=== PATIENT | female | born 1955 | race Caucasian/White ===

== ENCOUNTER 2017-09-27 14:48 | Inpatient (IN) | payer MEDICARE, OTHER ==
[2017-09-27] MEDS ORDERED: Ondansetron 4 MG/2 ML SDV IV PRN (15:50)
[2017-09-27] MEDS ORDERED: Sodium Chloride 0.9% 10 ML Syringe FLUSH PRN (15:50)
[2017-09-27] MEDS ORDERED: Magnesium Hydroxide 400 MG/5 ML Susp 30 ML Cup PO PRN (15:50)
[2017-09-27] MEDS ORDERED: Polyethylene Glycol 3350 Powder 17 GM Packet PO PRN (15:50)
[2017-09-27] MEDS ORDERED: Albuterol 0.083% 2.5 MG/3 ML Neb Soln NEB PRN (15:50)
[2017-09-27] MEDS ORDERED: Acetaminophen 325 MG Tab PO PRN (15:50)
[2017-09-27] MEDS ORDERED: Non-Formulary Medication 1 Each (Simvastatin [Zocor] 40 MG) PO SCH (16:00)
--- NOTE | 2017-09-27 16:03 | PCM.HP ---
H&P History of Present Illness - General Date of Service: 09/27/17 Admit Problem/Dx: Admission Diagnosis/Problem Admission Diagnosis/Problem Pneumonia Source of Information: Patient, Old Records, Provider, RN Notes Reviewed History Limitations: Reports: No Limitations - History of Present Illness Initial Comments - Free Text/Narative: Ms. Amezcua is a 61-year-old woman who is admitted as a direct admission from the walk-in clinic, with acute hypoxic respiratory failure secondary to bilateral pneumonia. She has a known history of COPD as well as underlying diastolic congestive heart failure. For the past 4 days his had progressive increase in shortness of breath and presented to the walk-in clinic earlier today for evaluation. On initial assessment she was found to be hypoxic with oxygen saturation in the 70s on room air. Oxygenation improved after she was placed on supplemental oxygen 2 L/m via nasal cannula and her respiratory rate decreased to the low 20s. White blood cell count was found to be elevated and chest x-ray showed evidence of bilateral pulmonary infiltrates. Over the past 4 days in addition to the progressive shortness of breath she has had a cough productive of colored sputum with associated fever, chills, and sweats. Generalized Pain Score (Numeric/FACES): 0 - Related Data Allergies/Adverse Reactions: Allergies Allergy/AdvReac Type Severity Reaction Status Date / Time No Known Allergies Allergy Verified 01/18/16 16:53 Home Medications: Home Meds Levothyroxine 125 mcg PO DAILY 07/21/13 [History] Simvastatin [Zocor] 40 mg PO ACDINNER 07/21/13 [History] Albuterol [Proventil HFA] 1 puff INH Q4H PRN 12/15/15 [History] Albuterol/Ipratropium [DuoNeb 3.0-0.5 MG/3 ML] 3 ml IH Q4H PRN 12/15/15 [History ] Aspirin [Children's Aspirin] 81 mg PO DAILY 12/15/15 [History] FLUoxetine [PROzac] 20 mg PO DAILY 12/15/15 [History] Ferrous Sulfate 325 mg PO QAM 12/15/15 [History] Fluticasone/Salmeterol [Advair Diskus 100-50] 1 puff INH BID 12/15/15 [History] Furosemide [Lasix] 20 mg PO DAILY 12/15/15 [History] Metoprolol Succinate [Toprol XL] 25 mg PO DAILY 12/15/15 [History] Multivitamin with Minerals [Multiple Vitamin] 1 tab PO DAILY 12/15/15 [History] Nitroglycerin [Nitrostat] 0.4 mg SL ASDIRECTED 12/15/15 [History] Potassium Chloride 10 meq PO DAILY 12/15/15 [History] Ranitidine [Zantac] 150 mg PO DAILY 12/15/15 [History] Past Medical History HEENT History: Reports: Impaired Vision Cardiovascular History: Reports: Bypass, Heart Failure, High Cholesterol, Hypertension, Other (See Below) Other Cardiovascular History: hx of aortic valve replaced 2012,CHF Respiratory History: Reports: Asthma, COPD Gastrointestinal History: Reports: GERD Genitourinary History: Reports: Renal Calculus [employer] History: Reports: Musculoskeletal History: Reports: Arthritis Other Musculoskeletal History: arthritis Psychiatric History: Reports: Depression Endocrine/Metabolic History: Reports: Hypoparathyroidism, Obesity/BMI 30+ - Infectious Disease History Infectious Disease History: Reports: Chicken Pox, Measles - Past Surgical History Cardiovascular Surgical History: Reports: Coronary Artery Bypass, Valve Replacement Musculoskeletal Surgical History: Reports: Arthroscopic Knee Social & Family History - Family History Cardiac: Reports: CAD Respiratory: Reports: Asthma, COPD OBGYN: Reports: Musculoskeletal: Reports: Arthritis Neurological: Reports: Vertigo Psychiatric: Reports: OCD Oncologic: Reports: Brain, Lung - Caffeine Use Caffeine Use: Reports: Coffee H&P Review of Systems - Review of Systems: Review Of Systems: See Below General: Reports: Fever, Chills, Weakness, Diaphoresis, Decreased Appetite HEENT: Reports: No Symptoms Pulmonary: Reports: Shortness of Breath, Wheezing, Cough, Sputum. Denies: Pleuritic Chest Pain, Hemoptysis Cardiovascular: Reports: Dyspnea on Exertion. Denies: Chest Pain, Palpitations , Orthopnea, PND, Edema, Lightheadedness Gastrointestinal: Reports: No Symptoms Genitourinary: Reports: No Symptoms Musculoskeletal: Reports: No Symptoms Skin: Reports: No Symptoms Psychiatric: Reports: No Symptoms Neurological: Reports: No Symptoms Hematologic/Lymphatic: Reports: No Symptoms Immunologic: Reports: No Symptoms Exam - Exam Exam: See Below - Vital Signs Vital Signs: Last Vital Signs Temp 101.0 F H 09/27/17 15:32 Pulse 71 09/27/17 15:32 Resp 20 09/27/17 15:32 BP 104/67 09/27/17 15:32 Pulse Ox 93 L 09/27/17 15:32 Weight: 224 lb 8 oz - Exam Quality Assessment: Supplemental Oxygen, DVT Prophylaxis General: Alert, Oriented, Cooperative, Mild Distress HEENT: Conjunctiva Clear, Hearing Intact, Mucosa Moist & [place], Normal Nasal Septum, Posterior Pharynx Clear, Pupils Equal Neck: Supple, Trachea Midline, +2 Carotid Pulse wo Bruit Lungs: Decreased Breath Sounds, Wheezing. No: Crackles, Rales, Rhonchi, Rub Cardiovascular: Regular Rate, Regular Rhythm, Normal S1, Normal S2. No: Systolic Murmur, Diastolic Murmur GI/Abdominal Exam: Soft, Non-Tender, No Organomegaly, No Distention Back Exam: Normal Inspection, Full Range of Motion Extremities: Non-Tender, No Pedal Edema Skin: Warm, Dry Neurological: Cranial Nerves Intact, Strength Equal Bilateral, Normal Speech, Normal Tone, Sensation Intact. No: Focal Deficit Neuro Extensive - Mental Status: Alert, Oriented x3, Normal Mood/Affect, Normal Cognition, Memory Intact *Q Meaningful Use (ADM) - VTE Risk Assess *Q Each Risk Factor Represents 1 Point: Obesity ( BMI > 25 kg/m2), Congestive heart failure (CHF), Abnormal Pulmonary Function (COPD) Total Score 1 Point Risk Factors: 3 Each Risk Factor Represents 2 Points: Age 60 - 74 Years Total Score 2 Point Risk Factors: 2 Each Risk Factor Represents 3 Points: None Total Score 3 Point Risk Factors: 0 Each Risk Factor Represents 5 Points: None Total Score 5 Point Risk Factors: 0 Venous Thromboembolism Risk Factor Score *Q: 5 Problem List Initiated/Reviewed/Updated: Yes Orders Last 24hrs: Active Orders 24 hr Category Date Time Status Patient Status [ADT] Routine ADT 09/27/17 15:50 Active Ambulate [RC] QID Care 09/27/17 15:50 Active Height and Weight [RC] DAILY Care 09/27/17 15:50 Active Intake and Output [RC] QSHIFT Care 09/27/17 15:50 Active Notify Provider Vital Signs [RC] ASDIRECTED Care 09/27/17 15:50 Active Oxygen Therapy [RC] PRN Care 09/27/17 15:50 Active Pulse Oximetry [RC] CONTINUOUS Care 09/27/17 15:52 Active RT Aerosol Therapy [RC] ASDIRECTED Care 09/27/17 15:53 Active Up With Assistance [RC] ASDIRECTED Care 09/27/17 15:50 Active Up to Chair [RC] QID Care 09/27/17 15:50 Active VTE/DVT Education [RC] Per Unit Routine Care 09/27/17 15:50 Active Vital Signs [RC] Q4H Care 09/27/17 15:50 Active 2 Gram Sodium Diet [DIET] Diet 09/27/17 Lunch Active BASIC METABOLIC PANEL,BMP [CHEM] AM Lab 09/28/17 05:11 Ordered BLOOD GAS ARTERIAL [BG] Stat Lab 09/27/17 15:50 Ordered CBC WITH AUTO DIFF [HEME] AM Lab 09/28/17 05:11 Ordered CULTURE BLOOD [BC] Stat Lab 09/27/17 15:50 Ordered CULTURE BLOOD [BC] Stat Lab 09/27/17 15:50 Ordered CULTURE RESPIRATORY + SMEAR [RM] Stat Lab 09/27/17 15:50 Ordered MAGNESIUM [CHEM] AM Lab 09/28/17 05:11 Ordered Acetaminophen [Tylenol] Med 09/27/17 15:50 Ordered 650 mg PO Q4H PRN Albuterol [Proventil Neb Soln] Med 09/27/17 15:50 Ordered 2.5 mg NEB Q4H PRN Albuterol/Ipratropium [DuoNeb 3.0-0.5 MG/3 ML] Med 09/27/17 16:00 Ordered 3 ml NEB QID Aspirin Med 09/28/17 09:00 Ordered 81 mg PO DAILY Azithromycin [Zithromax] 500 mg Med 09/27/17 16:00 Ordered Sodium Chloride 0.9% [Normal Saline] 250 ml IV Q24H Docusate Sodium/Sennosides [Senna Plus] Med 09/27/17 15:50 Ordered 1 tab PO BID PRN Enoxaparin [Lovenox] Med 09/27/17 16:00 Ordered 40 mg SUBCUT DAILY FLUoxetine [PROzac] Med 09/27/17 16:00 Ordered 20 mg PO DAILY Ferrous Sulfate Med 09/28/17 09:00 Ordered 325 mg PO QAM Fluticasone/Salmeterol [Advair Diskus 100-50] Med 09/27/17 21:00 Ordered 1 puff INH BID Furosemide [Lasix] Med 09/28/17 09:00 Ordered 20 mg PO DAILY Levothyroxine [Levothyroxine] Med 09/28/17 09:00 Ordered 125 mcg PO DAILY Magnesium Hydroxide [Milk of Magnesia] Med 09/27/17 15:50 Ordered 30 ml PO Q12H PRN Metoprolol Succinate [Toprol XL] Med 09/28/17 09:00 Ordered 25 mg PO DAILY Ondansetron [Zofran] Med 09/27/17 15:50 Ordered 4 mg IV Q4H PRN Polyethylene Glycol 3350 [MiraLAX] Med 09/27/17 15:50 Ordered 17 gm PO DAILY PRN Potassium Chloride Med 09/28/17 09:00 Ordered 10 meq PO DAILY Ranitidine [Zantac] Med 09/28/17 09:00 Ordered 150 mg PO DAILY Simvastatin [Zocor] Med 09/27/17 16:00 Ordered 40 mg PO ACDINNER Sodium Chloride 0.9% [Saline Flush] Med 09/27/17 15:50 Ordered 10 ml FLUSH ASDIRECTED PRN cefTRIAXone [Rocephin] 1 gm Med 09/27/17 16:00 Ordered Sodium Chloride 0.9% [Normal Saline] 50 ml IV Q24H methylPREDNISolone Sod Succ [Solu-MEDROL] Med 09/27/17 16:00 Ordered 40 mg IVPUSH Q6H Blood Culture x2 Reflex Set [OM.PC] Stat Oth 09/27/17 15:54 Ordered Saline Lock Insert [OM.PC] Routine Oth 09/27/17 15:50 Ordered Resuscitation Status Routine Resus Stat 09/27/17 15:50 Ordered Medication Orders Acetaminophen (Tylenol) 650 mg PO Q4H PRN PRN Reason: Pain (Mild 1-3)/fever Albuterol (Proventil Neb Soln) 2.5 mg NEB Q4H PRN PRN Reason: Shortness Of Breath/wheezing Albuterol/Ipratropium (Duoneb 3.0-0.5 Mg/3 Ml) 3 ml NEB QID [facility] Aspirin (Aspirin) 81 mg PO DAILY [facility] Enoxaparin Sodium (Lovenox) 40 mg SUBCUT DAILY [facility] Ferrous Sulfate (Ferrous Sulfate) 325 mg PO QAM [facility] Fluoxetine HCl (Prozac) 20 mg PO DAILY [facility] Furosemide (Lasix) 20 mg PO DAILY [facility] Azithromycin 500 mg/ Sodium (Chloride) 250 mls @ 250 mls/hr IV Q24H [facility] Ceftriaxone Sodium 1 gm/ (Sodium Chloride) 50 mls @ 100 mls/hr IV Q24H [facility] Magnesium Hydroxide (Milk Of Magnesia) 30 ml PO Q12H PRN PRN Reason: Constipation Methylprednisolone Sodium Succinate (Solu-Medrol) 40 mg IVPUSH Q6H [facility] Metoprolol Succinate (Toprol Xl) 25 mg PO DAILY [facility] Non-Formulary Medication (Fluticasone/Salmeterol [Advair Diskus 100-50]) 1 puff INH BID [facility] Non-Formulary Medication (Levothyroxine [Levothyroxine]) 125 mcg PO DAILY [facility] Non-Formulary Medication (Simvastatin [Zocor]) 40 mg PO ACDINNER [facility] Ondansetron HCl (Zofran) 4 mg IV Q4H PRN PRN Reason: Nausea/Vomiting Polyethylene Glycol (Miralax) 17 gm PO DAILY PRN PRN Reason: Constipation Potassium Chloride (Potassium Chloride) 10 meq PO DAILY [facility] Ranitidine HCl (Zantac) 150 mg PO DAILY [facility] Senna/Docusate Sodium (Senna Plus) 1 tab PO BID PRN PRN Reason: Constipation Sodium Chloride (Saline Flush) 10 ml FLUSH ASDIRECTED PRN PRN Reason: Keep Vein Open Assessment/Plan Comment:: ASSESSMENT AND PLAN BILATERAL PNEUMONIA-no evidence of sepsis, but she has developed significant respiratory compromise. Symptoms of fever, chills, diaphoresis, shortness of breath, and productive cough over the past 4 days. Chest x-ray at the clinic shows evidence of bilateral pulmonary infiltrates, with elevated white blood cell count. -Blood and sputum cultures pending -Solu-Medrol 40 mg IV every 6 hours -Nebulized albuterol and duo nebs -Supplemental oxygen as needed -IV azithromycin and Rocephin, pending culture results HYPOXIC RESPIRATORY FAILURE-secondary to pneumonia and underlying COPD -Management as above COPD WITH EXACERBATION SECONDARY TO PNEUMONIA DIASTOLIC CONGESTIVE HEART FAILURE-seems to be well compensated at the present time and not a significant component of respiratory compromise -Continue outpatient management CHRONIC KIDNEY DISEASE STAGE III -Closely monitor urine output and renal function MAINTENANCE ISSUES -DVT prophylaxis; Lovenox 40 mg subcutaneous daily -GI prophylaxis; not indicated -Connell catheter; not indicated -Nutrition; 2 g sodium diet -Nicotine dependence; not required CODE STATUS-FULL CODE ADMISSION STATUS-patient will be admitted to inpatient status, expect at least a 2 night hospital stay for evaluation and management of problems as outlined above. At the time of this admission I do not reasonably expected evaluation and management of this problem will require more than a 96 hour hospital stay. DISPOSITION-anticipate discharge to home after the hospital stay. PRIMARY CARE PROVIDER-Martha Tracy
[2017-09-27] MEDS: cefTRIAXone 1 GM in Sodium Chloride 0.9% 50 ML IV SCH (17:18)
[2017-09-27] MEDS: Albuterol/Ipratropium 3.0-0.5 MG/3 ML Neb Soln NEB SCH ×2 (17:18→20:29)
[2017-09-27] MEDS: methylPREDNISolone Sodium Succinate 40 MG/1 ML SDV IVPUSH SCH ×2 (17:18→20:59)
[2017-09-27] MEDS: Azithromycin 500 MG in Sodium Chloride 0.9% 250 ML IV SCH (17:19)
[2017-09-27] MEDS: Simvastatin 20 MG Tab PO SCH (17:25)
[2017-09-27] MEDS: FLUoxetine 20 MG Cap PO SCH (17:25)
[2017-09-27] MEDS: Enoxaparin 40 MG/0.4 ML Syringe SUBCUT SCH (17:25)
[2017-09-27] MEDS: Aspirin 81 MG Tab.Chew PO SCH (17:33)
[2017-09-27] MEDS: Metoprolol Succinate 25 MG Tab.ER PO SCH (17:36)
[2017-09-27] MEDS: Formoterol/Mometasone 100-5 MCG 8.8 GM Inhaler IH SCH (20:26)
[2017-09-27] MEDS ORDERED: Non-Formulary Medication 1 Each (Fluticasone/Salmeterol [Advair Diskus 100-50] 1 PUFF) INH SCH (21:00)
[2017-09-28] MEDS: methylPREDNISolone Sodium Succinate 40 MG/1 ML SDV IVPUSH SCH ×4 (03:17→21:01)
[2017-09-28] MEDS: Albuterol/Ipratropium 3.0-0.5 MG/3 ML Neb Soln NEB SCH ×4 (07:34→21:01)
[2017-09-28] MEDS: Formoterol/Mometasone 100-5 MCG 8.8 GM Inhaler IH SCH ×2 (07:34→07:51)
[2017-09-28] MEDS: Levothyroxine 100 MCG, Levothyroxine 25 MCG PO SCH ×2 (08:02)
[2017-09-28] MEDS: Ferrous Sulfate 325 MG Tab PO SCH (08:05)
[2017-09-28] MEDS: Potassium Chloride 10 MEQ Cap.ER PO SCH (08:05)
[2017-09-28] MEDS: Furosemide 20 MG Tab PO SCH (08:05)
[2017-09-28] MEDS: FLUoxetine 20 MG Cap PO SCH (08:06)
[2017-09-28] MEDS ORDERED: Non-Formulary Medication 1 Each (Levothyroxine [Levothyroxine] 125 MCG) PO SCH (09:00)
--- NOTE | 2017-09-28 14:08 | PCM.PN ---
- General Info Date of Service: 09/28/17 Subjective Update: Ms. Amezcua has been stable since admission, continues to require supplemental oxygen and does desaturate with activity. Vital signs have been stable and she has remained afebrile. Functional Status: Reports: Tolerating Diet, Ambulating, Urinating - Review of Systems General: Reports: Weakness. Denies: Fever, Chills Pulmonary: Reports: Shortness of Breath, Cough, Sputum, Wheezing. Denies: Pleuritic Chest Pain, Hemoptysis Cardiovascular: Reports: Dyspnea on Exertion. Denies: Chest Pain, Palpitations , Orthopnea, PND, Edema Gastrointestinal: Reports: No Symptoms - Patient Data Vitals - Most Recent: Last Vital Signs Temp 96.4 F 09/28/17 11:04 Pulse 54 L 09/28/17 11:04 Resp 20 09/28/17 11:04 BP 105/50 L 09/28/17 11:04 Pulse Ox 93 L 09/28/17 13:26 Weight - Most Recent: 222 lb 15.996 oz I&O - Last 24 Hours: Intake & Output 09/27/17 09/28/17 09/28/17 22:59 06:59 14:59 Intake Total 300 660 Output Total 300 200 450 Balance 0 -200 210 Lab Results Last 24 Hours: Laboratory Results - last 24 hr 09/27/17 09/28/17 09/28/17 Range/Units 16:16 05:52 05:52 WBC 11.0 (4.5-11.0) K/uL RBC 4.21 (3.30-5.50) M/uL Hgb 11.9 L (12.0-15.0) g/dL Hct 37.7 (36.0-48.0) % MCV 90 (80-98) fL MCH 28 (27-31) pg MCHC 32 (32-36) % Plt Count 204 (150-400) K/uL Neut % (Auto) 89 H (36-66) % Lymph % (Auto) 9 L (24-44) % Lamb % (Auto) 2 (2-6) % Eos % (Auto) 0 L (2-4) % Baso % (Auto) 0 (0-1) % Puncture Site Lt radial ABG pH 7.486 H (7.350-7.450) ABG pCO2 32.4 L (35.0-42.0) mmHg ABG pO2 68.3 L (75.0-100.0) mmHg ABG HCO3 24.2 (22.0-26.0) mmol/L ABG Total CO2 21.6 (21.0-25.0) mmol/L ABG O2 Saturation 94.4 L (95.0-98.0) % ABG O2 Content 15.5 (15.0-23.0) %vol ABG Base Excess 1.6 mm/L ABG Hemoglobin 12.0 (12.0-16.0) g/dL ABG Oxyhemoglobin 92.3 % ABG Carboxyhemoglobin 1.7 H (0.0-1.6) % ABG Methemoglobin 0.5 % Jose Test Pass O2 Delivery Device Nasal cannula Oxygen Flow Rate 2 L Sodium 140 (140-148) mmol/L Potassium 4.3 (3.6-5.2) mmol/L Chloride 104 (100-108) mmol/L Carbon Dioxide 27 (21-32) mmol/L Anion Gap 8.8 (5.0-14.0) mmol/L BUN 17 (7-18) mg/dL Creatinine 1.0 (0.6-1.0) mg/dL Est Cr Clr Drug Dosing 48.25 mL/min Estimated GFR (MDRD) 56 L (>60) Glucose 161 H (74-106) mg/dL Calcium 9.1 (8.5-10.1) mg/dL Magnesium 2.4 (1.8-2.4) mg/dL Ivan Results Last 24 Hours: Microbiology 09/28/17 09:27 Gram Stain - Final Sputum - Expectorated Med Orders - Current: Current Medications Acetaminophen (Tylenol) 650 mg PO Q4H PRN PRN Reason: Pain (Mild 1-3)/fever Last Admin: 09/27/17 17:52 Dose: 650 mg Albuterol (Proventil Neb Soln) 2.5 mg NEB Q4H PRN PRN Reason: Shortness Of Breath/wheezing Albuterol/Ipratropium (Duoneb 3.0-0.5 Mg/3 Ml) 3 ml NEB QIDRT [facility] Last Admin: 09/28/17 10:36 Dose: 3 ml Aspirin (Aspirin) 81 mg PO DAILY@1700 [facility] Last Admin: 09/27/17 17:33 Dose: 81 mg Enoxaparin Sodium (Lovenox) 40 mg SUBCUT Q24H [facility] Last Admin: 09/27/17 17:25 Dose: 40 mg Ferrous Sulfate (Ferrous Sulfate) 325 mg PO QAM [facility] Last Admin: 09/28/17 08:05 Dose: 325 mg Fluoxetine HCl (Prozac) 20 mg PO DAILY [facility] Last Admin: 09/28/17 08:06 Dose: 20 mg Furosemide (Lasix) 20 mg PO DAILY [facility] Last Admin: 09/28/17 08:05 Dose: 20 mg Azithromycin 500 mg/ Sodium (Chloride) 250 mls @ 250 mls/hr IV Q24H [facility] Last Admin: 09/27/17 17:19 Dose: 250 mls/hr Ceftriaxone Sodium 1 gm/ (Sodium Chloride) 50 mls @ 100 mls/hr IV Q24H [facility] Last Admin: 09/27/17 17:18 Dose: 100 mls/hr Levothyroxine Sodium 100 mcg/ (Levothyroxine Sodium 25 mcg) 125 mcg PO ACBREAKFAST [facility] Last Admin: 09/28/17 08:02 Dose: 125 mcg Magnesium Hydroxide (Milk Of Magnesia) 30 ml PO Q12H PRN PRN Reason: Constipation Methylprednisolone Sodium Succinate (Solu-Medrol) 40 mg IVPUSH Q6H [facility] Last Admin: 09/28/17 09:15 Dose: 40 mg Metoprolol Succinate (Toprol Xl) 25 mg PO DAILY@1700 [facility] Last Admin: 09/27/17 17:36 Dose: 25 mg Fluticasone/Salmeterol (Advair) Inh 100-50Pom 1 puff INH BIDRT [facility] Ondansetron HCl (Zofran) 4 mg IV Q4H PRN PRN Reason: Nausea/Vomiting Polyethylene Glycol (Miralax) 17 gm PO DAILY PRN PRN Reason: Constipation Potassium Chloride (Potassium Chloride) 10 meq PO DAILY [facility] Last Admin: 09/28/17 08:05 Dose: 10 meq Ranitidine HCl (Zantac) 150 mg PO DAILY [facility] Last Admin: 09/28/17 08:05 Dose: 150 mg Senna/Docusate Sodium (Senna Plus) 1 tab PO BID PRN PRN Reason: Constipation Simvastatin (Zocor) 40 mg PO QPM [facility] Last Admin: 09/27/17 17:25 Dose: 40 mg Sodium Chloride (Saline Flush) 10 ml FLUSH ASDIRECTED PRN PRN Reason: Keep Vein Open Discontinued Medications Mometasone Furoate/Formoterol Fumar (Dulera 100-5 Mcg) 2 puff IH BIDRT [facility] Last Admin: 09/28/17 07:51 Dose: Not Given - Exam Quality Assessment: Supplemental Oxygen, DVT Prophylaxis General: Alert, Oriented, Cooperative, Mild Distress Lungs: Decreased Breath Sounds, Wheezing. No: Rales, Rhonchi Cardiovascular: Regular Rate, Regular Rhythm, No Murmurs GI/Abdominal Exam: Soft, Non-Tender, No Organomegaly, No Distention Extremities: Non-Tender, No Pedal Edema Skin: Warm, Dry - Problem List Review Problem List Initiated/Reviewed/Updated: Yes - My Orders Last 24 Hours: My Active Orders 09/27/17 15:50 Patient Status [ADT] Routine Ambulate [RC] QID Height and Weight [RC] DAILY Intake and Output [RC] QSHIFT Notify Provider Vital Signs [RC] ASDIRECTED Oxygen Therapy [RC] PRN Up With Assistance [RC] ASDIRECTED Up to Chair [RC] QID VTE/DVT Education [RC] Per Unit Routine Vital Signs [RC] Q4H Acetaminophen [Tylenol] 650 mg PO Q4H PRN Albuterol [Proventil Neb Soln] 2.5 mg NEB Q4H PRN Docusate Sodium/Sennosides [Senna Plus] 1 tab PO BID PRN Magnesium Hydroxide [Milk of Magnesia] 30 ml PO Q12H PRN Ondansetron [Zofran] 4 mg IV Q4H PRN Polyethylene Glycol 3350 [MiraLAX] 17 gm PO DAILY PRN Sodium Chloride 0.9% [Saline Flush] 10 ml FLUSH ASDIRECTED PRN Saline Lock Insert [OM.PC] Routine Resuscitation Status Routine 09/27/17 15:52 Pulse Oximetry [RC] CONTINUOUS 09/27/17 15:53 RT Aerosol Therapy [RC] ASDIRECTED 09/27/17 15:54 Blood Culture x2 Reflex Set [OM.PC] Stat 09/27/17 16:00 Albuterol/Ipratropium [DuoNeb 3.0-0.5 MG/3 ML] 3 ml NEB QIDRT methylPREDNISolone Sod Succ [Solu-MEDROL] 40 mg IVPUSH Q6H 09/27/17 16:10 CULTURE BLOOD [BC] Stat 09/27/17 16:16 CULTURE BLOOD [BC] Stat 09/27/17 16:30 Azithromycin [Zithromax] 500 mg Sodium Chloride 0.9% [Normal Saline] 250 ml IV Q24H 09/27/17 17:00 Aspirin 81 mg PO DAILY@1700 FLUoxetine [PROzac] 20 mg PO DAILY Metoprolol Succinate [Toprol XL] 25 mg PO DAILY@1700 Simvastatin [Zocor] 40 mg PO QPM cefTRIAXone [Rocephin] 1 gm Sodium Chloride 0.9% [Normal Saline] 50 ml IV Q24H 09/27/17 18:00 Enoxaparin [Lovenox] 40 mg SUBCUT Q24H 09/28/17 07:30 Levothyroxine [Synthroid] 125 mcg PO ACBREAKFAST 09/28/17 09:00 Ferrous Sulfate 325 mg PO QAM Furosemide [Lasix] 20 mg PO DAILY Potassium Chloride 10 meq PO DAILY Ranitidine [Zantac] 150 mg PO DAILY 09/28/17 09:27 CULTURE RESPIRATORY + SMEAR [RM] Stat 09/28/17 21:00 Fluticasone/Salmeterol [Advair Diskus 100-50] 1 puff INH BIDRT - Plan Plan:: ASSESSMENT AND PLAN BILATERAL PNEUMONIA-mild to moderate improvement since admission, continues to require supplemental oxygen -Blood and sputum cultures pending -Solu-Medrol 40 mg IV every 6 hours -Nebulized albuterol and duo nebs -Supplemental oxygen as needed -IV azithromycin and Rocephin, pending culture results HYPOXIC RESPIRATORY FAILURE-secondary to pneumonia and underlying COPD -Management as above COPD WITH EXACERBATION SECONDARY TO PNEUMONIA DIASTOLIC CONGESTIVE HEART FAILURE-seems to be well compensated at the present time and not a significant component of respiratory compromise -Continue outpatient management CHRONIC KIDNEY DISEASE STAGE III -Closely monitor urine output and renal function MAINTENANCE ISSUES -DVT prophylaxis; Lovenox 40 mg subcutaneous daily -GI prophylaxis; not indicated -Connell catheter; not indicated -Nutrition; 2 g sodium diet -Nicotine dependence; not required CODE STATUS-FULL CODE ADMISSION STATUS-patient will be admitted to inpatient status, expect at least a 2 night hospital stay for evaluation and management of problems as outlined above. At the time of this admission I do not reasonably expected evaluation and management of this problem will require more than a 96 hour hospital stay. DISPOSITION-anticipate discharge to home after the hospital stay. PRIMARY CARE PROVIDER-Martha Tracy
[2017-09-28] MEDS: Azithromycin 500 MG in Sodium Chloride 0.9% 250 ML IV SCH (16:06)
[2017-09-28] MEDS: cefTRIAXone 1 GM in Sodium Chloride 0.9% 50 ML IV SCH (17:17)
[2017-09-28] MEDS: Aspirin 81 MG Tab.Chew PO SCH (17:20)
[2017-09-28] MEDS: Simvastatin 20 MG Tab PO SCH (17:20)
[2017-09-28] MEDS: Metoprolol Succinate 25 MG Tab.ER PO SCH (17:42)
[2017-09-28] MEDS: Enoxaparin 40 MG/0.4 ML Syringe SUBCUT SCH (17:43)
[2017-09-28] MEDS: FLUTICASONE INH SCH (21:01)
[2017-09-28] MEDS: SALMETEROL INH SCH (21:01)
[2017-09-29] MEDS: methylPREDNISolone Sodium Succinate 40 MG/1 ML SDV IVPUSH SCH ×2 (03:19→09:50)
[2017-09-29] MEDS: Albuterol/Ipratropium 3.0-0.5 MG/3 ML Neb Soln NEB SCH ×4 (07:18→20:16)
[2017-09-29] MEDS: FLUTICASONE INH SCH ×2 (07:19→20:16)
[2017-09-29] MEDS: SALMETEROL INH SCH ×2 (07:19→20:16)
[2017-09-29] MEDS: Levothyroxine 100 MCG, Levothyroxine 25 MCG PO SCH ×2 (08:01)
[2017-09-29] MEDS: Potassium Chloride 10 MEQ Cap.ER PO SCH (08:11)
[2017-09-29] MEDS: FLUoxetine 20 MG Cap PO SCH (08:11)
[2017-09-29] MEDS: Ferrous Sulfate 325 MG Tab PO SCH (08:11)
[2017-09-29] MEDS: Furosemide 20 MG Tab PO SCH (08:11)
--- NOTE | 2017-09-29 14:46 | PCM.PN ---
- General Info Date of Service: 09/29/17 Subjective Update: Ms. Amzecua has been stable over the past 24 hours and has noted further improvement in shortness of breath. This morning she has adequate oxygenation on room air, vital signs have been stable and she has remained afebrile. - Review of Systems General: Reports: Weakness. Denies: Fever, Chills Pulmonary: Reports: Shortness of Breath, Cough. Denies: Pleuritic Chest Pain, Sputum, Hemoptysis, Wheezing Cardiovascular: Reports: Dyspnea on Exertion. Denies: Chest Pain, Palpitations , Orthopnea, PND, Edema Gastrointestinal: Reports: No Symptoms - Patient Data Vitals - Most Recent: Last Vital Signs Temp 97.1 F 09/29/17 11:17 Pulse 73 09/29/17 14:27 Resp 16 09/29/17 11:17 BP 107/43 L 09/29/17 11:17 Pulse Ox 93 L 09/29/17 14:27 Weight - Most Recent: 224 lb 9.6 oz I&O - Last 24 Hours: Intake & Output 09/28/17 09/29/17 09/29/17 22:59 06:59 14:59 Intake Total 900 940 Output Total 200 500 Balance 700 440 Ivan Results Last 24 Hours: Microbiology 09/28/17 09:27 Gram Stain - Final Sputum - Expectorated Respiratory Culture - Preliminary 09/27/17 16:10 Aerobic Blood Culture - Preliminary Blood - Arm, Left NO GROWTH AFTER 1 DAY Anaerobic Blood Culture - Preliminary NO GROWTH AFTER 1 DAY 09/27/17 16:16 Aerobic Blood Culture - Preliminary Blood - Artery NO GROWTH AFTER 1 DAY Anaerobic Blood Culture - Preliminary NO GROWTH AFTER 1 DAY Med Orders - Current: Current Medications Acetaminophen (Tylenol) 650 mg PO Q4H PRN PRN Reason: Pain (Mild 1-3)/fever Last Admin: 09/27/17 17:52 Dose: 650 mg Albuterol (Proventil Neb Soln) 2.5 mg NEB Q4H PRN PRN Reason: Shortness Of Breath/wheezing Albuterol/Ipratropium (Duoneb 3.0-0.5 Mg/3 Ml) 3 ml NEB QIDRT [facility] Last Admin: 09/29/17 14:27 Dose: 3 ml Aspirin (Aspirin) 81 mg PO DAILY@1700 [facility] Last Admin: 09/28/17 17:20 Dose: 81 mg Enoxaparin Sodium (Lovenox) 40 mg SUBCUT Q24H [facility] Last Admin: 09/28/17 17:43 Dose: 40 mg Ferrous Sulfate (Ferrous Sulfate) 325 mg PO QAM [facility] Last Admin: 09/29/17 08:11 Dose: 325 mg Fluoxetine HCl (Prozac) 20 mg PO DAILY [facility] Last Admin: 09/29/17 08:11 Dose: 20 mg Furosemide (Lasix) 20 mg PO DAILY [facility] Last Admin: 09/29/17 08:11 Dose: 20 mg Azithromycin 500 mg/ Sodium (Chloride) 250 mls @ 250 mls/hr IV Q24H [facility] Last Admin: 09/28/17 16:06 Dose: 250 mls/hr Ceftriaxone Sodium 1 gm/ (Sodium Chloride) 50 mls @ 100 mls/hr IV Q24H [facility] Last Admin: 09/28/17 17:17 Dose: 100 mls/hr Levothyroxine Sodium 100 mcg/ (Levothyroxine Sodium 25 mcg) 125 mcg PO ACBREAKFAST [facility] Last Admin: 09/29/17 08:01 Dose: 125 mcg Magnesium Hydroxide (Milk Of Magnesia) 30 ml PO Q12H PRN PRN Reason: Constipation Methylprednisolone Sodium Succinate (Solu-Medrol) 40 mg IVPUSH Q6H [facility] Last Admin: 09/29/17 09:50 Dose: 40 mg Metoprolol Succinate (Toprol Xl) 25 mg PO DAILY@1700 [facility] Last Admin: 09/28/17 17:42 Dose: 25 mg Fluticasone/Salmeterol (Advair) Inh 100-50Pom 1 puff INH BIDRT [facility] Last Admin: 09/29/17 07:19 Dose: 1 puff Ondansetron HCl (Zofran) 4 mg IV Q4H PRN PRN Reason: Nausea/Vomiting Polyethylene Glycol (Miralax) 17 gm PO DAILY PRN PRN Reason: Constipation Potassium Chloride (Potassium Chloride) 10 meq PO DAILY [facility] Last Admin: 09/29/17 08:11 Dose: 10 meq Ranitidine HCl (Zantac) 150 mg PO DAILY [facility] Last Admin: 09/29/17 08:11 Dose: 150 mg Senna/Docusate Sodium (Senna Plus) 1 tab PO BID PRN PRN Reason: Constipation Simvastatin (Zocor) 40 mg PO QPM [facility] Last Admin: 09/28/17 17:20 Dose: 40 mg Sodium Chloride (Saline Flush) 10 ml FLUSH ASDIRECTED PRN PRN Reason: Keep Vein Open Discontinued Medications Mometasone Furoate/Formoterol Fumar (Dulera 100-5 Mcg) 2 puff IH BIDRT [facility] Last Admin: 09/28/17 07:51 Dose: Not Given - Exam Quality Assessment: DVT Prophylaxis. No: Supplemental Oxygen General: Alert, Oriented, Cooperative, No Acute Distress Lungs: Decreased Breath Sounds. No: Rales, Rhonchi, Wheezing Cardiovascular: Regular Rate, Regular Rhythm, No Murmurs GI/Abdominal Exam: Soft, Non-Tender, No Organomegaly, No Distention Extremities: Non-Tender, No Pedal Edema Skin: Warm, Dry, Intact - Problem List Review Problem List Initiated/Reviewed/Updated: Yes - My Orders Last 24 Hours: My Active Orders 09/28/17 21:00 Fluticasone/Salmeterol [Advair Diskus 100-50] 1 puff INH BIDRT - Plan Plan:: ASSESSMENT AND PLAN BILATERAL PNEUMONIA-mild to moderate improvement since admission, no longer requiring supplemental oxygen -Blood and sputum cultures pending -Discontinue Solu-Medrol 40 mg IV every 6 hours -Prednisone 40 mg by mouth daily -Nebulized albuterol and duo nebs -Supplemental oxygen as needed -IV azithromycin and Rocephin, pending culture results HYPOXIC RESPIRATORY FAILURE-secondary to pneumonia and underlying COPD -Management as above COPD WITH EXACERBATION SECONDARY TO PNEUMONIA DIASTOLIC CONGESTIVE HEART FAILURE-seems to be well compensated at the present time and not a significant component of respiratory compromise -Continue outpatient management CHRONIC KIDNEY DISEASE STAGE III -Closely monitor urine output and renal function MAINTENANCE ISSUES -DVT prophylaxis; Lovenox 40 mg subcutaneous daily -GI prophylaxis; not indicated -Connell catheter; not indicated -Nutrition; 2 g sodium diet -Nicotine dependence; not required CODE STATUS-FULL CODE ADMISSION STATUS-patient will be admitted to inpatient status, expect at least a 2 night hospital stay for evaluation and management of problems as outlined above. At the time of this admission I do not reasonably expected evaluation and management of this problem will require more than a 96 hour hospital stay. DISPOSITION-anticipate discharge to home after the hospital stay. PRIMARY CARE PROVIDER-Martha Tracy
[2017-09-29] MEDS: Azithromycin 500 MG in Sodium Chloride 0.9% 250 ML IV SCH (16:24)
[2017-09-29] MEDS: Aspirin 81 MG Tab.Chew PO SCH (16:33)
[2017-09-29] MEDS: Simvastatin 20 MG Tab PO SCH (16:33)
[2017-09-29] MEDS: Metoprolol Succinate 25 MG Tab.ER PO SCH (16:36)
[2017-09-29] MEDS: cefTRIAXone 1 GM in Sodium Chloride 0.9% 50 ML IV SCH (18:01)
[2017-09-29] MEDS: Enoxaparin 40 MG/0.4 ML Syringe SUBCUT SCH (18:02)
[2017-09-30] MEDS: Albuterol/Ipratropium 3.0-0.5 MG/3 ML Neb Soln NEB SCH ×2 (07:21→10:35)
[2017-09-30] MEDS: FLUTICASONE INH SCH (07:23)
[2017-09-30] MEDS: SALMETEROL INH SCH (07:23)
[2017-09-30] MEDS: Levothyroxine 100 MCG, Levothyroxine 25 MCG PO SCH ×2 (07:54)
[2017-09-30] MEDS ORDERED: predniSONE 20 MG Tab PO SCH (08:00)
[2017-09-30] MEDS: FLUoxetine 20 MG Cap PO SCH (08:22)
[2017-09-30] MEDS: Ferrous Sulfate 325 MG Tab PO SCH (08:22)
[2017-09-30] MEDS: Potassium Chloride 10 MEQ Cap.ER PO SCH (08:22)
[2017-09-30] MEDS: Furosemide 20 MG Tab PO SCH (08:22)
--- NOTE | 2017-09-30 12:40 | PCM.DCSUM1 ---
Discharge Summary - Hospital Course Brief History: Ms. Amezcua is a 61-year-old woman who is admitted as a direct admission from the clinic with hypoxia and shortness of breath secondary to bilateral pneumonia and COPD exacerbation. Diagnosis: Stroke: No - Discharge Data Discharge Date: 09/30/17 Discharge Disposition: Home, Self-Care 01 Condition: Fair - Discharge Diagnosis/Problem(s) (1) Hypoxia SNOMED Code(s): 783761638 ICD Code: R09.02 - HYPOXEMIA Status: Acute Current Visit: Yes (2) Bilateral pneumonia SNOMED Code(s): 871301660 ICD Code: J18.9 - PNEUMONIA, UNSPECIFIED ORGANISM Status: Acute Current Visit: No Qualifiers: Pneumonia type: due to unspecified organism Lung location: unspecified part of lung Qualified Code(s): J18.9 - Pneumonia, unspecified organism (3) COPD (chronic obstructive pulmonary disease) SNOMED Code(s): 17472385 ICD Code: J44.9 - CHRONIC OBSTRUCTIVE PULMONARY DISEASE, UNSPECIFIED Status : Chronic Current Visit: No - Patient Summary/Data Hospital Course: Ms. Amezcua is a 61-year-old woman who was admitted as a direct admission from the walk-in clinic, with acute hypoxic respiratory failure secondary to bilateral pneumonia. She has a known history of COPD as well as underlying diastolic congestive heart failure. For the past 4 days has had progressive increase in shortness of breath and presented to the walk-in clinic earlier on the day of admission for evaluation. On initial assessment she was found to be hypoxic with oxygen saturation in the 70s on room air. Oxygenation improved after she was placed on supplemental oxygen 2 L/m via nasal cannula and her respiratory rate decreased to the low 20s. White blood cell count was found to be elevated and chest x-ray showed evidence of bilateral pulmonary infiltrates. Over the past 4 days in addition to the progressive shortness of breath she has had a cough productive of colored sputum with associated fever, chills, and sweats. On admission there was no evidence of sepsis, she was continued on supplemental oxygen at 2 L/m which maintain adequate oxygenation. She was given IV fluids for hydration as well as IV antibiotic therapy with azithromycin and Rocephin. Blood and sputum cultures were obtained prior to initiation of antibiotic therapy. These cultures remained negative throughout her hospital stay. By the second hospital day oxygenation had improved and she had adequate saturations on room air. She initially did have temperature elevation but this resolved after admission with no recurrent fever spikes. She was transitioned to oral prednisone prior to discharge and will remain on oral prednisone 40 mg daily for an additional 3 days. At the time of discharge will be transitioned to oral antibiotic therapy with Omnicef 300 mg twice daily. By the time of discharge she completed a course of azithromycin. Activity will be as tolerated and she will resume her usual diet. Follow-up appointment will be scheduled with her primary care provider Martha Tracy within one week and a chest x-ray will be obtained at the time of follow-up appointment. - Patient Instructions Diet: Usual Diet as Tolerated Activity: As Tolerated Other/Special Instructions: Please schedule follow-up appointment with Martha Tracy within one week. Chest x-ray should be obtained at the time of follow-up appointment. - Discharge Plan Prescriptions/Med Rec: Cefdinir [Omnicef] 300 mg PO BID #6 cap predniSONE 40 mg PO WITHBREAKFAST #6 tablet Simvastatin [Zocor] 40 mg PO ACDINNER #30 tablet Home Medications: Home Meds Levothyroxine 125 mcg PO DAILY 07/21/13 [History] Albuterol [Proventil HFA] 1 puff INH Q4H PRN 12/15/15 [History] Albuterol/Ipratropium [DuoNeb 3.0-0.5 MG/3 ML] 3 ml IH Q4H PRN 12/15/15 [History ] Aspirin [Children's Aspirin] 81 mg PO DAILY 12/15/15 [History] FLUoxetine [PROzac] 20 mg PO DAILY 12/15/15 [History] Ferrous Sulfate 325 mg PO QAM 12/15/15 [History] Fluticasone/Salmeterol [Advair Diskus 100-50] 1 puff INH BID 12/15/15 [History] Furosemide [Lasix] 20 mg PO DAILY 12/15/15 [History] Metoprolol Succinate [Toprol XL] 25 mg PO DAILY 12/15/15 [History] Multivitamin with Minerals [Multiple Vitamin] 1 tab PO DAILY 12/15/15 [History] Nitroglycerin [Nitrostat] 0.4 mg SL ASDIRECTED 12/15/15 [History] Potassium Chloride 10 meq PO DAILY 12/15/15 [History] Ranitidine [Zantac] 150 mg PO DAILY 12/15/15 [History] Cefdinir [Omnicef] 300 mg PO BID #6 cap 09/30/17 [Rx] Simvastatin [Zocor] 40 mg PO ACDINNER #30 tablet 09/30/17 [Rx] predniSONE 40 mg PO WITHBREAKFAST #6 tablet 09/30/17 [Rx] - Discharge Summary/Plan Comment DC Time >30 min.: No - Patient Data Vitals - Most Recent: Last Vital Signs Temp 96.8 F 09/30/17 07:39 Pulse 60 09/30/17 10:35 Resp 20 09/30/17 07:39 BP 114/56 L 09/30/17 07:39 Pulse Ox 93 L 09/30/17 07:39 Weight - Most Recent: 226 lb 12.8 oz I&O - Last 24 hours: Intake & Output 09/29/17 09/30/17 09/30/17 22:59 06:59 14:59 Intake Total 1110 350 300 Output Total 350 200 Balance 760 350 100 MARIANA Results - Last 24 hrs: Microbiology 09/28/17 09:27 Gram Stain - Final Sputum - Expectorated Respiratory Culture - Final Yeast Isolated 09/27/17 16:10 Aerobic Blood Culture - Preliminary Blood - Arm, Left NO GROWTH AFTER 2 DAYS Anaerobic Blood Culture - Preliminary NO GROWTH AFTER 2 DAYS 09/27/17 16:16 Aerobic Blood Culture - Preliminary Blood - Artery NO GROWTH AFTER 2 DAYS Anaerobic Blood Culture - Preliminary NO GROWTH AFTER 2 DAYS Med Orders - Current: Current Medications Acetaminophen (Tylenol) 650 mg PO Q4H PRN PRN Reason: Pain (Mild 1-3)/fever Last Admin: 09/27/17 17:52 Dose: 650 mg Albuterol (Proventil Neb Soln) 2.5 mg NEB Q4H PRN PRN Reason: Shortness Of Breath/wheezing Albuterol/Ipratropium (Duoneb 3.0-0.5 Mg/3 Ml) 3 ml NEB QIDRT [facility] Last Admin: 09/30/17 10:35 Dose: 3 ml Aspirin (Aspirin) 81 mg PO DAILY@1700 [facility] Last Admin: 09/29/17 16:33 Dose: 81 mg Enoxaparin Sodium (Lovenox) 40 mg SUBCUT Q24H [facility] Last Admin: 09/29/17 18:02 Dose: 40 mg Ferrous Sulfate (Ferrous Sulfate) 325 mg PO QAM [facility] Last Admin: 09/30/17 08:22 Dose: 325 mg Fluoxetine HCl (Prozac) 20 mg PO DAILY [facility] Last Admin: 09/30/17 08:22 Dose: 20 mg Furosemide (Lasix) 20 mg PO DAILY [facility] Last Admin: 09/30/17 08:22 Dose: 20 mg Azithromycin 500 mg/ Sodium (Chloride) 250 mls @ 250 mls/hr IV Q24H [facility] Last Admin: 09/29/17 16:24 Dose: 250 mls/hr Ceftriaxone Sodium 1 gm/ (Sodium Chloride) 50 mls @ 100 mls/hr IV Q24H [facility] Last Admin: 09/29/17 18:01 Dose: 100 mls/hr Levothyroxine Sodium 100 mcg/ (Levothyroxine Sodium 25 mcg) 125 mcg PO ACBREAKFAST [facility] Last Admin: 09/30/17 07:54 Dose: 125 mcg Magnesium Hydroxide (Milk Of Magnesia) 30 ml PO Q12H PRN PRN Reason: Constipation Metoprolol Succinate (Toprol Xl) 25 mg PO DAILY@1700 [facility] Last Admin: 09/29/17 16:36 Dose: 25 mg Fluticasone/Salmeterol (Advair) Inh 100-50Pom 1 puff INH BIDRT [facility] Last Admin: 09/30/17 07:23 Dose: 1 puff Ondansetron HCl (Zofran) 4 mg IV Q4H PRN PRN Reason: Nausea/Vomiting Polyethylene Glycol (Miralax) 17 gm PO DAILY PRN PRN Reason: Constipation Potassium Chloride (Potassium Chloride) 10 meq PO DAILY [facility] Last Admin: 09/30/17 08:22 Dose: 10 meq Prednisone (Prednisone) 40 mg PO WITHBREAKFAST [facility] Last Admin: 09/30/17 07:54 Dose: 40 mg Ranitidine HCl (Zantac) 150 mg PO DAILY [facility] Last Admin: 09/30/17 08:22 Dose: 150 mg Senna/Docusate Sodium (Senna Plus) 1 tab PO BID PRN PRN Reason: Constipation Simvastatin (Zocor) 40 mg PO QPM [facility] Last Admin: 09/29/17 16:33 Dose: 40 mg Sodium Chloride (Saline Flush) 10 ml FLUSH ASDIRECTED PRN PRN Reason: Keep Vein Open Discontinued Medications Methylprednisolone Sodium Succinate (Solu-Medrol) 40 mg IVPUSH Q6H [facility] Last Admin: 09/29/17 09:50 Dose: 40 mg Mometasone Furoate/Formoterol Fumar (Dulera 100-5 Mcg) 2 puff IH BIDRT [facility] Last Admin: 09/28/17 07:51 Dose: Not Given - Exam General: Reports: Alert, Oriented, Cooperative, No Acute Distress Lungs: Reports: Clear to Auscultation, Normal Respiratory Effort Cardiovascular: Reports: Regular Rate, Regular Rhythm, No Murmurs GI/Abdominal Exam: Soft, Non-Tender, No Organomegaly, No Distention
[2017-09-30 13:41] VITALS: BP 120/62
== END 2017-09-30 14:33 | disposition home or self-care (01) | DRG 193 ==
LOC: JP.MS 14:48
PROVIDERS: ADMIT Hospitalist; ATTEND Hospitalist
DX: J18.9 Pneumonia, unspecified organism (principal); J96.01 Acute respiratory failure with hypoxia; J44.0 Chronic obstructive pulmonary disease with (acute) lower respiratory infection; I50.32 Chronic diastolic (congestive) heart failure; J44.1 Chronic obstructive pulmonary disease with (acute) exacerbation; I13.0 Hypertensive heart and chronic kidney disease with heart failure and stage 1 through stage 4 chronic kidney disease, or unspecified chronic kidney disease; H54.7 Unspecified visual loss; E78.00 Pure hypercholesterolemia, unspecified; K21.9 Gastro-esophageal reflux disease without esophagitis; M19.90 Unspecified osteoarthritis, unspecified site; F32.9 Major depressive disorder, single episode, unspecified; E20.9 Hypoparathyroidism, unspecified; N18.3 Chronic kidney disease, stage 3 (moderate); E66.9 Obesity, unspecified; Z68.39 Body mass index [BMI] 39.0-39.9, adult; Z95.1 Presence of aortocoronary bypass graft; Z79.82 Long term (current) use of aspirin; Z79.899 Other long term (current) drug therapy; Z95.2 Presence of prosthetic heart valve; Z87.442 Personal history of urinary calculi
CPT/HCPCS: 36415; 36600; 80048; 82803; 83735; 85025; 87040; 87070; 87205; 94640; 94640-76; 94762; A9270-GY; J0456; J0696; J1650; J2920; J7050; J7620

== ENCOUNTER 2018-04-08 12:48 | Emergency (ER) | payer MEDICARE, OTHER ==
--- NOTE | 2018-04-08 13:33 | EDM.PDOC ---
ED HPI GENERAL MEDICAL PROBLEM - General Chief Complaint: Cardiovascular Problem Stated Complaint: SOB, EDEMA Time Seen by Provider: 04/08/18 13:32 Source of Information: Reports: Patient, Family History Limitations: Reports: No Limitations - History of Present Illness INITIAL COMMENTS - FREE TEXT/NARRATIVE: pt is feeling sob and has noted increased ankle swelling. She states her wt is up 7-8 lbs. Onset: Gradual Duration: Hour(s): Location: Reports: Chest Associated Symptoms: Reports: Cough, Shortness of Breath Denies Pain Score (Numeric/FACES): 0 - Related Data Allergies Allergy/AdvReac Type Severity Reaction Status Date / Time No Known Allergies Allergy Verified 04/08/18 13:18 Home Meds: Home Meds Albuterol [Proventil HFA] 1 puff INH Q4H PRN 12/15/15 [History] Albuterol/Ipratropium [DuoNeb 3.0-0.5 MG/3 ML] 3 ml IH Q4H PRN 12/15/15 [History ] Aspirin [Children's Aspirin] 81 mg PO QPM 12/15/15 [History] FLUoxetine [PROzac] 20 mg PO DAILY 12/15/15 [History] Ferrous Sulfate 325 mg PO QAM 12/15/15 [History] Fluticasone/Salmeterol [Advair Diskus 100-50] 1 puff INH BID 12/15/15 [History] Metoprolol Succinate [Toprol XL] 25 mg PO QPM 12/15/15 [History] Multivitamin with Minerals [Multiple Vitamin] 1 tab PO DAILY 12/15/15 [History] Nitroglycerin [Nitrostat] 0.4 mg SL ASDIRECTED 12/15/15 [History] Potassium Chloride 10 meq PO QPM 12/15/15 [History] Ranitidine [Zantac] 150 mg PO DAILY 12/15/15 [History] Simvastatin [Zocor] 40 mg PO ACDINNER #30 tablet 09/30/17 [Rx] Furosemide [Lasix] 80 mg PO DAILY #60 tablet 01/12/18 [Rx] Levothyroxine Sodium 137 mcg PO ACBREAKFAST #30 tab 01/12/18 [Rx] O2 1.5 l INH DAILY 04/08/18 [History] Past Medical History HEENT History: Reports: Impaired Vision Cardiovascular History: Reports: Bypass, Heart Failure, High Cholesterol, Hypertension, SOB on Exertion, Other (See Below) Other Cardiovascular History: hx of aortic valve replaced 2012,CHF Respiratory History: Reports: Asthma, COPD, SOB Gastrointestinal History: Reports: GERD Genitourinary History: Reports: Renal Calculus [employer] History: Reports: Musculoskeletal History: Reports: Arthritis Other Musculoskeletal History: arthritis Psychiatric History: Reports: Depression Endocrine/Metabolic History: Reports: Hypoparathyroidism, Obesity/BMI 30+ - Infectious Disease History Infectious Disease History: Reports: Chicken Pox, Measles, Mumps - Past Surgical History HEENT Surgical History: Reports: None Cardiovascular Surgical History: Reports: Coronary Artery Bypass, Valve Replacement Respiratory Surgical History: Reports: None GI Surgical History: Reports: Appendectomy, Cholecystectomy, Colonoscopy Female Surgical History: Reports: None Endocrine Surgical History: Reports: None Musculoskeletal Surgical History: Reports: Arthroscopic Knee Dermatological Surgical History: Reports: None Social & Family History - Family History Family Medical History: Noncontributory Cardiac: Reports: CAD Respiratory: Reports: Asthma, COPD OBGYN: Reports: Musculoskeletal: Reports: Arthritis Neurological: Reports: Vertigo Psychiatric: Reports: OCD Oncologic: Reports: Brain, Lung - Tobacco Use Smoking Status *Q: Former Smoker Years of Tobacco use: 30 Used Tobacco, but Quit: Yes Month/Year Tobacco Last Used: August 2011 Second Hand Smoke Exposure: No - Caffeine Use Caffeine Use: Reports: Coffee Other Caffeine Use: 1 cup per day - Recreational Drug Use Recreational Drug Use: No ED ROS GENERAL - Review of Systems Review Of Systems: See Below Constitutional: Reports: No Symptoms HEENT: Reports: No Symptoms Respiratory: Reports: Shortness of Breath, Wheezing, Other ( increased ankle swelling. ) Cardiovascular: Reports: Other ( history of chf. ) Endocrine: Reports: No Symptoms GI/Abdominal: Reports: No Symptoms : Reports: No Symptoms Musculoskeletal: Reports: No Symptoms Skin: Reports: No Symptoms Neurological: Reports: No Symptoms ED EXAM, GENERAL - Physical Exam Exam: See Below Free Text/Narrative:: pt arrived with increased sob and increased ankle swelling. She has noted this over the past week. Exam Limited By: No Limitations General Appearance: Alert, Anxious, Mild Distress, Other ( her legs are tight and uncomfortable. ) Ears: Normal TMs Nose: Normal Inspection Throat/Mouth: Normal Inspection Head: Atraumatic Neck: Normal Inspection Respiratory/Chest: Decreased Breath Sounds, Other (pt does not sound real wet in the chest. ) Cardiovascular: Regular Rate, Rhythm, Tachycardia GI/Abdominal: Soft, Non-Tender (Female) Exam: Deferred Rectal (Female) Exam: Deferred Back Exam: Normal Inspection Extremities: Pedal Edema, Other (pt has plus 3 pitting edema. ) Neurological: Alert, Oriented, Normal Cognition Psychiatric: Normal Affect Course - Vital Signs Last Recorded V/S: Last Vital Signs Temp 35.4 C 04/08/18 13:28 Pulse 58 L 04/08/18 15:07 Resp 16 04/08/18 15:07 BP 133/65 04/08/18 15:07 Pulse Ox 100 04/08/18 15:07 - Orders/Labs/Meds Orders: Active Orders 24 hr Category Date Time Status Cardiac Monitoring [RC] .As Directed Care 04/08/18 13:30 Active Chest 2V [CR] Stat Exams 04/08/18 13:31 Taken CULTURE URINE [RM] Stat Lab 04/08/18 15:27 Received Sodium Chloride 0.9% [Saline Flush] Med 04/08/18 14:34 Active 10 ml FLUSH ASDIRECTED PRN Saline Lock Insert [OM.PC] Routine Oth 04/08/18 14:34 Ordered Medication Orders Sodium Chloride (Saline Flush) 10 ml FLUSH ASDIRECTED PRN PRN Reason: Keep Vein Open Last Admin: 04/08/18 15:09 Dose: 10 ml Labs: Laboratory Tests 04/08/18 04/08/18 04/08/18 Range/Units 13:43 13:43 14:52 WBC 6.6 (4.5-11.0) K/uL RBC 3.87 (3.30-5.50) M/uL Hgb 10.8 L (12.0-15.0) g/dL Hct 35.6 L (36.0-48.0) % MCV 92 (80-98) fL MCH 28 (27-31) pg MCHC 30 L (32-36) % Plt Count 178 (150-400) K/uL Neut % (Auto) 68 H (36-66) % Lymph % (Auto) 22 L (24-44) % Brule % (Auto) 6 (2-6) % Eos % (Auto) 4 (2-4) % Baso % (Auto) 1 (0-1) % Sodium 143 (140-148) mmol/L Potassium 4.5 (3.6-5.2) mmol/L Chloride 104 (100-108) mmol/L Carbon Dioxide 31 (21-32) mmol/L Anion Gap 8.4 (5.0-14.0) mmol/L BUN 18 (7-18) mg/dL Creatinine 1.2 H (0.6-1.0) mg/dL Est Cr Clr Drug Dosing 39.69 mL/min Estimated GFR (MDRD) 45 L (>60) Glucose 85 (74-106) mg/dL Calcium 9.5 (8.5-10.1) mg/dL Total Bilirubin 1.6 H (0.2-1.0) mg/dL AST 19 (15-37) U/L ALT 22 (12-78) U/L Alkaline Phosphatase 98 (46-116) U/L NT-Pro-B Natriuret Pep 4363 H (5-125) pg/mL Total Protein 7.1 (6.4-8.2) g/dL Albumin 3.8 (3.4-5.0) g/dL Globulin 3.3 (2.3-3.5) g/dL Albumin/Globulin Ratio 1.2 (1.2-2.2) Urine Color Yellow Urine Appearance Slightly cloudy Urine pH 6.0 (4.5-8.0) Ur Specific [place] 1.020 (1.008-1.030) Urine Protein Negative (NEGATIVE) mg/dL Urine Glucose (UA) Normal (NEGATIVE) mg/dL Urine Ketones Negative (NEGATIVE) mg/dL Urine Occult Blood Trace (NEGATIVE) Urine Nitrite Negative (NEGATIVE) Urine Bilirubin Negative (NEGATIVE) Urine Urobilinogen 1 (NORMAL) mg/dL Ur Leukocyte Esterase Small (NEGATIVE) Urine RBC 5-10 H (0-5) Urine WBC 5-10 H (0-5) Ur Epithelial Cells Many Amorphous Sediment Not seen Urine Bacteria Many Urine Mucus Not seen Meds: Medications Generic Name Dose Route Start Last Admin Trade Name Freq PRN Reason Stop Dose Admin Sodium Chloride 10 ml 04/08/18 14:34 04/08/18 15:09 Saline Flush FLUSH 10 ml ASDIRECTED PRN Administration Keep Vein Open Discontinued Medications Generic Name Dose Route Start Last Admin Trade Name Freq PRN Reason Stop Dose Admin Furosemide 60 mg 04/08/18 14:34 04/08/18 15:07 Lasix IVPUSH 04/08/18 14:35 60 mg ONETIME ONE Administration - Re-Assessments/Exams Free Text/Narrative Re-Assessment/Exam: 04/08/18 16:51 pt waas given 60mg of lasix iv and she has put out 1400 cc of fluid. She is comfortable with her breathing. Departure - Departure Time of Disposition: 16:52 Disposition: Home, Self-Care 01 Condition: Fair Clinical Impression: CHF (congestive heart failure), Renal insufficiency Referrals: Martha Tracy CNM [Primary Care Provider] - Forms: ED Department Discharge Care Plan Goals: rtc tomorrow for recheck, On rtc pt should have a bmp to assess her renal funtion. - My Orders Last 24 Hours: My Active Orders 04/08/18 13:30 Cardiac Monitoring [RC] .As Directed 04/08/18 13:31 Chest 2V [CR] Stat 04/08/18 14:34 Sodium Chloride 0.9% [Saline Flush] 10 ml FLUSH ASDIRECTED PRN Saline Lock Insert [OM.PC] Routine 04/08/18 15:27 CULTURE URINE [RM] Stat - Assessment/Plan Last 24 Hours: My Active Orders 04/08/18 13:30 Cardiac Monitoring [RC] .As Directed 04/08/18 13:31 Chest 2V [CR] Stat 04/08/18 14:34 Sodium Chloride 0.9% [Saline Flush] 10 ml FLUSH ASDIRECTED PRN Saline Lock Insert [OM.PC] Routine 04/08/18 15:27 CULTURE URINE [RM] Stat
[2018-04-08] MEDS ORDERED: Furosemide 40 MG/4 ML VIAL IVPUSH ONE (14:34)
[2018-04-08] MEDS ORDERED: Sodium Chloride 0.9% 10 ML Syringe FLUSH PRN (14:34)
[2018-04-08 15:07] VITALS: BP 133/65
--- NOTE | 2018-04-10 12:37 | CR ---
Two-view chest Comparison: 04 November 2017. There is borderline cardiac enlargement. There has been prior cardiac valve repair. The vascular structures are within normal limits. There are no infiltrates or effusions. Impression: 1. Stable exam.
== END 2018-04-08 17:13 | disposition home or self-care (01) ==
LOC: JP.ED 12:48
DX: I13.0 Hypertensive heart and chronic kidney disease with heart failure and stage 1 through stage 4 chronic kidney disease, or unspecified chronic kidney disease (principal); I50.9 Heart failure, unspecified; N18.9 Chronic kidney disease, unspecified; E78.00 Pure hypercholesterolemia, unspecified; J45.909 Unspecified asthma, uncomplicated; K21.9 Gastro-esophageal reflux disease without esophagitis; Z79.899 Other long term (current) drug therapy; Z79.82 Long term (current) use of aspirin; Z87.891 Personal history of nicotine dependence; Z95.1 Presence of aortocoronary bypass graft
CPT/HCPCS: 36415; 71046; 80053; 81001; 83880; 85025; 87086; 96374; 99285; J1940

== ENCOUNTER 2018-04-09 09:04 | Emergency (ER) | payer MEDICARE, OTHER ==
[2018-04-09] MEDS ORDERED: Furosemide 40 MG/4 ML VIAL IVPUSH ONE (10:04)
[2018-04-09] MEDS ORDERED: Metolazone 2.5 MG Tab PO ONE (10:05)
--- NOTE | 2018-04-09 10:12 | EDM.PDOC ---
ED HPI GENERAL MEDICAL PROBLEM - General Chief Complaint: Cardiovascular Problem Stated Complaint: CHECK LEVELS PREVIOUSLY HERE Time Seen by Provider: 04/09/18 10:09 Source of Information: Reports: Patient History Limitations: Reports: No Limitations - History of Present Illness INITIAL COMMENTS - FREE TEXT/NARRATIVE: pt arrived with sob and this is a recheck. She was seen yesterday and did diauresis 1400 cc of fluid while in ER. She did not put out alot more after she left here. She is bereathing ok and has o2 sats a100 %. She is not having ny discomfort, She continues paula have alot of edema in her legs. Onset: Gradual Duration: Day(s): Location: Reports: Generalized Associated Symptoms: Reports: Shortness of Breath, Other (pt feels she is more sob with activity. ) Denies Pain Score (Numeric/FACES): 0 - Related Data Allergies Allergy/AdvReac Type Severity Reaction Status Date / Time No Known Allergies Allergy Verified 04/09/18 09:19 Home Meds: Home Meds Albuterol [Proventil HFA] 1 puff INH Q4H PRN 12/15/15 [History] Albuterol/Ipratropium [DuoNeb 3.0-0.5 MG/3 ML] 3 ml IH Q4H PRN 12/15/15 [History ] Aspirin [Children's Aspirin] 81 mg PO QPM 12/15/15 [History] FLUoxetine [PROzac] 20 mg PO DAILY 12/15/15 [History] Ferrous Sulfate 325 mg PO QAM 12/15/15 [History] Fluticasone/Salmeterol [Advair Diskus 100-50] 1 puff INH BID 12/15/15 [History] Metoprolol Succinate [Toprol XL] 25 mg PO QPM 12/15/15 [History] Multivitamin with Minerals [Multiple Vitamin] 1 tab PO DAILY 12/15/15 [History] Nitroglycerin [Nitrostat] 0.4 mg SL ASDIRECTED 12/15/15 [History] Potassium Chloride 10 meq PO QPM 12/15/15 [History] Ranitidine [Zantac] 150 mg PO DAILY 12/15/15 [History] Simvastatin [Zocor] 40 mg PO ACDINNER #30 tablet 09/30/17 [Rx] Furosemide [Lasix] 80 mg PO DAILY #60 tablet 10/11/18 [Rx] Levothyroxine Sodium 137 mcg PO ACBREAKFAST #30 tab 01/12/18 [Rx] O2 1.5 l INH DAILY 04/08/18 [History] Past Medical History HEENT History: Reports: Impaired Vision Cardiovascular History: Reports: Bypass, Heart Failure, High Cholesterol, Hypertension, SOB on Exertion, Other (See Below) Other Cardiovascular History: hx of aortic valve replaced 2012,CHF Respiratory History: Reports: Asthma, COPD, SOB Gastrointestinal History: Reports: GERD Genitourinary History: Reports: Renal Calculus TREE THINNER History: Reports: Musculoskeletal History: Reports: Arthritis Other Musculoskeletal History: arthritis Psychiatric History: Reports: Depression Endocrine/Metabolic History: Reports: Hypoparathyroidism, Obesity/BMI 30+ - Infectious Disease History Infectious Disease History: Reports: Chicken Pox - Past Surgical History Head Surgeries/Procedures: Reports: None HEENT Surgical History: Reports: None Cardiovascular Surgical History: Reports: Coronary Artery Bypass, Valve Replacement Respiratory Surgical History: Reports: None GI Surgical History: Reports: Appendectomy, Cholecystectomy, Colonoscopy Female Surgical History: Reports: None Endocrine Surgical History: Reports: None Musculoskeletal Surgical History: Reports: Arthroscopic Knee Dermatological Surgical History: Reports: None Social & Family History - Family History Family Medical History: Noncontributory Cardiac: Reports: CAD Respiratory: Reports: Asthma, COPD OBGYN: Reports: Musculoskeletal: Reports: Arthritis Neurological: Reports: Vertigo Psychiatric: Reports: OCD Oncologic: Reports: Brain, Lung - Tobacco Use Smoking Status *Q: Former Smoker Years of Tobacco use: 30 Packs/Tins Daily: 1 Used Tobacco, but Quit: Yes Month/Year Tobacco Last Used: August 2011 Second Hand Smoke Exposure: No - Caffeine Use Caffeine Use: Reports: Coffee Other Caffeine Use: 1 cup per day - Recreational Drug Use Recreational Drug Use: No ED ROS GENERAL - Review of Systems Review Of Systems: See Below Constitutional: Reports: No Symptoms HEENT: Reports: No Symptoms Respiratory: Reports: Shortness of Breath, Other ( ankle swelling. ) Cardiovascular: Reports: No Symptoms Endocrine: Reports: No Symptoms GI/Abdominal: Reports: No Symptoms : Reports: No Symptoms Musculoskeletal: Reports: No Symptoms Skin: Reports: No Symptoms Neurological: Reports: No Symptoms Psychiatric: Reports: No Symptoms ED EXAM, GENERAL - Physical Exam Exam: See Below Free Text/Narrative:: pt returns for a recheck. She was seen here and did put out about 1400 cc of fluid, She is fairly comfortable with her breathing but continues to have alot of swelling. Exam Limited By: No Limitations General Appearance: Alert, Anxious, Mild Distress Ears: Normal TMs Nose: Normal Inspection Throat/Mouth: Normal Inspection Head: Atraumatic Neck: Normal Inspection Respiratory/Chest: No Respiratory Distress Cardiovascular: Regular Rate, Rhythm, Other (pt has plus 3 pitting edema. ) GI/Abdominal: Soft, Non-Tender (Female) Exam: Deferred Rectal (Female) Exam: Deferred Back Exam: Normal Inspection Extremities: Pedal Edema, Other (pt has plus 3 pitting edema. Her renal funtion remains about the same as yesterday. ) Psychiatric: Anxious Course - Vital Signs Last Recorded V/S: Last Vital Signs Temp 36 C 04/09/18 10:55 Pulse 51 L 04/09/18 10:55 Resp 16 04/09/18 10:55 BP 137/56 L 04/09/18 10:55 Pulse Ox 99 04/09/18 10:55 - Orders/Labs/Meds Labs: Laboratory Tests 04/09/18 04/09/18 Range/Units 09:56 09:56 Sodium 143 (140-148) mmol/L Potassium 4.3 (3.6-5.2) mmol/L Chloride 104 (100-108) mmol/L Carbon Dioxide 34 H (21-32) mmol/L Anion Gap 9.3 (5.0-14.0) mmol/L BUN 20 H (7-18) mg/dL Creatinine 1.2 H (0.6-1.0) mg/dL Est Cr Clr Drug Dosing 39.69 mL/min Estimated GFR (MDRD) 45 L (>60) Glucose 98 (74-106) mg/dL Calcium 9.4 (8.5-10.1) mg/dL TSH, Ultra Sensitive 4.824 H (0.358-3.740) uIU/mL Meds: Medications Discontinued Medications Generic Name Dose Route Start Last Admin Trade Name Freq PRN Reason Stop Dose Admin Furosemide 60 mg 04/09/18 10:04 04/09/18 10:11 Lasix IVPUSH 04/09/18 10:05 60 mg ONETIME ONE Administration Metolazone 2.5 mg 04/09/18 10:05 04/09/18 10:14 Zaroxolyn PO 04/09/18 10:06 2.5 mg ONETIME ONE Administration - Re-Assessments/Exams Free Text/Narrative Re-Assessment/Exam: 04/11/18 19:09 pt did diuresis over 1999. She does appear comfortable. Will plan to give her zarolyn 2.5 mg every other day. She will follow up with her regular provider. Departure - Departure Time of Disposition: 12:41 Disposition: Home, Self-Care 01 Condition: Fair Clinical Impression: CHF (congestive heart failure) Instructions: Heart Failure, [id number] Referrals: PCP,None [Primary Care Provider] - Forms: ED Department Discharge Care Plan Goals: appt with Lydia Tracy Tue or Tue. cont lasix, zaroxolyn 2.5 mg qod for 5 days. rtc if increased problems.
[2018-04-09 11:33] VITALS: BP 137/56
== END 2018-04-09 12:57 | disposition home or self-care (01) ==
LOC: JP.ED 09:04
DX: I11.0 Hypertensive heart disease with heart failure (principal); I50.9 Heart failure, unspecified; F32.9 Major depressive disorder, single episode, unspecified; E66.9 Obesity, unspecified; J44.9 Chronic obstructive pulmonary disease, unspecified; Z87.891 Personal history of nicotine dependence; Z79.899 Other long term (current) drug therapy
CPT/HCPCS: 36415; 80048; 84443; 96374; 99285; A9270; J1940

== ENCOUNTER 2018-04-24 15:07 | Emergency (ER) | payer MEDICARE, OTHER ==
[2018-04-24 16:59] VITALS: BP 123/84
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
== END 2018-04-24 17:34 | disposition home or self-care (01) ==
LOC: JP.ED 15:07
DX: I11.0 Hypertensive heart disease with heart failure (principal); I50.9 Heart failure, unspecified; E78.00 Pure hypercholesterolemia, unspecified; J44.9 Chronic obstructive pulmonary disease, unspecified; F32.9 Major depressive disorder, single episode, unspecified; E20.9 Hypoparathyroidism, unspecified; Z95.1 Presence of aortocoronary bypass graft; Z95.2 Presence of prosthetic heart valve; Z87.442 Personal history of urinary calculi; Z87.891 Personal history of nicotine dependence; Z79.899 Other long term (current) drug therapy; Z79.82 Long term (current) use of aspirin; Z99.81 Dependence on supplemental oxygen
CPT/HCPCS: 99285

== ENCOUNTER 2018-04-27 18:05 | Emergency (ER) | payer MEDICARE, OTHER ==
[2018-04-27 18:24] VITALS: BP 122/54
--- NOTE | 2018-04-27 19:13 | EDM.PDOC ---
ED HPI GENERAL MEDICAL PROBLEM - General Chief Complaint: Respiratory Problem Stated Complaint: SHORTNESS OF BREATH Time Seen by Provider: 04/27/18 19:09 Source of Information: Reports: Patient History Limitations: Reports: No Limitations - History of Present Illness INITIAL COMMENTS - FREE TEXT/NARRATIVE: pt has had a Aortic valve replacement. She has had increased sob. She has been having alot leg swelling. Onset: Gradual, Other (pt was recently placed on spirolactone. ) Duration: Day(s): Location: Reports: Chest Associated Symptoms: Reports: Cough, Malaise, Shortness of Breath - Related Data Allergies Allergy/AdvReac Type Severity Reaction Status Date / Time No Known Allergies Allergy Verified 04/27/18 18:28 Home Meds: Home Meds Albuterol [Proventil HFA] 1 puff INH Q4H PRN 12/15/15 [History] Albuterol/Ipratropium [DuoNeb 3.0-0.5 MG/3 ML] 3 ml IH Q4H PRN 12/15/15 [History ] Aspirin [Children's Aspirin] 81 mg PO QPM 12/15/15 [History] FLUoxetine [PROzac] 20 mg PO DAILY 12/15/15 [History] Ferrous Sulfate 325 mg PO QAM 12/15/15 [History] Fluticasone/Salmeterol [Advair Diskus 100-50] 1 puff INH BID 12/15/15 [History] Metoprolol Succinate [Toprol XL] 25 mg PO QPM 12/15/15 [History] Multivitamin with Minerals [Multiple Vitamin] 1 tab PO DAILY 12/15/15 [History] Nitroglycerin [Nitrostat] 0.4 mg SL ASDIRECTED 12/15/15 [History] Potassium Chloride 10 meq PO QPM 12/15/15 [History] Ranitidine [Zantac] 150 mg PO DAILY 12/15/15 [History] Simvastatin [Zocor] 40 mg PO ACDINNER #30 tablet 09/30/17 [Rx] Furosemide [Lasix] 80 mg PO DAILY #60 tablet 01/12/18 [Rx] Levothyroxine Sodium 137 mcg PO ACBREAKFAST #30 tab 01/12/18 [Rx] O2 1.5 l INH DAILY 04/08/18 [History] Spironolactone [Aldactone] 25 mg PO DAILY 04/27/18 [History] Past Medical History HEENT History: Reports: Impaired Vision Cardiovascular History: Reports: Bypass, Heart Failure, High Cholesterol, Hypertension, SOB on Exertion, Other (See Below) Other Cardiovascular History: hx of aortic valve replaced 2012,CHF Respiratory History: Reports: Asthma, COPD, SOB Gastrointestinal History: Reports: GERD Genitourinary History: Reports: Renal Calculus 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: Musculoskeletal History: Reports: Arthritis Other Musculoskeletal History: arthritis Neurological History: Reports: None Psychiatric History: Reports: Depression Endocrine/Metabolic History: Reports: Hypoparathyroidism, Obesity/BMI 30+ Hematologic History: Reports: None Immunologic History: Reports: None Oncologic (Cancer) History: Reports: None Dermatologic History: Reports: None - Infectious Disease History Infectious Disease History: Reports: Chicken Pox - Past Surgical History Head Surgeries/Procedures: Reports: None Cardiovascular Surgical History: Reports: Coronary Artery Bypass, Valve Replacement GI Surgical History: Reports: Appendectomy, Cholecystectomy, Colonoscopy Neurological Surgical History: Reports: None Musculoskeletal Surgical History: Reports: Arthroscopic Knee Social & Family History - Family History Family Medical History: Noncontributory Cardiac: Reports: CAD Respiratory: Reports: Asthma, COPD OBGYN: Reports: Musculoskeletal: Reports: Arthritis Neurological: Reports: Vertigo Psychiatric: Reports: OCD Oncologic: Reports: Brain, Lung - Tobacco Use Smoking Status *Q: Former Smoker Used Tobacco, but Quit: Yes Month/Year Tobacco Last Used: 7 years - Caffeine Use Caffeine Use: Reports: Coffee Other Caffeine Use: 1 cup per day - Recreational Drug Use Recreational Drug Use: No ED ROS GENERAL - Review of Systems Review Of Systems: See Below Constitutional: Reports: Malaise, Weakness, Diaphoresis HEENT: Reports: Other (pt feels like he has something caught in his throat. This has been the case for several days. He does not recall a incident. ) Respiratory: Reports: Shortness of Breath, Cough Cardiovascular: Reports: Dyspnea on Exertion Endocrine: Reports: No Symptoms GI/Abdominal: Reports: No Symptoms : Reports: No Symptoms Musculoskeletal: Reports: No Symptoms Skin: Reports: No Symptoms Neurological: Reports: No Symptoms ED EXAM, GENERAL - Physical Exam Exam: See Below Free Text/Narrative:: pt arrived concerned sandra she still has alot of leg swelling. She has sob with activity. She has recently been placed on spirolactone but she has not put out alot of fluid with that. Exam Limited By: No Limitations General Appearance: Alert, Anxious, Mild Distress, Other (pt has good o2 sats with her o2 that she always uses. ) Ears: Normal TMs Nose: Normal Inspection Throat/Mouth: Normal Inspection Head: Atraumatic Neck: Normal Inspection Respiratory/Chest: No Respiratory Distress, Other ( pt is quite sob with activity. She continues to have alot of leg swelling. Her bnp is still very elevated) Cardiovascular: Regular Rate, Rhythm GI/Abdominal: Soft, Non-Tender (Female) Exam: Deferred Rectal (Female) Exam: Deferred Back Exam: Normal Inspection Extremities: Normal Inspection Neurological: Alert, Oriented, Normal Cognition Psychiatric: Anxious Course - Vital Signs Last Recorded V/S: Last Vital Signs Temp 35.9 C 04/27/18 18:27 Pulse 66 04/27/18 18:27 Resp 20 04/27/18 18:27 BP 122/54 L 04/27/18 18:27 Pulse Ox 96 04/27/18 18:27 - Orders/Labs/Meds Orders: Active Orders 24 hr Category Date Time Status Chest 2V [CR] Stat Exams 04/27/18 19:08 Taken Labs: Laboratory Tests 04/27/18 04/27/18 04/27/18 Range/Units 18:33 18:33 18:33 WBC 6.6 (4.5-11.0) K/uL RBC 3.83 (3.30-5.50) M/uL Hgb 10.8 L (12.0-15.0) g/dL Hct 35.0 L (36.0-48.0) % MCV 91 (80-98) fL MCH 28 (27-31) pg MCHC 31 L (32-36) % Plt Count 225 (150-400) K/uL Neut % (Auto) 63 (36-66) % Lymph % (Auto) 25 (24-44) % [place] % (Auto) 8 H (2-6) % Eos % (Auto) 4 (2-4) % Baso % (Auto) 0 (0-1) % Sodium 142 (140-148) mmol/L Potassium 4.3 (3.6-5.2) mmol/L Chloride 103 (100-108) mmol/L Carbon Dioxide 33 H (21-32) mmol/L Anion Gap 10.3 (5.0-14.0) mmol/L BUN 19 H (7-18) mg/dL Creatinine 1.3 H (0.6-1.0) mg/dL Est Cr Clr Drug Dosing 36.64 mL/min Estimated GFR (MDRD) 41 L (>60) Glucose 93 (74-106) mg/dL Lactic Acid (0.4-2.0) mmol/L Calcium 9.3 (8.5-10.1) mg/dL Iron (50-170) ug/dL TIBC (250-450) ug/dl % Saturation (20-55) % Total Bilirubin 1.0 (0.2-1.0) mg/dL AST 20 (15-37) U/L ALT 29 (12-78) U/L Alkaline Phosphatase 140 H (46-116) U/L NT-Pro-B Natriuret Pep 4125 H (5-125) pg/mL Total Protein 7.1 (6.4-8.2) g/dL Albumin 3.6 (3.4-5.0) g/dL Globulin 3.5 (2.3-3.5) g/dL Albumin/Globulin Ratio 1.0 L (1.2-2.2) TSH, Ultra Sensitive (0.358-3.740) uIU/mL Urine Color Urine Appearance Urine pH (4.5-8.0) Ur Specific [place] (1.008-1.030) Urine Protein (NEGATIVE) mg/dL Urine Glucose (UA) (NEGATIVE) mg/dL Urine Ketones (NEGATIVE) mg/dL Urine Occult Blood (NEGATIVE) Urine Nitrite (NEGATIVE) Urine Bilirubin (NEGATIVE) Urine Urobilinogen (NORMAL) mg/dL Ur Leukocyte Esterase (NEGATIVE) Urine RBC (0-5) Urine WBC (0-5) Ur Epithelial Cells Amorphous Sediment Urine Bacteria Urine Mucus 04/27/18 04/27/18 04/27/18 Range/Units 18:33 19:08 19:41 WBC (4.5-11.0) K/uL RBC (3.30-5.50) M/uL Hgb (12.0-15.0) g/dL Hct (36.0-48.0) % MCV (80-98) fL MCH (27-31) pg MCHC (32-36) % Plt Count (150-400) K/uL Neut % (Auto) (36-66) % Lymph % (Auto) (24-44) % [place] % (Auto) (2-6) % Eos % (Auto) (2-4) % Baso % (Auto) (0-1) % Sodium (140-148) mmol/L Potassium (3.6-5.2) mmol/L Chloride (100-108) mmol/L Carbon Dioxide (21-32) mmol/L Anion Gap (5.0-14.0) mmol/L BUN (7-18) mg/dL Creatinine (0.6-1.0) mg/dL Est Cr Clr Drug Dosing mL/min Estimated GFR (MDRD) (>60) Glucose (74-106) mg/dL Lactic Acid 1.2 (0.4-2.0) mmol/L Calcium (8.5-10.1) mg/dL Iron 36 L (50-170) ug/dL TIBC 245 L (250-450) ug/dl % Saturation 15 L (20-55) % Total Bilirubin (0.2-1.0) mg/dL AST (15-37) U/L ALT (12-78) U/L Alkaline Phosphatase (46-116) U/L NT-Pro-B Natriuret Pep (5-125) pg/mL Total Protein (6.4-8.2) g/dL Albumin (3.4-5.0) g/dL Globulin (2.3-3.5) g/dL Albumin/Globulin Ratio (1.2-2.2) TSH, Ultra Sensitive 6.656 H (0.358-3.740) uIU/mL Urine Color Urine Appearance Urine pH (4.5-8.0) Ur Specific [place] (1.008-1.030) Urine Protein (NEGATIVE) mg/dL Urine Glucose (UA) (NEGATIVE) mg/dL Urine Ketones (NEGATIVE) mg/dL Urine Occult Blood (NEGATIVE) Urine Nitrite (NEGATIVE) Urine Bilirubin (NEGATIVE) Urine Urobilinogen (NORMAL) mg/dL Ur Leukocyte Esterase (NEGATIVE) Urine RBC (0-5) Urine WBC (0-5) Ur Epithelial Cells Amorphous Sediment Urine Bacteria Urine Mucus 04/27/18 Range/Units 20:28 WBC (4.5-11.0) K/uL RBC (3.30-5.50) M/uL Hgb (12.0-15.0) g/dL Hct (36.0-48.0) % MCV (80-98) fL MCH (27-31) pg MCHC (32-36) % Plt Count (150-400) K/uL Neut % (Auto) (36-66) % Lymph % (Auto) (24-44) % [place] % (Auto) (2-6) % Eos % (Auto) (2-4) % Baso % (Auto) (0-1) % Sodium (140-148) mmol/L Potassium (3.6-5.2) mmol/L Chloride (100-108) mmol/L Carbon Dioxide (21-32) mmol/L Anion Gap (5.0-14.0) mmol/L BUN (7-18) mg/dL Creatinine (0.6-1.0) mg/dL Est Cr Clr Drug Dosing mL/min Estimated GFR (MDRD) (>60) Glucose (74-106) mg/dL Lactic Acid (0.4-2.0) mmol/L Calcium (8.5-10.1) mg/dL Iron (50-170) ug/dL TIBC (250-450) ug/dl % Saturation (20-55) % Total Bilirubin (0.2-1.0) mg/dL AST (15-37) U/L ALT (12-78) U/L Alkaline Phosphatase (46-116) U/L NT-Pro-B Natriuret Pep (5-125) pg/mL Total Protein (6.4-8.2) g/dL Albumin (3.4-5.0) g/dL Globulin (2.3-3.5) g/dL Albumin/Globulin Ratio (1.2-2.2) TSH, Ultra Sensitive (0.358-3.740) uIU/mL Urine Color Yellow Urine Appearance Clear Urine pH 5.0 (4.5-8.0) Ur Specific [place] 1.020 (1.008-1.030) Urine Protein Negative (NEGATIVE) mg/dL Urine Glucose (UA) Normal (NEGATIVE) mg/dL Urine Ketones Negative (NEGATIVE) mg/dL Urine Occult Blood Negative (NEGATIVE) Urine Nitrite Negative (NEGATIVE) Urine Bilirubin Negative (NEGATIVE) Urine Urobilinogen 4 (NORMAL) mg/dL Ur Leukocyte Esterase Negative (NEGATIVE) Urine RBC Not seen (0-5) Urine WBC 0-5 (0-5) Ur Epithelial Cells Moderate Amorphous Sediment Not seen Urine Bacteria Moderate Urine Mucus Moderate Meds: Medications Discontinued Medications Generic Name Dose Route Start Last Admin Trade Name Jeremias PRN Reason Stop Dose Admin Furosemide 40 mg 04/27/18 20:41 04/27/18 21:06 Lasix IM 04/27/18 20:42 40 mg ONETIME ONE Administration - Re-Assessments/Exams Free Text/Narrative Re-Assessment/Exam: 04/27/18 21:22 pt has a creatnine of 1.3. Her bnp stays about the same. Her thyroid med was increased and her tsh is down to 6 and previosly was 12. Her hg is on the low side at 10-- this has been consistently in that range. Her Bnp is over 4000. Her chest xray looked fairly stable. She did have a echo in Jan 2018 and this looked good. 04/27/18 21:25 She was found to have low fe and fe binding cap. Departure - Departure Time of Disposition: 20:59 Disposition: Home, Self-Care 01 Condition: Fair Clinical Impression: Fluid overload, H/O aortic valve replacement, Hypothyroid, Anemia - Discharge Information Instructions: Hypothyroidism, Water Intoxication, Aortic Valve Replacement, Care After Referrals: Martha Tracy CNM [Primary Care Provider] - Forms: ED Department Discharge Care Plan Goals: get appt with cardiology-- Dr Grossman in [place] who has seen her in the past. Records will be put together to take to Cardiology. comt lasix the same with the spirolactone - My Orders Last 24 Hours: My Active Orders 04/27/18 19:08 Chest 2V [CR] Stat - Assessment/Plan Last 24 Hours: My Active Orders 04/27/18 19:08 Chest 2V [CR] Stat
[2018-04-27] MEDS ORDERED: Furosemide 40 MG/4 ML VIAL IM ONE (20:41)
--- NOTE | 2018-04-28 08:41 | CR ---
CHEST: 2 view CLINICAL HISTORY:SOB COMPARISON:04/08/2018 FINDINGS: Heart is enlarged. There has been previous sternotomy. Pulmonary vascularity is mildly cephalized. There is no infiltrate or effusion. Impression: Cardiomegaly with mild vascular cephalization. This may represent some pulmonary venous hypertension
== END 2018-04-27 21:15 | disposition home or self-care (01) ==
LOC: JP.ED 18:05
DX: E87.70 Fluid overload, unspecified (principal); E03.9 Hypothyroidism, unspecified; D64.9 Anemia, unspecified; I10 Essential (primary) hypertension; E66.9 Obesity, unspecified; Z79.899 Other long term (current) drug therapy; Z87.891 Personal history of nicotine dependence; Z95.4 Presence of other heart-valve replacement
CPT/HCPCS: 36415; 71046; 80053; 81001; 83550; 83605; 83880; 84443; 85025; 96372; 99285; J1940

== ENCOUNTER 2018-05-15 14:39 | Emergency (ER) | payer MEDICARE, OTHER ==
[2018-05-15] MEDS ORDERED: Acetaminophen 500 MG Tab PO ONE (15:01)
[2018-05-15] MEDS ORDERED: Ondansetron 4 MG Tab.DIS PO ONE (15:01)
[2018-05-15 15:02] VITALS: BP 131/62
--- NOTE | 2018-05-15 15:06 | EDM.PDOC ---
ED HPI GENERAL MEDICAL PROBLEM - General Chief Complaint: Respiratory Problem Stated Complaint: WEAKNESS, FEVER, HEADACHE Time Seen by Provider: 05/15/18 14:50 Source of Information: Reports: Patient, Old Records, RN History Limitations: Reports: No Limitations - History of Present Illness INITIAL COMMENTS - FREE TEXT/NARRATIVE: 62 yo female presents with low grade fever, cough, anorexia since yesterday. Is on oxygen for CHF. No diarrhea or vomiting. Is a former smoker. Onset: Gradual Onset Date: 05/14/18 Duration: Hour(s):, Constant Location: Reports: Neck (throat), Chest Quality: Reports: Other (minimal throat pain only) Severity: Mild Improves with: Reports: None Worsens with: Reports: None Context: Reports: Other (See HPI) Associated Symptoms: Reports: Cough, Fever/Chills, Loss of Appetite, Nausea/ Vomiting (no vomiting). Denies: Chest Pain, Shortness of Breath Treatments TOP CLEANER: Reports: Other (see below) (none) - Related Data Allergies Allergy/AdvReac Type Severity Reaction Status Date / Time No Known Allergies Allergy Verified 05/15/18 15:04 Home Meds: Home Meds Albuterol [Proventil HFA] 1 puff INH Q4H PRN 12/15/15 [History] Albuterol/Ipratropium [DuoNeb 3.0-0.5 MG/3 ML] 3 ml IH Q4H PRN 12/15/15 [History ] Aspirin [Children's Aspirin] 81 mg PO QPM 12/15/15 [History] FLUoxetine [PROzac] 20 mg PO DAILY 12/15/15 [History] Ferrous Sulfate 325 mg PO QAM 12/15/15 [History] Fluticasone/Salmeterol [Advair Diskus 100-50] 1 puff INH BID 12/15/15 [History] Metoprolol Succinate [Toprol XL] 25 mg PO QPM 12/15/15 [History] Multivitamin with Minerals [Multiple Vitamin] 1 tab PO DAILY 12/15/15 [History] Nitroglycerin [Nitrostat] 0.4 mg SL ASDIRECTED 12/15/15 [History] Potassium Chloride 10 meq PO QPM 12/15/15 [History] Ranitidine [Zantac] 150 mg PO DAILY 12/15/15 [History] Simvastatin [Zocor] 40 mg PO ACDINNER #30 tablet 09/30/17 [Rx] Furosemide [Lasix] 80 mg PO DAILY #60 tablet 01/12/18 [Rx] Levothyroxine Sodium 137 mcg PO ACBREAKFAST #30 tab 01/12/18 [Rx] O2 1.5 l INH DAILY 04/08/18 [History] Spironolactone [Aldactone] 25 mg PO DAILY 04/27/18 [History] Bumetanide [Bumex] 3 mg PO BID 05/15/18 [History] Codeine/guaiFENesin [Robitussin AC] 5 - 10 ml PO Q4H PRN #1 liquid 05/15/18 [Rx] Past Medical History HEENT History: Reports: Impaired Vision Cardiovascular History: Reports: Bypass, Heart Failure, High Cholesterol, Hypertension, SOB on Exertion, Other (See Below) Other Cardiovascular History: hx of aortic valve replaced 2012,CHF Respiratory History: Reports: Asthma, COPD, SOB Gastrointestinal History: Reports: GERD Genitourinary History: Reports: Renal Calculus 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: Musculoskeletal History: Reports: Arthritis Other Musculoskeletal History: arthritis Neurological History: Reports: None Psychiatric History: Reports: Depression Endocrine/Metabolic History: Reports: Hypoparathyroidism, Obesity/BMI 30+ Hematologic History: Reports: None Immunologic History: Reports: None Oncologic (Cancer) History: Reports: None Dermatologic History: Reports: None - Infectious Disease History Infectious Disease History: Reports: Chicken Pox - Past Surgical History Head Surgeries/Procedures: Reports: None HEENT Surgical History: Reports: None Cardiovascular Surgical History: Reports: Coronary Artery Bypass, Valve Replacement Respiratory Surgical History: Reports: None GI Surgical History: Reports: Appendectomy, Cholecystectomy, Colonoscopy Female Surgical History: Reports: None Endocrine Surgical History: Reports: None Neurological Surgical History: Reports: None Musculoskeletal Surgical History: Reports: Arthroscopic Knee Dermatological Surgical History: Reports: None Social & Family History - Family History Family Medical History: Noncontributory Cardiac: Reports: CAD Respiratory: Reports: Asthma, COPD OBGYN: Reports: Musculoskeletal: Reports: Arthritis Neurological: Reports: Vertigo Psychiatric: Reports: OCD Oncologic: Reports: Brain, Lung - Caffeine Use Caffeine Use: Reports: Coffee Other Caffeine Use: 1 cup per day ED ROS GENERAL - Review of Systems Review Of Systems: See Below Constitutional: Reports: Fever, Chills, Malaise, Decreased Appetite HEENT: Reports: Throat Pain (mild) Respiratory: Reports: Cough. Denies: Shortness of Breath, Wheezing, Pleuritic Chest Pain, Sputum, Hemoptysis Cardiovascular: Reports: No Symptoms GI/Abdominal: Reports: Decreased Appetite, Nausea. Denies: Abdominal Pain, Black Stool, Bloody Stool, Diarrhea, Distension, Flatus, Hematemesis, Hematochezia, Melena, Vomiting : Reports: No Symptoms Musculoskeletal: Reports: No Symptoms Skin: Reports: No Symptoms Neurological: Reports: No Symptoms Psychiatric: Reports: No Symptoms ED EXAM, GENERAL - Physical Exam Exam: See Below Exam Limited By: No Limitations General Appearance: Alert, WD/WN, No Apparent Distress, Obese Eye Exam: Bilateral Eye: Normal Inspection Ears: Normal External Exam, Normal Canal, Hearing Grossly Normal, Normal TMs Ear Exam: Bilateral Ear: Auricle Normal, Canal Normal, TM normal Nose: Normal Inspection, No Blood Throat/Mouth: Normal Inspection, Normal Lips, Normal Oropharynx, Normal Voice, No Airway Compromise Head: Atraumatic, Normocephalic Neck: Normal Inspection Respiratory/Chest: No Respiratory Distress, Lungs Clear, No Accessory Muscle Use , Decreased Breath Sounds. No: Normal Breath Sounds Cardiovascular: Regular Rate, Rhythm, No Edema GI/Abdominal: Soft, Non-Tender, No Distention Back Exam: Normal Inspection. No: CVA Tenderness (R), CVA Tenderness (L) Extremities: Normal Inspection, Normal Range of Motion, Non-Tender, No Pedal Edema Neurological: Alert, Oriented, CN II-XII Intact, Normal Cognition, No Motor/ Sensory Deficits Psychiatric: Normal Affect, Normal Mood Skin Exam: Warm, Dry, Intact, Normal Color, No Rash Course - Vital Signs Last Recorded V/S: Last Vital Signs Temp 37.0 C 05/15/18 15:08 Pulse 72 05/15/18 15:08 Resp 20 05/15/18 15:08 BP 131/62 05/15/18 15:08 Pulse Ox 92 L 05/15/18 15:08 - Orders/Labs/Meds Labs: Laboratory Tests 05/15/18 Range/Units 15:49 WBC 8.1 (4.5-11.0) K/uL RBC 4.70 (3.30-5.50) M/uL Hgb 13.5 D (12.0-15.0) g/dL Hct 41.3 (36.0-48.0) % MCV 88 (80-98) fL MCH 29 (27-31) pg MCHC 33 (32-36) % Plt Count 203 (150-400) K/uL Meds: Medications Discontinued Medications Generic Name Dose Route Start Last Admin Trade Name Jeremias PRN Reason Stop Dose Admin Acetaminophen 1,000 mg 05/15/18 15:01 05/15/18 15:14 Tylenol Extra Strength PO 05/15/18 15:02 1,000 mg ONETIME ONE Administration Ondansetron HCl 4 mg 05/15/18 15:01 05/15/18 15:15 Zofran Odt PO 05/15/18 15:02 4 mg ONETIME ONE Administration Departure - Departure Time of Disposition: 15:58 Disposition: Home, Self-Care 01 Condition: Fair Clinical Impression: Viral respiratory illness - Discharge Information *PRESCRIPTION DRUG MONITORING PROGRAM REVIEWED*: No *COPY OF PRESCRIPTION DRUG MONITORING REPORT IN PATIENT SRINI: No Instructions: Viral Respiratory Infection, [id number] Referrals: Martha Tracy CNM [Primary Care Provider] - Forms: ED Department Discharge Additional Instructions: Take Robitussin AC as needed for cough. Take acetaminophen as needed for pain and fever control. Drink ample fluids. Rest. Recheck with your doctor if not improving. Use Zofran as needed for nausea relief.
== END 2018-05-15 16:27 | disposition home or self-care (01) ==
LOC: JP.ED 14:39
DX: J06.9 Acute upper respiratory infection, unspecified (principal); I11.0 Hypertensive heart disease with heart failure; I50.9 Heart failure, unspecified; J44.9 Chronic obstructive pulmonary disease, unspecified; Z79.82 Long term (current) use of aspirin; Z79.899 Other long term (current) drug therapy; Z87.891 Personal history of nicotine dependence
CPT/HCPCS: 36415; 85027; 87804; 99284; A9270

== ENCOUNTER 2018-06-07 18:42 | Emergency (ER) | payer MEDICARE, OTHER ==
[2018-06-07 19:19] VITALS: BP 123/62
--- NOTE | 2018-06-07 20:10 | CRLCR ---
HISTORY: Pain and bruising with no history of specific injury. COMPARISON: None available. FINDINGS: The left foot is examined with AP, lateral, and oblique views. There is no sign of fracture or dislocation. The soft tissues are normal in appearance without sign of radio-opaque foreign body. There is a large plantar calcaneal spur. A small posterior calcaneal spur is also present. 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 IMPRESSION: Nothing seen to correlate with the history of bruising. No sign of any soft tissue abnormality. No sign of any underlying osseous injury. Large plantar calcaneal spur. Small posterior calcaneal spur. Dictated by Rafa Watson MD @ Jun 07 2018 8:08PM Signed by Dr. Rafa Watson @ Jun 07 2018 8:10PM
--- NOTE | 2018-06-07 20:17 | EDM.PDOC ---
ED HPI GENERAL MEDICAL PROBLEM - General Chief Complaint: Lower Extremity Injury/Pain Stated Complaint: LEFT FOOT PAIN Time Seen by Provider: 06/07/18 19:45 Source of Information: Reports: Patient History Limitations: Reports: No Limitations - History of Present Illness INITIAL COMMENTS - FREE TEXT/NARRATIVE: 62-year-old female with left foot pain. She was standing on a stool this morning and thinks she may have missed a step, but she does not remember a specific injury. During this afternoon it started to become more painful, tonight she is having trouble walking. There is bruising over the top of the foot. No other injury. Onset: Gradual Duration: Hour(s): (Pain for the last 6 hours) Location: Reports: Lower Extremity, Left Worsens with: Reports: Other (Weightbearing), Movement Associated Symptoms: Reports: No Other Symptoms - Related Data Allergies Allergy/AdvReac Type Severity Reaction Status Date / Time No Known Allergies Allergy Verified 06/07/18 19:35 Home Meds: Home Meds Albuterol [Proventil HFA] 1 puff INH Q4H PRN 12/15/15 [History] Albuterol/Ipratropium [DuoNeb 3.0-0.5 MG/3 ML] 3 ml IH Q4H PRN 12/15/15 [History ] Aspirin [Children's Aspirin] 81 mg PO QPM 12/15/15 [History] FLUoxetine [PROzac] 20 mg PO DAILY 12/15/15 [History] Ferrous Sulfate 325 mg PO QAM 12/15/15 [History] Fluticasone/Salmeterol [Advair Diskus 100-50] 1 puff INH BID 12/15/15 [History] Metoprolol Succinate [Toprol XL] 25 mg PO QPM 12/15/15 [History] Multivitamin with Minerals [Multiple Vitamin] 1 tab PO DAILY 12/15/15 [History] Nitroglycerin [Nitrostat] 0.4 mg SL ASDIRECTED 12/15/15 [History] Potassium Chloride 10 meq PO QPM 12/15/15 [History] Ranitidine [Zantac] 150 mg PO DAILY 12/15/15 [History] Simvastatin [Zocor] 40 mg PO ACDINNER #30 tablet 09/30/17 [Rx] Levothyroxine Sodium 137 mcg PO ACBREAKFAST #30 tab 01/12/18 [Rx] O2 1.5 l INH DAILY 04/08/18 [History] Bumetanide [Bumex] 2.5 mg PO BID 05/15/18 [History] Past Medical History HEENT History: Reports: Impaired Vision Cardiovascular History: Reports: Bypass, Heart Failure, High Cholesterol, Hypertension, SOB on Exertion, Other (See Below) Other Cardiovascular History: hx of aortic valve replaced 2012,CHF Respiratory History: Reports: Asthma, COPD, SOB Gastrointestinal History: Reports: GERD Genitourinary History: Reports: Renal Calculus 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: Musculoskeletal History: Reports: Arthritis Other Musculoskeletal History: arthritis Neurological History: Reports: None Psychiatric History: Reports: Depression Endocrine/Metabolic History: Reports: Hypoparathyroidism, Obesity/BMI 30+ Hematologic History: Reports: None Immunologic History: Reports: None Oncologic (Cancer) History: Reports: None Dermatologic History: Reports: None - Infectious Disease History Infectious Disease History: Reports: Chicken Pox - Past Surgical History Head Surgeries/Procedures: Reports: None HEENT Surgical History: Reports: None Cardiovascular Surgical History: Reports: Coronary Artery Bypass, Valve Replacement Respiratory Surgical History: Reports: None GI Surgical History: Reports: Appendectomy, Cholecystectomy, Colonoscopy Female Surgical History: Reports: None Endocrine Surgical History: Reports: None Neurological Surgical History: Reports: None Musculoskeletal Surgical History: Reports: Arthroscopic Knee Dermatological Surgical History: Reports: None Social & Family History - Family History Family Medical History: Noncontributory Cardiac: Reports: CAD Respiratory: Reports: Asthma, COPD OBGYN: Reports: Musculoskeletal: Reports: Arthritis Neurological: Reports: Vertigo Psychiatric: Reports: OCD Oncologic: Reports: Brain, Lung - Tobacco Use Smoking Status *Q: Former Smoker Used Tobacco, but Quit: Yes Month/Year Tobacco Last Used: 7 years - Caffeine Use Caffeine Use: Reports: Coffee Other Caffeine Use: 1 cup per day - Recreational Drug Use Recreational Drug Use: No Review of Systems - Review of Systems Review Of Systems: See Below Constitutional: Denies: Fever Respiratory: Reports: Shortness of Breath (O2 dependent chronic congestive heart failure) GI/Abdominal: Denies: Abdominal Pain Skin: Reports: Bruising (There is bruising over the top of the foot especially medially) Neurological: Denies: Paresthesia Psychiatric: Reports: No Symptoms ED EXAM, GENERAL - Physical Exam Exam: See Below Exam Limited By: No Limitations General Appearance: Alert, No Apparent Distress Respiratory/Chest: No Respiratory Distress Extremities: Other (Exam otherwise limited to the lower extremities. The feet were compared, there is no significant deformity her size difference. She does have bruising which has developed over the top of the foot medially on the left side. The ankle is nontender. The bruised area is very tender to palpation.) Course - Vital Signs Last Recorded V/S: Last Vital Signs Temp 99.1 F 06/07/18 19:24 Pulse 69 06/07/18 19:24 Resp 11 L 06/07/18 19:24 BP 123/62 06/07/18 19:24 Pulse Ox 98 06/07/18 19:24 - Re-Assessments/Exams Free Text/Narrative Re-Assessment/Exam: 06/07/18 20:15 A foot x-ray was obtained that showed moderate arthritic changes, no acute bony injury. Three-inch Walter wrap was applied to the foot, she can increase activity as tolerated and recheck within the next week if not healing satisfactorily. Departure - Departure Time of Disposition: 20:28 Disposition: Home, Self-Care 01 Condition: Good Clinical Impression: Strain of foot, left Qualifiers: Encounter type: initial encounter Qualified Code(s): S96.912A - Strain of unspecified muscle and tendon at ankle and foot level, left foot, initial encounter - Discharge Information Instructions: Foot Sprain Referrals: Martha Tracy CNM [Primary Care Provider] - Forms: ED Department Discharge Care Plan Goals: Wrap the foot for support, elevate when able. Tylenol or ibuprofen would help if tolerated. Recheck in 3-6 days if not improving satisfactorily.
== END 2018-06-07 20:28 | disposition home or self-care (01) ==
LOC: JP.ED 18:42
DX: S96.912A Strain of unspecified muscle and tendon at ankle and foot level, left foot, initial encounter (principal); I11.0 Hypertensive heart disease with heart failure; I50.9 Heart failure, unspecified; E78.00 Pure hypercholesterolemia, unspecified; J44.9 Chronic obstructive pulmonary disease, unspecified; K21.9 Gastro-esophageal reflux disease without esophagitis; F32.9 Major depressive disorder, single episode, unspecified; E05.90 Thyrotoxicosis, unspecified without thyrotoxic crisis or storm; Z95.4 Presence of other heart-valve replacement; Z87.891 Personal history of nicotine dependence; Z79.899 Other long term (current) drug therapy; Z95.5 Presence of coronary angioplasty implant and graft; Z79.82 Long term (current) use of aspirin; W18.49XA Other slipping, tripping and stumbling without falling, initial encounter
CPT/HCPCS: 73630-LT; 99283-25

== ENCOUNTER 2018-08-01 10:58 | Observation (INO) | payer MEDICARE, OTHER ==
--- NOTE | 2018-08-01 11:58 | EDM.PDOC ---
ED HPI GENERAL MEDICAL PROBLEM - General Chief Complaint: Respiratory Problem Stated Complaint: TIGHTNESS IN CHEST Time Seen by Provider: 08/01/18 11:30 Source of Information: Reports: Patient, Family History Limitations: Reports: No Limitations - History of Present Illness INITIAL COMMENTS - FREE TEXT/NARRATIVE: 62-year-old female with known coronary artery disease, past aortic valve replacement has been developing progressively worsening peripheral edema over the past several weeks. 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 She called her provider today and was told to come to the emergency room to be admitted for IV diuresis. No fevers or chills, denies significant cough. Denies abdominal symptoms. Onset: Gradual Duration: Week(s): (Worsening for weeks) Associated Symptoms: Reports: Chest Pain (Persistent mild chest pressure), Shortness of Breath, Weakness. Denies: Confusion, Cough, Fever/Chills - Related Data Allergies Allergy/AdvReac Type Severity Reaction Status Date / Time No Known Allergies Allergy Verified 08/01/18 11:13 Home Meds: Home Meds Albuterol [Proventil HFA] 1 puff INH Q4H PRN 12/15/15 [History] Albuterol/Ipratropium [DuoNeb 3.0-0.5 MG/3 ML] 3 ml IH Q4H PRN 12/15/15 [History ] Aspirin [Children's Aspirin] 81 mg PO QPM 12/15/15 [History] FLUoxetine [PROzac] 20 mg PO DAILY 12/15/15 [History] Ferrous Sulfate 325 mg PO QAM 12/15/15 [History] Fluticasone/Salmeterol [Advair Diskus 100-50] 1 puff INH BID 12/15/15 [History] Metoprolol Succinate [Toprol XL] 25 mg PO QPM 12/15/15 [History] Multivitamin with Minerals [Multiple Vitamin] 1 tab PO DAILY 12/15/15 [History] Nitroglycerin [Nitrostat] 0.4 mg SL ASDIRECTED 12/15/15 [History] Potassium Chloride 30 meq PO DAILY 12/15/15 [History] Ranitidine [Zantac] 150 mg PO DAILY 12/15/15 [History] Simvastatin [Zocor] 40 mg PO ACDINNER #30 tablet 09/30/17 [Rx] Levothyroxine Sodium 137 mcg PO ACBREAKFAST #30 tab 01/12/18 [Rx] O2 1.5 l INH DAILY 04/08/18 [History] Bumetanide [Bumex] 3 mg PO BID 05/15/18 [History] Past Medical History HEENT History: Reports: Impaired Vision Cardiovascular History: Reports: Bypass, Heart Failure, High Cholesterol, Hypertension, SOB on Exertion, Other (See Below) Other Cardiovascular History: hx of aortic valve replaced 2012,CHF Respiratory History: Reports: Asthma, COPD, SOB, Other (See Below) Other Respiratory History: home o2 1.5l Gastrointestinal History: Reports: GERD Genitourinary History: Reports: Renal Calculus 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: Musculoskeletal History: Reports: Arthritis Other Musculoskeletal History: arthritis Neurological History: Reports: None Psychiatric History: Reports: Depression Endocrine/Metabolic History: Reports: Hypothyroidism, Obesity/BMI 30+ Hematologic History: Reports: None Immunologic History: Reports: None Oncologic (Cancer) History: Reports: None Dermatologic History: Reports: None - Infectious Disease History Infectious Disease History: Reports: Chicken Pox - Past Surgical History Head Surgeries/Procedures: Reports: None HEENT Surgical History: Reports: None Cardiovascular Surgical History: Reports: Coronary Artery Bypass, Valve Replacement Respiratory Surgical History: Reports: None GI Surgical History: Reports: Appendectomy, Cholecystectomy, Colonoscopy Female Surgical History: Reports: None Endocrine Surgical History: Reports: None Neurological Surgical History: Reports: None Musculoskeletal Surgical History: Reports: Arthroscopic Knee Dermatological Surgical History: Reports: None Social & Family History - Family History Family Medical History: Noncontributory Cardiac: Reports: CAD Respiratory: Reports: Asthma, COPD OBGYN: Reports: Musculoskeletal: Reports: Arthritis Neurological: Reports: Vertigo Psychiatric: Reports: OCD Oncologic: Reports: Brain, Lung - Tobacco Use Smoking Status *Q: Never Smoker - Caffeine Use Caffeine Use: Reports: Coffee Other Caffeine Use: 1 cup per day - Recreational Drug Use Recreational Drug Use: No ED ROS GENERAL - Review of Systems Review Of Systems: See Below Constitutional: Reports: Malaise. Denies: Fever, Chills HEENT: Reports: No Symptoms Respiratory: Reports: Shortness of Breath. Denies: Cough Cardiovascular: Reports: Chest Pain, Dyspnea on Exertion, Lightheadedness. Denies: Palpitations GI/Abdominal: Denies: Abdominal Pain : Reports: No Symptoms Neurological: Denies: Headache ED EXAM, GENERAL - Physical Exam Exam: See Below Exam Limited By: No Limitations General Appearance: Alert, No Apparent Distress Eye Exam: Bilateral Eye: Normal Inspection Head: Atraumatic (a) Respiratory/Chest: No Respiratory Distress, Lungs Clear Cardiovascular: Regular Rate, Rhythm, Systolic Murmur (2 over 6 systolic ejection murmur) GI/Abdominal: Other (Obese, nontender to palpation) Extremities: Other (2+ bilateral pitting edema to above the knees) Neurological: Alert, Oriented Psychiatric: Normal Affect, Normal Mood Skin Exam: Warm, Dry Course - Vital Signs Last Recorded V/S: Last Vital Signs Temp 96 F 08/01/18 11:18 Pulse 60 08/01/18 15:30 Resp 12 08/01/18 15:30 BP 94/61 08/01/18 15:30 Pulse Ox 100 08/01/18 15:30 - Orders/Labs/Meds Orders: Active Orders 24 hr Category Date Time Status Ang Chest [CT] Stat Exams 08/01/18 13:44 Taken Medication Orders Acetaminophen (Tylenol) 650 mg PO Q4H PRN PRN Reason: Pain (Mild 1-3)/fever Albuterol (Ventolin Hfa) 0 gm INH Q4H PRN PRN Reason: Shortness of Breath Albuterol (Proventil Neb Soln) 2.5 mg NEB Q4H PRN PRN Reason: Shortness Of Breath/wheezing Albuterol/Ipratropium (Duoneb 3.0-0.5 Mg/3 Ml) 3 ml INH Q4H PRN PRN Reason: Shortness of Breath Aspirin (Aspirin) 81 mg PO QPM [facility] Aspirin (Aspirin) 81 mg PO DAILY [facility] Bumetanide (Bumex) 3 mg PO BID [facility] Enoxaparin Sodium (Lovenox) 40 mg SUBCUT QPM [facility] Fluoxetine HCl (Prozac) 20 mg PO DAILY [facility] Sodium Chloride (Normal Saline) 1,000 mls @ 75 mls/hr IV ASDIRECTED [facility] Last Admin: 08/01/18 16:56 Dose: 75 mls/hr Metoprolol Succinate (Toprol Xl) 25 mg PO QPM [facility] Morphine Sulfate (Morphine) 2 mg IVPUSH Q2H PRN PRN Reason: Pain (severe 7-10) Nitroglycerin (Nitrostat) 0.4 mg SL Q5M PRN PRN Reason: Chest Pain Stop: 08/02/18 15:53 (Fluticasone/Salmeterol [Advair Diskus 100-50] 1 Puff) 1 puff INH BIDRT [place] [Levothyroxine Sodium] 137 Mcg)*Pom * 137 mcg PO ACBREAKFAST [place] (Simvastatin [Zocor] (40 Mg)*Pom*) 40 mg PO ACDINNER [place] Ondansetron HCl (Zofran) 4 mg IV Q4H PRN PRN Reason: Nausea/Vomiting Polyethylene Glycol (Miralax) 17 gm PO DAILY PRN PRN Reason: Constipation Potassium Chloride (Potassium Chloride) 30 meq PO DAILY [facility] Ranitidine HCl (Zantac) 150 mg PO DAILY [place] Sodium Chloride (Saline Flush) 10 ml FLUSH ASDIRECTED PRN PRN Reason: Keep Vein Open Labs: Laboratory Tests 08/01/18 08/01/18 08/01/18 Range/Units 11:44 11:44 11:55 WBC 6.4 (4.5-11.0) K/uL RBC 3.59 (3.30-5.50) M/uL Hgb 10.6 L D (12.0-15.0) g/dL Hct 34.2 L (36.0-48.0) % MCV 95 (80-98) fL MCH 30 (27-31) pg MCHC 31 L (32-36) % Plt Count 204 (150-400) K/uL Neut % (Auto) 75 H (36-66) % Lymph % (Auto) 17 L (24-44) % Pine % (Auto) 7 H (2-6) % Eos % (Auto) 2 (2-4) % Baso % (Auto) 0 (0-1) % Sodium 143 (140-148) mmol/L Potassium 4.0 (3.6-5.2) mmol/L Chloride 103 (100-108) mmol/L Carbon Dioxide 33 H (21-32) mmol/L Anion Gap 11.0 (5.0-14.0) mmol/L BUN 22 H (7-18) mg/dL Creatinine 1.2 H (0.6-1.0) mg/dL Est Cr Clr Drug Dosing 39.69 mL/min Estimated GFR (MDRD) 45 L (>60) Glucose 90 (74-106) mg/dL Calcium 9.4 (8.5-10.1) mg/dL Total Bilirubin 1.5 H (0.2-1.0) mg/dL AST 18 (15-37) U/L ALT 19 (12-78) U/L Alkaline Phosphatase 92 (46-116) U/L Troponin I < 0.017 (0.000-0.056) ng/mL Total Protein 7.0 (6.4-8.2) g/dL Albumin 3.8 (3.4-5.0) g/dL Globulin 3.2 (2.3-3.5) g/dL Albumin/Globulin Ratio 1.2 (1.2-2.2) Meds: Medications Generic Name Dose Route Start Last Admin Trade Name Freq PRN Reason Stop Dose Admin Acetaminophen 650 mg 08/01/18 16:37 Tylenol PO Q4H PRN Pain (Mild 1-3)/fever Albuterol 0 gm 08/01/18 16:37 Ventolin Hfa INH Q4H PRN Shortness of Breath Albuterol 2.5 mg 08/01/18 16:37 Proventil Neb Soln NEB Q4H PRN Shortness Of Breath/wheezing Albuterol/Ipratropium 3 ml 08/01/18 16:37 Duoneb 3.0-0.5 Mg/3 Ml INH Q4H PRN Shortness of Breath Aspirin 81 mg 08/01/18 17:00 Aspirin PO QPM [facility] Aspirin 81 mg 08/02/18 09:00 Aspirin PO DAILY [facility] Bumetanide 3 mg 08/01/18 21:00 Bumex PO BID [facility] Enoxaparin Sodium 40 mg 08/01/18 17:00 Lovenox SUBCUT QPM [facility] Fluoxetine HCl 20 mg 08/02/18 09:00 Prozac PO DAILY [facility] Sodium Chloride 1,000 mls @ 75 mls/hr 08/01/18 16:37 08/01/18 16:56 Normal Saline IV 75 mls/hr ASDIRECTED [place] Administration Metoprolol Succinate 25 mg 08/01/18 17:00 Toprol Xl PO QPM [facility] Morphine Sulfate 2 mg 08/01/18 16:37 Morphine IVPUSH Q2H PRN Pain (severe 7-10) Nitroglycerin 0.4 mg 08/01/18 16:37 Nitrostat SL 08/02/18 15:53 Q5M PRN Chest Pain (Fluticasone/ 1 puff 08/01/18 21:00 Salmeterol [Advair INH Diskus 100-50] 1 BIDRT [place] Puff) [Levothyroxine 137 mcg 08/02/18 07:30 Sodium] 137 Mcg)*Pom PO * ACBREAKFAST [place] (Simvastatin [Zocor] 40 mg 08/01/18 17:00 40 Mg)*Pom* PO ACDINNER [facility] Ondansetron HCl 4 mg 08/01/18 16:37 Zofran IV Q4H PRN Nausea/Vomiting Polyethylene Glycol 17 gm 08/01/18 16:37 Miralax PO DAILY PRN Constipation Potassium Chloride 30 meq 08/02/18 09:00 Potassium Chloride PO DAILY [facility] Ranitidine HCl 150 mg 08/02/18 09:00 Zantac PO DAILY [facility] Sodium Chloride 10 ml 08/01/18 16:37 Saline Flush FLUSH ASDIRECTED PRN Keep Vein Open Discontinued Medications Generic Name Dose Route Start Last Admin Trade Name Freq PRN Reason Stop Dose Admin Sodium Chloride 100 mls @ 3 mls/sec 08/01/18 15:00 Normal Saline IV ASDIRECTED [facility] Iopamidol 100 ml 08/01/18 15:00 [id number] (76%) IV . DIRECTED [facility] - Re-Assessments/Exams Free Text/Narrative Re-Assessment/Exam: 08/01/18 11:58 CBC CMP were obtained as well as a two-view chest x-ray. 08/01/18 12:49 Hemoglobin is 10.6. White count is normal, creatinine 1.2 and GFR 45 which is consistent with past readings. Electrolytes are normal. She is failing outpatient diuretic therapy with increased Bumex, so I asked Dr. Fowler of the hospitalist service who visit with the patient regarding possible IV diuresis. Departure - Departure Time of Disposition: 16:39 Disposition: Admitted As Inpatient 65 Condition: Fair Clinical Impression: Peripheral edema, Shortness of breath on exertion Congestive heart failure (CHF) Qualifiers: Heart failure type: right-sided Heart failure chronicity: chronic Qualified Code(s): I50.812 - Chronic right heart failure - Discharge Information - My Orders Last 24 Hours: My Active Orders 08/01/18 13:44 Ang Chest [CT] Stat - Assessment/Plan Last 24 Hours: My Active Orders 08/01/18 13:44 Ang Chest [CT] Stat
--- NOTE | 2018-08-01 12:33 | CRLCR ---
INDICATION: Dyspnea TECHNIQUE: Chest 2 views. COMPARISON: 04/27/2018 FINDINGS: Cardiovascular and mediastinum: Stable cardiomegaly. Mediastinum is within normal limits. Sternotomy wires and prosthetic heart valve noted. Lungs and pleural spaces: Lungs are clear. No sign of infiltrate or mass. No sign of pleural effusion. No pneumothorax. Bones and soft tissues: No significant findings. IMPRESSION: No acute pulmonary or cardiac abnormalities. Stable cardiomegaly. Dictated by Luis Hollingsworth MD @ 08/01/2018 12:31:04 PM Dictated by: Luis Hollingsworth MD @ 08/01/2018 12:31:12 (Electronically Signed)
[2018-08-01] MEDS ORDERED: Sodium Chloride 0.9% 100 ML IV SCH (15:00)
[2018-08-01] MEDS ORDERED: Iopamidol 755 Mg/ML 100 ML Bottle IV SCH (15:00)
--- NOTE | 2018-08-01 16:16 | PCM.HP ---
H&P History of Present Illness - General Date of Service: 08/01/18 Admit Problem/Dx: Admission Diagnosis/Problem Admission Diagnosis/Problem Chest pain Source of Information: Patient, Old Records, Provider, RN Notes Reviewed History Limitations: Reports: No Limitations - History of Present Illness Initial Comments - Free Text/Narative: Ms. Amezcua is a 62-year-old woman who is admitted to observation status through the emergency department for further evaluation and management of chest pressure and increased dyspnea. She has a known history of diastolic congestive heart failure as well as coronary artery disease and COPD. She had been getting along fairly well until about a week ago when she noted a relatively sudden onset of shortness of breath with exertion. She reports dyspnea occurring with minimal exertion such as walking 10-20 feet and requiring at least a few minutes for recovery. Over the past week is also had 2 episodes of burning pressure sensation in her chest. The first episode occurred when she was showering and resolved with rest, the second episode occurred earlier this morning at rest. She felt like she was retaining extra fluid and contacted her java programmer analyst this morning who instructed her to present to the emergency department for probable admission and IV diuresis. On evaluation in the emergency department she really does not have significant peripheral edema, chest x-ray was clear and showed no evidence of pulmonary edema. Because of her abrupt onset of shortness of breath CT scan of the chest was obtained. Preliminary review shows no evidence of pulmonary emboli or other significant abnormalities within the lungs. - Related Data Allergies/Adverse Reactions: Allergies Allergy/AdvReac Type Severity Reaction Status Date / Time No Known Allergies Allergy Verified 08/01/18 11:13 Home Medications: Home Meds Albuterol [Proventil HFA] 1 puff INH Q4H PRN 12/15/15 [History] Albuterol/Ipratropium [DuoNeb 3.0-0.5 MG/3 ML] 3 ml IH Q4H PRN 12/15/15 [History ] Aspirin [Children's Aspirin] 81 mg PO QPM 12/15/15 [History] FLUoxetine [PROzac] 20 mg PO DAILY 12/15/15 [History] Ferrous Sulfate 325 mg PO QAM 12/15/15 [History] Fluticasone/Salmeterol [Advair Diskus 100-50] 1 puff INH BID 12/15/15 [History] Metoprolol Succinate [Toprol XL] 25 mg PO QPM 12/15/15 [History] Multivitamin with Minerals [Multiple Vitamin] 1 tab PO DAILY 12/15/15 [History] Nitroglycerin [Nitrostat] 0.4 mg SL ASDIRECTED 12/15/15 [History] Potassium Chloride 30 meq PO DAILY 12/15/15 [History] Ranitidine [Zantac] 150 mg PO DAILY 12/15/15 [History] Simvastatin [Zocor] 40 mg PO ACDINNER #30 tablet 09/30/17 [Rx] Levothyroxine Sodium 137 mcg PO ACBREAKFAST #30 tab 01/12/18 [Rx] O2 1.5 l INH DAILY 04/08/18 [History] Bumetanide [Bumex] 3 mg PO BID 05/15/18 [History] Past Medical History HEENT History: Reports: Impaired Vision Cardiovascular History: Reports: Bypass, Heart Failure, High Cholesterol, Hypertension, SOB on Exertion, Other (See Below) Other Cardiovascular History: hx of aortic valve replaced 2012,CHF Respiratory History: Reports: Asthma, COPD, SOB, Other (See Below) Other Respiratory History: home o2 1.5l Gastrointestinal History: Reports: GERD Genitourinary History: Reports: Renal Calculus 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: Reports: Musculoskeletal History: Reports: Arthritis Other Musculoskeletal History: arthritis Neurological History: Reports: None Psychiatric History: Reports: Depression Endocrine/Metabolic History: Reports: Hypothyroidism, Obesity/BMI 30+ Hematologic History: Reports: None Immunologic History: Reports: None Oncologic (Cancer) History: Reports: None Dermatologic History: Reports: None - Infectious Disease History Infectious Disease History: Reports: Chicken Pox - Past Surgical History Head Surgeries/Procedures: Reports: None HEENT Surgical History: Reports: None Cardiovascular Surgical History: Reports: Coronary Artery Bypass, Valve Replacement Respiratory Surgical History: Reports: None GI Surgical History: Reports: Appendectomy, Cholecystectomy, Colonoscopy Female Surgical History: Reports: None Endocrine Surgical History: Reports: None Neurological Surgical History: Reports: None Musculoskeletal Surgical History: Reports: Arthroscopic Knee Dermatological Surgical History: Reports: None Social & Family History - Family History Family Medical History: Noncontributory Cardiac: Reports: CAD Respiratory: Reports: Asthma, COPD OBGYN: Reports: Musculoskeletal: Reports: Arthritis Neurological: Reports: Vertigo Psychiatric: Reports: OCD Oncologic: Reports: Brain, Lung - Tobacco Use Smoking Status *Q: Never Smoker - Caffeine Use Caffeine Use: Reports: Coffee Other Caffeine Use: 1 cup per day - Recreational Drug Use Recreational Drug Use: No H&P Review of Systems - Review of Systems: Review Of Systems: See Below General: Reports: Weakness. Denies: Fever, Chills HEENT: Reports: No Symptoms Pulmonary: Reports: Shortness of Breath. Denies: Wheezing, Pleuritic Chest Pain , Cough, Sputum, Hemoptysis Cardiovascular: Reports: Chest Pain, Dyspnea on Exertion. Denies: Palpitations , Orthopnea, PND, Edema, Lightheadedness Gastrointestinal: Reports: No Symptoms Genitourinary: Reports: No Symptoms Musculoskeletal: Reports: No Symptoms Skin: Reports: No Symptoms Psychiatric: Reports: No Symptoms Neurological: Reports: No Symptoms Hematologic/Lymphatic: Reports: No Symptoms Immunologic: Reports: No Symptoms Exam - Exam Exam: See Below - Vital Signs Vital Signs: Last Vital Signs Temp 96 F 08/01/18 11:18 Pulse 60 08/01/18 15:30 Resp 12 08/01/18 15:30 BP 94/61 08/01/18 15:30 Pulse Ox 100 08/01/18 15:30 Weight: 244 lb 4.355 oz - Exam Quality Assessment: Supplemental Oxygen, DVT Prophylaxis General: Alert, Oriented, Cooperative, Mild Distress HEENT: Conjunctiva Clear, Hearing Intact, Mucosa Moist & [place], Normal Nasal Septum, Posterior Pharynx Clear, Pupils Equal Neck: Supple, Trachea Midline, +2 Carotid Pulse wo Bruit Lungs: Clear to Auscultation, Normal Respiratory Effort, Decreased Breath Sounds. No: Rales, Rhonchi, Wheezing Cardiovascular: Regular Rate, Regular Rhythm, Normal S1, Normal S2. No: Systolic Murmur, Diastolic Murmur GI/Abdominal Exam: Soft, Non-Tender, No Organomegaly, No Distention Back Exam: Normal Inspection, Full Range of Motion Extremities: Non-Tender, No Pedal Edema Skin: Warm, Dry, Intact Neurological: Cranial Nerves Intact, Strength Equal Bilateral, Normal Speech, Normal Tone, Sensation Intact. No: Focal Deficit Neuro Extensive - Mental Status: Alert, Oriented x3, Normal Mood/Affect, Normal Cognition, Memory Intact - Patient Data Lab Results Last 24 hrs: Laboratory Results - last 24 hr 08/01/18 08/01/18 08/01/18 Range/Units 11:44 11:44 11:55 WBC 6.4 (4.5-11.0) K/uL RBC 3.59 (3.30-5.50) M/uL Hgb 10.6 L D (12.0-15.0) g/dL Hct 34.2 L (36.0-48.0) % MCV 95 (80-98) fL MCH 30 (27-31) pg MCHC 31 L (32-36) % Plt Count 204 (150-400) K/uL Neut % (Auto) 75 H (36-66) % Lymph % (Auto) 17 L (24-44) % [place] % (Auto) 7 H (2-6) % Eos % (Auto) 2 (2-4) % Baso % (Auto) 0 (0-1) % Sodium 143 (140-148) mmol/L Potassium 4.0 (3.6-5.2) mmol/L Chloride 103 (100-108) mmol/L Carbon Dioxide 33 H (21-32) mmol/L Anion Gap 11.0 (5.0-14.0) mmol/L BUN 22 H (7-18) mg/dL Creatinine 1.2 H (0.6-1.0) mg/dL Est Cr Clr Drug Dosing 39.69 mL/min Estimated GFR (MDRD) 45 L (>60) Glucose 90 (74-106) mg/dL Calcium 9.4 (8.5-10.1) mg/dL Total Bilirubin 1.5 H (0.2-1.0) mg/dL AST 18 (15-37) U/L ALT 19 (12-78) U/L Alkaline Phosphatase 92 (46-116) U/L Troponin I < 0.017 (0.000-0.056) ng/mL Total Protein 7.0 (6.4-8.2) g/dL Albumin 3.8 (3.4-5.0) g/dL Globulin 3.2 (2.3-3.5) g/dL Albumin/Globulin Ratio 1.2 (1.2-2.2) Result Diagrams: 08/01/18 11:44 08/01/18 11:44 *Q Meaningful Use (ADM) - VTE Risk Assess *Q Each Risk Factor Represents 1 Point: Obesity ( BMI > 25 kg/m2), Congestive heart failure (CHF), Abnormal Pulmonary Function (COPD) Total Score 1 Point Risk Factors: 3 Each Risk Factor Represents 2 Points: Age 60 - 74 Years Total Score 2 Point Risk Factors: 2 Each Risk Factor Represents 3 Points: None Total Score 3 Point Risk Factors: 0 Each Risk Factor Represents 5 Points: None Total Score 5 Point Risk Factors: 0 Venous Thromboembolism Risk Factor Score *Q: 5 Problem List Initiated/Reviewed/Updated: Yes Orders Last 24hrs: Active Orders 24 hr Category Date Time Status Patient Status Manage Transfer [TRANSFER] Routine ADT 08/01/18 15:47 Active EKG Documentation Completion [RC] ASDIRECTED Care 08/01/18 15:56 Active Ang Chest [CT] Stat Exams 08/01/18 13:44 Ordered Iopamidol [Isovue-370 (76%)] Med 08/01/18 15:00 Active 100 ml IV . DIRECTED Sodium Chloride 0.9% [Normal Saline] 100 ml Med 08/01/18 15:00 Active IV ASDIRECTED Resuscitation Status Routine Resus Stat 08/01/18 15:49 Ordered EKG 12 Lead [EK] Stat Ther 08/01/18 15:56 Ordered Medication Orders Sodium Chloride (Normal Saline) 100 mls @ 3 mls/sec IV ASDIRECTED [place] Iopamidol (Isovue-370 (76%)) 100 ml IV . DIRECTED [place] Assessment/Plan Comment:: ASSESSMENT AND PLAN DYSPNEA ON EXERTION AND CHEST PAIN-abrupt onset of shortness of breath with episodes of chest pain noted over the past week. Evaluation in the emergency department thus far unremarkable with normal troponin level and other labs. Chest x-ray showed no obvious abnormalities. CT scan angiogram of the chest, preliminary report, shows no evidence of pulmonary embolism or other significant abnormalities. Formal report of CT is pending at the time of this dictation. -Observation admission to rule out DE -Serial troponin levels -Lexiscan Cardiolite study in a.m. -Echocardiogram to reassess left ventricular function HISTORY OF DIASTOLIC CONGESTIVE HEART FAILURE-appears to be well compensated this time with no evidence of pulmonary edema or significant peripheral edema. -Continue outpatient medications HISTORY OF CORONARY ARTERY DISEASE-recent symptoms of chest pain and dyspnea which may represent an anginal equivalent -Evaluation as above COPD-oxygen dependent at home, no evidence of acute exacerbation or underlying infection - continue outpatient medications MAINTENANCE ISSUES -DVT prophylaxis; Lovenox 40 mg subcutaneous daily -GI prophylaxis; not indicated -Connell catheter; not indicated -Nutrition; 2 g sodium diet -Nicotine dependence; not required CODE STATUS-FULL CODE ADMISSION STATUS-patient will be admitted to observation status, at the time of admission I do not expect management and evaluation to require more than a 48 hour period of time. DISPOSITION-anticipate discharge to home after the hospital stay. PRIMARY CARE PROVIDER-Martha Tracy
[2018-08-01] MEDS ORDERED: Albuterol 8 GM Inhaler INH PRN (16:37)
[2018-08-01] MEDS ORDERED: Morphine 2 MG/ML Syringe IVPUSH PRN (16:37)
[2018-08-01] MEDS ORDERED: Nitroglycerin 0.4 MG Tab.SL SL PRN (16:37)
[2018-08-01] MEDS ORDERED: Acetaminophen 325 MG Tab PO PRN (16:37)
[2018-08-01] MEDS ORDERED: Albuterol 0.083% 2.5 MG/3 ML Neb Soln NEB PRN (16:37)
[2018-08-01] MEDS ORDERED: Albuterol/Ipratropium 3.0-0.5 MG/3 ML Neb Soln INH PRN (16:37)
[2018-08-01] MEDS ORDERED: Sodium Chloride 0.9% 10 ML Syringe FLUSH PRN (16:37)
[2018-08-01] MEDS ORDERED: Polyethylene Glycol 3350 Powder 17 GM Packet PO PRN (16:37)
[2018-08-01] MEDS ORDERED: Ondansetron 4 MG/2 ML SDV IV PRN (16:37)
[2018-08-01] MEDS: Sodium Chloride 0.9% 1,000 ML IV SCH (16:56)
[2018-08-01] MEDS: Enoxaparin 40 MG/0.4 ML Syringe SUBCUT SCH (19:04)
[2018-08-01] MEDS: Aspirin 81 MG Tab.Chew PO SCH (19:04)
[2018-08-01] MEDS: Metoprolol Succinate 25 MG Tab.ER PO SCH (19:05)
[2018-08-01] MEDS: BUMETANIDE 1 MG PO SCH (20:35)
[2018-08-01] MEDS: SALMETEROL INH SCH (21:07)
[2018-08-01] MEDS: FLUTICASONE INH SCH (21:07)
[2018-08-02] MEDS: Sodium Chloride 0.9% 1,000 ML IV SCH (06:04)
[2018-08-02] MEDS: FLUTICASONE INH SCH (07:22)
[2018-08-02] MEDS: SALMETEROL INH SCH (07:22)
[2018-08-02] MEDS ORDERED: LEVOTHYROXINE SODIUM 137 MCG PO SCH (07:30)
[2018-08-02] MEDS: BUMETANIDE 1 MG PO SCH (08:55)
[2018-08-02] MEDS ORDERED: Aspirin 81 MG Tab.Chew PO SCH (09:00)
[2018-08-02] MEDS ORDERED: Potassium Chloride 10 MEQ Cap.ER PO SCH (09:00)
[2018-08-02] MEDS ORDERED: FLUoxetine 20 MG Cap PO SCH (09:00)
--- NOTE | 2018-08-02 14:21 | STRESS ---
DATE OF SERVICE: 08/02/2018 PROCEDURE: Lexiscan Cardiolite Study TECHNIQUE: Ms. Amezcua was infused with usual dose of Lexiscan followed by the Cardiolite infusion given per protocol. She did well following Lexiscan infusion and reported no new symptoms. Resting ECG, sinus rhythm, rate of 64, normal axis and intervals. Somewhat flattened T-waves noted throughout. Mild baseline ST-segment depression noted in the inferolateral leads. Similar findings were seen on the post hyperventilation standing ECGs. There were no significant ST-segment changes. T-wave abnormalities from baseline seen with Lexiscan infusion or during the post infusion period. She had no significant symptoms and no significant dysrhythmias were noted during the monitoring period. IMPRESSION: Unremarkable Lexiscan portion of Lexiscan Cardiolite study. Interpretation of the Cardiolite portion of the study is pending at this time. Angel Fowler MD /[id number]
--- NOTE | 2018-08-02 15:08 | CRLCT ---
Final Report: INDICATION: Sudden onset shortness of breath TECHNIQUE: CT chest pulmonary angiogram acquired with IV contrast. 100 cc Isovue 370 COMPARISON: 11/29/2016 FINDINGS: Cardiovascular structures: Normal vascular enhancement of the pulmonary arteries , no sign of pulmonary embolism. Cardiomegaly. Prosthetic aortic valve ring noted. No sign of aneurysm or dissection in the thoracic aorta. Mediastinum and rama: No mass or adenopathy. Lungs: Atelectasis versus scarring left upper lobe lingular segment.. Pleura and pericardium: No effusions. Chest wall and axilla: No mass or adenopathy. Bones: Degenerative changes thoracic spine Upper abdomen: Unremarkable. IMPRESSION: No pulmonary embolism, aortic dissection, or pneumonia. Cardiomegaly. Dictated by Luis Hollingsworth MD @ 08/01/2018 3:56:19 PM Please note that all CT scans at this facility use dose modulation, iterative reconstruction, and/or weight-based dosing when appropriate to reduce radiation dose to as low as reasonably achievable. Dictated by: Luis Hollingsworth MD @ 08/01/2018 15:56:25 Signed by: Luis Hollingsworth MD @08/01/2018 3:56:25 PM (Electronic Signature) MTDD
--- NOTE | 2018-08-02 17:08 | PCM.DCSUM1 ---
Discharge Summary - Hospital Course Brief History: Ms. Amezcua is a 62-year-old woman who was admitted to observation status through the emergency department for further evaluation and management of chest pressure and shortness of breath. - Discharge Data Discharge Date: 08/02/18 Discharge Disposition: Home, Self-Care 01 Condition: Fair - Discharge Diagnosis/Problem(s) (1) Shortness of breath on exertion SNOMED Code(s): 28707191 ICD Code: R06.02 - SHORTNESS OF BREATH Status: Acute Current Visit: Yes (2) Diastolic CHF, acute on chronic SNOMED Code(s): 909423174, 932162365 ICD Code: I50.33 - ACUTE ON CHRONIC DIASTOLIC (CONGESTIVE) HEART FAILURE Status: Chronic Current Visit: No (3) H/O aortic valve replacement SNOMED Code(s): 0470680204051, 039976990, 2077001021696 ICD Code: Z95.2 - PRESENCE OF PROSTHETIC HEART VALVE Status: Chronic Current Visit: No (4) COPD (chronic obstructive pulmonary disease) SNOMED Code(s): 76672588 ICD Code: J44.9 - CHRONIC OBSTRUCTIVE PULMONARY DISEASE, UNSPECIFIED Status : Chronic Current Visit: No Qualifiers: COPD type: unspecified COPD Qualified Code(s): J44.9 - Chronic obstructive pulmonary disease, unspecified (5) CAD (coronary artery disease) SNOMED Code(s): 15876400 ICD Code: I25.10 - ATHSCL HEART DISEASE OF [place] CORONARY ARTERY W/O ANG PCTRS Status: Chronic Current Visit: No Qualifiers: Coronary Disease-Associated Artery/Lesion type: [place] artery [place] vs. transplanted heart: [place] heart Associated angina: without angina Qualified Code(s): I25.10 - Atherosclerotic heart disease of [place] coronary artery without angina pectoris - Patient Summary/Data Hospital Course: Ms. Amezcua is a 62-year-old woman who was admitted to observation status through the emergency department for further evaluation and management of chest pressure and increased dyspnea. She has a known history of diastolic congestive heart failure as well as coronary artery disease and COPD. She had been getting along fairly well until about a week ago when she noted a relatively sudden onset of shortness of breath with exertion. She reports dyspnea occurring with minimal exertion such as walking 10-20 feet and requiring at least a few minutes for recovery. Over the past week is also had 2 episodes of burning pressure sensation in her chest. The first episode occurred when she was showering and resolved with rest, the second episode occurred earlier this morning at rest. She felt like she was retaining extra fluid and contacted her spot welder this morning who instructed her to present to the emergency department for probable admission and IV diuresis. On evaluation in the emergency department she really does not have significant peripheral edema, chest x-ray was clear and showed no evidence of pulmonary edema. Because of her abrupt onset of shortness of breath CT scan of the chest was obtained. Report shows no evidence of pulmonary emboli, pulmonary edema, pulmonary infiltrate or other significant abnormalities within the lungs. Initial troponin level obtained in the emergency department was within normal range, EKG showed no acute ST segment changes. She was admitted to the intensive care unit on observation status to rule out myocardial infarction. Serial troponin levels were within normal range and she had no further symptoms of chest pain or pressure. On the morning after admission she did undergo a Lexiscan Cardiolite study, this showed normal left ventricular systolic function and no evidence of myocardial ischemia. We were not able to obtain an echocardiogram during her hospitalization this will be scheduled as an outpatient as well as full pulmonary function studies with DLCL. She will be given a short course of oral prednisone to determine if some of her current symptoms could be secondary to COPD exacerbation. No significant wheezing was identified during her hospital stay. Activity will be as tolerated , she will be on a 2 g sodium diet. Follow-up appointment will be scheduled with her primary care provider within one week. - Patient Instructions Diet: Low Sodium Activity: As Tolerated Other/Special Instructions: Please schedule follow-up appointment with primary care provider within one week. Please schedule outpatient echocardiogram for reassessment of diastolic dysfunction and current symptoms of shortness of breath. Please schedule full pulmonary function studies with DLCO. - Discharge Plan *PRESCRIPTION DRUG MONITORING PROGRAM REVIEWED*: Not Applicable *COPY OF PRESCRIPTION DRUG MONITORING REPORT IN PATIENT SRINI: Not Applicable Prescriptions/Med Rec: predniSONE [Prednisone] 40 mg PO DAILY #10 tablet Home Medications: Home Meds Albuterol [Proventil HFA] 1 puff INH Q4H PRN 12/15/15 [History] Albuterol/Ipratropium [DuoNeb 3.0-0.5 MG/3 ML] 3 ml IH Q4H PRN 12/15/15 [History ] Aspirin [Children's Aspirin] 81 mg PO QPM 12/15/15 [History] FLUoxetine [PROzac] 20 mg PO DAILY 12/15/15 [History] Ferrous Sulfate 325 mg PO QAM 12/15/15 [History] Fluticasone/Salmeterol [Advair Diskus 100-50] 1 puff INH BID 12/15/15 [History] Metoprolol Succinate [Toprol XL] 25 mg PO QPM 12/15/15 [History] Multivitamin with Minerals [Multiple Vitamin] 1 tab PO DAILY 12/15/15 [History] Nitroglycerin [Nitrostat] 0.4 mg SL ASDIRECTED 12/15/15 [History] Potassium Chloride 30 meq PO DAILY 12/15/15 [History] Ranitidine [Zantac] 150 mg PO DAILY 12/15/15 [History] Simvastatin [Zocor] 40 mg PO ACDINNER #30 tablet 09/30/17 [Rx] Levothyroxine Sodium 137 mcg PO ACBREAKFAST #30 tab 01/12/18 [Rx] O2 1.5 l INH DAILY 04/08/18 [History] Bumetanide [Bumex] 3 mg PO BID 05/15/18 [History] predniSONE [Prednisone] 40 mg PO DAILY #10 tablet 08/02/18 [Rx] Oxygen Therapy Mode: Nasal Cannula Referrals: Martha Tracy CNM [Primary Care Provider] - - Discharge Summary/Plan Comment DC Time >30 min.: No - Patient Data Vitals - Most Recent: Last Vital Signs Temp 97.3 F 08/02/18 15:10 Pulse 65 08/02/18 15:10 Resp 18 08/02/18 15:10 BP 140/53 L 08/02/18 15:10 Pulse Ox 95 08/02/18 16:37 Weight - Most Recent: 244 lb 4.355 oz I&O - Last 24 hours: Intake & Output 08/02/18 08/02/18 08/02/18 06:59 14:59 22:59 Intake Total 1227 Output Total 450 Balance 1227 -450 Lab Results - Last 24 hrs: Laboratory Results - last 24 hr 08/01/18 08/01/18 Range/Units 17:06 23:00 Troponin I < 0.017 < 0.017 (0.000-0.056) ng/mL Med Orders - Current: Current Medications Acetaminophen (Tylenol) 650 mg PO Q4H PRN PRN Reason: Pain (Mild 1-3)/fever Albuterol (Ventolin Hfa) 0 gm INH Q4H PRN PRN Reason: Shortness of Breath Albuterol (Proventil Neb Soln) 2.5 mg NEB Q4H PRN PRN Reason: Shortness Of Breath/wheezing Albuterol/Ipratropium (Duoneb 3.0-0.5 Mg/3 Ml) 3 ml INH Q4H PRN PRN Reason: Shortness of Breath Aspirin (Aspirin) 81 mg PO QPM [facility] Last Admin: 08/01/18 19:04 Dose: 81 mg Aspirin (Aspirin) 81 mg PO DAILY [facility] Last Admin: 08/02/18 08:54 Dose: 81 mg Bumetanide (Bumex) 3 mg PO BID [facility] Last Admin: 08/02/18 08:55 Dose: 3 mg Enoxaparin Sodium (Lovenox) 40 mg SUBCUT QPM [facility] Last Admin: 08/01/18 19:04 Dose: 40 mg Fluoxetine HCl (Prozac) 20 mg PO DAILY [facility] Last Admin: 08/02/18 08:55 Dose: 20 mg Sodium Chloride (Normal Saline) 1,000 mls @ 75 mls/hr IV ASDIRECTED [facility] Last Admin: 08/02/18 06:04 Dose: 75 mls/hr Metoprolol Succinate (Toprol Xl) 25 mg PO QPM [facility] Last Admin: 08/01/18 19:05 Dose: Not Given Morphine Sulfate (Morphine) 2 mg IVPUSH Q2H PRN PRN Reason: Pain (severe 7-10) (Fluticasone/Salmeterol [Advair Diskus 100-50] 1 Puff) 1 puff INH BIDRT [facility] Last Admin: 08/02/18 07:22 Dose: 1 puff [Levothyroxine Sodium] 137 Mcg)*Pom * 137 mcg PO ACBREAKFAST [facility] Last Admin: 08/02/18 08:53 Dose: 137 mcg (Simvastatin [Zocor] (40 Mg)*Pom*) 40 mg PO ACDINNER [facility] Last Admin: 08/01/18 19:04 Dose: 40 mg Ondansetron HCl (Zofran) 4 mg IV Q4H PRN PRN Reason: Nausea/Vomiting Polyethylene Glycol (Miralax) 17 gm PO DAILY PRN PRN Reason: Constipation Potassium Chloride (Potassium Chloride) 30 meq PO DAILY [facility] Last Admin: 08/02/18 08:54 Dose: 30 meq Ranitidine HCl (Zantac) 150 mg PO DAILY [facility] Last Admin: 08/02/18 08:52 Dose: 150 mg Sodium Chloride (Saline Flush) 10 ml FLUSH ASDIRECTED PRN PRN Reason: Keep Vein Open Discontinued Medications Sodium Chloride (Normal Saline) 100 mls @ 3 mls/sec IV ASDIRECTED [facility] Iopamidol (Isovue-370 (76%)) 100 ml IV . DIRECTED [facility] Nitroglycerin (Nitrostat) 0.4 mg SL Q5M PRN PRN Reason: Chest Pain Stop: 08/02/18 15:53 Regadenoson (Lexiscan) 0.4 mg IVPUSH ONETIME ONE Stop: 08/02/18 12:46 Last Admin: 08/02/18 12:48 Dose: 0.4 mg - Exam Quality Assessment: Reports: Supplemental Oxygen, DVT Prophylaxis General: Reports: Alert, Oriented, Cooperative, Mild Distress Lungs: Reports: Clear to Auscultation, Normal Respiratory Effort, Decreased Breath Sounds Cardiovascular: Reports: Regular Rate, Regular Rhythm, Murmurs GI/Abdominal Exam: Soft, Non-Tender, No Organomegaly, No Distention Extremities: Non-Tender, No Pedal Edema
[2018-08-02 17:11] VITALS: BP 121/40
[2018-08-02] MEDS: Aspirin 81 MG Tab.Chew PO SCH (17:18)
[2018-08-02] MEDS: Enoxaparin 40 MG/0.4 ML Syringe SUBCUT SCH (17:18)
[2018-08-02] MEDS: Metoprolol Succinate 25 MG Tab.ER PO SCH (17:19)
--- NOTE | 2018-08-03 08:20 | CRLNM ---
MYOCARDIAL PERFUSION SCAN, 08/02/2018 CLINICAL HISTORY: 62-year-old female. Shortness of breath on exertion and chest pain. Aortic valve replacement and CABG in 2013. 5 feet 3 inches, 242 pounds. TECHNIQUE: (Resting SPECT and stress gated SPECT with wall motion and ejection fraction, both in supine position) Stress: Pharmacologic - Lexiscan (0.4 mg) Dose (Stress/Rest): 23.4 mCi/8.5 mCi Tc-99m tetrofosmin (IV) Comparison: None FINDINGS: There is good uptake of activity by the left ventricle. No left ventricular enlargement is noted. There is prominent soft tissue attenuation. No other significant fixed or reversible defects are identified. The gated images demonstrate a normal left ventricular ejection fraction of approximately 65 percent. No regional wall motion abnormalities are identified. IMPRESSION: 1)There is no evidence of significant myocardial ischemia or infarction. 2)Normal left ventricular ejection fraction of approximately 65 percent. KAIA FALK M.D. [email or web address] Transcribed: 3:[address]/Dictated by: Kaia Falk MD @ 08/02/2018 3:28:00 PM (Electronically Signed)
== END 2018-08-02 18:00 | disposition home or self-care (01) ==
LOC: JP.ED 10:58 → JP.ICU 15:47 → JP.MS 08-02 11:33
PROVIDERS: ADMIT Hospitalist; ATTEND Hospitalist
DX: I25.10 Atherosclerotic heart disease of native coronary artery without angina pectoris (principal); I11.0 Hypertensive heart disease with heart failure; I50.30 Unspecified diastolic (congestive) heart failure; J44.9 Chronic obstructive pulmonary disease, unspecified; J45.901 Unspecified asthma with (acute) exacerbation; E78.00 Pure hypercholesterolemia, unspecified; K21.9 Gastro-esophageal reflux disease without esophagitis; E03.9 Hypothyroidism, unspecified; E66.9 Obesity, unspecified; Z68.41 Body mass index [BMI] 40.0-44.9, adult; Z95.2 Presence of prosthetic heart valve; Z79.82 Long term (current) use of aspirin; Z79.51 Long term (current) use of inhaled steroids; Z79.899 Other long term (current) drug therapy
CPT/HCPCS: 36415; 71046; 71275; 78452; 80053; 84484; 85025; 93005; 94640; 96360; 96361; 96372; 96374; 96375; 99285; 99285-25; A9270-GY; A9500; G0378; J1650; J2785; J7030

== ENCOUNTER 2018-10-11 17:09 | Inpatient (IN) | payer MEDICARE, OTHER ==
[2018-10-11] MEDS ORDERED: Ondansetron 4 MG/2 ML SDV IV PRN (17:46)
[2018-10-11] MEDS ORDERED: Polyethylene Glycol 3350 Powder 17 GM Packet PO PRN (17:46)
[2018-10-11] MEDS ORDERED: Albuterol/Ipratropium 3.0-0.5 MG/3 ML Neb Soln NEB PRN (17:46)
[2018-10-11] MEDS ORDERED: Sodium Chloride 0.9% 10 ML Syringe FLUSH PRN (17:46)
[2018-10-11] MEDS ORDERED: Albuterol/Ipratropium 3.0-0.5 MG/3 ML Neb Soln INH PRN (17:51)
[2018-10-11] MEDS ORDERED: Albuterol 8 GM Inhaler (PTOM) INH PRN (17:51)
--- NOTE | 2018-10-11 19:18 | CRLCR ---
INDICATION: Dyspnea COMPARISON: 08/01/2018 FINDINGS: PA and lateral views of the chest were obtained. The lungs remain clear. No focal or diffuse infiltrates are present. The heart remains mildly enlarged with an aortic valve prosthesis ring. Again seen are sternal wires from median sternotomy. The mediastinum is otherwise normal in appearance. The osseous structures are normal in appearance for the patient`s age. IMPRESSION: Stable mild cardiomegaly. No active disease seen in the chest. Dictated by Rafa Watson MD @ Oct 11 2018 7:14PM Signed by Dr. Rafa Watson @ Oct 11 2018 7:15PM
[2018-10-11] MEDS ORDERED: Bumetanide 2.5 MG/10 ML MDV IVPUSH ONE (20:22)
[2018-10-11] MEDS: Fluticasone-Salmeterol 55-14 MCG Powder Inhalent INH SCH (20:55)
[2018-10-11] MEDS: Simvastatin 20 MG Tab PO SCH (20:56)
[2018-10-11] MEDS: Metoprolol Succinate 25 MG Tab.ER PO SCH (20:56)
[2018-10-11] MEDS: Aspirin 81 MG Tab.Chew PO SCH (20:56)
[2018-10-11] MEDS: Enoxaparin 40 MG/0.4 ML Syringe SUBCUT SCH (21:06)
--- NOTE | 2018-10-11 22:03 | PCM.HP ---
H&P History of Present Illness - General Date of Service: 10/11/18 Admit Problem/Dx: Admission Diagnosis/Problem Admission Diagnosis/Problem CHF, Congestive heart failure Source of Information: Patient, Provider History Limitations: Reports: No Limitations - History of Present Illness Initial Comments - Free Text/Narative: chief complaint: shortness of breath for one week. Was seen by Primary Care Provider 7 days ago, started on Lasix, continue to have shortness of breath returned to Primary Care Provider yesterday increased Lasix 80 mg po, felt a little better. Today worse, lungs feel tight, lower legs and feet are swollen. appointment today, Dr. Grossman, [employer]le [employer]er - recommends admission for CHF and IV Diuretics. Onset of Symptoms: Reports: Gradual (for one week) Duration of Symptoms: Reports: Getting Worse Location: Reports: Chest, Generalized (shortness of breath with any activity, can't lay down. tired. ) Severity: Moderate Improves with: Reports: None Worsens with: Reports: Movement Context: Reports: Other (CHF) Associated Symptoms: Reports: Shortness of Breath, Weakness - Related Data Allergies/Adverse Reactions: Allergies Allergy/AdvReac Type Severity Reaction Status Date / Time No Known Allergies Allergy Verified 08/01/18 11:13 Home Medications: Home Meds Albuterol [Proventil HFA] 1 puff INH Q4H PRN 12/15/15 [History] Albuterol/Ipratropium [DuoNeb 3.0-0.5 MG/3 ML] 3 ml IH Q4H PRN 12/15/15 [History ] Aspirin [Children's Aspirin] 81 mg PO QPM 12/15/15 [History] FLUoxetine [PROzac] 20 mg PO DAILY 12/15/15 [History] Ferrous Sulfate 325 mg PO QAM 12/15/15 [History] Fluticasone/Salmeterol [Advair Diskus 100-50] 1 puff INH BID 12/15/15 [History] Metoprolol Succinate [Toprol XL] 25 mg PO QPM 12/15/15 [History] Multivitamin with Minerals [Multiple Vitamin] 1 tab PO DAILY 12/15/15 [History] Nitroglycerin [Nitrostat] 0.4 mg SL ASDIRECTED 12/15/15 [History] Potassium Chloride 30 meq PO DAILY 12/15/15 [History] Ranitidine [Zantac] 150 mg PO DAILY 12/15/15 [History] Simvastatin [Zocor] 40 mg PO ACDINNER #30 tablet 09/30/17 [Rx] Levothyroxine Sodium 137 mcg PO ACBREAKFAST #30 tab 01/12/18 [Rx] O2 1.5 l INH DAILY 04/08/18 [History] Bumetanide [Bumex] 3 mg PO BID 05/15/18 [History] Furosemide [Lasix] 80 mg PO DAILY 10/11/18 [History] Past Medical History HEENT History: Reports: Impaired Vision Cardiovascular History: Reports: Bypass, Heart Failure, High Cholesterol, Hypertension, SOB on Exertion, Other (See Below) Other Cardiovascular History: hx of aortic valve replaced 2012,CHF Respiratory History: Reports: Asthma, COPD, SOB, Other (See Below) Other Respiratory History: home o2 1.5l Gastrointestinal History: Reports: GERD Genitourinary History: Reports: Renal Calculus 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 History: Reports: Musculoskeletal History: Reports: Arthritis Other Musculoskeletal History: arthritis Neurological History: Reports: None Psychiatric History: Reports: Depression Endocrine/Metabolic History: Reports: Hypothyroidism, Obesity/BMI 30+ Hematologic History: Reports: Anemia Immunologic History: Reports: None Oncologic (Cancer) History: Reports: None Dermatologic History: Reports: None - Infectious Disease History Infectious Disease History: Reports: Chicken Pox - Past Surgical History Head Surgeries/Procedures: Reports: None HEENT Surgical History: Reports: None Cardiovascular Surgical History: Reports: Coronary Artery Bypass, Valve Replacement Respiratory Surgical History: Reports: None GI Surgical History: Reports: Appendectomy, Cholecystectomy, Colonoscopy Female Surgical History: Reports: None Endocrine Surgical History: Reports: None Neurological Surgical History: Reports: None Musculoskeletal Surgical History: Reports: Arthroscopic Procedure Dermatological Surgical History: Reports: None Social & Family History - Family History Family Medical History: Noncontributory Cardiac: Reports: CAD Respiratory: Reports: Asthma, COPD OBGYN: Reports: Musculoskeletal: Reports: Arthritis Neurological: Reports: Vertigo Psychiatric: Reports: OCD Oncologic: Reports: Brain, Lung - Tobacco Use Smoking Status *Q: Former Smoker Used Tobacco, but Quit: Yes Month/Year Tobacco Last Used: 2011 - Caffeine Use Caffeine Use: Reports: Coffee Other Caffeine Use: 1 cup per day - Recreational Drug Use Recreational Drug Use: No - Living Situation & Occupation Living situation: Reports: , with Family (lives in [place], with Daughter and raising 2 year old Great Grandson) Occupation: Disabled H&P Review of Systems - Review of Systems: Review Of Systems: See Below General: Reports: Weakness, Other (shortness of breath ) HEENT: Reports: Glasses Pulmonary: Reports: Shortness of Breath Cardiovascular: Reports: Dyspnea on Exertion, Orthopnea, Edema (lower legs) Gastrointestinal: Reports: No Symptoms Genitourinary: Reports: No Symptoms Musculoskeletal: Reports: Leg Pain (left thigh is painful for the 3 weeks, denies any injury, feels numb on the side of her thigh.), Foot Pain (chronic pain in foot from arthritis), Joint Pain (chronic joint pain from arthritis.) Skin: Reports: No Symptoms Psychiatric: Reports: No Symptoms Neurological: Reports: No Symptoms Hematologic/Lymphatic: Reports: No Symptoms Immunologic: Reports: No Symptoms Exam - Exam Exam: See Below - Vital Signs Vital Signs: Last Vital Signs Temp 36.4 C 10/11/18 17:31 Pulse 60 10/11/18 20:56 Resp 16 10/11/18 17:31 BP 136/45 L 10/11/18 20:56 Pulse Ox 97 10/11/18 17:31 Weight: 116.029 kg - Exam Quality Assessment: Supplemental Oxygen, DVT Prophylaxis General: Alert, Oriented, Cooperative, Other (no acute distress noted, able to speak in complete sentence. appears older than stated age. frail appearance.) HEENT: PERRLA, Conjunctiva Clear, EACs Clear, EOMI, Hearing Intact, Mucosa Moist & [place], Nares Patent, Normal Nasal Septum, Glasses Neck: Supple, Trachea Midline Lungs: Decreased Breath Sounds (bialteral), Crackles (bilateral at bases) Cardiovascular: Regular Rate, Regular Rhythm, Normal S1, Normal S2, Other ( murmur present, hx of aortic valve replacement 2012) GI/Abdominal Exam: Normal Bowel Sounds, Soft, Non-Tender, No Organomegaly ( obese unable to palpate any organs. ) (Female) Exam: Deferred Rectal (Female) Exam: Deferred Back Exam: Normal Inspection, Decreased Range of Motion Extremities: Pedal Edema (1+ lower legs.), Leg Pain (left lateral thigh with numbness. ) Skin: Warm, Dry, Intact, Other (frail appearance, ) Neurological: Reflexes Equal Bilateral, Strength Equal Bilateral Neuro Extensive - Mental Status: Oriented x3, Normal Mood/Affect, Normal Cognition Psychiatric: Alert, Normal Affect, Normal Mood - Patient Data Lab Results Last 24 hrs: Laboratory Results - last 24 hr 10/11/18 10/11/18 10/11/18 Range/Units 17:46 17:46 17:46 WBC 7.4 (4.5-11.0) K/uL RBC 3.70 (3.30-5.50) M/uL Hgb 10.5 L (12.0-15.0) g/dL Hct 34.3 L (36.0-48.0) % MCV 93 (80-98) fL MCH 28 (27-31) pg MCHC 31 L (32-36) % Plt Count 211 (150-400) K/uL Neut % (Auto) 71 H (36-66) % Lymph % (Auto) 19 L (24-44) % [place] % (Auto) 7 H (2-6) % Eos % (Auto) 3 (2-4) % Baso % (Auto) 0 (0-1) % Sodium 143 (140-148) mmol/L Potassium 4.1 (3.6-5.2) mmol/L Chloride 105 (100-108) mmol/L Carbon Dioxide 32 (21-32) mmol/L Anion Gap 5.9 (5.0-14.0) mmol/L BUN 19 H (7-18) mg/dL Creatinine 1.1 H (0.6-1.0) mg/dL Est Cr Clr Drug Dosing TNP Estimated GFR (MDRD) 50 L (>60) Glucose 83 (74-106) mg/dL Calcium 9.0 (8.5-10.1) mg/dL Magnesium 2.1 (1.8-2.4) mg/dL Total Bilirubin 1.2 H (0.2-1.0) mg/dL AST 17 (15-37) U/L ALT 21 (12-78) U/L Alkaline Phosphatase 95 (46-116) U/L Total Protein 6.6 (6.4-8.2) g/dL Albumin 3.6 (3.4-5.0) g/dL Globulin 3.0 (2.3-3.5) g/dL Albumin/Globulin Ratio 1.2 (1.2-2.2) TSH, Ultra Sensitive 13.478 H (0.358-3.740) uIU/mL Result Diagrams: 10/11/18 17:46 10/11/18 17:46 - Problem List (1) CHF (congestive heart failure) SNOMED Code(s): 55553066 ICD Code: I50.9 - HEART FAILURE, UNSPECIFIED Status: Chronic Priority: High Current Visit: Yes Qualifiers: Heart failure type: diastolic Heart failure chronicity: chronic Qualified Code(s): I50.32 - Chronic diastolic (congestive) heart failure (2) Peripheral edema SNOMED Code(s): 920330384 ICD Code: R60.9 - EDEMA, UNSPECIFIED Status: Acute Current Visit: No (3) COPD (chronic obstructive pulmonary disease) SNOMED Code(s): 10865630 ICD Code: J44.9 - CHRONIC OBSTRUCTIVE PULMONARY DISEASE, UNSPECIFIED Status : Chronic Priority: Medium Current Visit: Yes Qualifiers: COPD type: emphysema Problem List Initiated/Reviewed/Updated: Yes Orders Last 24hrs: Active Orders 24 hr Category Date Time Status Patient Status [ADT] Routine ADT 10/11/18 17:46 Active Ambulate [RC] QID Care 10/11/18 17:46 Active Cardiac Monitoring [RC] .As Directed Care 10/11/18 17:47 Active Height and Weight [RC] DAILY Care 10/11/18 17:46 Active Intake and Output [RC] QSHIFT Care 10/11/18 17:46 Active Notify Provider Vital Signs [RC] ASDIRECTED Care 10/11/18 17:46 Active Oxygen Therapy [RC] PRN Care 10/11/18 17:46 Active RT Aerosol Therapy [RC] ASDIRECTED Care 10/11/18 17:49 Active Up to Chair [RC] QID Care 10/11/18 17:46 Active Vital Signs [RC] Q4H Care 10/11/18 17:46 Active Spiritual Care Follow Up [CONS] Routine Cons 10/11/18 21:36 Active 2 Gram Sodium Diet [DIET] Diet 10/11/18 Dinner Active BASIC METABOLIC PANEL,BMP [CHEM] Timed Lab 10/12/18 05:00 Ordered CBC WITH AUTO DIFF [HEME] Timed Lab 10/12/18 05:00 Ordered MAGNESIUM [CHEM] Timed Lab 10/12/18 05:00 Ordered Acetaminophen [Tylenol] Med 10/11/18 17:46 Active 650 mg PO Q4H PRN Albuterol [Ventolin HFA] Med 10/11/18 17:51 Active 0 gm INH Q4H PRN Albuterol/Ipratropium [DuoNeb 3.0-0.5 MG/3 ML] Med 10/11/18 17:51 Active 3 ml INH Q4H PRN Aspirin Med 10/11/18 18:00 Active 81 mg PO QPM Enoxaparin [Lovenox] Med 10/11/18 21:00 Active 40 mg SUBCUT BEDTIME FLUoxetine [PROzac] Med 10/12/18 09:00 Active 20 mg PO DAILY Ferrous Sulfate Med 10/12/18 09:00 Active 325 mg PO QAM Fluticasone/Salmeterol [Fluticasone-Salmeterol 55-14 Med 10/11/18 21:00 Active MCG Powder Inh] 1 puff INH BID Levothyroxine Med 10/12/18 07:30 Active 112 mcg PO ACBREAKFAST Levothyroxine Med 10/12/18 07:30 Active 25 mcg PO ACBREAKFAST Metoprolol Succinate [Toprol XL] Med 10/11/18 18:00 Active 25 mg PO QPM Ondansetron [Zofran] Med 10/11/18 17:46 Active 4 mg IV Q4H PRN Polyethylene Glycol 3350 [MiraLAX] Med 10/11/18 17:46 Active 17 gm PO DAILY PRN Ranitidine [Zantac] Med 10/12/18 09:00 Active 150 mg PO DAILY Simvastatin [Zocor] Med 10/11/18 18:15 Active 40 mg PO ACDINNER Sodium Chloride 0.9% [Saline Flush] Med 10/11/18 17:46 Active 10 ml FLUSH ASDIRECTED PRN Saline Lock Insert [OM.PC] Routine Oth 10/11/18 17:46 Ordered Resuscitation Status Routine Resus Stat 10/11/18 17:46 Ordered EKG 12 Lead [EK] Stat Ther 10/11/18 17:46 Ordered Medication Orders Acetaminophen (Tylenol) 650 mg PO Q4H PRN PRN Reason: Pain (Mild 1-3)/fever Albuterol (Ventolin Hfa) 0 gm INH Q4H PRN PRN Reason: Shortness of Breath Albuterol/Ipratropium (Duoneb 3.0-0.5 Mg/3 Ml) 3 ml INH Q4H PRN PRN Reason: Shortness of Breath Aspirin (Aspirin) 81 mg PO QPM [facility] Last Admin: 10/11/18 20:56 Dose: 81 mg Enoxaparin Sodium (Lovenox) 40 mg SUBCUT BEDTIME [facility] Last Admin: 10/11/18 21:06 Dose: 40 mg Ferrous Sulfate (Ferrous Sulfate) 325 mg PO QAM [facility] Fluoxetine HCl (Prozac) 20 mg PO DAILY [facility] Levothyroxine Sodium (Levothyroxine) 112 mcg PO ACBREAKFAST [facility] Levothyroxine Sodium (Levothyroxine) 25 mcg PO ACBREAKFAST [facility] Metoprolol Succinate (Toprol Xl) 25 mg PO QPM [facility] Last Admin: 10/11/18 20:56 Dose: 25 mg Ondansetron HCl (Zofran) 4 mg IV Q4H PRN PRN Reason: Nausea/Vomiting Polyethylene Glycol (Miralax) 17 gm PO DAILY PRN PRN Reason: Constipation Ranitidine HCl (Zantac) 150 mg PO DAILY [facility] Fluticasone/Salmeterol (Fluticasone-Salmeterol 55-14 Mcg Powder Inh) 1 puff INH BID [facility] Last Admin: 10/11/18 20:55 Dose: Simvastatin (Zocor) 40 mg PO ACDINNER [facility] Last Admin: 10/11/18 20:56 Dose: 40 mg Sodium Chloride (Saline Flush) 10 ml FLUSH ASDIRECTED PRN PRN Reason: Keep Vein Open Assessment/Plan Comment:: ASSESSMENT AND PLAN: Congestive Heart Failure diastolic This is a 62 year old female with positive history of cardiac, she present to [address] Floor for direct admission for failed outpatient therapy for Congestive Heart Failure. She was taking Lasix 80 mg po continues to be short of breath with any activity and lower legs are swollen. past medical history: In August 2018 she had admission for similar events. She has an ECHO which shows normal LV function at 55 to 60%, Lexiscan was normal E.F. CT chest with PE protocol negative for PE. 2012 CABG, aortic valve replacement, [place] age 57 yrs. CAD, COPD, quit smoking 7 years ago. Congestive Heart Failure, diastolic - -Bumex 4 mg IV now -telemetry -oxygen therapy to keep sats greater than 93% -Saline lock -monitor I&0 -am labs COPD -Duonebs -albuterol nebulizer -oxygen therapy MAINTENANCE ISSUES -DVT prophylaxis; Lovenox 40 mg subcutaneous daily -GI prophylaxis; Protonix 40 mg IV -Connell catheter; not indicated -Nutrition; low sodium diet -Nicotine dependence; not required CODE STATUS-FULL CODE ADMISSION STATUS-patient will be admitted to inpatient status, expect at least a 2 night hospital stay for evaluation and management of problems as outlined above. At the time of this admission I do not reasonably expected evaluation and management of this problem will require more than a 96 hour hospital stay. DISPOSITION-anticipate discharge to home after the hospital stay. PRIMARY CARE PROVIDER-Darlene Tracy PCP Provider HOSPITALIST - Dr. Fowler
[2018-10-12] MEDS ORDERED: LEVOTHYROXINE SODIUM 137 MCG PO SCH (07:30)
[2018-10-12] MEDS: Fluticasone-Salmeterol 55-14 MCG Powder Inhalent INH SCH ×2 (08:08→21:01)
[2018-10-12] MEDS: FLUoxetine 20 MG Cap PO SCH (08:24)
[2018-10-12] MEDS: Ferrous Sulfate 325 MG Tab PO SCH (08:24)
[2018-10-12] MEDS: Levothyroxine 112 MCG Tab PO SCH (08:24)
[2018-10-12] MEDS: Levothyroxine 25 MCG Tab PO SCH (08:24)
[2018-10-12] MEDS ORDERED: Bumetanide 2.5 MG/10 ML MDV IVPUSH ONE (09:00)
--- NOTE | 2018-10-12 12:40 | PCM.PN ---
- General Info Date of Service: 10/12/18 Subjective Update: Ms. Amezcua is a 62-year-old woman who was admitted as a direct admission yesterday afternoon for management of increased shortness of breath and peripheral edema secondary to diastolic congestive heart failure. She also has a known history of oxygen dependent COPD with a component of right heart failure. She received IV Bumex last night and again this morning with fairly good result. Edema has almost totally resolved and there has been modest improvement in her shortness of breath. Functional Status: Reports: Tolerating Diet, Ambulating, Urinating - Review of Systems General: Reports: Weakness. Denies: Fever, Chills Pulmonary: Reports: Shortness of Breath. Denies: Pleuritic Chest Pain, Cough, Sputum, Hemoptysis, Wheezing Cardiovascular: Reports: Dyspnea on Exertion, Edema. Denies: Chest Pain, Palpitations, Orthopnea, PND Gastrointestinal: Reports: No Symptoms - Patient Data Vitals - Most Recent: Last Vital Signs Temp 97 F 10/12/18 11:37 Pulse 55 L 10/12/18 11:37 Resp 16 10/12/18 11:37 BP 122/37 L 10/12/18 11:37 Pulse Ox 98 10/12/18 11:37 Weight - Most Recent: 250 lb 2.007 oz I&O - Last 24 Hours: Intake & Output 10/11/18 10/12/18 10/12/18 22:59 06:59 14:59 Intake Total 500 220 Output Total 2000 1350 Balance -1500 -1130 Lab Results Last 24 Hours: Laboratory Results - last 24 hr 10/11/18 10/11/18 10/11/18 Range/Units 17:46 17:46 17:46 WBC 7.4 (4.5-11.0) K/uL RBC 3.70 (3.30-5.50) M/uL Hgb 10.5 L (12.0-15.0) g/dL Hct 34.3 L (36.0-48.0) % MCV 93 (80-98) fL MCH 28 (27-31) pg MCHC 31 L (32-36) % Plt Count 211 (150-400) K/uL Neut % (Auto) 71 H (36-66) % Lymph % (Auto) 19 L (24-44) % [place] % (Auto) 7 H (2-6) % Eos % (Auto) 3 (2-4) % Baso % (Auto) 0 (0-1) % Sodium 143 (140-148) mmol/L Potassium 4.1 (3.6-5.2) mmol/L Chloride 105 (100-108) mmol/L Carbon Dioxide 32 (21-32) mmol/L Anion Gap 5.9 (5.0-14.0) mmol/L BUN 19 H (7-18) mg/dL Creatinine 1.1 H (0.6-1.0) mg/dL Est Cr Clr Drug Dosing TNP Estimated GFR (MDRD) 50 L (>60) Glucose 83 (74-106) mg/dL Calcium 9.0 (8.5-10.1) mg/dL Magnesium 2.1 (1.8-2.4) mg/dL Total Bilirubin 1.2 H (0.2-1.0) mg/dL AST 17 (15-37) U/L ALT 21 (12-78) U/L Alkaline Phosphatase 95 (46-116) U/L Total Protein 6.6 (6.4-8.2) g/dL Albumin 3.6 (3.4-5.0) g/dL Globulin 3.0 (2.3-3.5) g/dL Albumin/Globulin Ratio 1.2 (1.2-2.2) TSH, Ultra Sensitive 13.478 H (0.358-3.740) uIU/mL 10/12/18 10/12/18 Range/Units 05:00 05:00 WBC 7.2 (4.5-11.0) K/uL RBC 3.81 (3.30-5.50) M/uL Hgb 10.7 L (12.0-15.0) g/dL Hct 35.4 L (36.0-48.0) % MCV 93 (80-98) fL MCH 28 (27-31) pg MCHC 30 L (32-36) % Plt Count 211 (150-400) K/uL Neut % (Auto) 67 H (36-66) % Lymph % (Auto) 22 L (24-44) % [place] % (Auto) 8 H (2-6) % Eos % (Auto) 3 (2-4) % Baso % (Auto) 0 (0-1) % Sodium 143 (140-148) mmol/L Potassium 3.7 (3.6-5.2) mmol/L Chloride 103 (100-108) mmol/L Carbon Dioxide 34 H (21-32) mmol/L Anion Gap 9.7 (5.0-14.0) mmol/L BUN 18 (7-18) mg/dL Creatinine 1.2 H (0.6-1.0) mg/dL Est Cr Clr Drug Dosing TNP Estimated GFR (MDRD) 45 L (>60) Glucose 92 (74-106) mg/dL Calcium 9.1 (8.5-10.1) mg/dL Magnesium 2.2 (1.8-2.4) mg/dL Total Bilirubin (0.2-1.0) mg/dL AST (15-37) U/L ALT (12-78) U/L Alkaline Phosphatase (46-116) U/L Total Protein (6.4-8.2) g/dL Albumin (3.4-5.0) g/dL Globulin (2.3-3.5) g/dL Albumin/Globulin Ratio (1.2-2.2) TSH, Ultra Sensitive (0.358-3.740) uIU/mL Med Orders - Current: Current Medications Acetaminophen (Tylenol) 650 mg PO Q4H PRN PRN Reason: Pain (Mild 1-3)/fever Albuterol (Ventolin Hfa) 0 gm INH Q4H PRN PRN Reason: Shortness of Breath Albuterol/Ipratropium (Duoneb 3.0-0.5 Mg/3 Ml) 3 ml INH Q4H PRN PRN Reason: Shortness of Breath Aspirin (Aspirin) 81 mg PO QPM [facility] Last Admin: 10/11/18 20:56 Dose: 81 mg Bumetanide (Bumex) 2 mg IVPUSH ONETIME ONE Stop: 10/12/18 18:01 Enoxaparin Sodium (Lovenox) 40 mg SUBCUT BEDTIME [facility] Last Admin: 10/11/18 21:06 Dose: 40 mg Ferrous Sulfate (Ferrous Sulfate) 325 mg PO QAM [facility] Last Admin: 10/12/18 08:24 Dose: 325 mg Fluoxetine HCl (Prozac) 20 mg PO DAILY [facility] Last Admin: 07/11/19 08:24 Dose: 20 mg Levothyroxine Sodium (Levothyroxine) 112 mcg PO ACBREAKFAST [facility] Last Admin: 10/12/18 08:24 Dose: 112 mcg Levothyroxine Sodium (Levothyroxine) 25 mcg PO ACBREAKFAST [facility] Last Admin: 10/12/18 08:24 Dose: 25 mcg Metoprolol Succinate (Toprol Xl) 25 mg PO QPM [facility] Last Admin: 10/11/18 20:56 Dose: 25 mg Ondansetron HCl (Zofran) 4 mg IV Q4H PRN PRN Reason: Nausea/Vomiting Polyethylene Glycol (Miralax) 17 gm PO DAILY PRN PRN Reason: Constipation Ranitidine HCl (Zantac) 150 mg PO DAILY [facility] Last Admin: 10/12/18 08:25 Dose: 150 mg Fluticasone/Salmeterol (Fluticasone-Salmeterol 55-14 Mcg Powder Inh) 1 puff INH BIDRT [facility] Simvastatin (Zocor) 40 mg PO ACDINNER [facility] Last Admin: 10/11/18 20:56 Dose: 40 mg Sodium Chloride (Saline Flush) 10 ml FLUSH ASDIRECTED PRN PRN Reason: Keep Vein Open Discontinued Medications Albuterol/Ipratropium (Duoneb 3.0-0.5 Mg/3 Ml) 3 ml NEB QID PRN PRN Reason: Shortness Of Breath/wheezing Bumetanide (Bumex) 4 mg IVPUSH ONETIME ONE Stop: 10/11/18 20:23 Last Admin: 10/11/18 21:05 Dose: 4 mg Bumetanide (Bumex) 4 mg IVPUSH ONETIME ONE Stop: 10/12/18 09:01 Last Admin: 10/12/18 09:33 Dose: 4 mg Fluticasone/Salmeterol (Fluticasone-Salmeterol 55-14 Mcg Powder Inh) 1 puff INH BID [facility] Last Admin: 10/12/18 08:08 Dose: 1 puff - Exam Quality Assessment: DVT Prophylaxis General: Alert, Oriented, Cooperative, Mild Distress Lungs: Clear to Auscultation, Normal Respiratory Effort, Decreased Breath Sounds Cardiovascular: Regular Rate, Regular Rhythm, No Murmurs GI/Abdominal Exam: Soft, Non-Tender, No Organomegaly, No Distention Extremities: Non-Tender, Pedal Edema - Problem List Review Problem List Initiated/Reviewed/Updated: Yes - My Orders Last 24 Hours: My Active Orders 10/11/18 17:46 Patient Status [ADT] Routine Ambulate [RC] QID Height and Weight [RC] DAILY Intake and Output [RC] QSHIFT Notify Provider Vital Signs [RC] ASDIRECTED Oxygen Therapy [RC] PRN Up to Chair [RC] QID Vital Signs [RC] Q4H Acetaminophen [Tylenol] 650 mg PO Q4H PRN Ondansetron [Zofran] 4 mg IV Q4H PRN Polyethylene Glycol 3350 [MiraLAX] 17 gm PO DAILY PRN Sodium Chloride 0.9% [Saline Flush] 10 ml FLUSH ASDIRECTED PRN Saline Lock Insert [OM.PC] Routine Resuscitation Status Routine EKG 12 Lead [EK] Stat 10/11/18 17:47 Cardiac Monitoring [RC] .As Directed 10/11/18 17:49 RT Aerosol Therapy [RC] ASDIRECTED 10/11/18 17:51 Albuterol [Ventolin HFA] 0 gm INH Q4H PRN Albuterol/Ipratropium [DuoNeb 3.0-0.5 MG/3 ML] 3 ml INH Q4H PRN 10/11/18 18:00 Aspirin 81 mg PO QPM Metoprolol Succinate [Toprol XL] 25 mg PO QPM 10/11/18 18:15 Simvastatin [Zocor] 40 mg PO ACDINNER 10/11/18 21:00 Enoxaparin [Lovenox] 40 mg SUBCUT BEDTIME 10/11/18 Dinner 2 Gram Sodium Diet [DIET] 10/12/18 07:30 Levothyroxine 112 mcg PO ACBREAKFAST Levothyroxine 25 mcg PO ACBREAKFAST 10/12/18 09:00 FLUoxetine [PROzac] 20 mg PO DAILY Ferrous Sulfate 325 mg PO QAM Ranitidine [Zantac] 150 mg PO DAILY 10/12/18 18:00 Bumetanide [Bumex] 2 mg IVPUSH ONETIME ONE 10/12/18 21:00 Fluticasone/Salmeterol [Fluticasone-Salmeterol 55-14 MCG Powder Inh] 1 puff INH BIDRT 10/13/18 05:00 BASIC METABOLIC PANEL,BMP [CHEM] Timed - Plan Plan:: ASSESSMENT AND PLAN Congestive Heart Failure, diastolic - moderate improvement from admission with Bumex in a.m. and last night -Bumex 2 mg IV tonight, reassess in a.m. -telemetry -oxygen therapy to keep sats greater than 93% -Saline lock -monitor I&0 -am labs COPD -Duonebs -albuterol nebulizer -oxygen therapy MAINTENANCE ISSUES -DVT prophylaxis; Lovenox 40 mg subcutaneous daily -GI prophylaxis; Protonix 40 mg IV -Connell catheter; not indicated -Nutrition; low sodium diet -Nicotine dependence; not required CODE STATUS-FULL CODE ADMISSION STATUS-patient will be admitted to inpatient status, expect at least a 2 night hospital stay for evaluation and management of problems as outlined above. At the time of this admission I do not reasonably expected evaluation and management of this problem will require more than a 96 hour hospital stay. DISPOSITION-anticipate discharge to home after the hospital stay. PRIMARY CARE PROVIDER-Darlene Tracy, PCP Provider HOSPITALIST - Dr. Fowler
[2018-10-12] MEDS: Simvastatin 20 MG Tab PO SCH (17:13)
[2018-10-12] MEDS: Aspirin 81 MG Tab.Chew PO SCH (17:14)
[2018-10-12] MEDS: Metoprolol Succinate 25 MG Tab.ER PO SCH (17:14)
[2018-10-12] MEDS ORDERED: Bumetanide 1 MG/4 ML MDV IVPUSH ONE (18:00)
[2018-10-12] MEDS: Enoxaparin 40 MG/0.4 ML Syringe SUBCUT SCH (21:01)
[2018-10-13] MEDS: Fluticasone-Salmeterol 55-14 MCG Powder Inhalent INH SCH ×2 (06:59→21:44)
[2018-10-13] MEDS: Levothyroxine 25 MCG Tab PO SCH (07:29)
[2018-10-13] MEDS: Levothyroxine 112 MCG Tab PO SCH (07:29)
[2018-10-13] MEDS: Ferrous Sulfate 325 MG Tab PO SCH (09:22)
[2018-10-13] MEDS: FLUoxetine 20 MG Cap PO SCH (09:22)
[2018-10-13] MEDS ORDERED: Bumetanide 1 MG/4 ML MDV IVPUSH ONE (09:45)
[2018-10-13] MEDS ORDERED: Potassium Chloride 20 MEQ Tab.ER PO ONE ×2 (10:00→20:09)
[2018-10-13] MEDS: Metoprolol Succinate 25 MG Tab.ER PO SCH (17:04)
[2018-10-13] MEDS: Simvastatin 20 MG Tab PO SCH (17:04)
[2018-10-13] MEDS: Aspirin 81 MG Tab.Chew PO SCH (17:04)
[2018-10-13] MEDS: Acetaminophen 325 MG Tab PO PRN (19:50)
--- NOTE | 2018-10-13 20:11 | PCM.PN ---
- General Info Date of Service: 10/13/18 Subjective Update: Ms. Amezcua is felt significantly improved today, edema has essentially resolved and she is experiencing less dyspnea. Excellent diuresis over the last 24 hours of 3800 mL. She is feeling somewhat lightheaded this morning after today's dose of Bumex and we'll hold on further diuretic therapy for today. Functional Status: Reports: Tolerating Diet, Ambulating, Urinating - Review of Systems General: Reports: Weakness. Denies: Fever, Chills Pulmonary: Reports: Shortness of Breath. Denies: Pleuritic Chest Pain, Cough, Sputum, Hemoptysis, Wheezing Cardiovascular: Reports: Dyspnea on Exertion, Lightheadedness. Denies: Chest Pain, Palpitations, Orthopnea, PND, Edema Gastrointestinal: Reports: No Symptoms - Patient Data Vitals - Most Recent: Last Vital Signs Temp 96.9 F 10/13/18 19:45 Pulse 56 L 10/13/18 19:45 Resp 16 10/13/18 19:45 BP 111/33 L 10/13/18 19:45 Pulse Ox 95 10/13/18 19:45 Weight - Most Recent: 247 lb 12.8 oz I&O - Last 24 Hours: Intake & Output 10/13/18 10/13/18 10/13/18 06:59 14:59 22:59 Intake Total 860 740 Output Total 250 250 600 Balance -250 610 140 Lab Results Last 24 Hours: Laboratory Results - last 24 hr 10/13/18 Range/Units 05:00 Sodium 141 (140-148) mmol/L Potassium 3.5 L (3.6-5.2) mmol/L Chloride 101 (100-108) mmol/L Carbon Dioxide 34 H (21-32) mmol/L Anion Gap 9.5 (5.0-14.0) mmol/L BUN 24 H (7-18) mg/dL Creatinine 1.2 H (0.6-1.0) mg/dL Est Cr Clr Drug Dosing 39.16 mL/min Estimated GFR (MDRD) 45 L (>60) Glucose 93 (74-106) mg/dL Calcium 9.1 (8.5-10.1) mg/dL Med Orders - Current: Current Medications Acetaminophen (Tylenol) 650 mg PO Q4H PRN PRN Reason: Pain (Mild 1-3)/fever Last Admin: 10/13/18 19:50 Dose: 650 mg Albuterol (Ventolin Hfa) 0 gm INH Q4H PRN PRN Reason: Shortness of Breath Albuterol/Ipratropium (Duoneb 3.0-0.5 Mg/3 Ml) 3 ml INH Q4H PRN PRN Reason: Shortness of Breath Aspirin (Aspirin) 81 mg PO QPM [facility] Last Admin: 10/13/18 17:04 Dose: 81 mg Enoxaparin Sodium (Lovenox) 40 mg SUBCUT BEDTIME [facility] Last Admin: 10/12/18 21:01 Dose: 40 mg Ferrous Sulfate (Ferrous Sulfate) 325 mg PO QAM [facility] Last Admin: 10/13/18 09:22 Dose: 325 mg Fluoxetine HCl (Prozac) 20 mg PO DAILY [facility] Last Admin: 10/13/18 09:22 Dose: 20 mg Levothyroxine Sodium (Levothyroxine) 112 mcg PO ACBREAKFAST [facility] Last Admin: 10/13/18 07:29 Dose: 112 mcg Levothyroxine Sodium (Levothyroxine) 25 mcg PO ACBREAKFAST [facility] Last Admin: 10/13/18 07:29 Dose: 25 mcg Metoprolol Succinate (Toprol Xl) 25 mg PO QPM [facility] Last Admin: 10/13/18 17:04 Dose: 25 mg Ondansetron HCl (Zofran) 4 mg IV Q4H PRN PRN Reason: Nausea/Vomiting Polyethylene Glycol (Miralax) 17 gm PO DAILY PRN PRN Reason: Constipation Potassium Chloride (Klor-Con M20) 40 meq PO ONETIME ONE Stop: 10/13/18 20:10 Ranitidine HCl (Zantac) 150 mg PO DAILY [facility] Last Admin: 10/13/18 09:22 Dose: 150 mg Fluticasone/Salmeterol (Fluticasone-Salmeterol 55-14 Mcg Powder Inh) 1 puff INH BIDRT [facility] Last Admin: 10/13/18 06:59 Dose: 1 puff Simvastatin (Zocor) 40 mg PO ACDINNER [facility] Last Admin: 10/13/18 17:04 Dose: 40 mg Sodium Chloride (Saline Flush) 10 ml FLUSH ASDIRECTED PRN PRN Reason: Keep Vein Open Discontinued Medications Albuterol/Ipratropium (Duoneb 3.0-0.5 Mg/3 Ml) 3 ml NEB QID PRN PRN Reason: Shortness Of Breath/wheezing Bumetanide (Bumex) 4 mg IVPUSH ONETIME ONE Stop: 10/11/18 20:23 Last Admin: 10/11/18 21:05 Dose: 4 mg Bumetanide (Bumex) 4 mg IVPUSH ONETIME ONE Stop: 10/12/18 09:01 Last Admin: 10/12/18 09:33 Dose: 4 mg Bumetanide (Bumex) 2 mg IVPUSH ONETIME ONE Stop: 10/12/18 18:01 Last Admin: 10/12/18 17:17 Dose: 2 mg Bumetanide (Bumex) 2 mg IVPUSH ONETIME ONE Stop: 10/13/18 09:46 Last Admin: 10/13/18 10:04 Dose: 2 mg Potassium Chloride (Klor-Con M20) 40 meq PO ONETIME ONE Stop: 10/13/18 10:01 Last Admin: 10/13/18 10:04 Dose: 40 meq Fluticasone/Salmeterol (Fluticasone-Salmeterol 55-14 Mcg Powder Inh) 1 puff INH BID [facility] Last Admin: 10/12/18 08:08 Dose: 1 puff - Exam Quality Assessment: DVT Prophylaxis General: Alert, Oriented, Cooperative, Mild Distress Lungs: Clear to Auscultation, Normal Respiratory Effort, Decreased Breath Sounds Cardiovascular: Regular Rate, Regular Rhythm, No Murmurs GI/Abdominal Exam: Soft, Non-Tender, No Organomegaly, No Distention Extremities: Non-Tender, No Pedal Edema - Problem List Review Problem List Initiated/Reviewed/Updated: Yes - My Orders Last 24 Hours: My Active Orders 10/12/18 21:00 Fluticasone/Salmeterol [Fluticasone-Salmeterol 55-14 MCG Powder Inh] 1 puff INH BIDRT 10/13/18 17:24 Discontinue Telemetry Monitoring [Cardiac Monitoring Discontinue] [RC] Click to Edit 10/13/18 20:09 Potassium Chloride [Klor-Con M20] 40 meq PO ONETIME ONE 10/14/18 05:00 BASIC METABOLIC PANEL,BMP [CHEM] Timed - Plan Plan:: ASSESSMENT AND PLAN Congestive Heart Failure, diastolic - good improvement in symptoms with diuresis , feeling somewhat lightheaded this morning -Hold on further diuretic therapy today, reassess in a.m. -telemetry -oxygen therapy to keep sats greater than 93% -Saline lock -monitor I&0 -am labs COPD -Duonebs -albuterol nebulizer -oxygen therapy MAINTENANCE ISSUES -DVT prophylaxis; Lovenox 40 mg subcutaneous daily -GI prophylaxis; Protonix 40 mg IV -Connell catheter; not indicated -Nutrition; low sodium diet -Nicotine dependence; not required CODE STATUS-FULL CODE ADMISSION STATUS-patient will be admitted to inpatient status, expect at least a 2 night hospital stay for evaluation and management of problems as outlined above. At the time of this admission I do not reasonably expected evaluation and management of this problem will require more than a 96 hour hospital stay. DISPOSITION-anticipate discharge to home after the hospital stay. PRIMARY CARE PROVIDER-Darlene Tracy PCP Provider HOSPITALIST - Dr. Fowler
[2018-10-13] MEDS: Enoxaparin 40 MG/0.4 ML Syringe SUBCUT SCH (21:45)
[2018-10-14] MEDS: Fluticasone-Salmeterol 55-14 MCG Powder Inhalent INH SCH ×2 (07:44→20:52)
[2018-10-14] MEDS: Levothyroxine 112 MCG Tab PO SCH (07:44)
[2018-10-14] MEDS: Levothyroxine 25 MCG Tab PO SCH (07:45)
[2018-10-14] MEDS: FLUoxetine 20 MG Cap PO SCH (08:42)
[2018-10-14] MEDS: Ferrous Sulfate 325 MG Tab PO SCH (08:42)
[2018-10-14] MEDS ORDERED: Bumetanide 2.5 MG/10 ML MDV IVPUSH ONE (09:00)
--- NOTE | 2018-10-14 13:20 | PCM.PN ---
- General Info Date of Service: 10/14/18 Subjective Update: Ms. Amezcua has noted further improvement in shortness of breath and resolution of peripheral edema. She is feeling more fatigued today and experiencing increased pain in her right leg. Functional Status: Reports: Tolerating Diet, Ambulating, Urinating - Review of Systems General: Reports: Weakness. Denies: Fever, Chills Pulmonary: Reports: Shortness of Breath. Denies: Pleuritic Chest Pain, Cough, Sputum, Hemoptysis, Wheezing Cardiovascular: Reports: Dyspnea on Exertion. Denies: Chest Pain, Palpitations , Orthopnea, PND, Edema, Lightheadedness Gastrointestinal: Reports: No Symptoms - Patient Data Vitals - Most Recent: Last Vital Signs Temp 96.2 F 10/14/18 11:00 Pulse 58 L 10/14/18 11:00 Resp 18 10/14/18 11:00 BP 118/40 L 10/14/18 11:00 Pulse Ox 98 10/14/18 11:00 Weight - Most Recent: 248 lb 6.4 oz I&O - Last 24 Hours: Intake & Output 10/13/18 10/14/18 10/14/18 22:59 06:59 14:59 Intake Total 740 500 280 Output Total 600 150 700 Balance 140 350 -420 Lab Results Last 24 Hours: Laboratory Results - last 24 hr 10/14/18 Range/Units 05:30 Sodium 142 (140-148) mmol/L Potassium 4.1 (3.6-5.2) mmol/L Chloride 104 (100-108) mmol/L Carbon Dioxide 37 H (21-32) mmol/L Anion Gap 5.1 (5.0-14.0) mmol/L BUN 27 H (7-18) mg/dL Creatinine 1.2 H (0.6-1.0) mg/dL Est Cr Clr Drug Dosing 39.16 mL/min Estimated GFR (MDRD) 45 L (>60) Glucose 93 (74-106) mg/dL Calcium 9.4 (8.5-10.1) mg/dL Med Orders - Current: Current Medications Acetaminophen (Tylenol) 650 mg PO Q4H PRN PRN Reason: Pain (Mild 1-3)/fever Last Admin: 10/13/18 19:50 Dose: 650 mg Albuterol (Ventolin Hfa) 0 gm INH Q4H PRN PRN Reason: Shortness of Breath Albuterol/Ipratropium (Duoneb 3.0-0.5 Mg/3 Ml) 3 ml INH Q4H PRN PRN Reason: Shortness of Breath Aspirin (Aspirin) 81 mg PO QPM [facility] Last Admin: 10/13/18 17:04 Dose: 81 mg Enoxaparin Sodium (Lovenox) 40 mg SUBCUT BEDTIME [facility] Last Admin: 10/13/18 21:45 Dose: 40 mg Ferrous Sulfate (Ferrous Sulfate) 325 mg PO QAM [facility] Last Admin: 10/14/18 08:42 Dose: 325 mg Fluoxetine HCl (Prozac) 20 mg PO DAILY [facility] Last Admin: 10/14/18 08:42 Dose: 20 mg Levothyroxine Sodium (Levothyroxine) 112 mcg PO ACBREAKFAST [facility] Last Admin: 10/14/18 07:44 Dose: 112 mcg Levothyroxine Sodium (Levothyroxine) 25 mcg PO ACBREAKFAST [facility] Last Admin: 10/14/18 07:45 Dose: 25 mcg Metoprolol Succinate (Toprol Xl) 25 mg PO QPM [facility] Last Admin: 10/13/18 17:04 Dose: 25 mg Ondansetron HCl (Zofran) 4 mg IV Q4H PRN PRN Reason: Nausea/Vomiting Polyethylene Glycol (Miralax) 17 gm PO DAILY PRN PRN Reason: Constipation Ranitidine HCl (Zantac) 150 mg PO DAILY [facility] Last Admin: 10/14/18 08:42 Dose: 150 mg Fluticasone/Salmeterol (Fluticasone-Salmeterol 55-14 Mcg Powder Inh) 1 puff INH BIDRT [facility] Last Admin: 10/14/18 07:44 Dose: 1 puff Simvastatin (Zocor) 40 mg PO ACDINNER [facility] Last Admin: 10/13/18 17:04 Dose: 40 mg Sodium Chloride (Saline Flush) 10 ml FLUSH ASDIRECTED PRN PRN Reason: Keep Vein Open Discontinued Medications Albuterol/Ipratropium (Duoneb 3.0-0.5 Mg/3 Ml) 3 ml NEB QID PRN PRN Reason: Shortness Of Breath/wheezing Bumetanide (Bumex) 4 mg IVPUSH ONETIME ONE Stop: 10/11/18 20:23 Last Admin: 10/11/18 21:05 Dose: 4 mg Bumetanide (Bumex) 4 mg IVPUSH ONETIME ONE Stop: 10/12/18 09:01 Last Admin: 10/12/18 09:33 Dose: 4 mg Bumetanide (Bumex) 2 mg IVPUSH ONETIME ONE Stop: 10/12/18 18:01 Last Admin: 10/12/18 17:17 Dose: 2 mg Bumetanide (Bumex) 2 mg IVPUSH ONETIME ONE Stop: 10/13/18 09:46 Last Admin: 10/13/18 10:04 Dose: 2 mg Bumetanide (Bumex) 4 mg IVPUSH ONETIME ONE Stop: 10/14/18 09:01 Last Admin: 10/14/18 09:05 Dose: 4 mg Potassium Chloride (Klor-Con M20) 40 meq PO ONETIME ONE Stop: 10/13/18 10:01 Last Admin: 10/13/18 10:04 Dose: 40 meq Potassium Chloride (Klor-Con M20) 40 meq PO ONETIME ONE Stop: 10/13/18 20:10 Last Admin: 10/13/18 21:42 Dose: 40 meq Fluticasone/Salmeterol (Fluticasone-Salmeterol 55-14 Mcg Powder Inh) 1 puff INH BID [facility] Last Admin: 10/12/18 08:08 Dose: 1 puff - Exam Quality Assessment: DVT Prophylaxis General: Alert, Oriented, Cooperative, Mild Distress Lungs: Clear to Auscultation, Normal Respiratory Effort Cardiovascular: Regular Rate, Regular Rhythm, Murmurs GI/Abdominal Exam: Soft, Non-Tender, No Organomegaly, No Distention Extremities: Non-Tender, No Pedal Edema - Problem List Review Problem List Initiated/Reviewed/Updated: Yes - My Orders Last 24 Hours: My Active Orders 10/15/18 05:00 BASIC METABOLIC PANEL,BMP [CHEM] Timed - Plan Plan:: ASSESSMENT AND PLAN Congestive Heart Failure, diastolic - symptoms of shortness of breath significantly improved, peripheral edema essentially resolved -Max 4 mg IV today -oxygen therapy to keep sats greater than 93% -Saline lock -monitor I&0 -am labs COPD -Duonebs -albuterol nebulizer -oxygen therapy MAINTENANCE ISSUES -DVT prophylaxis; Lovenox 40 mg subcutaneous daily -GI prophylaxis; Protonix 40 mg IV -Connell catheter; not indicated -Nutrition; low sodium diet -Nicotine dependence; not required CODE STATUS-FULL CODE ADMISSION STATUS-patient will be admitted to inpatient status, expect at least a 2 night hospital stay for evaluation and management of problems as outlined above. At the time of this admission I do not reasonably expected evaluation and management of this problem will require more than a 96 hour hospital stay. DISPOSITION-anticipate discharge to home tomorrow PRIMARY CARE PROVIDER-Darlene Tracy PCP Provider HOSPITALIST - Dr. Fowler
[2018-10-14] MEDS: Metoprolol Succinate 25 MG Tab.ER PO SCH (16:37)
[2018-10-14] MEDS: Aspirin 81 MG Tab.Chew PO SCH (16:37)
[2018-10-14] MEDS: Simvastatin 20 MG Tab PO SCH (16:37)
[2018-10-14] MEDS: Enoxaparin 40 MG/0.4 ML Syringe SUBCUT SCH (20:52)
[2018-10-14] MEDS: Acetaminophen 325 MG Tab PO PRN (22:09)
[2018-10-15 07:11] VITALS: PULSE 53
[2018-10-15] MEDS: Fluticasone-Salmeterol 55-14 MCG Powder Inhalent INH SCH (07:54)
[2018-10-15] MEDS: Levothyroxine 25 MCG Tab PO SCH (08:26)
[2018-10-15] MEDS: Levothyroxine 112 MCG Tab PO SCH (08:26)
[2018-10-15] MEDS: FLUoxetine 20 MG Cap PO SCH (08:27)
[2018-10-15] MEDS: Ferrous Sulfate 325 MG Tab PO SCH (08:27)
[2018-10-15 10:34] VITALS: BP 111/48
--- NOTE | 2018-10-15 13:40 | PCM.DCSUM1 ---
Discharge Summary - Hospital Course Brief History: Ms. Amezcua is a 63-year-old woman who was admitted as a direct admission from the clinic with acute on chronic diastolic heart failure causing shortness of breath and increased peripheral edema. - Discharge Data Discharge Date: 10/15/18 Discharge Disposition: Home, Self-Care 01 Condition: Fair - Discharge Diagnosis/Problem(s) (1) Peripheral edema SNOMED Code(s): 418435273 ICD Code: R60.9 - EDEMA, UNSPECIFIED Status: Acute Current Visit: No (2) Shortness of breath on exertion SNOMED Code(s): 77098816 ICD Code: R06.02 - SHORTNESS OF BREATH Status: Acute Current Visit: No (3) Diastolic CHF, acute on chronic SNOMED Code(s): 309209037, 870844248 ICD Code: I50.33 - ACUTE ON CHRONIC DIASTOLIC (CONGESTIVE) HEART FAILURE Status: Chronic Current Visit: No (4) H/O aortic valve replacement SNOMED Code(s): 8149213366105, 794033801, 5643469679414 ICD Code: Z95.2 - PRESENCE OF PROSTHETIC HEART VALVE Status: Chronic Current Visit: No (5) COPD (chronic obstructive pulmonary disease) SNOMED Code(s): 52132915 ICD Code: J44.9 - CHRONIC OBSTRUCTIVE PULMONARY DISEASE, UNSPECIFIED Status : Chronic Priority: Medium Current Visit: Yes Qualifiers: COPD type: emphysema - Patient Summary/Data Consults: Consultations 10/11/18 21:36 Spiritual Care Follow Up [CONS] Routine Special Instructions: daily prayers Hospital Course: Ms. Amezcua is a 62-year-old woman who was admitted as a direct admission for management of increased shortness of breath and peripheral edema secondary to diastolic congestive heart failure. She also has a known history of oxygen dependent COPD with a component of right heart failure. She received IV Bumex on admission. She has a known history of diastolic heart failureand is status post aortic valve replacement. History of recent weight gain with associated increase in peripheral edema and worsening of shortness of breath. She has failed outpatient management with persistent symptoms despite increasing doses of oral diuretic therapy. During hospitalization she received further doses of IV diuretic therapy with excellent results. By the time of discharge peripheral edema had resolved and her respiratory status was back to baseline. She does have known underlying COPD and uses continuous oxygen at home. Outpatient oral diuretic therapy will be increased to Bumex 4 mg twice daily. Follow-up appointment will be scheduled with her primary care provider within one week, BMP should be obtained at the time of follow-up appointment. Activity will be as tolerated and she will resume her usual diet. - Patient Instructions Diet: Low Sodium Activity: As Tolerated Other/Special Instructions: Follow up with primary care provider within one week - Discharge Plan *PRESCRIPTION DRUG MONITORING PROGRAM REVIEWED*: Not Applicable *COPY OF PRESCRIPTION DRUG MONITORING REPORT IN PATIENT SRINI: Not Applicable Prescriptions/Med Rec: Bumetanide [Bumex] 4 mg PO BID #120 tablet Home Medications: Home Meds Albuterol [Proventil HFA] 1 puff INH Q4H PRN 12/15/15 [History] Albuterol/Ipratropium [DuoNeb 3.0-0.5 MG/3 ML] 3 ml IH Q4H PRN 12/15/15 [History ] Aspirin [Children's Aspirin] 81 mg PO QPM 12/15/15 [History] FLUoxetine [PROzac] 20 mg PO DAILY 12/15/15 [History] Ferrous Sulfate 325 mg PO QAM 12/15/15 [History] Fluticasone/Salmeterol [Advair Diskus 100-50] 1 puff INH BID 12/15/15 [History] Metoprolol Succinate [Toprol XL] 25 mg PO QPM 12/15/15 [History] Multivitamin with Minerals [Multiple Vitamin] 1 tab PO DAILY 12/15/15 [History] Nitroglycerin [Nitrostat] 0.4 mg SL ASDIRECTED 12/15/15 [History] Potassium Chloride 30 meq PO DAILY 12/15/15 [History] Ranitidine [Zantac] 150 mg PO DAILY 12/15/15 [History] Simvastatin [Zocor] 40 mg PO ACDINNER #30 tablet 09/30/17 [Rx] Levothyroxine Sodium 137 mcg PO ACBREAKFAST #30 tab 01/12/18 [Rx] O2 1.5 l INH DAILY 04/08/18 [History] Bumetanide [Bumex] 4 mg PO BID #120 tablet 10/15/18 [Rx] Patient Handouts: Living With Heart Failure Referrals: Martha Tracy CNM [Primary Care Provider] - 10/17/18 1:30 pm - Discharge Summary/Plan Comment DC Time >30 min.: No - Patient Data Vitals - Most Recent: Last Vital Signs Temp 97.0 F 10/15/18 10:31 Pulse 53 L 10/15/18 10:31 Resp 18 10/15/18 10:31 BP 111/48 L 10/15/18 10:31 Pulse Ox 100 10/15/18 10:31 Weight - Most Recent: 248 lb 6.4 oz I&O - Last 24 hours: Intake & Output 10/14/18 10/15/18 10/15/18 22:59 06:59 14:59 Intake Total 300 Output Total 900 200 300 Balance -900 100 -300 Lab Results - Last 24 hrs: Laboratory Results - last 24 hr 10/15/18 Range/Units 05:30 Sodium 142 (140-148) mmol/L Potassium 3.8 (3.6-5.2) mmol/L Chloride 103 (100-108) mmol/L Carbon Dioxide 36 H (21-32) mmol/L Anion Gap 6.8 (5.0-14.0) mmol/L BUN 27 H (7-18) mg/dL Creatinine 1.3 H (0.6-1.0) mg/dL Est Cr Clr Drug Dosing 36.15 mL/min Estimated GFR (MDRD) 41 L (>60) Glucose 92 (74-106) mg/dL Calcium 9.2 (8.5-10.1) mg/dL Med Orders - Current: Current Medications Acetaminophen (Tylenol) 650 mg PO Q4H PRN PRN Reason: Pain (Mild 1-3)/fever Last Admin: 10/14/18 22:09 Dose: 650 mg Albuterol (Ventolin Hfa) 0 gm INH Q4H PRN PRN Reason: Shortness of Breath Albuterol/Ipratropium (Duoneb 3.0-0.5 Mg/3 Ml) 3 ml INH Q4H PRN PRN Reason: Shortness of Breath Aspirin (Aspirin) 81 mg PO QPM [facility] Last Admin: 10/14/18 16:37 Dose: 81 mg Enoxaparin Sodium (Lovenox) 40 mg SUBCUT BEDTIME [facility] Last Admin: 10/14/18 20:52 Dose: 40 mg Ferrous Sulfate (Ferrous Sulfate) 325 mg PO QAM [facility] Last Admin: 10/15/18 08:27 Dose: 325 mg Fluoxetine HCl (Prozac) 20 mg PO DAILY [facility] Last Admin: 10/15/18 08:27 Dose: 20 mg Levothyroxine Sodium (Levothyroxine) 112 mcg PO ACBREAKFAST [facility] Last Admin: 10/15/18 08:26 Dose: 112 mcg Levothyroxine Sodium (Levothyroxine) 25 mcg PO ACBREAKFAST [facility] Last Admin: 10/15/18 08:26 Dose: 25 mcg Metoprolol Succinate (Toprol Xl) 25 mg PO QPM [facility] Last Admin: 10/14/18 16:37 Dose: 25 mg Ondansetron HCl (Zofran) 4 mg IV Q4H PRN PRN Reason: Nausea/Vomiting Polyethylene Glycol (Miralax) 17 gm PO DAILY PRN PRN Reason: Constipation Ranitidine HCl (Zantac) 150 mg PO DAILY [facility] Last Admin: 10/15/18 08:27 Dose: 150 mg Fluticasone/Salmeterol (Fluticasone-Salmeterol 55-14 Mcg Powder Inh) 1 puff INH BIDRT [facility] Last Admin: 10/15/18 07:54 Dose: 1 puff Simvastatin (Zocor) 40 mg PO ACDINNER [facility] Last Admin: 10/14/18 16:37 Dose: 40 mg Sodium Chloride (Saline Flush) 10 ml FLUSH ASDIRECTED PRN PRN Reason: Keep Vein Open Discontinued Medications Albuterol/Ipratropium (Duoneb 3.0-0.5 Mg/3 Ml) 3 ml NEB QID PRN PRN Reason: Shortness Of Breath/wheezing Bumetanide (Bumex) 4 mg IVPUSH ONETIME ONE Stop: 10/11/18 20:23 Last Admin: 10/11/18 21:05 Dose: 4 mg Bumetanide (Bumex) 4 mg IVPUSH ONETIME ONE Stop: 10/12/18 09:01 Last Admin: 10/12/18 09:33 Dose: 4 mg Bumetanide (Bumex) 2 mg IVPUSH ONETIME ONE Stop: 10/12/18 18:01 Last Admin: 10/12/18 17:17 Dose: 2 mg Bumetanide (Bumex) 2 mg IVPUSH ONETIME ONE Stop: 10/13/18 09:46 Last Admin: 10/13/18 10:04 Dose: 2 mg Bumetanide (Bumex) 4 mg IVPUSH ONETIME ONE Stop: 10/14/18 09:01 Last Admin: 10/14/18 09:05 Dose: 4 mg Potassium Chloride (Klor-Con M20) 40 meq PO ONETIME ONE Stop: 10/13/18 10:01 Last Admin: 10/13/18 10:04 Dose: 40 meq Potassium Chloride (Klor-Con M20) 40 meq PO ONETIME ONE Stop: 10/13/18 20:10 Last Admin: 10/13/18 21:42 Dose: 40 meq Fluticasone/Salmeterol (Fluticasone-Salmeterol 55-14 Mcg Powder Inh) 1 puff INH BID [facility] Last Admin: 10/12/18 08:08 Dose: 1 puff - Exam Quality Assessment: Reports: Supplemental Oxygen, DVT Prophylaxis General: Reports: Alert, Oriented, Cooperative, No Acute Distress Lungs: Reports: Clear to Auscultation, Normal Respiratory Effort Cardiovascular: Reports: Regular Rate, Regular Rhythm, No Murmurs GI/Abdominal Exam: Soft, Non-Tender, No Organomegaly, No Distention Extremities: Non-Tender, No Pedal Edema
== END 2018-10-15 14:10 | disposition home or self-care (01) | DRG 292 ==
LOC: JP.MS 17:09
PROVIDERS: ADMIT Hospitalist; ATTEND Hospitalist
DX: I11.0 Hypertensive heart disease with heart failure (principal); Z68.41 Body mass index [BMI] 40.0-44.9, adult; I50.33 Acute on chronic diastolic (congestive) heart failure; R06.02 Shortness of breath; J44.9 Chronic obstructive pulmonary disease, unspecified; Z99.81 Dependence on supplemental oxygen; E66.9 Obesity, unspecified; I25.10 Atherosclerotic heart disease of native coronary artery without angina pectoris; E03.9 Hypothyroidism, unspecified; F32.9 Major depressive disorder, single episode, unspecified; M19.90 Unspecified osteoarthritis, unspecified site; K21.9 Gastro-esophageal reflux disease without esophagitis; E78.00 Pure hypercholesterolemia, unspecified; Z95.1 Presence of aortocoronary bypass graft; Z95.2 Presence of prosthetic heart valve; Z87.891 Personal history of nicotine dependence; I25.2 Old myocardial infarction; Z87.442 Personal history of urinary calculi; Z90.49 Acquired absence of other specified parts of digestive tract; Z79.82 Long term (current) use of aspirin
CPT/HCPCS: 36415; 71046; 80048; 80053; 83735; 84443; 85025; 93005; 94640; A9270-GY; J1650; J3490

== ENCOUNTER 2018-11-27 16:09 | Inpatient (IN) | payer MEDICARE, OTHER ==
[2018-11-27] MEDS ORDERED: Bumetanide 1 MG/4 ML MDV ONE (17:12)
[2018-11-27] MEDS ORDERED: Albuterol/Ipratropium 3.0-0.5 MG/3 ML Neb Soln NEB PRN (17:30)
[2018-11-27] MEDS ORDERED: LORazepam 2 MG/ML SDV IVPUSH PRN (17:32)
[2018-11-27] MEDS ORDERED: Acetaminophen 325 MG Tab PO PRN (17:32)
[2018-11-27] MEDS ORDERED: Sodium Chloride 0.9% 10 ML Syringe FLUSH PRN (17:32)
[2018-11-27] MEDS ORDERED: Magnesium Hydroxide 400 MG/5 ML Susp 30 ML Cup PO PRN (17:32)
[2018-11-27] MEDS ORDERED: Ondansetron 4 MG/2 ML SDV IV PRN (17:32)
[2018-11-27] MEDS ORDERED: Ondansetron 4 MG Tab.DIS PO PRN (17:32)
--- NOTE | 2018-11-27 17:45 | PCM.HP.2 ---
H&P History of Present Illness - General Date of Service: 11/27/18 Admit Problem/Dx: Admission Diagnosis/Problem Admission Diagnosis/Problem CHF, Congestive heart failure Source of Information: Patient, Family, Provider History Limitations: Reports: No Limitations - History of Present Illness Initial Comments - Free Text/Narative: CC: I'm short on breath Payal presented initially to the clinic for a routine follow-up and was noted to be short of breath at that time. She was sent for direct admission and management of congestive heart failure. Patient reports that over the past couple of weeks but especially the past week or so she has been more short of breath with activity. Climbing a flight of stairs is very difficult and require several minutes to recover. Normally she is able to do this without difficulty. She has noticed orthopnea and requires more than her usual 2 pillows to rest comfortably at night. If she tries to lay down flat she gets very short of breath. Her lower extremities have been more swollen than usual. Her weight is up 6 pounds from baseline. She does not have a cough and has not had chest pain or chest pressure. She does not report any new medications. She does report compliance with her diuretics and other medications. She has continued to use supplemental oxygen at home but even this does not help with her shortness of breath. She has not had any fevers or chills. No change in bowel or bladder habits. - Related Data Allergies/Adverse Reactions: Allergies Allergy/AdvReac Type Severity Reaction Status Date / Time No Known Allergies Allergy Verified 08/01/18 11:13 Home Medications: Home Meds Albuterol [Proventil HFA] 1 puff INH Q4H PRN 12/15/15 [History] Albuterol/Ipratropium [DuoNeb 3.0-0.5 MG/3 ML] 3 ml IH Q4H PRN 12/15/15 [History ] Aspirin [Children's Aspirin] 81 mg PO QPM 12/15/15 [History] FLUoxetine [PROzac] 20 mg PO DAILY 12/15/15 [History] Ferrous Sulfate 325 mg PO DAILY 12/15/15 [History] Fluticasone/Salmeterol [Advair Diskus 100-50] 1 puff INH BID 12/15/15 [History] Metoprolol Succinate [Toprol XL] 25 mg PO QPM 12/15/15 [History] Multivitamin with Minerals [Multiple Vitamin] 1 tab PO DAILY 12/15/15 [History] Nitroglycerin [Nitrostat] 0.4 mg SL ASDIRECTED 12/15/15 [History] Potassium Chloride 30 meq PO DAILY 12/15/15 [History] Ranitidine [Zantac] 150 mg PO DAILY 12/15/15 [History] O2 1.5 l INH DAILY 04/08/18 [History] Bumetanide [Bumex] 4 mg PO BID #120 tablet 10/15/18 [Rx] Levothyroxine 150 mcg PO ACBREAKFAST 11/27/18 [History] Simvastatin [Zocor] 40 mg PO ACDINNER 11/27/18 [History] Past Medical History HEENT History: Reports: Impaired Vision Cardiovascular History: Reports: Bypass, Heart Failure, High Cholesterol, Hypertension, SOB on Exertion, Other (See Below) Other Cardiovascular History: hx of aortic valve replaced 2012,CHF Respiratory History: Reports: Asthma, COPD, SOB, Other (See Below) Other Respiratory History: home o2 1.5l Gastrointestinal History: Reports: GERD Genitourinary History: Reports: Renal Calculus [employer] History: Reports: Musculoskeletal History: Reports: Arthritis Other Musculoskeletal History: arthritis Neurological History: Reports: None Psychiatric History: Reports: Depression Endocrine/Metabolic History: Reports: Hypothyroidism, Obesity/BMI 30+ Hematologic History: Reports: Anemia Immunologic History: Reports: None Oncologic (Cancer) History: Reports: None Dermatologic History: Reports: None - Infectious Disease History Infectious Disease History: Reports: Chicken Pox - Past Surgical History Head Surgeries/Procedures: Reports: None HEENT Surgical History: Reports: None Cardiovascular Surgical History: Reports: Coronary Artery Bypass, Valve Replacement Respiratory Surgical History: Reports: None GI Surgical History: Reports: Appendectomy, Cholecystectomy, Colonoscopy Female Surgical History: Reports: None Endocrine Surgical History: Reports: None Neurological Surgical History: Reports: None Musculoskeletal Surgical History: Reports: Arthroscopic Procedure Dermatological Surgical History: Reports: None Social & Family History - Family History Family Medical History: Noncontributory Cardiac: Reports: CAD Respiratory: Reports: Asthma, COPD OBGYN: Reports: Musculoskeletal: Reports: Arthritis Neurological: Reports: Vertigo Psychiatric: Reports: OCD Oncologic: Reports: Brain, Lung - Tobacco Use Smoking Status *Q: Former Smoker Years of Tobacco use: 30 Packs/Tins Daily: 1.5 Used Tobacco, but Quit: Yes Month/Year Tobacco Last Used: november 2012 Second Hand Smoke Exposure: No - Caffeine Use Caffeine Use: Reports: Coffee Other Caffeine Use: 1 cup per day Caffeine Use Comment: 3 cups per day - Recreational Drug Use Recreational Drug Use: No - Living Situation & Occupation Living situation: Reports: , with Family (lives in [place], with Daughter and raising 2 year old Great Grandson) Occupation: Disabled H&P Review of Systems - Review of Systems: Review Of Systems: See Below Free Text/Narrative: A complete 12 point review of systems was obtained. Pertinent positives and negatives are noted in the history of present illness. All other systems were reviewed and were negative except as noted. Exam - Exam Exam: See Below - Vital Signs Vital Signs: Last Vital Signs Temp 36.7 C 11/27/18 16:22 Pulse 63 11/27/18 16:22 Resp 20 11/27/18 16:22 BP 140/59 L 11/27/18 16:22 Pulse Ox 94 L 11/27/18 16:22 Weight: 115.031 kg - Exam Quality Assessment: Supplemental Oxygen General: Alert, Oriented, Cooperative. No: Mild Distress HEENT: Conjunctiva Clear, Mucosa Moist & [place]. No: Scleral Icterus Neck: Supple, Trachea Midline. No: Lymphadenopathy Lungs: Normal Respiratory Effort, Decreased Breath Sounds (Mild both bases), Crackles (Rare both bases) Cardiovascular: Regular Rate, Regular Rhythm, Systolic Murmur (Mild to moderate FR[place]LAN right upper sternal border), Gallop/S3 GI/Abdominal Exam: Soft, Non-Tender, No Distention Extremities: Pedal Edema (Mild pitting edema to mid [place] bilaterally). No: Increased Warmth Skin: Warm, Dry Neuro Extensive - Mental Status: Alert, Oriented x3, Nl Response to Commands Neuro Extensive - Motor, Sensory, Reflexes: No: Dysarthria, Abnormal Motor, Tremor Psychiatric: Alert, Normal Affect *Q Meaningful Use (ADM) - VTE Risk Assess *Q Each Risk Factor Represents 1 Point: Swollen Legs, Current, Obesity ( BMI > 25 kg/m2), Congestive heart failure (CHF) Total Score 1 Point Risk Factors: 3 Each Risk Factor Represents 2 Points: Age 60 - 74 Years Total Score 2 Point Risk Factors: 2 Each Risk Factor Represents 3 Points: None Total Score 3 Point Risk Factors: 0 Each Risk Factor Represents 5 Points: None Total Score 5 Point Risk Factors: 0 Venous Thromboembolism Risk Factor Score *Q: 5 - Problem List (1) Diastolic CHF, acute on chronic SNOMED Code(s): 204824818, 542531862 ICD Code: I50.33 - ACUTE ON CHRONIC DIASTOLIC (CONGESTIVE) HEART FAILURE Status: Chronic Current Visit: No (2) CAD (coronary artery disease) SNOMED Code(s): 64848795 ICD Code: I25.10 - ATHSCL HEART DISEASE OF [place] CORONARY ARTERY W/O ANG PCTRS Status: Chronic Current Visit: No Qualifiers: Coronary Disease-Associated Artery/Lesion type: [place] artery [place] vs. transplanted heart: [place] heart Associated angina: without angina Qualified Code(s): I25.10 - Atherosclerotic heart disease of [place] coronary artery without angina pectoris (3) H/O aortic valve replacement SNOMED Code(s): 8565518840687, 781819459, 5860672694561 ICD Code: Z95.2 - PRESENCE OF PROSTHETIC HEART VALVE Status: Chronic Current Visit: No (4) Acquired hypothyroidism SNOMED Code(s): 275764667 ICD Code: E03.9 - HYPOTHYROIDISM, UNSPECIFIED Status: Chronic Current Visit: No Problem List Initiated/Reviewed/Updated: Yes Orders Last 24hrs: Active Orders 24 hr Category Date Time Status Patient Status [ADT] Routine ADT 11/27/18 17:32 Ordered Antiembolic Devices [RC] .Routine Care 11/27/18 17:32 Ordered Height and Weight [RC] DAILY Care 11/27/18 17:32 Ordered Intake and Output [RC] QSHIFT Care 11/27/18 17:32 Ordered Notify Provider Vital Signs [RC] ASDIRECTED Care 11/27/18 17:32 Ordered Oxygen Therapy [RC] PRN Care 11/27/18 17:32 Ordered Up ad Yessenia [RC] ASDIRECTED Care 11/27/18 17:32 Ordered VTE/DVT Education [RC] Per Unit Routine Care 11/27/18 17:32 Ordered Vital Signs [RC] Q4H Care 11/27/18 17:32 Ordered 2 Gram Sodium Diet [DIET] Diet 11/27/18 Dinner Ordered BASIC METABOLIC PANEL,BMP [CHEM] AM Lab 11/28/18 05:11 Ordered Acetaminophen [Tylenol] Med 11/27/18 17:32 Ordered 650 mg PO Q4H PRN Albuterol/Ipratropium [DuoNeb 3.0-0.5 MG/3 ML] Med 11/27/18 17:30 Ordered 3 ml NEB Q4H PRN Aspirin Med 11/27/18 18:00 Ordered 81 mg PO QPM Bumetanide [Bumex] Med 11/28/18 08:00 Once 4 mg IVPUSH ONETIME ONE Docusate Sodium/Sennosides [Senna Plus] Med 11/27/18 17:32 Ordered 1 tab PO BID PRN FLUoxetine [PROzac] Med 11/28/18 09:00 Ordered 20 mg PO DAILY Ferrous Sulfate Med 11/28/18 09:00 Ordered 325 mg PO DAILY Fluticasone/Salmeterol [Advair Diskus 100-50] Med 11/27/18 21:00 Ordered 1 puff INH BID LORazepam [Ativan] Med 11/27/18 17:32 Ordered 0.5 mg IVPUSH Q4H PRN Levothyroxine [Levothyroxine] Med 11/28/18 07:30 Ordered 150 mcg PO ACBREAKFAST Magnesium Hydroxide [Milk of Magnesia] Med 11/27/18 17:32 Ordered 30 ml PO Q12H PRN Metoprolol Succinate [Toprol XL] Med 11/27/18 18:00 Ordered 25 mg PO QPM Ondansetron [Zofran ODT] Med 11/27/18 17:32 Ordered 4 mg PO Q6H PRN Ondansetron [Zofran] Med 11/27/18 17:32 Ordered 4 mg IV Q6H PRN Ranitidine [Zantac] Med 11/28/18 09:00 Ordered 150 mg PO DAILY Simvastatin [Zocor] Med 11/27/18 18:00 Ordered 40 mg PO ACDINNER Sodium Chloride 0.9% [Saline Flush] Med 11/27/18 17:32 Ordered 10 ml FLUSH ASDIRECTED PRN Antiembolic Hose [OM.PC] Routine Oth 11/27/18 17:33 Ordered Saline Lock Insert [OM.PC] Urgent Oth 11/27/18 17:32 Ordered Resuscitation Status Routine Resus Stat 11/27/18 17:32 Ordered Medication Orders Acetaminophen (Tylenol) 650 mg PO Q4H PRN PRN Reason: Pain (Mild 1-3)/fever Albuterol/Ipratropium (Duoneb 3.0-0.5 Mg/3 Ml) 3 ml NEB Q4H PRN PRN Reason: Shortness of Breath Aspirin (Aspirin) 81 mg PO QPM [place] Bumetanide (Bumex) 4 mg IVPUSH ONETIME ONE Stop: 11/28/18 08:01 Ferrous Sulfate (Ferrous Sulfate) 325 mg PO DAILY [place] Fluoxetine HCl (Prozac) 20 mg PO DAILY [place] Lorazepam (Ativan) 0.5 mg IVPUSH Q4H PRN PRN Reason: Nausea/Vomiting Magnesium Hydroxide (Milk Of Magnesia) 30 ml PO Q12H PRN PRN Reason: Constipation Metoprolol Succinate (Toprol Xl) 25 mg PO QPM [place] Non-Formulary Medication (Fluticasone/Salmeterol [Advair Diskus 100-50]) 1 puff INH BID [place] Non-Formulary Medication (Levothyroxine [Levothyroxine]) 150 mcg PO ACBREAKFAST [place] Ondansetron HCl (Zofran Odt) 4 mg PO Q6H PRN PRN Reason: Nausea able to take PO Ondansetron HCl (Zofran) 4 mg IV Q6H PRN PRN Reason: Nausea/Vomiting Senna/Docusate Sodium (Senna Plus) 1 tab PO BID PRN PRN Reason: Constipation Assessment/Plan Comment:: ASSESSMENT AND PLAN - Acute on chronic heart failure with preserved ejection fraction - recent echocardiograms had shown normal ejection fractions. Patient has increased dyspnea and lower extremity edema. Weight is up 6 pounds. She reports medication compliance with no obvious triggers for the exacerbation. No evidence for infection. She is dyspneic with even minimal exertion and not safe for outpatient management. -Parenteral diuresis with bumetanide -Daily weights -Intake and output monitoring -Supplement potassium -Consider addition of spironolactone -Supplement oxygen Acquired hypothyroidism - TSH level collected today in the clinic but results are pending. -Continue supplementation Coronary artery disease - history of bypass surgery. No active anginal symptoms. -Continue medical management Aortic stenosis status post bioprosthetic aortic valve replacement - no worries with echocardiogram completed a few months ago. Maintenance issues - - DVT prophylaxis - mechanical with ELIZABETH stockings - GI prophylaxis - H2 ramesh - Nutrition - low sodium - Connell catheter - not indicated CODE STATUS - full code Admission justification - This patient will be admitted for inpatient services and is medically appropriate meeting medical necessity for inpatient admission as outlined in my documentation. I reasonably expect the patient will require inpatient services that span a period time over 2 midnights. I reasonably expect this patient to be discharged or transferred within 96 hours after admission to the [facility]. Disposition - I would anticipate discharge home after the hospital stay Primary care physician - Lydia No M.D. - Mortality Measure Prognosis:: Good
[2018-11-27] MEDS: Simvastatin 20 MG Tab PO SCH (18:33)
[2018-11-27] MEDS: Metoprolol Succinate 25 MG Tab.ER PO SCH (18:34)
[2018-11-27] MEDS: Aspirin 81 MG Tab.Chew PO SCH (18:40)
[2018-11-27] MEDS: Fluticasone-Salmeterol 55-14 MCG Powder Inhalent INH SCH (20:13)
[2018-11-28] MEDS ORDERED: Bumetanide 2.5 MG/10 ML MDV IVPUSH ONE ×2 (08:00→16:00)
[2018-11-28] MEDS: Fluticasone-Salmeterol 55-14 MCG Powder Inhalent INH SCH ×2 (08:13→20:12)
[2018-11-28] MEDS: FLUoxetine 20 MG Cap PO SCH (08:18)
[2018-11-28] MEDS: Ferrous Sulfate 325 MG Tab PO SCH (08:18)
[2018-11-28] MEDS: Levothyroxine 50 MCG Tab PO SCH (08:18)
--- NOTE | 2018-11-28 11:54 | PCM.PN ---
- General Info Date of Service: 11/28/18 Subjective Update: No acute events overnight. Excellent response to diuresis with more than 2 L out last night. Shortness of breath is better but not resolved. Still has dyspnea with activity but better than yesterday. Lower extremity edema has improved. Weight is down several pounds. Oxygenation is stable. Functional Status: Reports: Pain Controlled, Tolerating Diet - Review of Systems General: Reports: Weakness Pulmonary: Reports: Shortness of Breath - Patient Data Vitals - Most Recent: Last Vital Signs Temp 36.4 C 11/28/18 10:49 Pulse 57 L 11/28/18 10:49 Resp 18 11/28/18 10:49 BP 135/48 L 11/28/18 10:49 Pulse Ox 95 11/28/18 10:49 Weight - Most Recent: 112.854 kg I&O - Last 24 Hours: Intake & Output 11/27/18 11/28/18 11/28/18 22:59 06:59 14:59 Intake Total 600 Output Total 1150 900 Balance -1150 -900 600 Lab Results Last 24 Hours: Laboratory Results - last 24 hr 11/28/18 Range/Units 04:50 Sodium 142 (140-148) mmol/L Potassium 3.6 (3.6-5.2) mmol/L Chloride 103 (100-108) mmol/L Carbon Dioxide 32 (21-32) mmol/L Anion Gap 7.2 (5.0-14.0) mmol/L BUN 16 (7-18) mg/dL Creatinine 1.1 H (0.6-1.0) mg/dL Est Cr Clr Drug Dosing 42.74 mL/min Estimated GFR (MDRD) 50 L (>60) Glucose 96 (74-106) mg/dL Calcium 9.4 (8.5-10.1) mg/dL Med Orders - Current: Current Medications Acetaminophen (Tylenol) 650 mg PO Q4H PRN PRN Reason: Pain (Mild 1-3)/fever Albuterol/Ipratropium (Duoneb 3.0-0.5 Mg/3 Ml) 3 ml NEB Q4H PRN PRN Reason: Shortness of Breath Aspirin (Aspirin) 81 mg PO QPM [facility] Last Admin: 11/27/18 18:40 Dose: 81 mg Ferrous Sulfate (Ferrous Sulfate) 325 mg PO DAILY@0800 [facility] Last Admin: 11/28/18 08:18 Dose: 325 mg Fluoxetine HCl (Prozac) 20 mg PO DAILY [facility] Last Admin: 11/28/18 08:18 Dose: 20 mg Levothyroxine Sodium (Synthroid) 150 mcg PO ACBREAKFAST [facility] Last Admin: 11/28/18 08:18 Dose: 150 mcg Lorazepam (Ativan) 0.5 mg IVPUSH Q4H PRN PRN Reason: Nausea/Vomiting Magnesium Hydroxide (Milk Of Magnesia) 30 ml PO Q12H PRN PRN Reason: Constipation Metoprolol Succinate (Toprol Xl) 25 mg PO QPM [facility] Last Admin: 11/27/18 18:34 Dose: 25 mg Ondansetron HCl (Zofran Odt) 4 mg PO Q6H PRN PRN Reason: Nausea able to take PO Ondansetron HCl (Zofran) 4 mg IV Q6H PRN PRN Reason: Nausea/Vomiting Ranitidine HCl (Zantac) 150 mg PO DAILY [facility] Last Admin: 11/28/18 08:18 Dose: 150 mg Fluticasone/Salmeterol (Fluticasone-Salmeterol 55-14 Mcg Powder Inh) 1 puff INH BIDRT [facility] Senna/Docusate Sodium (Senna Plus) 1 tab PO BID PRN PRN Reason: Constipation Simvastatin (Zocor) 40 mg PO ACDINNER [facility] Last Admin: 11/27/18 18:33 Dose: 40 mg Sodium Chloride (Saline Flush) 10 ml FLUSH ASDIRECTED PRN PRN Reason: Keep Vein Open Discontinued Medications Bumetanide (Bumex) Confirm Administered Dose 4 mg .ROUTE .STK-MED ONE Stop: 11/27/18 17:13 Last Admin: 11/27/18 17:43 Dose: 4 mg Bumetanide (Bumex) 4 mg IVPUSH ONETIME ONE Stop: 11/28/18 08:01 Last Admin: 11/28/18 08:18 Dose: 4 mg Fluticasone/Salmeterol (Fluticasone-Salmeterol 55-14 Mcg Powder Inh) 1 puff INH BID [facility] Last Admin: 11/28/18 08:13 Dose: 1 puff - Exam Quality Assessment: Supplemental Oxygen General: Alert, Oriented, Cooperative, No Acute Distress Lungs: Clear to Auscultation, Normal Respiratory Effort, Decreased Breath Sounds (both bases). No: Crackles, Wheezing Cardiovascular: Regular Rate, Regular Rhythm GI/Abdominal Exam: Soft, No Distention Extremities: Pedal Edema (trace bilateral ankle edema), Increased Warmth Skin: Warm, Dry Psy/Mental Status: Alert, Normal Affect - Problem List & Annotations (1) Diastolic CHF, acute on chronic SNOMED Code(s): 878830885, 228978047 Code(s): I50.33 - ACUTE ON CHRONIC DIASTOLIC (CONGESTIVE) HEART FAILURE Status: Chronic Current Visit: No (2) CAD (coronary artery disease) SNOMED Code(s): 47636179 Code(s): I25.10 - ATHSCL HEART DISEASE OF [place] CORONARY ARTERY W/O ANG PCTRS Status: Chronic Current Visit: No Qualifiers: Coronary Disease-Associated Artery/Lesion type: [place] artery [place] vs. transplanted heart: [place] heart Associated angina: without angina Qualified Code(s): I25.10 - Atherosclerotic heart disease of [place] coronary artery without angina pectoris (3) H/O aortic valve replacement SNOMED Code(s): 9371423747084, 622739253, 3910992071600 Code(s): Z95.2 - PRESENCE OF PROSTHETIC HEART VALVE Status: Chronic Current Visit: No (4) Acquired hypothyroidism SNOMED Code(s): 434883602 Code(s): E03.9 - HYPOTHYROIDISM, UNSPECIFIED Status: Chronic Current Visit: No - Problem List Review Problem List Initiated/Reviewed/Updated: Yes - My Orders Last 24 Hours: My Active Orders 11/27/18 17:30 Albuterol/Ipratropium [DuoNeb 3.0-0.5 MG/3 ML] 3 ml NEB Q4H PRN 11/27/18 17:32 Patient Status [ADT] Routine Antiembolic Devices [RC] .Routine Height and Weight [RC] DAILY Intake and Output [RC] QSHIFT Notify Provider Vital Signs [RC] ASDIRECTED Oxygen Therapy [RC] PRN Up ad Yessenia [RC] ASDIRECTED VTE/DVT Education [RC] Per Unit Routine Vital Signs [RC] Q4H Acetaminophen [Tylenol] 650 mg PO Q4H PRN Docusate Sodium/Sennosides [Senna Plus] 1 tab PO BID PRN LORazepam [Ativan] 0.5 mg IVPUSH Q4H PRN Magnesium Hydroxide [Milk of Magnesia] 30 ml PO Q12H PRN Ondansetron [Zofran ODT] 4 mg PO Q6H PRN Ondansetron [Zofran] 4 mg IV Q6H PRN Sodium Chloride 0.9% [Saline Flush] 10 ml FLUSH ASDIRECTED PRN Saline Lock Insert [OM.PC] Urgent Resuscitation Status Routine 11/27/18 17:33 Antiembolic Hose [OM.PC] Routine 11/27/18 18:00 Aspirin 81 mg PO QPM Metoprolol Succinate [Toprol XL] 25 mg PO QPM Simvastatin [Zocor] 40 mg PO ACDINNER 11/27/18 Dinner 2 Gram Sodium Diet [DIET] 11/28/18 07:30 Levothyroxine [Synthroid] 150 mcg PO ACBREAKFAST 11/28/18 09:00 FLUoxetine [PROzac] 20 mg PO DAILY Ferrous Sulfate 325 mg PO DAILY@0800 Ranitidine [Zantac] 150 mg PO DAILY 11/28/18 12:00 Potassium Chloride [Klor-Con M20] 40 meq PO BID 11/28/18 16:00 Bumetanide [Bumex] 4 mg IVPUSH ONETIME ONE 11/28/18 21:00 Fluticasone/Salmeterol [Fluticasone-Salmeterol 55-14 MCG Powder Inh] 1 puff INH BIDRT 11/29/18 09:00 Bumetanide [Bumex] 4 mg IVPUSH DAILY - Plan Plan:: ASSESSMENT AND PLAN - Acute on chronic heart failure with preserved ejection fraction - good response to diuresis so far but still has excess fluid and ongoing dyspnea with exertion. Physical exam improving but not normalized. -Parenteral diuresis with bumetanide this afternoon and again tomorrow morning -Daily weights -Intake and output monitoring -Supplement potassium -Consider addition of spironolactone -Supplement oxygen Acquired hypothyroidism - TSH level collected in the clinic but results are pending. -Continue supplementation Coronary artery disease - history of bypass surgery. No active anginal symptoms. -Continue medical management Aortic stenosis status post bioprosthetic aortic valve replacement - no worries with echocardiogram completed a few months ago. Maintenance issues - - DVT prophylaxis - mechanical with ELIZABETH stockings - GI prophylaxis - H2 ramesh - Nutrition - low sodium Disposition - I would anticipate discharge home after the hospital stay Stanley No M.D.
[2018-11-28] MEDS: Potassium Chloride 20 MEQ Tab.ER PO SCH ×2 (12:58→20:09)
[2018-11-28] MEDS: Metoprolol Succinate 25 MG Tab.ER PO SCH (16:14)
[2018-11-28] MEDS: Aspirin 81 MG Tab.Chew PO SCH (16:14)
[2018-11-28] MEDS: Simvastatin 20 MG Tab PO SCH (16:14)
[2018-11-29] MEDS: Levothyroxine 50 MCG Tab PO SCH (07:37)
[2018-11-29] MEDS: Ferrous Sulfate 325 MG Tab PO SCH (07:37)
[2018-11-29] MEDS: Fluticasone-Salmeterol 55-14 MCG Powder Inhalent INH SCH ×3 (07:42→20:52)
[2018-11-29] MEDS: FLUoxetine 20 MG Cap PO SCH (09:11)
[2018-11-29] MEDS: Potassium Chloride 20 MEQ Tab.ER PO SCH ×2 (09:11→20:48)
[2018-11-29] MEDS: Bumetanide 2.5 MG/10 ML MDV IVPUSH SCH (09:12)
--- NOTE | 2018-11-29 10:45 | PCM.PN ---
- General Info Date of Service: 11/29/18 Subjective Update: There were no acute events overnight. Patient feels a little better today but still very short of breath with any activity. Good response to diuresis again yesterday but not as good as the day before. Lower extremity edema has resolved. Orthopnea persists but is a little better. Mild chest pressure last night. No fevers. Down to baseline amount of oxygen at this time. Functional Status: Reports: Pain Controlled, Tolerating Diet - Review of Systems General: Reports: Weakness Pulmonary: Reports: Shortness of Breath - Patient Data Vitals - Most Recent: Last Vital Signs Temp 36.0 C 11/29/18 07:22 Pulse 59 L 11/29/18 07:22 Resp 16 11/29/18 07:22 BP 118/38 L 11/29/18 07:22 Pulse Ox 96 11/29/18 07:22 Weight - Most Recent: 111.584 kg I&O - Last 24 Hours: Intake & Output 11/28/18 11/29/18 11/29/18 22:59 06:59 14:59 Intake Total 450 240 Output Total 1000 1100 Balance -550 -860 Med Orders - Current: Current Medications Acetaminophen (Tylenol) 650 mg PO Q4H PRN PRN Reason: Pain (Mild 1-3)/fever Albuterol/Ipratropium (Duoneb 3.0-0.5 Mg/3 Ml) 3 ml NEB Q4H PRN PRN Reason: Shortness of Breath Aspirin (Aspirin) 81 mg PO QPM [facility] Last Admin: 11/28/18 16:14 Dose: 81 mg Bumetanide (Bumex) 4 mg IVPUSH DAILY [facility] Last Admin: 11/29/18 09:12 Dose: 4 mg Bumetanide (Bumex) 4 mg IVPUSH ONETIME ONE Stop: 11/29/18 16:01 Ferrous Sulfate (Ferrous Sulfate) 325 mg PO DAILY@0800 [facility] Last Admin: 11/29/18 07:37 Dose: 325 mg Fluoxetine HCl (Prozac) 20 mg PO DAILY [facility] Last Admin: 11/29/18 09:11 Dose: 20 mg Levothyroxine Sodium (Synthroid) 150 mcg PO ACBREAKFAST [facility] Last Admin: 11/29/18 07:37 Dose: 150 mcg Lorazepam (Ativan) 0.5 mg IVPUSH Q4H PRN PRN Reason: Nausea/Vomiting Magnesium Hydroxide (Milk Of Magnesia) 30 ml PO Q12H PRN PRN Reason: Constipation Metoprolol Succinate (Toprol Xl) 25 mg PO QPM [facility] Last Admin: 11/28/18 16:14 Dose: 25 mg Ondansetron HCl (Zofran Odt) 4 mg PO Q6H PRN PRN Reason: Nausea able to take PO Ondansetron HCl (Zofran) 4 mg IV Q6H PRN PRN Reason: Nausea/Vomiting Potassium Chloride (Klor-Con M20) 40 meq PO BID [facility] Last Admin: 11/29/18 09:11 Dose: 40 meq Ranitidine HCl (Zantac) 150 mg PO DAILY [facility] Last Admin: 11/29/18 09:11 Dose: 150 mg Fluticasone/Salmeterol (Fluticasone-Salmeterol 55-14 Mcg Powder Inh) 1 puff INH BIDRT [facility] Last Admin: 11/29/18 07:42 Dose: 1 puff Senna/Docusate Sodium (Senna Plus) 1 tab PO BID PRN PRN Reason: Constipation Simvastatin (Zocor) 40 mg PO ACDINNER [facility] Last Admin: 11/28/18 16:14 Dose: 40 mg Sodium Chloride (Saline Flush) 10 ml FLUSH ASDIRECTED PRN PRN Reason: Keep Vein Open Discontinued Medications Bumetanide (Bumex) Confirm Administered Dose 4 mg .ROUTE .STK-MED ONE Stop: 11/27/18 17:13 Last Admin: 11/27/18 17:43 Dose: 4 mg Bumetanide (Bumex) 4 mg IVPUSH ONETIME ONE Stop: 11/28/18 08:01 Last Admin: 11/28/18 08:18 Dose: 4 mg Bumetanide (Bumex) 4 mg IVPUSH ONETIME ONE Stop: 11/28/18 16:01 Last Admin: 11/28/18 16:08 Dose: 4 mg Fluticasone/Salmeterol (Fluticasone-Salmeterol 55-14 Mcg Powder Inh) 1 puff INH BID [facility] Last Admin: 11/28/18 08:13 Dose: 1 puff - Exam Quality Assessment: Supplemental Oxygen General: Alert, Oriented, Cooperative, No Acute Distress Lungs: Clear to Auscultation, Normal Respiratory Effort, Decreased Breath Sounds (mild right lung base) Cardiovascular: Regular Rate, Regular Rhythm, Murmurs GI/Abdominal Exam: Soft, No Distention Extremities: No Pedal Edema. No: Increased Warmth Skin: Warm, Dry Psy/Mental Status: Alert, Normal Affect - Problem List & Annotations (1) Diastolic CHF, acute on chronic SNOMED Code(s): 974802042, 437557191 Code(s): I50.33 - ACUTE ON CHRONIC DIASTOLIC (CONGESTIVE) HEART FAILURE Status: Chronic Current Visit: No (2) CAD (coronary artery disease) SNOMED Code(s): 37590401 Code(s): I25.10 - ATHSCL HEART DISEASE OF [place] CORONARY ARTERY W/O ANG PCTRS Status: Chronic Current Visit: No Qualifiers: Coronary Disease-Associated Artery/Lesion type: [place] artery [place] vs. transplanted heart: [place] heart Associated angina: without angina Qualified Code(s): I25.10 - Atherosclerotic heart disease of [place] coronary artery without angina pectoris (3) H/O aortic valve replacement SNOMED Code(s): 3135786951597, 078189122, 1418906305159 Code(s): Z95.2 - PRESENCE OF PROSTHETIC HEART VALVE Status: Chronic Current Visit: No (4) Acquired hypothyroidism SNOMED Code(s): 863244774 Code(s): E03.9 - HYPOTHYROIDISM, UNSPECIFIED Status: Chronic Current Visit: No - Problem List Review Problem List Initiated/Reviewed/Updated: Yes - My Orders Last 24 Hours: My Active Orders 11/28/18 12:00 Potassium Chloride [Klor-Con M20] 40 meq PO BID 11/28/18 21:00 Fluticasone/Salmeterol [Fluticasone-Salmeterol 55-14 MCG Powder Inh] 1 puff INH BIDRT 11/29/18 09:00 Bumetanide [Bumex] 4 mg IVPUSH DAILY 11/29/18 16:00 Bumetanide [Bumex] 4 mg IVPUSH ONETIME ONE 11/30/18 05:00 BASIC METABOLIC PANEL,BMP [CHEM] Timed - Plan Plan:: ASSESSMENT AND PLAN - Acute on chronic heart failure with preserved ejection fraction - decent response to diuresis. Volume status improving but not quite optimized as of yet. Still very short of breath with any activity but respiratory status otherwise stable. Weight down 2 pounds. -Parenteral diuresis with bumetanide this afternoon and again tomorrow morning -Daily weights -Intake and output monitoring -Supplement potassium -Consider addition of spironolactone -Supplement oxygen Acquired hypothyroidism - TSH level pending. -Continue supplementation Coronary artery disease - history of bypass surgery. No active anginal symptoms. -Continue medical management Aortic stenosis status post bioprosthetic aortic valve replacement - no worries with echocardiogram completed a few months ago. Maintenance issues - - DVT prophylaxis - mechanical with ELIZABETH stockings - GI prophylaxis - H2 ramesh - Nutrition - low sodium Disposition - I would anticipate discharge home after the hospital stay, probably tomorrow if stable overnight Stanley No M.D.
[2018-11-29] MEDS ORDERED: Bumetanide 2.5 MG/10 ML MDV IVPUSH ONE (16:00)
[2018-11-29] MEDS: Simvastatin 20 MG Tab PO SCH (16:03)
[2018-11-29] MEDS: Aspirin 81 MG Tab.Chew PO SCH (16:15)
[2018-11-29] MEDS: Metoprolol Succinate 25 MG Tab.ER PO SCH (16:20)
[2018-11-30] MEDS: Ferrous Sulfate 325 MG Tab PO SCH (07:34)
[2018-11-30] MEDS: Levothyroxine 50 MCG Tab PO SCH (07:34)
[2018-11-30] MEDS: Fluticasone-Salmeterol 55-14 MCG Powder Inhalent INH SCH (07:48)
[2018-11-30 07:53] VITALS: BP 117/39
[2018-11-30] MEDS: Bumetanide 2.5 MG/10 ML MDV IVPUSH SCH ×2 (09:08→09:25)
[2018-11-30] MEDS: FLUoxetine 20 MG Cap PO SCH (09:09)
[2018-11-30] MEDS: Potassium Chloride 20 MEQ Tab.ER PO SCH (09:09)
--- NOTE | 2018-11-30 09:34 | PCM.DCSUM1 ---
Discharge Summary - Hospital Course Brief History: 63-year-old female with history of heart failure with preserved ejection fraction, coronary artery disease and COPD with oxygen dependence who presented with increasing shortness of breath and 6 pound weight gain. She was directly admitted from the clinic for management of congestive heart failure exacerbation. Diagnosis: Stroke: No - Discharge Data Discharge Date: 11/30/18 Discharge Disposition: Home, Self-Care 01 Condition: Good - Discharge Diagnosis/Problem(s) (1) Diastolic CHF, acute on chronic SNOMED Code(s): 543006557, 599383314 ICD Code: I50.33 - ACUTE ON CHRONIC DIASTOLIC (CONGESTIVE) HEART FAILURE Status: Chronic (2) CAD (coronary artery disease) SNOMED Code(s): 79007551 ICD Code: I25.10 - ATHSCL HEART DISEASE OF [place] CORONARY ARTERY W/O ANG PCTRS Status: Chronic Qualifiers: Coronary Disease-Associated Artery/Lesion type: [place] artery [place] vs. transplanted heart: [place] heart Associated angina: without angina Qualified Code(s): I25.10 - Atherosclerotic heart disease of [place] coronary artery without angina pectoris (3) H/O aortic valve replacement SNOMED Code(s): 2362115353325, 970327125, 1215406061375 ICD Code: Z95.2 - PRESENCE OF PROSTHETIC HEART VALVE Status: Chronic (4) Acquired hypothyroidism SNOMED Code(s): 023070699 ICD Code: E03.9 - HYPOTHYROIDISM, UNSPECIFIED Status: Chronic - Patient Summary/Data Hospital Course: Payal presented initially to the clinic with shortness of breath. She was found to be more hypoxic than usual and not moving good air. She had gained 6 pounds from baseline. She was sent to the hospital for direct admission for and management of congestive heart failure exacerbation. She received a dose of IV bumetanide at the time of presentation. She had a good response to this medication overnight. Over the next couple of days we continued parenteral diuresis with good response. Her weight is down more than 8 pounds since presentation. Symptomatically she has improved quite a bit. Oxygenation has remained stable on her usual 1 L of supplemental oxygen. Dyspnea with exertion has improved steadily throughout the hospital stay. Her lower extremity edema has resolved. Kidney function has remained stable with the diuresis. She did develop mild hypokalemia which responded well to supplementation. The patient has improved enough I believe she is safe for outpatient management at this time. She will continue on her usual dose of bumetanide. She has additional difficulties with heart failure exacerbations one could consider adding spironolactone to her medication regimen. It is noted that her blood pressures are currently on the low side of normal and there may not be much room to add medications but this could be considered. She is back to baseline at this point and safe for outpatient management. She has follow-up scheduled next week. - Patient Instructions Diet: Heart Healthy Diet Activity: As Tolerated Showering/Bathing: May Shower Notify Provider of: Fever, Increased Pain Other/Special Instructions: 1. Continue your usual home meds. 2. Follow up with Dr Tracy next week - Discharge Plan *PRESCRIPTION DRUG MONITORING PROGRAM REVIEWED*: Not Applicable *COPY OF PRESCRIPTION DRUG MONITORING REPORT IN PATIENT SRINI: Not Applicable Home Medications: Home Meds Albuterol [Proventil HFA] 1 puff INH Q4H PRN 12/15/15 [History] Albuterol/Ipratropium [DuoNeb 3.0-0.5 MG/3 ML] 3 ml IH Q4H PRN 12/15/15 [History ] Aspirin [Children's Aspirin] 81 mg PO QPM 12/15/15 [History] FLUoxetine [PROzac] 20 mg PO DAILY 12/15/15 [History] Ferrous Sulfate 325 mg PO DAILY 12/15/15 [History] Fluticasone/Salmeterol [Advair Diskus 100-50] 1 puff INH BID 12/15/15 [History] Metoprolol Succinate [Toprol XL] 25 mg PO QPM 12/15/15 [History] Multivitamin with Minerals [Multiple Vitamin] 1 tab PO DAILY 12/15/15 [History] Nitroglycerin [Nitrostat] 0.4 mg SL ASDIRECTED 12/15/15 [History] Potassium Chloride 30 meq PO DAILY 12/15/15 [History] Ranitidine [Zantac] 150 mg PO DAILY 12/15/15 [History] O2 1.5 l INH DAILY 04/08/18 [History] Bumetanide [Bumex] 4 mg PO BID #120 tablet 10/15/18 [Rx] Levothyroxine 150 mcg PO ACBREAKFAST 11/27/18 [History] Simvastatin [Zocor] 40 mg PO ACDINNER 11/27/18 [History] Oxygen Therapy Mode: Nasal Cannula Oxygen Flow Rate (L/min): 1.5 Patient Handouts: Heart Failure, [id number] Referrals: Martha Tracy CNM [Primary Care Provider] - 12/05/18 10:15 am (Please arrive 15 minutes ealry to register for your appointment.) - Discharge Summary/Plan Comment DC Time >30 min.: No - Patient Data Vitals - Most Recent: Last Vital Signs Temp 35.7 C 11/30/18 07:53 Pulse 64 11/30/18 07:53 Resp 16 11/30/18 07:53 BP 117/39 L 11/30/18 07:53 Pulse Ox 98 11/30/18 07:53 Weight - Most Recent: 111.584 kg I&O - Last 24 hours: Intake & Output 11/29/18 11/30/18 11/30/18 22:59 06:59 14:59 Intake Total 900 Output Total 1500 Balance -600 Lab Results - Last 24 hrs: Laboratory Results - last 24 hr 11/30/18 Range/Units 05:00 Sodium 140 (140-148) mmol/L Potassium 4.0 (3.6-5.2) mmol/L Chloride 100 (100-108) mmol/L Carbon Dioxide 33 H (21-32) mmol/L Anion Gap 11.0 (5.0-14.0) mmol/L BUN 26 H D (7-18) mg/dL Creatinine 1.2 H (0.6-1.0) mg/dL Est Cr Clr Drug Dosing 39.16 mL/min Estimated GFR (MDRD) 45 L (>60) Glucose 103 (74-106) mg/dL Calcium 9.5 (8.5-10.1) mg/dL Med Orders - Current: Current Medications Acetaminophen (Tylenol) 650 mg PO Q4H PRN PRN Reason: Pain (Mild 1-3)/fever Last Admin: 11/29/18 12:36 Dose: 650 mg Albuterol/Ipratropium (Duoneb 3.0-0.5 Mg/3 Ml) 3 ml NEB Q4H PRN PRN Reason: Shortness of Breath Aspirin (Aspirin) 81 mg PO QPM [facility] Last Admin: 11/29/18 16:15 Dose: 81 mg Bumetanide (Bumex) 4 mg IVPUSH DAILY [facility] Last Admin: 11/30/18 09:25 Dose: Not Given Ferrous Sulfate (Ferrous Sulfate) 325 mg PO DAILY@0800 [facility] Last Admin: 11/30/18 07:34 Dose: 325 mg Fluoxetine HCl (Prozac) 20 mg PO DAILY [facility] Last Admin: 11/30/18 09:09 Dose: 20 mg Levothyroxine Sodium (Synthroid) 150 mcg PO ACBREAKFAST [facility] Last Admin: 11/30/18 07:34 Dose: 150 mcg Lorazepam (Ativan) 0.5 mg IVPUSH Q4H PRN PRN Reason: Nausea/Vomiting Magnesium Hydroxide (Milk Of Magnesia) 30 ml PO Q12H PRN PRN Reason: Constipation Metoprolol Succinate (Toprol Xl) 25 mg PO QPM [facility] Last Admin: 11/29/18 16:20 Dose: Not Given Ondansetron HCl (Zofran Odt) 4 mg PO Q6H PRN PRN Reason: Nausea able to take PO Ondansetron HCl (Zofran) 4 mg IV Q6H PRN PRN Reason: Nausea/Vomiting Potassium Chloride (Klor-Con M20) 40 meq PO BID [facility] Last Admin: 11/30/18 09:09 Dose: 40 meq Ranitidine HCl (Zantac) 150 mg PO DAILY [facility] Last Admin: 11/30/18 09:09 Dose: 150 mg Fluticasone/Salmeterol (Fluticasone-Salmeterol 55-14 Mcg Powder Inh) 1 puff INH BIDRT [facility] Last Admin: 11/30/18 07:48 Dose: Not Given Senna/Docusate Sodium (Senna Plus) 1 tab PO BID PRN PRN Reason: Constipation Simvastatin (Zocor) 40 mg PO ACDINNER [facility] Last Admin: 11/29/18 16:03 Dose: 40 mg Sodium Chloride (Saline Flush) 10 ml FLUSH ASDIRECTED PRN PRN Reason: Keep Vein Open Discontinued Medications Bumetanide (Bumex) Confirm Administered Dose 4 mg .ROUTE .STK-MED ONE Stop: 11/27/18 17:13 Last Admin: 11/27/18 17:43 Dose: 4 mg Bumetanide (Bumex) 4 mg IVPUSH ONETIME ONE Stop: 11/28/18 08:01 Last Admin: 11/28/18 08:18 Dose: 4 mg Bumetanide (Bumex) 4 mg IVPUSH ONETIME ONE Stop: 11/28/18 16:01 Last Admin: 11/28/18 16:08 Dose: 4 mg Bumetanide (Bumex) 4 mg IVPUSH ONETIME ONE Stop: 11/29/18 16:01 Last Admin: 11/29/18 16:04 Dose: 4 mg Fluticasone/Salmeterol (Fluticasone-Salmeterol 55-14 Mcg Powder Inh) 1 puff INH BID [facility] Last Admin: 11/28/18 08:13 Dose: 1 puff - Exam Quality Assessment: Reports: Supplemental Oxygen General: Reports: Alert, Oriented, Cooperative, No Acute Distress Lungs: Reports: Clear to Auscultation, Normal Respiratory Effort, Decreased Breath Sounds (mild both bases) Cardiovascular: Reports: Regular Rate, Regular Rhythm, Murmurs GI/Abdominal Exam: Soft, No Distention Extremities: No Pedal Edema Psy/Mental Status: Reports: Alert, Normal Affect
== END 2018-11-30 11:37 | disposition home or self-care (01) | DRG 292 ==
LOC: JP.MS 16:09
PROVIDERS: ADMIT Internal Medicine; ATTEND Internal Medicine
DX: I11.0 Hypertensive heart disease with heart failure (principal); Z68.41 Body mass index [BMI] 40.0-44.9, adult; I50.33 Acute on chronic diastolic (congestive) heart failure; E87.6 Hypokalemia; J44.9 Chronic obstructive pulmonary disease, unspecified; I25.10 Atherosclerotic heart disease of native coronary artery without angina pectoris; E03.9 Hypothyroidism, unspecified; E78.00 Pure hypercholesterolemia, unspecified; H54.7 Unspecified visual loss; K21.9 Gastro-esophageal reflux disease without esophagitis; M19.90 Unspecified osteoarthritis, unspecified site; I35.0 Nonrheumatic aortic (valve) stenosis; F32.9 Major depressive disorder, single episode, unspecified; E66.9 Obesity, unspecified; Z87.442 Personal history of urinary calculi; Z90.49 Acquired absence of other specified parts of digestive tract; Z95.1 Presence of aortocoronary bypass graft; Z79.82 Long term (current) use of aspirin; Z79.51 Long term (current) use of inhaled steroids; Z79.899 Other long term (current) drug therapy; Z95.2 Presence of prosthetic heart valve; Z99.81 Dependence on supplemental oxygen; Z87.891 Personal history of nicotine dependence
CPT/HCPCS: 36415; 80048; 94640; A9270-GY; J3490

== ENCOUNTER 2018-12-18 17:40 | Observation (INO) | payer MEDICARE, OTHER ==
[2018-12-18] MEDS ORDERED: Sodium Chloride 0.9% 10 ML Syringe FLUSH PRN ×2 (18:32→21:33)
--- NOTE | 2018-12-18 18:34 | EDM.PDOC ---
ED HPI GENERAL MEDICAL PROBLEM - General Chief Complaint: Respiratory Problem Stated Complaint: SOB FLUID BUILD UP Time Seen by Provider: 12/18/18 18:30 Source of Information: Reports: Patient History Limitations: Reports: No Limitations - History of Present Illness INITIAL COMMENTS - FREE TEXT/NARRATIVE: Payal is a 63 year old female, extensive cardiac hx including CAD, COPD, Diastolic CHF with preserved EF, aortic valve replacement, recently in patient for CHF exacerbation, on Bumex and chronic o2 at home, presents with a 2 day hx of worsening sob. Patient also reports increased lower extremity edema. Patient denies any chest pain. Patient has been sleeping up in bed and cannot tolerate going more than a couple feet before becoming very sob. Patient denies any fever, productive cough or other complaints today. Patient states that when this has happened in the past she typically requires a 2-3 day stay before she feels well enough to go back home. Onset: Gradual Duration: Day(s): (2) - Related Data Allergies Allergy/AdvReac Type Severity Reaction Status Date / Time No Known Allergies Allergy Verified 11/27/18 17:46 Home Meds: Home Meds Albuterol [Proventil HFA] 1 puff INH Q4H PRN 12/15/15 [History] Albuterol/Ipratropium [DuoNeb 3.0-0.5 MG/3 ML] 3 ml IH Q4H PRN 12/15/15 [History ] Aspirin [Children's Aspirin] 81 mg PO QPM 12/15/15 [History] FLUoxetine [PROzac] 20 mg PO DAILY 12/15/15 [History] Ferrous Sulfate 325 mg PO DAILY 12/15/15 [History] Fluticasone/Salmeterol [Advair Diskus 100-50] 1 puff INH BID 12/15/15 [History] Metoprolol Succinate [Toprol XL] 25 mg PO QPM 12/15/15 [History] Multivitamin with Minerals [Multiple Vitamin] 1 tab PO DAILY 12/15/15 [History] Nitroglycerin [Nitrostat] 0.4 mg SL ASDIRECTED 12/15/15 [History] Potassium Chloride 30 meq PO DAILY 12/15/15 [History] Ranitidine [Zantac] 150 mg PO DAILY 12/15/15 [History] O2 1.5 l INH DAILY 04/08/18 [History] Bumetanide [Bumex] 4 mg PO BID #120 tablet 10/15/18 [Rx] Levothyroxine 175 mcg PO ACBREAKFAST 11/27/18 [History] Simvastatin [Zocor] 40 mg PO ACDINNER 11/27/18 [History] Past Medical History HEENT History: Reports: Impaired Vision Cardiovascular History: Reports: Bypass, Heart Failure, High Cholesterol, Hypertension, SOB on Exertion, Other (See Below) Other Cardiovascular History: hx of aortic valve replaced 2012,CHF Respiratory History: Reports: Asthma, COPD, SOB, Other (See Below) Other Respiratory History: home o2 1.5l Gastrointestinal History: Reports: GERD Genitourinary History: Reports: Renal Calculus [employer] History: Reports: Musculoskeletal History: Reports: Arthritis Other Musculoskeletal History: arthritis Neurological History: Reports: None Psychiatric History: Reports: Depression Endocrine/Metabolic History: Reports: Hypothyroidism, Obesity/BMI 30+ Hematologic History: Reports: Anemia Immunologic History: Reports: None Oncologic (Cancer) History: Reports: None Dermatologic History: Reports: None - Infectious Disease History Infectious Disease History: Reports: Chicken Pox, Measles, Mumps - Past Surgical History Head Surgeries/Procedures: Reports: None HEENT Surgical History: Reports: None Cardiovascular Surgical History: Reports: Coronary Artery Bypass, Valve Replacement Respiratory Surgical History: Reports: None GI Surgical History: Reports: Appendectomy, Cholecystectomy, Colonoscopy Female Surgical History: Reports: None Endocrine Surgical History: Reports: None Neurological Surgical History: Reports: None Musculoskeletal Surgical History: Reports: Arthroscopic Procedure Dermatological Surgical History: Reports: None Social & Family History - Family History Family Medical History: Noncontributory Cardiac: Reports: CAD Respiratory: Reports: Asthma, COPD OBGYN: Reports: Musculoskeletal: Reports: Arthritis Neurological: Reports: Vertigo Psychiatric: Reports: OCD Oncologic: Reports: Brain, Lung - Tobacco Use Smoking Status *Q: Former Smoker Used Tobacco, but Quit: Yes Month/Year Tobacco Last Used: 7 years ago - Caffeine Use Caffeine Use: Reports: Coffee Other Caffeine Use: 1 cup per day Caffeine Use Comment: 3 cups per day - Recreational Drug Use Recreational Drug Use: No - Living Situation & Occupation Living situation: Reports: , with Family (lives in [place], with Daughter and raising 2 year old Great Grandson) Occupation: Disabled ED ROS GENERAL - Review of Systems Review Of Systems: ROS reveals no pertinent complaints other than HPI. ED EXAM, GENERAL - Physical Exam Exam: See Below Exam Limited By: No Limitations General Appearance: Alert, Moderate Distress Eye Exam: Bilateral Eye: EOMI Neck: Supple Respiratory/Chest: Respiratory Distress (mild, much worse with activity), Other (Extremely diminished breath sounds in bilateral lower lobes) Cardiovascular: Systolic Murmur, Other (bilateral lower extremity edema, plus 1) GI/Abdominal: Normal Bowel Sounds, Soft, Non-Tender Back Exam: Normal Inspection Neurological: Alert, Oriented Psychiatric: Normal Affect, Normal Mood Skin Exam: Warm, Intact Lymphatic: No Adenopathy EKG INTERPRETATION EKG Date: 12/18/18 Time: 18:43 Rhythm: NSR [place]: Normal P-Wave: Present QRS: Normal ST-T: Normal QT: Prolonged (Borderline) Comparison: No Change (compared to 10/11/18) Course - Vital Signs Last Recorded V/S: Last Vital Signs Temp 37.8 C 12/18/18 18:16 Pulse 64 12/18/18 20:31 Resp 20 12/18/18 20:31 BP 124/49 L 12/18/18 20:31 Pulse Ox 98 12/18/18 20:31 Payal is a 63-year-old female with a history of diastolic CHF who presents to the emergency Department today concerned about a CHF exacerbation. Please refer to history of present illness and focused exam. Patient endorses orthopnea, increased lower extremity edema which is typical for her exacerbations. Patient has been taking her diuretics as prescribed. Patient reports very little tolerance with any activity over the last couple of days. Patient denies any fever, chills, nausea, vomiting or chest pain. EKG obtained on arrival which is unchanged from prior. Patient is on chronic O2 at home. Chest x-ray was obtained which is negative for any pleural effusions or infiltrates. Blood work today shows a hemoglobin of 10.9, stable per patient. Carbon dioxide level of 33 with Bielen of 19 and a creatinine 1.1. Total bili of 1.3 and a BNP of 2715. No recent prior BNP for comparison. patient given 4 mg of her Bumex IV here in the emergency room. We'll bring patient in for ongoing diuresis until she can tolerate additional activity and is stable to be discharged home. - Orders/Labs/Meds Orders: Active Orders 24 hr Category Date Time Status EKG Documentation Completion [RC] ASDIRECTED Care 12/18/18 18:32 Active Peripheral IV Care [RC] . DIRECTED Care 12/18/18 18:32 Active Sodium Chloride 0.9% [Saline Flush] Med 12/18/18 18:32 Active 10 ml FLUSH ASDIRECTED PRN Peripheral IV Insertion Adult [OM.PC] Routine Oth 12/18/18 18:32 Ordered EKG 12 Lead [EK] Routine Ther 12/18/18 18:32 Ordered Medication Orders Sodium Chloride (Saline Flush) 10 ml FLUSH ASDIRECTED PRN PRN Reason: Keep Vein Open Labs: Laboratory Tests 12/18/18 12/18/18 12/18/18 Range/Units 18:57 18:57 18:57 WBC 8.4 (4.5-11.0) K/uL RBC 3.87 (3.30-5.50) M/uL Hgb 10.9 L (12.0-15.0) g/dL Hct 35.4 L (36.0-48.0) % MCV 92 (80-98) fL MCH 28 (27-31) pg MCHC 31 L (32-36) % Plt Count 273 (150-400) K/uL Neut % (Auto) 71 H (36-66) % Lymph % (Auto) 18 L (24-44) % [place] % (Auto) 8 H (2-6) % Eos % (Auto) 4 (2-4) % Baso % (Auto) 0 (0-1) % Sodium 140 (140-148) mmol/L Potassium 3.9 (3.6-5.2) mmol/L Chloride 100 (100-108) mmol/L Carbon Dioxide 33 H (21-32) mmol/L Anion Gap 10.9 (5.0-14.0) mmol/L BUN 19 H (7-18) mg/dL Creatinine 1.1 H (0.6-1.0) mg/dL Est Cr Clr Drug Dosing 42.74 mL/min Estimated GFR (MDRD) 50 L (>60) Glucose 87 (74-106) mg/dL Calcium 9.3 (8.5-10.1) mg/dL Total Bilirubin 1.3 H (0.2-1.0) mg/dL AST 31 D (15-37) U/L ALT 25 (12-78) U/L Alkaline Phosphatase 108 (46-116) U/L Troponin I < 0.017 (0.000-0.056) ng/mL NT-Pro-B Natriuret Pep 2715 H (5-125) pg/mL Total Protein 7.3 (6.4-8.2) g/dL Albumin 3.8 (3.4-5.0) g/dL Globulin 3.5 (2.3-3.5) g/dL Albumin/Globulin Ratio 1.1 L (1.2-2.2) Meds: Medications Generic Name Dose Route Start Last Admin Trade Name Freq PRN Reason Stop Dose Admin Sodium Chloride 10 ml 12/18/18 18:32 Saline Flush FLUSH ASDIRECTED PRN Keep Vein Open Discontinued Medications Generic Name Dose Route Start Last Admin Trade Name Freq PRN Reason Stop Dose Admin Bumetanide 4 mg 12/18/18 19:45 Bumex IVPUSH 12/18/18 19:46 ONETIME ONE Departure - Departure Time of Disposition: 21:00 Disposition: Admitted As Inpatient 65 Condition: Fair Clinical Impression: Dyspnea on minimal exertion, Bilateral lower extremity edema CHF exacerbation Qualifiers: Heart failure type: diastolic Qualified Code(s): I50.33 - Acute on chronic diastolic (congestive) heart failure - Discharge Information Referrals: Martha Tracy CNM [Primary Care Provider] - Forms: ED Department Discharge - My Orders Last 24 Hours: My Active Orders 12/18/18 18:32 EKG Documentation Completion [RC] ASDIRECTED Peripheral IV Care [RC] . DIRECTED Sodium Chloride 0.9% [Saline Flush] 10 ml FLUSH ASDIRECTED PRN Peripheral IV Insertion Adult [OM.PC] Routine EKG 12 Lead [EK] Routine - Assessment/Plan Last 24 Hours: My Active Orders 12/18/18 18:32 EKG Documentation Completion [RC] ASDIRECTED Peripheral IV Care [RC] . DIRECTED Sodium Chloride 0.9% [Saline Flush] 10 ml FLUSH ASDIRECTED PRN Peripheral IV Insertion Adult [OM.PC] Routine EKG 12 Lead [EK] Routine
--- NOTE | 2018-12-18 19:26 | CRLCR ---
INDICATION: Recent shortness of breath TECHNIQUE: Chest 2 views. COMPARISON: 10/11/2018 FINDINGS: Cardiovascular and mediastinum: Stable cardiomegaly without congestive changes. Sternotomy wires and prosthetic heart valve noted. Mediastinum is within normal limits. Lungs and pleural spaces: Lungs are clear. No sign of infiltrate or mass. No sign of pleural effusion. No pneumothorax. Bones and soft tissues: No significant findings. IMPRESSION: No acute pulmonary or cardiac abnormalities. Stable cardiomegaly. Dictated by Luis Hollingsworth MD @ 12/18/2018 7:25:06 PM Dictated by: Luis Hollingsworth MD @ 12/18/2018 19:25:12 (Electronically Signed)
[2018-12-18] MEDS ORDERED: Bumetanide 1 MG/4 ML MDV IVPUSH ONE (19:45)
--- NOTE | 2018-12-18 20:47 | PCM.HP.2 ---
H&P History of Present Illness - General Date of Service: 12/18/18 Admit Problem/Dx: Admission Diagnosis/Problem Admission Diagnosis/Problem CHF, Congestive heart failure Source of Information: Patient, Old Records, Provider, RN Notes Reviewed History Limitations: Reports: No Limitations - History of Present Illness Initial Comments - Free Text/Narative: Ms. Amezcua is a 63-year-old woman who was admitted through the emergency department with shortness of breath, peripheral edema, and orthopnea, secondary to acute exacerbation of diastolic congestive heart failure. She is had multiple admissions since the first of the year with intermittent exacerbations of her diastolic congestive heart failure. Recent echocardiograms have shown preserved left ventricular function, she is status post aortic valve replacement surgery with a mechanical valve. Has a known history of coronary artery disease as well as COPD. Over the last 3-4 days she should reports progressive shortness of breath with orthopnea and peripheral edema. She was seen and evaluated in the clinic today and referred to the emergency department for further evaluation and management. She has chronic kidney disease stage IIIa , renal function was found to be stable. Chest x-ray shows evidence of COPD, no obvious pulmonary edema. Vital signs and other labs are unremarkable. - Related Data Allergies/Adverse Reactions: Allergies Allergy/AdvReac Type Severity Reaction Status Date / Time No Known Allergies Allergy Verified 11/27/18 17:46 Home Medications: Home Meds Albuterol [Proventil HFA] 1 puff INH Q4H PRN 12/15/15 [History] Albuterol/Ipratropium [DuoNeb 3.0-0.5 MG/3 ML] 3 ml IH Q4H PRN 12/15/15 [History ] Aspirin [Children's Aspirin] 81 mg PO QPM 12/15/15 [History] FLUoxetine [PROzac] 20 mg PO DAILY 12/15/15 [History] Ferrous Sulfate 325 mg PO DAILY 12/15/15 [History] Fluticasone/Salmeterol [Advair Diskus 100-50] 1 puff INH BID 12/15/15 [History] Metoprolol Succinate [Toprol XL] 25 mg PO QPM 12/15/15 [History] Multivitamin with Minerals [Multiple Vitamin] 1 tab PO DAILY 12/15/15 [History] Nitroglycerin [Nitrostat] 0.4 mg SL ASDIRECTED 12/15/15 [History] Potassium Chloride 30 meq PO DAILY 12/15/15 [History] Ranitidine [Zantac] 150 mg PO DAILY 12/15/15 [History] O2 1.5 l INH DAILY 04/08/18 [History] Bumetanide [Bumex] 4 mg PO BID #120 tablet 10/15/18 [Rx] Levothyroxine 175 mcg PO ACBREAKFAST 11/27/18 [History] Simvastatin [Zocor] 40 mg PO ACDINNER 11/27/18 [History] Past Medical History HEENT History: Reports: Impaired Vision Cardiovascular History: Reports: Bypass, Heart Failure, High Cholesterol, Hypertension, SOB on Exertion, Other (See Below) Other Cardiovascular History: hx of aortic valve replaced 2012,CHF Respiratory History: Reports: Asthma, COPD, SOB, Other (See Below) Other Respiratory History: home o2 1.5l Gastrointestinal History: Reports: GERD Genitourinary History: Reports: Renal Calculus [employer]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: Musculoskeletal History: Reports: Arthritis Other Musculoskeletal History: arthritis Neurological History: Reports: None Psychiatric History: Reports: Depression Endocrine/Metabolic History: Reports: Hypothyroidism, Obesity/BMI 30+ Hematologic History: Reports: Anemia Immunologic History: Reports: None Oncologic (Cancer) History: Reports: None Dermatologic History: Reports: None - Infectious Disease History Infectious Disease History: Reports: Chicken Pox, Measles, Mumps - Past Surgical History Head Surgeries/Procedures: Reports: None HEENT Surgical History: Reports: None Cardiovascular Surgical History: Reports: Coronary Artery Bypass, Valve Replacement Respiratory Surgical History: Reports: None GI Surgical History: Reports: Appendectomy, Cholecystectomy, Colonoscopy Female Surgical History: Reports: None Endocrine Surgical History: Reports: None Neurological Surgical History: Reports: None Musculoskeletal Surgical History: Reports: Arthroscopic Procedure Dermatological Surgical History: Reports: None Social & Family History - Family History Family Medical History: Noncontributory Cardiac: Reports: CAD Respiratory: Reports: Asthma, COPD OBGYN: Reports: Musculoskeletal: Reports: Arthritis Neurological: Reports: Vertigo Psychiatric: Reports: OCD Oncologic: Reports: Brain, Lung - Tobacco Use Smoking Status *Q: Former Smoker Used Tobacco, but Quit: Yes Month/Year Tobacco Last Used: 7 years ago - Caffeine Use Caffeine Use: Reports: Coffee Other Caffeine Use: 1 cup per day Caffeine Use Comment: 3 cups per day - Recreational Drug Use Recreational Drug Use: No - Living Situation & Occupation Living situation: Reports: , with Family (lives in [place], with Daughter and raising 2 year old Great Grandson) Occupation: Disabled H&P Review of Systems - Review of Systems: Review Of Systems: See Below General: Reports: Weakness. Denies: Fever, Chills HEENT: Reports: No Symptoms Pulmonary: Reports: Shortness of Breath. Denies: Wheezing, Pleuritic Chest Pain , Cough, Sputum, Hemoptysis Cardiovascular: Reports: Dyspnea on Exertion, Orthopnea, Edema. Denies: Chest Pain, Palpitations, PND, Lightheadedness Gastrointestinal: Reports: No Symptoms Genitourinary: Reports: No Symptoms Musculoskeletal: Reports: No Symptoms Skin: Reports: No Symptoms Psychiatric: Reports: No Symptoms Neurological: Reports: No Symptoms Hematologic/Lymphatic: Reports: No Symptoms Immunologic: Reports: No Symptoms Exam - Exam Exam: See Below - Vital Signs Vital Signs: Last Vital Signs Temp 100.0 F 12/18/18 18:16 Pulse 64 12/18/18 20:31 Resp 20 12/18/18 20:31 BP 124/49 L 12/18/18 20:31 Pulse Ox 98 12/18/18 20:31 Weight: 248 lb 3.848 oz - Exam Quality Assessment: Supplemental Oxygen, DVT Prophylaxis General: Alert, Oriented, Cooperative, Mild Distress HEENT: Conjunctiva Clear, Hearing Intact, Mucosa Moist & [place], Normal Nasal Septum, Posterior Pharynx Clear, Pupils Equal Neck: Supple, Trachea Midline, +2 Carotid Pulse wo Bruit Lungs: Normal Respiratory Effort, Decreased Breath Sounds. No: Crackles, Rales , Rhonchi, Wheezing Cardiovascular: Regular Rate, Regular Rhythm, Normal S1, Normal S2, Systolic Murmur GI/Abdominal Exam: Soft, Non-Tender, No Organomegaly, No Distention Back Exam: Normal Inspection, Full Range of Motion Extremities: Non-Tender, Pedal Edema Skin: Warm, Dry, Intact Neurological: Cranial Nerves Intact, Strength Equal Bilateral, Normal Speech, Normal Tone, Sensation Intact. No: Focal Deficit Neuro Extensive - Mental Status: Alert, Oriented x3, Normal Mood/Affect, Normal Cognition, Memory Intact - Patient Data Lab Results Last 24 hrs: Laboratory Results - last 24 hr 12/18/18 12/18/18 12/18/18 Range/Units 18:57 18:57 18:57 WBC 8.4 (4.5-11.0) K/uL RBC 3.87 (3.30-5.50) M/uL Hgb 10.9 L (12.0-15.0) g/dL Hct 35.4 L (36.0-48.0) % MCV 92 (80-98) fL MCH 28 (27-31) pg MCHC 31 L (32-36) % Plt Count 273 (150-400) K/uL Neut % (Auto) 71 H (36-66) % Lymph % (Auto) 18 L (24-44) % [place] % (Auto) 8 H (2-6) % Eos % (Auto) 4 (2-4) % Baso % (Auto) 0 (0-1) % Sodium 140 (140-148) mmol/L Potassium 3.9 (3.6-5.2) mmol/L Chloride 100 (100-108) mmol/L Carbon Dioxide 33 H (21-32) mmol/L Anion Gap 10.9 (5.0-14.0) mmol/L BUN 19 H (7-18) mg/dL Creatinine 1.1 H (0.6-1.0) mg/dL Est Cr Clr Drug Dosing 42.74 mL/min Estimated GFR (MDRD) 50 L (>60) Glucose 87 (74-106) mg/dL Calcium 9.3 (8.5-10.1) mg/dL Total Bilirubin 1.3 H (0.2-1.0) mg/dL AST 31 D (15-37) U/L ALT 25 (12-78) U/L Alkaline Phosphatase 108 (46-116) U/L Troponin I < 0.017 (0.000-0.056) ng/mL NT-Pro-B Natriuret Pep 2715 H (5-125) pg/mL Total Protein 7.3 (6.4-8.2) g/dL Albumin 3.8 (3.4-5.0) g/dL Globulin 3.5 (2.3-3.5) g/dL Albumin/Globulin Ratio 1.1 L (1.2-2.2) Result Diagrams: 16 18:57 12/18/18 18:57 *Q Meaningful Use (ADM) - VTE Risk Assess *Q Each Risk Factor Represents 1 Point: Obesity ( BMI > 25 kg/m2), Congestive heart failure (CHF), Abnormal Pulmonary Function (COPD) Total Score 1 Point Risk Factors: 3 Each Risk Factor Represents 2 Points: Age 60 - 74 Years Total Score 2 Point Risk Factors: 2 Each Risk Factor Represents 3 Points: None Total Score 3 Point Risk Factors: 0 Each Risk Factor Represents 5 Points: None Total Score 5 Point Risk Factors: 0 Venous Thromboembolism Risk Factor Score *Q: 5 Problem List Initiated/Reviewed/Updated: Yes Orders Last 24hrs: Active Orders 24 hr Category Date Time Status Patient Status Manage Transfer [TRANSFER] Routine ADT 12/18/18 20:40 Ordered EKG Documentation Completion [RC] ASDIRECTED Care 12/18/18 18:32 Active Peripheral IV Care [RC] . DIRECTED Care 12/18/18 18:32 Active Sodium Chloride 0.9% [Saline Flush] Med 12/18/18 18:32 Active 10 ml FLUSH ASDIRECTED PRN Peripheral IV Insertion Adult [OM.PC] Routine Oth 12/18/18 18:32 Ordered Resuscitation Status Routine Resus Stat 12/18/18 20:43 Ordered EKG 12 Lead [EK] Routine Ther 12/18/18 18:32 Ordered Medication Orders Sodium Chloride (Saline Flush) 10 ml FLUSH ASDIRECTED PRN PRN Reason: Keep Vein Open Assessment/Plan Comment:: ASSESSMENT AND PLAN - Acute on chronic heart failure with preserved ejection fraction - recent echocardiograms had shown normal ejection fractions. Patient has increased dyspnea and lower extremity edema. Weight is table over the past week. She reports medication compliance with no obvious triggers for the exacerbation. No evidence for infection. This appears to be a fairly mild exacerbation compared to previous admissions -Parenteral diuresis with bumetanide -Intake and output monitoring -Supplement potassium -Consider addition of spironolactone -Supplement oxygen COPD-no evidence of acute exacerbation or underlying infection -Continue outpatient medical management Chronic kidney disease stage III A -Sleep monitor urine output and renal function during hospital stay Acquired hypothyroidism -Continue supplementation Coronary artery disease - history of bypass surgery. No active anginal symptoms. -Continue medical management Aortic stenosis status post bioprosthetic aortic valve replacement Maintenance issues - - DVT prophylaxis - Lovenox 40 mg subcutaneous daily - GI prophylaxis - continue outpatient H2 ramesh - Nutrition - low sodium - Connell catheter - not indicated CODE STATUS - full code Admission justification - will be admitted to observation status expect no more than a one to 2 night hospital stay for management of this mild to moderate CHF exacerbation Disposition - I would anticipate discharge home after the hospital stay Primary care provider - Martha Tracy [employer] EN[employer]ISH [employer]OR - Mortality Measure Prognosis:: Good
[2018-12-18] MEDS ORDERED: Albuterol 0.083% 2.5 MG/3 ML Neb Soln NEB PRN (21:33)
[2018-12-18] MEDS ORDERED: Ondansetron 4 MG/2 ML SDV IV PRN (21:33)
[2018-12-18] MEDS ORDERED: Polyethylene Glycol 3350 Powder 17 GM Packet PO PRN (21:33)
[2018-12-18] MEDS ORDERED: Enoxaparin 40 MG/0.4 ML Syringe SUBCUT SCH (21:33)
[2018-12-18] MEDS ORDERED: Acetaminophen 325 MG Tab PO PRN (21:33)
[2018-12-18] MEDS ORDERED: Albuterol/Ipratropium 3.0-0.5 MG/3 ML Neb Soln NEB PRN (21:33)
[2018-12-19] MEDS ORDERED: Levothyroxine 100 MCG, Levothyroxine 50 MCG, Levothyroxine 25 MCG PO SCH ×3 (07:30)
[2018-12-19] MEDS ORDERED: Non-Formulary Medication 1 Each (Levothyroxine [Levothyroxine] 175 MCG) PO SCH (07:30)
[2018-12-19] MEDS: ADVAIR INH SCH ×2 (08:42→20:37)
[2018-12-19] MEDS: Bumetanide 2.5 MG/10 ML MDV IVPUSH SCH ×3 (08:58→18:17)
[2018-12-19] MEDS ORDERED: ADVAIR INH SCH (09:00)
--- NOTE | 2018-12-19 10:33 | PCM.PN ---
- General Info Date of Service: 12/19/18 Subjective Update: Ms. Amezcua Functional Status: Reports: Tolerating Diet, Ambulating, Urinating - Review of Systems General: Reports: Weakness, Malaise. Denies: Fever, Chills Pulmonary: Reports: Shortness of Breath. Denies: Pleuritic Chest Pain, Cough, Sputum, Hemoptysis, Wheezing Cardiovascular: Reports: Dyspnea on Exertion. Denies: Chest Pain, Palpitations , Orthopnea, PND, Edema Gastrointestinal: Reports: No Symptoms - Patient Data Vitals - Most Recent: Last Vital Signs Temp 96.0 F 12/19/18 08:00 Pulse 60 12/19/18 08:00 Resp 18 12/19/18 08:00 BP 125/56 L 12/19/18 08:00 Pulse Ox 96 12/19/18 08:00 Weight - Most Recent: 246 lb 5 oz I&O - Last 24 Hours: Intake & Output 12/18/18 12/19/18 12/19/18 22:59 06:59 14:59 Output Total 1400 Balance -1400 Lab Results Last 24 Hours: Laboratory Results - last 24 hr 12/18/18 12/18/18 12/18/18 Range/Units 18:57 18:57 18:57 WBC 8.4 (4.5-11.0) K/uL RBC 3.87 (3.30-5.50) M/uL Hgb 10.9 L (12.0-15.0) g/dL Hct 35.4 L (36.0-48.0) % MCV 92 (80-98) fL MCH 28 (27-31) pg MCHC 31 L (32-36) % Plt Count 273 (150-400) K/uL Neut % (Auto) 71 H (36-66) % Lymph % (Auto) 18 L (24-44) % Bibb % (Auto) 8 H (2-6) % Eos % (Auto) 4 (2-4) % Baso % (Auto) 0 (0-1) % Sodium 140 (140-148) mmol/L Potassium 3.9 (3.6-5.2) mmol/L Chloride 100 (100-108) mmol/L Carbon Dioxide 33 H (21-32) mmol/L Anion Gap 10.9 (5.0-14.0) mmol/L BUN 19 H (7-18) mg/dL Creatinine 1.1 H (0.6-1.0) mg/dL Est Cr Clr Drug Dosing 42.74 mL/min Estimated GFR (MDRD) 50 L (>60) Glucose 87 (74-106) mg/dL Calcium 9.3 (8.5-10.1) mg/dL Magnesium (1.8-2.4) mg/dL Total Bilirubin 1.3 H (0.2-1.0) mg/dL AST 31 D (15-37) U/L ALT 25 (12-78) U/L Alkaline Phosphatase 108 (46-116) U/L Troponin I < 0.017 (0.000-0.056) ng/mL NT-Pro-B Natriuret Pep 2715 H (5-125) pg/mL Total Protein 7.3 (6.4-8.2) g/dL Albumin 3.8 (3.4-5.0) g/dL Globulin 3.5 (2.3-3.5) g/dL Albumin/Globulin Ratio 1.1 L (1.2-2.2) 12/19/18 Range/Units 04:15 WBC (4.5-11.0) K/uL RBC (3.30-5.50) M/uL Hgb (12.0-15.0) g/dL Hct (36.0-48.0) % MCV (80-98) fL MCH (27-31) pg MCHC (32-36) % Plt Count (150-400) K/uL Neut % (Auto) (36-66) % Lymph % (Auto) (24-44) % Bibb % (Auto) (2-6) % Eos % (Auto) (2-4) % Baso % (Auto) (0-1) % Sodium 140 (140-148) mmol/L Potassium 4.0 (3.6-5.2) mmol/L Chloride 101 (100-108) mmol/L Carbon Dioxide 33 H (21-32) mmol/L Anion Gap 10.0 (5.0-14.0) mmol/L BUN 17 (7-18) mg/dL Creatinine 1.0 (0.6-1.0) mg/dL Est Cr Clr Drug Dosing 47.01 mL/min Estimated GFR (MDRD) 56 L (>60) Glucose 94 (74-106) mg/dL Calcium 9.2 (8.5-10.1) mg/dL Magnesium 2.3 (1.8-2.4) mg/dL Total Bilirubin (0.2-1.0) mg/dL AST (15-37) U/L ALT (12-78) U/L Alkaline Phosphatase (46-116) U/L Troponin I (0.000-0.056) ng/mL NT-Pro-B Natriuret Pep (5-125) pg/mL Total Protein (6.4-8.2) g/dL Albumin (3.4-5.0) g/dL Globulin (2.3-3.5) g/dL Albumin/Globulin Ratio (1.2-2.2) Med Orders - Current: Current Medications Acetaminophen (Tylenol) 650 mg PO Q4H PRN PRN Reason: Pain (Mild 1-3)/fever Albuterol (Proventil Neb Soln) 2.5 mg NEB Q4H PRN PRN Reason: Shortness Of Breath/wheezing Albuterol/Ipratropium (Duoneb 3.0-0.5 Mg/3 Ml) 3 ml NEB QID PRN PRN Reason: Shortness Of Breath/wheezing Aspirin (Halfprin) 81 mg PO QPM [place] Bumetanide (Bumex) 4 mg IVPUSH Q12H [facility] Enoxaparin Sodium (Lovenox) 40 mg SUBCUT BEDTIME [facility] Fluoxetine HCl (Prozac) 20 mg PO DAILY [facility] Non-Formulary Medication (Levothyroxine [Levothyroxine]) 175 mcg PO ACBREAKFAST [facility] Non-Formulary Medication (Simvastatin [Zocor]) 40 mg PO ACDINNER [facility] Ondansetron HCl (Zofran) 4 mg IV Q4H PRN PRN Reason: Nausea/Vomiting Advair 100/50mcg (Inhaler (Ptom)) 0 each INH BIDRT [facility] Last Admin: 12/19/18 08:42 Dose: 1 each Polyethylene Glycol (Miralax) 17 gm PO DAILY PRN PRN Reason: Constipation Potassium Chloride (Potassium Chloride) 30 meq PO DAILY [facility] Ranitidine HCl (Zantac) 150 mg PO DAILY [facility] Sodium Chloride (Saline Flush) 10 ml FLUSH ASDIRECTED PRN PRN Reason: Keep Vein Open Last Admin: 12/18/18 21:49 Dose: 10 ml Discontinued Medications Bumetanide (Bumex) 4 mg IVPUSH ONETIME ONE Stop: 12/18/18 19:46 Last Admin: 12/18/18 20:57 Dose: 4 mg Bumetanide (Bumex) 4 mg IVPUSH DAILY [facility] Last Admin: 12/19/18 08:59 Dose: Not Given Enoxaparin Sodium (Lovenox) 40 mg SUBCUT DAILY [facility] Last Admin: 12/18/18 21:50 Dose: 40 mg Advair Diskus 100-50 (Own Med) 1 puff INH BID [facility] Sodium Chloride (Saline Flush) 10 ml FLUSH ASDIRECTED PRN PRN Reason: Keep Vein Open Last Admin: 12/18/18 21:00 Dose: 10 ml - Exam General: Alert, Oriented, Cooperative, Mild Distress Lungs: Clear to Auscultation, Normal Respiratory Effort, Decreased Breath Sounds Cardiovascular: Regular Rate, Regular Rhythm, No Murmurs GI/Abdominal Exam: Soft, Non-Tender, No Organomegaly, No Distention Extremities: Non-Tender, No Pedal Edema - Problem List Review Problem List Initiated/Reviewed/Updated: Yes - My Orders Last 24 Hours: My Active Orders 12/18/18 20:43 Resuscitation Status Routine 12/18/18 21:33 Patient Status [ADT] Routine Ambulate [RC] QID Height and Weight [RC] DAILY Intake and Output [RC] QSHIFT Notify Provider Vital Signs [RC] ASDIRECTED Oxygen Therapy [RC] PRN RT Aerosol Therapy [RC] ASDIRECTED Up With Assistance [RC] ASDIRECTED Up to Chair [RC] QID VTE/DVT Education [RC] Per Unit Routine Vital Signs [RC] Q4H Acetaminophen [Tylenol] 650 mg PO Q4H PRN Albuterol [Proventil Neb Soln] 2.5 mg NEB Q4H PRN Albuterol/Ipratropium [DuoNeb 3.0-0.5 MG/3 ML] 3 ml NEB QID PRN Ondansetron [Zofran] 4 mg IV Q4H PRN Polyethylene Glycol 3350 [MiraLAX] 17 gm PO DAILY PRN Sodium Chloride 0.9% [Saline Flush] 10 ml FLUSH ASDIRECTED PRN Saline Lock Insert [OM.PC] Routine 12/18/18 Dinner 2 Gram Sodium Diet [DIET] 12/19/18 07:30 Levothyroxine [Levothyroxine] 175 mcg PO ACBREAKFAST Patient's Own Medication [Ptom] 0 each INH BIDRT 12/19/18 09:00 FLUoxetine [PROzac] 20 mg PO DAILY Potassium Chloride 30 meq PO DAILY Ranitidine [Zantac] 150 mg PO DAILY 12/19/18 16:00 Simvastatin [Zocor] 40 mg PO ACDINNER 12/19/18 17:00 Aspirin [Halfprin] 81 mg PO QPM 12/19/18 19:00 Bumetanide [Bumex] 4 mg IVPUSH Q12H 12/19/18 21:00 Enoxaparin [Lovenox] 40 mg SUBCUT BEDTIME 12/20/18 05:00 BASIC METABOLIC PANEL,BMP [CHEM] Timed - Plan Plan:: ASSESSMENT AND PLAN - Acute on chronic heart failure with preserved ejection fraction - recent echocardiograms had shown normal ejection fractions. Patient has increased dyspnea and lower extremity edema. Weight is stable over the past week. She feels improved since admission with good diuresis thus far. -Parenteral diuresis with bumetanide -Daily weights -Intake and output monitoring -Supplement potassium -Consider addition of spironolactone -Supplement oxygen COPD-no evidence of acute exacerbation or underlying infection -Continue outpatient medical management Chronic kidney disease stage III A -Sleep monitor urine output and renal function during hospital stay Acquired hypothyroidism -Continue supplementation Coronary artery disease - history of bypass surgery. No active anginal symptoms. -Continue medical management Aortic stenosis status post bioprosthetic aortic valve replacement Maintenance issues - - DVT prophylaxis - Lovenox 40 mg subcutaneous daily - GI prophylaxis - continue outpatient H2 ramesh - Nutrition - low sodium - Connell catheter - not indicated CODE STATUS - full code Admission justification - will be admitted to observation status expect no more than a one to 2 night hospital stay for management of this mild to moderate CHF exacerbation Disposition - I would anticipate discharge home after the hospital stay Primary care provider - Martha Tracy NP
[2018-12-19] MEDS: Potassium Chloride 10 MEQ **PTOM PO SCH (12:34)
[2018-12-19] MEDS: LEVOTHYROXINE 0.175 MG PO SCH (12:34)
[2018-12-19] MEDS: RANITIDINE 150 MG PO SCH (12:34)
[2018-12-19] MEDS: FLUOXETINE 20 MG PO SCH (12:35)
[2018-12-19] MEDS ORDERED: Simvastatin 20 MG Tab PO SCH (17:00)
[2018-12-19] MEDS ORDERED: ASPIRIN 81 MG PO SCH (17:00)
[2018-12-19] MEDS ORDERED: SIMVASTATIN 40MG **PTOM PO SCH (17:00)
[2018-12-19] MEDS ORDERED: Enoxaparin 40 MG/0.4 ML Syringe SUBCUT SCH (21:00)
[2018-12-20] MEDS: ADVAIR INH SCH (07:37)
[2018-12-20] MEDS: Bumetanide 2.5 MG/10 ML MDV IVPUSH SCH (07:49)
[2018-12-20] MEDS: LEVOTHYROXINE 0.175 MG PO SCH (08:01)
[2018-12-20] MEDS: Potassium Chloride 10 MEQ **PTOM PO SCH (08:02)
[2018-12-20] MEDS: RANITIDINE 150 MG PO SCH (08:03)
[2018-12-20] MEDS: FLUOXETINE 20 MG PO SCH (08:03)
[2018-12-20 08:59] VITALS: BP 138/61; PULSE 64
[2018-12-20] MEDS ORDERED: POTASSIUM CHLORIDE 10 MEQ PO ONE (09:00)
[2018-12-20] MEDS ORDERED: Potassium Chloride 10 MEQ **PTOM PO SCH ×3 (09:00→21:00)
[2018-12-20] MEDS ORDERED: Spironolactone 25 MG Tab PO SCH (09:00)
--- NOTE | 2018-12-20 09:46 | PCM.DCSUM1 ---
Discharge Summary - Hospital Course Brief History: Ms. Amezcua is a 63-year-old woman who was admitted to observation status through the emergency department with increased shortness of breath and peripheral edema secondary to acute on chronic diastolic congestive heart failure. - Discharge Data Discharge Date: 12/20/18 Discharge Disposition: Home, Self-Care 01 Condition: Fair - Referral to Home Health Primary Care Physician: Martha Tracy CNM - Discharge Diagnosis/Problem(s) (1) Dyspnea on minimal exertion SNOMED Code(s): 67343918 ICD Code: R06.09 - OTHER FORMS OF DYSPNEA Status: Acute Current Visit: Yes (2) Peripheral edema SNOMED Code(s): 330233387 ICD Code: R60.9 - EDEMA, UNSPECIFIED Status: Acute Current Visit: No (3) Diastolic CHF, acute on chronic SNOMED Code(s): 466647272, 938855083 ICD Code: I50.33 - ACUTE ON CHRONIC DIASTOLIC (CONGESTIVE) HEART FAILURE Status: Chronic Current Visit: No (4) COPD (chronic obstructive pulmonary disease) SNOMED Code(s): 59827906 ICD Code: J44.9 - CHRONIC OBSTRUCTIVE PULMONARY DISEASE, UNSPECIFIED Status : Chronic Priority: Medium Current Visit: No Qualifiers: COPD type: emphysema - Patient Summary/Data Hospital Course: Ms. Amezcua is a 63-year-old woman who was admitted through the emergency department with shortness of breath, peripheral edema, and orthopnea, secondary to acute exacerbation of diastolic congestive heart failure. She is had multiple admissions since the first of the year with intermittent exacerbations of her diastolic congestive heart failure. Recent echocardiograms have shown preserved left ventricular function, she is status post aortic valve replacement surgery with a mechanical valve. Has a known history of coronary artery disease as well as COPD. Over the last 3-4 days she should reports progressive shortness of breath with orthopnea and peripheral edema. She was seen and evaluated in the clinic and referred to the emergency department for further evaluation and management. She has chronic kidney disease stage IIIa, renal function was found to be stable. Chest x-ray shows evidence of COPD, no obvious pulmonary edema. Vital signs and other labs are unremarkable. In the emergency department she was given IV Bumex, following admission was given IV Bumex 4 mg twice daily throughout her hospital stay. With this intervention she did have good diuresis and improvement in her shortness of breath as well as peripheral edema. She was started on spironolactone 12.5 mg twice daily, this will be continued as an outpatient. She should have a follow- up BMP when seen in the outpatient clinic. Activity will be as tolerated and she will remain on a low-sodium diet. Follow-up appointment will be scheduled with her primary care provider within one week. She should continue to weigh herself daily contact her primary care physician if her weight goes up 3-4 pounds over a few days. - Patient Instructions Diet: Low Sodium Activity: As Tolerated Other/Special Instructions: Please schedule follow-up appointment with primary care provider within one week. - Discharge Plan *PRESCRIPTION DRUG MONITORING PROGRAM REVIEWED*: Not Applicable *COPY OF PRESCRIPTION DRUG MONITORING REPORT IN PATIENT SRINI: Not Applicable Prescriptions/Med Rec: Spironolactone [Aldactone] 12.5 mg PO BID #30 tablet Home Medications: Home Meds Albuterol [Proventil HFA] 1 puff INH Q4H PRN 12/15/15 [History] Albuterol/Ipratropium [DuoNeb 3.0-0.5 MG/3 ML] 3 ml IH Q4H PRN 12/15/15 [History ] Aspirin [Children's Aspirin] 81 mg PO QPM 12/15/15 [History] FLUoxetine [PROzac] 20 mg PO DAILY 12/15/15 [History] Ferrous Sulfate 325 mg PO DAILY 12/15/15 [History] Fluticasone/Salmeterol [Advair Diskus 100-50] 1 puff INH BID 12/15/15 [History] Metoprolol Succinate [Toprol XL] 25 mg PO QPM 12/15/15 [History] Multivitamin with Minerals [Multiple Vitamin] 1 tab PO DAILY 12/15/15 [History] Nitroglycerin [Nitrostat] 0.4 mg SL ASDIRECTED 12/15/15 [History] Potassium Chloride 30 meq PO DAILY 12/15/15 [History] Ranitidine [Zantac] 150 mg PO DAILY 12/15/15 [History] O2 1.5 l INH DAILY 04/08/18 [History] Bumetanide [Bumex] 4 mg PO BID #120 tablet 10/15/18 [Rx] Levothyroxine 175 mcg PO ACBREAKFAST 11/27/18 [History] Simvastatin [Zocor] 40 mg PO ACDINNER 11/27/18 [History] Spironolactone [Aldactone] 12.5 mg PO BID #30 tablet 12/20/18 [Rx] Referrals: Martha Tracy CNM [Primary Care Provider] - 12/29/18 1:30 pm (Please arrive 15 minutes early to register for appointment) - Discharge Summary/Plan Comment DC Time >30 min.: No - Patient Data Vitals - Most Recent: Last Vital Signs Temp 95.8 F 12/20/18 08:00 Pulse 64 12/20/18 08:00 Resp 18 12/20/18 08:00 BP 138/61 12/20/18 08:00 Pulse Ox 95 12/20/18 08:00 Weight - Most Recent: 245 lb 9.519 oz I&O - Last 24 hours: Intake & Output 12/19/18 12/20/18 12/20/18 22:59 06:59 14:59 Intake Total 700 Output Total 1450 600 600 Balance -750 -600 -600 Lab Results - Last 24 hrs: Laboratory Results - last 24 hr 12/20/18 Range/Units 04:17 Sodium 140 (140-148) mmol/L Potassium 3.5 L (3.6-5.2) mmol/L Chloride 99 L (100-108) mmol/L Carbon Dioxide 34 H (21-32) mmol/L Anion Gap 10.5 (5.0-14.0) mmol/L BUN 18 (7-18) mg/dL Creatinine 1.2 H (0.6-1.0) mg/dL Est Cr Clr Drug Dosing 39.16 mL/min Estimated GFR (MDRD) 45 L (>60) Glucose 101 (74-106) mg/dL Calcium 9.3 (8.5-10.1) mg/dL Med Orders - Current: Current Medications Acetaminophen (Tylenol) 650 mg PO Q4H PRN PRN Reason: Pain (Mild 1-3)/fever Albuterol (Proventil Neb Soln) 2.5 mg NEB Q4H PRN PRN Reason: Shortness Of Breath/wheezing Albuterol/Ipratropium (Duoneb 3.0-0.5 Mg/3 Ml) 3 ml NEB QID PRN PRN Reason: Shortness Of Breath/wheezing Aspirin (Halfprin) 81 mg PO QPM [facility] Last Admin: 12/19/18 17:06 Dose: 81 mg Bumetanide (Bumex) 4 mg IVPUSH Q12H [facility] Last Admin: 12/20/18 07:49 Dose: 4 mg Enoxaparin Sodium (Lovenox) 40 mg SUBCUT BEDTIME [facility] Last Admin: 12/19/18 20:39 Dose: 40 mg Fluoxetine HCl (Prozac) 20 mg PO DAILY [facility] Last Admin: 12/20/18 08:03 Dose: 20 mg Ondansetron HCl (Zofran) 4 mg IV Q4H PRN PRN Reason: Nausea/Vomiting Advair 100/50mcg (Inhaler (Ptom)) 0 each INH BIDRT [facility] Last Admin: 12/20/18 07:37 Dose: 1 each Simvastatin 40mg (Ptom) 0 each PO QPM [facility] Last Admin: 12/19/18 17:06 Dose: 1 each Levothyroxine 0. (175mg Ptom) 0 each PO DAILY@0730 [facility] Last Admin: 12/20/18 08:01 Dose: 1 each Polyethylene Glycol (Miralax) 17 gm PO DAILY PRN PRN Reason: Constipation Potassium Chloride (Potassium Chloride) 10 meq PO BEDTIME [facility] Potassium Chloride (Potassium Chloride) 20 meq PO DAILY [facility] Last Admin: 12/20/18 09:32 Dose: Not Given Ranitidine HCl (Zantac) 150 mg PO DAILY [facility] Last Admin: 12/20/18 08:03 Dose: 150 mg Sodium Chloride (Saline Flush) 10 ml FLUSH ASDIRECTED PRN PRN Reason: Keep Vein Open Last Admin: 12/18/18 21:49 Dose: 10 ml Spironolactone (Aldactone) 12.5 mg PO BID [facility] Last Admin: 12/20/18 09:30 Dose: 12.5 mg Discontinued Medications Bumetanide (Bumex) 4 mg IVPUSH ONETIME ONE Stop: 12/18/18 19:46 Last Admin: 12/18/18 20:57 Dose: 4 mg Bumetanide (Bumex) 4 mg IVPUSH DAILY [facility] Last Admin: 12/19/18 08:59 Dose: Not Given Enoxaparin Sodium (Lovenox) 40 mg SUBCUT DAILY [facility] Last Admin: 12/18/18 21:50 Dose: 40 mg Advair Diskus 100-50 (Own Med) 1 puff INH BID [place] Potassium Chloride (Potassium Chloride) 30 meq PO DAILY [place] Last Admin: 12/20/18 08:02 Dose: 20 meq Potassium Chloride (Potassium Chloride) 20 meq PO DAILY [place] Potassium Chloride (Potassium Chloride) 40 meq PO ONETIME ONE Stop: 12/20/18 09:01 Last Admin: 12/20/18 09:30 Dose: 40 meq Sodium Chloride (Saline Flush) 10 ml FLUSH ASDIRECTED PRN PRN Reason: Keep Vein Open Last Admin: 12/18/18 21:00 Dose: 10 ml - Exam Quality Assessment: Reports: Supplemental Oxygen, DVT Prophylaxis General: Reports: Alert, Oriented, Cooperative, No Acute Distress Lungs: Reports: Decreased Breath Sounds. Denies: Rales, Rhonchi, Wheezing Cardiovascular: Reports: Regular Rate, Regular Rhythm, No Murmurs GI/Abdominal Exam: Soft, Non-Tender, No Organomegaly, No Distention Extremities: Non-Tender, No Pedal Edema
== END 2018-12-20 10:30 | disposition home or self-care (01) ==
LOC: JP.ED 17:40 → JP.ICU 20:40
PROVIDERS: ADMIT Hospitalist; ATTEND Hospitalist
DX: I13.0 Hypertensive heart and chronic kidney disease with heart failure and stage 1 through stage 4 chronic kidney disease, or unspecified chronic kidney disease (principal); I50.33 Acute on chronic diastolic (congestive) heart failure; N18.3 Chronic kidney disease, stage 3 (moderate); I25.10 Atherosclerotic heart disease of native coronary artery without angina pectoris; E78.00 Pure hypercholesterolemia, unspecified; E03.9 Hypothyroidism, unspecified; J43.9 Emphysema, unspecified; K21.9 Gastro-esophageal reflux disease without esophagitis; Z95.1 Presence of aortocoronary bypass graft; Z95.2 Presence of prosthetic heart valve; Z87.891 Personal history of nicotine dependence; Z79.82 Long term (current) use of aspirin; Z79.51 Long term (current) use of inhaled steroids; Z79.899 Other long term (current) drug therapy
CPT/HCPCS: 36415; 71046; 80048; 80053; 83735; 83880; 84484; 85025; 93005; 94640; 94762; 99284; A9270; J1650; J3490; 93010; 96372; 96374; 96375; 96376; G0378

== ENCOUNTER 2019-02-09 12:18 | Emergency (ER) | payer MEDICARE, OTHER ==
[2019-02-09 13:00] VITALS: BP 130/55; PULSE 68
[2019-02-09] MEDS ORDERED: Lactated Ringers 1,000 ML IV ONE (14:37)
--- NOTE | 2019-02-09 14:51 | EDM.PDOC ---
ED HPI GENERAL MEDICAL PROBLEM - General Chief Complaint: Syncope Stated Complaint: DIZZY Time Seen by Provider: 02/09/19 14:00 Source of Information: Reports: Patient History Limitations: Reports: No Limitations - History of Present Illness INITIAL COMMENTS - FREE TEXT/NARRATIVE: this is a 63-year-old with history of CHF and aortic valve replacement who presents with concerns of presyncopal symptoms. She was seen in the ED 3 days ago, felt to be volume overloaded at that time, aggressively diuresed before discharge. The following day she developed diarrhea. She has been unable to tolerate much for by mouth. starting last night she is felt dizzy whenever she sits up or stands. She's had no LOC. She has no chest pain. She has no cough. No dyspnea. Minimal lower extremity edema, reports that she is now down 9 pounds from when she presented to the ED 3 days ago. - Related Data Allergies Allergy/AdvReac Type Severity Reaction Status Date / Time No Known Allergies Allergy Verified 02/09/19 13:00 Home Meds: Home Meds Albuterol [Proventil HFA] 1 puff INH Q4H PRN 12/15/15 [History] Albuterol/Ipratropium [DuoNeb 3.0-0.5 MG/3 ML] 3 ml IH Q4H PRN 12/15/15 [History ] Aspirin [Children's Aspirin] 81 mg PO QPM 12/15/15 [History] FLUoxetine [PROzac] 20 mg PO DAILY 12/15/15 [History] Ferrous Sulfate 325 mg PO DAILY 12/15/15 [History] Fluticasone/Salmeterol [Advair Diskus 100-50] 1 puff INH BID 12/15/15 [History] Metoprolol Succinate [Toprol XL] 25 mg PO QPM 12/15/15 [History] Multivitamin with Minerals [Multiple Vitamin] 1 tab PO DAILY 12/15/15 [History] Nitroglycerin [Nitrostat] 0.4 mg SL ASDIRECTED 12/15/15 [History] Potassium Chloride 30 meq PO DAILY 12/15/15 [History] O2 1.5 l INH DAILY 04/08/18 [History] Bumetanide [Bumex] 4 mg PO BID #120 tablet 10/15/18 [Rx] Levothyroxine 175 mcg PO ACBREAKFAST 11/27/18 [History] Simvastatin [Zocor] 40 mg PO ACDINNER 11/27/18 [History] Spironolactone [Aldactone] 12.5 mg PO BID #30 tablet 12/20/18 [Rx] Omeprazole 20 mg PO ACBREAKFAST 02/06/19 [History] Past Medical History HEENT History: Reports: Impaired Vision Cardiovascular History: Reports: Bypass, Heart Failure, High Cholesterol, Hypertension, SOB on Exertion, Other (See Below) Other Cardiovascular History: hx of aortic valve replaced 2012,CHF Respiratory History: Reports: Asthma, COPD, SOB, Other (See Below) Other Respiratory History: home o2 1.5l Gastrointestinal History: Reports: GERD Genitourinary History: Reports: Renal Calculus OB TECH History: Reports: Musculoskeletal History: Reports: Arthritis Other Musculoskeletal History: arthritis Neurological History: Reports: None Psychiatric History: Reports: Depression Endocrine/Metabolic History: Reports: Hypothyroidism, Obesity/BMI 30+ Hematologic History: Reports: Anemia Immunologic History: Reports: None Oncologic (Cancer) History: Reports: None Dermatologic History: Reports: None - Infectious Disease History Infectious Disease History: Reports: Chicken Pox, Influenza, Mumps - Past Surgical History Head Surgeries/Procedures: Reports: None HEENT Surgical History: Reports: None Cardiovascular Surgical History: Reports: Coronary Artery Bypass, Valve Replacement Respiratory Surgical History: Reports: None GI Surgical History: Reports: Appendectomy, Cholecystectomy, Colonoscopy Female Surgical History: Reports: None Endocrine Surgical History: Reports: None Neurological Surgical History: Reports: None Musculoskeletal Surgical History: Reports: Arthroscopic Procedure Dermatological Surgical History: Reports: None Social & Family History - Family History Family Medical History: Noncontributory Cardiac: Reports: CAD Respiratory: Reports: Asthma, COPD OBGYN: Reports: Musculoskeletal: Reports: Arthritis Neurological: Reports: Vertigo Psychiatric: Reports: OCD Oncologic: Reports: Brain, Lung - Tobacco Use Smoking Status *Q: Former Smoker Used Tobacco, but Quit: Yes Month/Year Tobacco Last Used: 7 years - Caffeine Use Caffeine Use: Reports: Coffee Other Caffeine Use: 1 cup per day Caffeine Use Comment: 3 cups per day - Recreational Drug Use Recreational Drug Use: No - Living Situation & Occupation Living situation: Reports: , with Family (lives in [place], with Daughter and raising 2 year old Great Grandson) Occupation: Disabled ED ROS GENERAL - Review of Systems Review Of Systems: See Below Constitutional: Reports: No Symptoms HEENT: Reports: No Symptoms Respiratory: Reports: No Symptoms Cardiovascular: Reports: No Symptoms Endocrine: Reports: No Symptoms GI/Abdominal: Reports: No Symptoms : Reports: No Symptoms Musculoskeletal: Reports: No Symptoms Skin: Reports: No Symptoms Neurological: Reports: Dizziness Psychiatric: Reports: No Symptoms Hematologic/Lymphatic: Reports: No Symptoms Immunologic: Reports: No Symptoms ED EXAM, DIZZINESS - Physical Exam Exam: See Below Exam Limited By: No Limitations General Appearance: Alert, No Apparent Distress Ears: Normal External Exam Nose: Normal Inspection Throat/Mouth: Normal Inspection Head Exam: Atraumatic, Normocephalic Neck: Normal Inspection Respiratory/Chest: No Respiratory Distress, Lungs Clear Cardiovascular: Regular Rate, Rhythm GI/Abdominal: Soft, Non-Tender Neurological: Alert, Normal Mood/Affect Extremities: Normal Inspection, No Pedal Edema Skin Exam: Warm, Dry Course - Vital Signs Last Recorded V/S: Last Vital Signs Temp 36.9 C 02/09/19 12:58 Pulse 68 02/09/19 12:58 Resp 16 02/09/19 12:58 BP 130/55 L 02/09/19 12:58 Pulse Ox 98 02/09/19 12:58 - Orders/Labs/Meds Labs: Laboratory Tests 02/09/19 02/09/19 02/09/19 Range/Units 14:49 14:49 18:14 WBC 14.8 H (4.5-11.0) K/uL RBC 4.81 (3.30-5.50) M/uL Hgb 13.5 (12.0-15.0) g/dL Hct 43.2 (36.0-48.0) % MCV 90 (80-98) fL MCH 28 (27-31) pg MCHC 31 L (32-36) % Plt Count 316 (150-400) K/uL Sodium 133 L 136 L (140-148) mmol/L Potassium 2.9 L* 3.1 L (3.6-5.2) mmol/L Chloride 91 L 93 L (100-108) mmol/L Carbon Dioxide 40 H 37 H (21-32) mmol/L Anion Gap 4.9 L 9.1 (5.0-14.0) mmol/L BUN 30 H D 28 H (7-18) mg/dL Creatinine 1.6 H 1.4 H (0.6-1.0) mg/dL Est Cr Clr Drug Dosing 29.38 33.58 mL/min Estimated GFR (MDRD) 32 L 38 L (>60) Glucose 112 H 104 (74-106) mg/dL Calcium 10.0 9.6 (8.5-10.1) mg/dL Meds: Medications Discontinued Medications Generic Name Dose Route Start Last Admin Trade Name Jeremias PRN Reason Stop Dose Admin Lactated Ringer's 1,000 mls @ 999 mls/hr 02/09/19 14:37 02/09/19 15:05 Ringers, Lactated IV 02/09/19 15:37 999 mls/hr BOLUS ONE Administration Potassium Chloride 20 meq/ 112 mls @ 56 mls/hr 02/09/19 16:30 02/09/19 16:29 Lidocaine HCl 2 ml/ Sodium IV 02/09/19 18:29 56 mls/hr Chloride ONETIME ONE Administration Potassium Chloride 40 meq 02/09/19 15:50 02/09/19 16:28 Klor-Con M20 PO 02/09/19 15:51 40 meq ONETIME ONE Administration - Re-Assessments/Exams Free Text/Narrative Re-Assessment/Exam: 63 yo, hx of CHF and aortic valve replacement, presents with presyncopal symptoms. This is in the setting of very aggressive diuresis 3 days ago as well as a diarrheal illness and diminished by mouth intake. She reports that she is down 9 pounds since she was seen in the ED 3 days ago. She provides a very clear history of orthostatic symptoms. she is a mild florian, and mild contraction alkalosis. Overall picture is consistent with hypovolemia. She was bolused IV fluids, she then ambulated with improvement in symptoms. Labs also notable for hypokalemia, again in the setting of poor by mouth and aggressive diuresis. Potassium was supplemented with oral and IV K. She has potassium supplementation at home. On recheck K improved Safe for D/c 02/09/19 18:36 Departure - Departure Time of Disposition: 18:39 Disposition: Home, Self-Care 01 Clinical Impression: Orthostatic dizziness, Hypokalemia - Discharge Information Referrals: Martha Tracy CNM [Primary Care Provider] - Forms: ED Department Discharge Additional Instructions: Please continue to take your normal amount (64 oz) of fluids, you may need to push yourself to do this over the next few days. Return to the emergency room for worsening symptoms
[2019-02-09] MEDS ORDERED: Potassium Chloride 20 MEQ in Premix Bag 1 BAG IV ONE (15:14)
[2019-02-09] MEDS ORDERED: Potassium Chloride 20 MEQ Tab.ER PO ONE (15:50)
[2019-02-09] MEDS ORDERED: Potassium Chloride 20 MEQ, Lidocaine 1% 2 ML in Sodium Chloride 0.9% 100 ML IV ONE (16:30)
== END 2019-02-09 18:48 | disposition home or self-care (01) ==
LOC: JP.ED 12:18
DX: R42 Dizziness and giddiness (principal); E87.6 Hypokalemia; I10 Essential (primary) hypertension; J44.9 Chronic obstructive pulmonary disease, unspecified; E66.9 Obesity, unspecified; E03.9 Hypothyroidism, unspecified; K21.9 Gastro-esophageal reflux disease without esophagitis; Z79.82 Long term (current) use of aspirin; Z79.51 Long term (current) use of inhaled steroids; Z79.899 Other long term (current) drug therapy; Z68.41 Body mass index [BMI] 40.0-44.9, adult
CPT/HCPCS: 36415; 80048; 85027; 96361; 96365; 96366; 99283; A9270; J2001; J3480; J7030; J7120

== ENCOUNTER 2019-03-05 20:42 | Emergency (ER) | payer MEDICARE, OTHER ==
[2019-03-05 21:35] VITALS: BP 125/66; PULSE 68
--- NOTE | 2019-03-05 21:49 | EDM.PDOC ---
ED HPI GENERAL MEDICAL PROBLEM - General Chief Complaint: Respiratory Problem Stated Complaint: COUGHING UP BLOOD Time Seen by Provider: 03/05/19 21:44 Source of Information: Reports: Patient, Old Records History Limitations: Reports: No Limitations - History of Present Illness INITIAL COMMENTS - FREE TEXT/NARRATIVE: 63 yo female with multiple medical problems and who has been coughing more lately than usual had a couple episodes of coughing associated with production of blood tinged sputum. No fever since 03/03. Mild SOB. Has a hx of CHF and chronic lung dz. Is on oxygen at 1.5 liters/min/nc around the clock. No epistaxis. Onset: Today (of hemoptysis) Onset Date: 03/05/19 Onset Time: 19:00 Duration: Hour(s):, Intermittent Location: Reports: Chest Quality: Reports: Other (no pain) Severity: Mild Improves with: Reports: Other (not coughing) Worsens with: Reports: Other (coughing) Context: Reports: Other (see HPI) Associated Symptoms: Reports: Cough, Shortness of Breath (mild). Denies: Fever/ Chills Treatments CHASSIS WIRER: Reports: Other (see below) (albuterol) - Related Data Allergies Allergy/AdvReac Type Severity Reaction Status Date / Time metolazone Allergy Other Verified 03/05/19 21:24 Home Meds: Home Meds Albuterol [Proventil HFA] 1 puff INH Q4H PRN 12/15/15 [History] Albuterol/Ipratropium [DuoNeb 3.0-0.5 MG/3 ML] 3 ml IH Q4H PRN 12/15/15 [History ] Aspirin [Children's Aspirin] 81 mg PO QPM 12/15/15 [History] FLUoxetine [PROzac] 20 mg PO DAILY 12/15/15 [History] Ferrous Sulfate 325 mg PO DAILY 12/15/15 [History] Fluticasone/Salmeterol [Advair Diskus 100-50] 1 puff INH BID 12/15/15 [History] Metoprolol Succinate [Toprol XL] 25 mg PO QPM 12/15/15 [History] Multivitamin with Minerals [Multiple Vitamin] 1 tab PO DAILY 12/15/15 [History] Nitroglycerin [Nitrostat] 0.4 mg SL ASDIRECTED 12/15/15 [History] Potassium Chloride 30 meq PO DAILY 12/15/15 [History] O2 1.5 l INH DAILY 04/08/18 [History] Bumetanide [Bumex] 4 mg PO BID #120 tablet 10/15/18 [Rx] Levothyroxine 175 mcg PO ACBREAKFAST 11/27/18 [History] Simvastatin [Zocor] 40 mg PO ACDINNER 11/27/18 [History] Spironolactone [Aldactone] 12.5 mg PO BID #30 tablet 12/20/18 [Rx] Omeprazole 20 mg PO ACBREAKFAST 02/06/19 [History] Past Medical History HEENT History: Reports: Impaired Vision Cardiovascular History: Reports: Bypass, Heart Failure, High Cholesterol, Hypertension, SOB on Exertion, Other (See Below) Other Cardiovascular History: hx of aortic valve replaced 2012,CHF Respiratory History: Reports: Asthma, COPD, SOB, Other (See Below) Other Respiratory History: home o2 1.5l Gastrointestinal History: Reports: GERD Genitourinary History: Reports: Renal Calculus [employer] History: Reports: Musculoskeletal History: Reports: Arthritis Other Musculoskeletal History: arthritis Neurological History: Reports: None Psychiatric History: Reports: Depression Endocrine/Metabolic History: Reports: Hypothyroidism, Obesity/BMI 30+ Hematologic History: Reports: Anemia, Iron Deficiency Immunologic History: Reports: None Oncologic (Cancer) History: Reports: None Dermatologic History: Reports: None - Infectious Disease History Infectious Disease History: Reports: Chicken Pox, Influenza, Mumps - Past Surgical History Head Surgeries/Procedures: Reports: None HEENT Surgical History: Reports: None Cardiovascular Surgical History: Reports: Coronary Artery Bypass, Valve Replacement Respiratory Surgical History: Reports: None GI Surgical History: Reports: Appendectomy, Cholecystectomy, Colonoscopy Female Surgical History: Reports: None Endocrine Surgical History: Reports: None Neurological Surgical History: Reports: None Musculoskeletal Surgical History: Reports: Arthroscopic Procedure Dermatological Surgical History: Reports: None Social & Family History - Family History Family Medical History: Noncontributory Cardiac: Reports: CAD Respiratory: Reports: Asthma, COPD OBGYN: Reports: Musculoskeletal: Reports: Arthritis Neurological: Reports: Vertigo Psychiatric: Reports: OCD Oncologic: Reports: Brain, Lung - Caffeine Use Caffeine Use: Reports: Coffee Other Caffeine Use: 1 cup per day Caffeine Use Comment: 3 cups per day - Living Situation & Occupation Living situation: Reports: , with Family (lives in [place], with Daughter and raising 2 year old Great Grandson) Occupation: Disabled ED ROS GENERAL - Review of Systems Review Of Systems: Comprehensive ROS is negative, except as noted in HPI. Constitutional: Reports: No Symptoms HEENT: Reports: Rhinitis (clear) Respiratory: Reports: Shortness of Breath (mild), Cough, Sputum (at times), Hemoptysis (tonight, small amt.). Denies: Wheezing, Pleuritic Chest Pain Cardiovascular: Reports: No Symptoms GI/Abdominal: Reports: No Symptoms ED EXAM, GENERAL - Physical Exam Exam: See Below Exam Limited By: No Limitations General Appearance: Alert, WD/WN, No Apparent Distress, Obese, Other (looks older than her stated age.) Eye Exam: Bilateral Eye: Normal Inspection Ears: Normal External Exam, Normal Canal, Hearing Grossly Normal, Normal TMs Ear Exam: Bilateral Ear: Auricle Normal, Canal Normal, TM normal Nose: Normal Inspection, No Blood, Clear Rhinorrhea Throat/Mouth: Normal Inspection, Normal Lips, Normal Oropharynx, Normal Voice, No Airway Compromise Head: Atraumatic, Normocephalic Neck: Normal Inspection Respiratory/Chest: No Respiratory Distress, Decreased Breath Sounds. No: Wheezing Cardiovascular: Regular Rate, Rhythm, No Edema GI/Abdominal: Normal Bowel Sounds, Non-Tender Back Exam: Normal Inspection. No: CVA Tenderness (R), CVA Tenderness (L) Extremities: Normal Inspection, Normal Range of Motion, Non-Tender, No Pedal Edema Neurological: Alert, Oriented, CN II-XII Intact, Normal Cognition, No Motor/ Sensory Deficits Psychiatric: Normal Affect, Normal Mood Skin Exam: Warm, Dry, Intact, Normal Color, No Rash Course - Vital Signs Last Recorded V/S: Last Vital Signs Temp 36.7 C 03/05/19 21:47 Pulse 68 03/05/19 21:47 Resp 18 03/05/19 21:34 BP 125/66 03/05/19 21:47 Pulse Ox 100 03/05/19 21:47 - Orders/Labs/Meds Labs: Laboratory Tests 03/05/19 Range/Units 21:56 WBC 11.0 (4.5-11.0) K/uL RBC 3.90 (3.30-5.50) M/uL Hgb 11.3 L D (12.0-15.0) g/dL Hct 36.1 (36.0-48.0) % MCV 93 (80-98) fL MCH 29 (27-31) pg MCHC 31 L (32-36) % Plt Count 265 (150-400) K/uL - Radiology Interpretation Free Text/Narrative:: CXR-IMPRESSION: No evidence for pneumonia. Stable mild cardiomegaly. Dictated by Luis Hollingsworth MD @ 03/05/2019 10:40:21 PM Departure - Departure Time of Disposition: 22:48 Disposition: Home, Self-Care 01 Condition: Fair Clinical Impression: Viral URI with cough, Hemoptysis - Discharge Information *PRESCRIPTION DRUG MONITORING PROGRAM REVIEWED*: No *COPY OF PRESCRIPTION DRUG MONITORING REPORT IN PATIENT SRINI: No Instructions: Cough, Adult, [id number] Referrals: Martha Tracy CNM [Primary Care Provider] - Forms: ED Department Discharge Additional Instructions: Take Robitussin as directed. Recheck in the clinic later in the week. Return if you get a fever over 100F.
--- NOTE | 2019-03-05 22:43 | CRLCR ---
INDICATION: Cough, shortness of breath, hemoptysis TECHNIQUE: Chest 2 views. COMPARISON: 02/06/2019 FINDINGS: Cardiovascular and mediastinum: Stable mild cardiomegaly. Sternotomy wires and prosthetic heart valve noted. Mediastinum is within normal limits. Lungs and pleural spaces: Lungs are clear. No sign of infiltrate or mass. No sign of pleural effusion. No pneumothorax. Bones and soft tissues: No significant findings. IMPRESSION: No evidence for pneumonia. Stable mild cardiomegaly. Dictated by Luis Hollingsworth MD @ 03/05/2019 10:40:21 PM Dictated by: Luis Hollingsworth MD @ 03/05/2019 22:40:50 (Electronically Signed)
[2019-03-05] MEDS ORDERED: Codeine/guaiFENesin 100mg-10 MG/5 ML Syrup 10 ML Cup PO ONE (22:55)
== END 2019-03-05 23:05 | disposition home or self-care (01) ==
LOC: JP.ED 20:42
DX: J06.9 Acute upper respiratory infection, unspecified (principal); R04.2 Hemoptysis; I11.0 Hypertensive heart disease with heart failure; I50.9 Heart failure, unspecified; J44.9 Chronic obstructive pulmonary disease, unspecified; K21.9 Gastro-esophageal reflux disease without esophagitis; F32.9 Major depressive disorder, single episode, unspecified; E03.9 Hypothyroidism, unspecified; E78.00 Pure hypercholesterolemia, unspecified; E66.9 Obesity, unspecified; Z68.41 Body mass index [BMI] 40.0-44.9, adult; Z88.8 Allergy status to other drugs, medicaments and biological substances; Z79.82 Long term (current) use of aspirin; Z79.890 Hormone replacement therapy; Z79.899 Other long term (current) drug therapy
CPT/HCPCS: 36415; 71046; 85027; 99283-25

== ENCOUNTER 2019-04-27 12:29 | Emergency (ER) | payer MEDICARE, OTHER ==
[2019-04-27 12:46] VITALS: BP 147/69; PULSE 63
--- NOTE | 2019-04-27 13:08 | EDM.PDOC ---
ED HPI GENERAL MEDICAL PROBLEM - General Chief Complaint: Respiratory Problem Stated Complaint: S.O.B. Time Seen by Provider: 04/27/19 12:50 Source of Information: Reports: Patient, Old Records History Limitations: Reports: No Limitations - History of Present Illness INITIAL COMMENTS - FREE TEXT/NARRATIVE: 63 yo female here with ZELAYA. Has known COPD and CHF. Thinks her ankles are more swollen than normal. Is on oxygen per [place] at 1.5 liters/min/nc around the clock. Says her primary is OOT for the whole week and no one is covering for her so comes to the ER. No recent fever or chest pain. Onset of current sx's gradual, not abrupt. No sharp chest pain with breathing. LE edema is symmetrical, not unilateral. Seems to be a bit put out that we are not immediately admitting her, even before the labs are back. Onset: Gradual Duration: Day(s):, Getting Worse Location: Reports: Lower Extremity, Left (edema), Lower Extremity, Right (edema) Quality: Reports: Other (no pain) Severity: Mild (swelling) Improves with: Reports: None Worsens with: Reports: Other (? 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 below) (usual meds) - Related Data Allergies Allergy/AdvReac Type Severity Reaction Status Date / Time metolazone Allergy Other Verified 04/27/19 12:45 Home Meds: Home Meds Albuterol [Proventil HFA] 1 puff INH Q4H PRN 12/15/15 [History] Albuterol/Ipratropium [DuoNeb 3.0-0.5 MG/3 ML] 3 ml IH Q4H PRN 12/15/15 [History ] Aspirin [Children's Aspirin] 81 mg PO QPM 12/15/15 [History] FLUoxetine [PROzac] 20 mg PO DAILY 12/15/15 [History] Ferrous Sulfate 325 mg PO DAILY 12/15/15 [History] Fluticasone/Salmeterol [Advair Diskus 100-50] 1 puff INH BID 12/15/15 [History] Metoprolol Succinate [Toprol XL] 25 mg PO QPM 12/15/15 [History] Multivitamin with Minerals [Multiple Vitamin] 1 tab PO DAILY 12/15/15 [History] Nitroglycerin [Nitrostat] 0.4 mg SL ASDIRECTED 12/15/15 [History] Potassium Chloride 30 meq PO DAILY 12/15/15 [History] O2 1.5 l INH DAILY 04/08/18 [History] Bumetanide [Bumex] 4 mg PO BID #120 tablet 10/15/18 [Rx] Levothyroxine 175 mcg PO ACBREAKFAST 11/27/18 [History] Simvastatin [Zocor] 40 mg PO ACDINNER 11/27/18 [History] Spironolactone [Aldactone] 12.5 mg PO BID #30 tablet 12/20/18 [Rx] Omeprazole 20 mg PO ACBREAKFAST 02/06/19 [History] Past Medical History HEENT History: Reports: Impaired Vision Cardiovascular History: Reports: Bypass, Heart Failure, High Cholesterol, Hypertension, SOB on Exertion, Other (See Below) Other Cardiovascular History: hx of aortic valve replaced 2012,CHF Respiratory History: Reports: Asthma, COPD, SOB, Other (See Below) Other Respiratory History: home o2 1.5l Gastrointestinal History: Reports: GERD Genitourinary History: Reports: Renal Calculus 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: Musculoskeletal History: Reports: Arthritis Other Musculoskeletal History: arthritis Neurological History: Reports: None Psychiatric History: Reports: Depression Endocrine/Metabolic History: Reports: Hypothyroidism, Obesity/BMI 30+ Hematologic History: Reports: Anemia, Iron Deficiency Immunologic History: Reports: None Oncologic (Cancer) History: Reports: None Dermatologic History: Reports: None - Infectious Disease History Infectious Disease History: Reports: Chicken Pox, Influenza, Mumps - Past Surgical History Head Surgeries/Procedures: Reports: None HEENT Surgical History: Reports: None Cardiovascular Surgical History: Reports: Coronary Artery Bypass, Valve Replacement Respiratory Surgical History: Reports: None GI Surgical History: Reports: Appendectomy, Cholecystectomy, Colonoscopy Female Surgical History: Reports: None Endocrine Surgical History: Reports: None Neurological Surgical History: Reports: None Musculoskeletal Surgical History: Reports: Arthroscopic Procedure Dermatological Surgical History: Reports: None Social & Family History - Family History Family Medical History: Noncontributory Cardiac: Reports: CAD Respiratory: Reports: Asthma, COPD OBGYN: Reports: Musculoskeletal: Reports: Arthritis Neurological: Reports: Vertigo Psychiatric: Reports: OCD Oncologic: Reports: Brain, Lung - Tobacco Use Smoking Status *Q: Never Smoker - Caffeine Use Caffeine Use: Reports: Coffee Other Caffeine Use: 1 cup per day Caffeine Use Comment: 3 cups per day - Living Situation & Occupation Living situation: Reports: , with Family (lives in [place], with Daughter and raising 2 year old Great Grandson) Occupation: Disabled ED ROS GENERAL - Review of Systems Review Of Systems: See Below Constitutional: Reports: No Symptoms HEENT: Reports: No Symptoms Respiratory: Reports: Shortness of Breath (with exertion). Denies: Pleuritic Chest Pain, Cough, Sputum, Hemoptysis Cardiovascular: Reports: Dyspnea on Exertion, Edema (both ankles). Denies: Chest Pain Endocrine: Reports: No Symptoms GI/Abdominal: Reports: No Symptoms : Reports: No Symptoms Musculoskeletal: Reports: No Symptoms Skin: Reports: No Symptoms Neurological: Reports: No Symptoms Psychiatric: Reports: No Symptoms ED EXAM, GENERAL - Physical Exam Exam: See Below Exam Limited By: No Limitations General Appearance: Alert, WD/WN, No Apparent Distress, Obese Eye Exam: Bilateral Eye: Normal Inspection Ears: Normal External Exam, Normal Canal, Hearing Grossly Normal Ear Exam: Bilateral Ear: Auricle Normal, Canal Normal Nose: Normal Inspection, No Blood Throat/Mouth: Normal Inspection, Normal Lips, Normal Oropharynx, Normal Voice, No Airway Compromise Head: Atraumatic, Normocephalic Neck: Normal Inspection Respiratory/Chest: No Respiratory Distress, Lungs Clear, No Accessory Muscle Use , Decreased Breath Sounds Cardiovascular: Regular Rate, Rhythm Extremities: Pedal Edema (trace, non-pitting to both LE's below the knees). No : No Pedal Edema, Sanford's Sign, Limited Range of Motion, Increased Warmth, Redness Neurological: Alert, Oriented, CN II-XII Intact, Normal Cognition, No Motor/ Sensory Deficits Psychiatric: Normal Affect, Normal Mood Skin Exam: Warm, Dry, Intact, Normal Color, No Rash Course - Vital Signs Text/Narrative:: Was ambulated around the [place] a couple times with oximetry. Her oxygen sats never dropped before 97% and her objective dyspnea was minimal. Last Recorded V/S: Last Vital Signs Temp 36.6 C 04/27/19 12:52 Pulse 63 04/27/19 12:52 Resp 18 04/27/19 12:52 BP 147/69 H 04/27/19 12:52 Pulse Ox 97 04/27/19 12:52 - Orders/Labs/Meds Labs: Laboratory Tests 04/27/19 04/27/19 04/27/19 Range/Units 13:10 13:10 13:10 WBC 8.5 (4.5-11.0) K/uL RBC 3.67 (3.30-5.50) M/uL Hgb 10.8 L (12.0-15.0) g/dL Hct 34.9 L (36.0-48.0) % MCV 95 (80-98) fL MCH 29 (27-31) pg MCHC 31 L (32-36) % Plt Count 282 (150-400) K/uL Sodium 141 (140-148) mmol/L Potassium 3.5 L (3.6-5.2) mmol/L Chloride 100 (100-108) mmol/L Carbon Dioxide 34 H (21-32) mmol/L Anion Gap 10.5 (5.0-14.0) mmol/L BUN 17 (7-18) mg/dL Creatinine 1.0 (0.6-1.0) mg/dL Est Cr Clr Drug Dosing 47.01 mL/min Estimated GFR (MDRD) 56 L (>60) Glucose 86 (74-106) mg/dL Calcium 9.0 (8.5-10.1) mg/dL Total Bilirubin 1.0 (0.2-1.0) mg/dL AST 17 (15-37) U/L ALT 24 (12-78) U/L Alkaline Phosphatase 113 (46-116) U/L Troponin I < 0.017 (0.000-0.056) ng/mL Total Protein 6.9 (6.4-8.2) g/dL Albumin 3.6 (3.4-5.0) g/dL Globulin 3.3 (2.3-3.5) g/dL Albumin/Globulin Ratio 1.1 L (1.2-2.2) - Radiology Interpretation Free Text/Narrative:: CXR-FINDINGS: Stable cardiac size. Status post median sternotomy with cardiac valve replacement. Normal pulmonary vasculature. No focal infiltrate, effusion. Age- related changes in the osseous structures. IMPRESSION: No sign of acute disease. Dictated by Winnie Gomez MD @ Apr 27 2019 1:40PM (Electronic Signature) Departure - Departure Time of Disposition: 13:47 Disposition: Home, Self-Care 01 Condition: Good Clinical Impression: Ankle swelling Qualifiers: Laterality: unspecified laterality Qualified Code(s): M25.473 - Effusion, unspecified ankle - Discharge Information *PRESCRIPTION DRUG MONITORING PROGRAM REVIEWED*: No *COPY OF PRESCRIPTION DRUG MONITORING REPORT IN PATIENT SRINI: No Referrals: Martha Tracy CNM [Primary Care Provider] - Forms: ED Department Discharge Additional Instructions: Avoid salt or salty foods. Elevate your feet above your heart as much as possible. F/U with your provider as needed. Sepsis Event Note - Evaluation Sepsis Screening Result: No Definite Risk - Focused Exam Vital Signs: Vital Signs Temp Pulse Resp BP Pulse Ox 04/27/19 12:52 36.6 C 63 18 147/69 H 97 04/27/19 12:44 36.6 C 63 18 147/69 H 97 Date Exam was Performed: 04/27/19 Time Exam was Performed: 13:43
--- NOTE | 2019-04-27 13:42 | CRLCR ---
INDICATION: Shortness of breath, dyspnea on exertion TECHNIQUE: Chest 2 views. COMPARISON: March 05, 2019 FINDINGS: Stable cardiac size. Status post median sternotomy with cardiac valve replacement. Normal pulmonary vasculature. No focal infiltrate, effusion. Age-related changes in the osseous structures. IMPRESSION: No sign of acute disease. Dictated by Winnie Gomez MD @ Apr 27 2019 1:40PM Signed by Dr. Winnie Gomez @ Apr 27 2019 1:40PM
== END 2019-04-27 13:50 | disposition left against medical advice (07) ==
LOC: JP.ED 12:29
DX: M25.471 Effusion, right ankle (principal); M25.472 Effusion, left ankle; J44.9 Chronic obstructive pulmonary disease, unspecified; I11.0 Hypertensive heart disease with heart failure; I50.9 Heart failure, unspecified; K21.9 Gastro-esophageal reflux disease without esophagitis; E03.9 Hypothyroidism, unspecified; D50.9 Iron deficiency anemia, unspecified; E66.9 Obesity, unspecified; F32.9 Major depressive disorder, single episode, unspecified; E78.00 Pure hypercholesterolemia, unspecified; Z79.899 Other long term (current) drug therapy; Z79.82 Long term (current) use of aspirin; Z88.8 Allergy status to other drugs, medicaments and biological substances; Z99.81 Dependence on supplemental oxygen
CPT/HCPCS: 36415; 71046; 80053; 84484; 85027; 99283; 99285-25

== ENCOUNTER 2019-12-13 11:03 | Emergency (ER) | payer MEDICARE, OTHER ==
[2019-12-13 11:30] VITALS: BP 148/55; PULSE 59
[2019-12-13] MEDS ORDERED: Sodium Chloride 0.9% 10 ML Syringe FLUSH PRN (11:44)
[2019-12-13] MEDS ORDERED: Bumetanide 1 MG/4 ML MDV IVPUSH ONE (12:30)
--- NOTE | 2019-12-13 13:26 | CR ---
CHEST: 2 view CLINICAL HISTORY:SOB COMPARISON:September 2019 FINDINGS: Heart is enlarged. Patient has had 3V sternotomy. Pulmonary vascularity is normal. Lung rodriguez are clear. There are no effusions. Impression: Cardiomegaly with previous aortic valve replacement. No acute cardiopulmonary process.
--- NOTE | 2019-12-13 13:53 | EDM.PDOC ---
ED HPI GENERAL MEDICAL PROBLEM - General Chief Complaint: Respiratory Problem Stated Complaint: BREATHING PROBLEM Time Seen by Provider: 12/13/19 11:30 - History of Present Illness INITIAL COMMENTS - FREE TEXT/NARRATIVE: Patient presents emergency department complaining of shortness of breath, she is chronically on oxygen and here in the emergency department she is on room air at 95% she has a history of COPD and CHF and she says she feels as though she needs to Bumex. Patient denies any fevers or chills or cough and does not appear short of breath initial survey, she speak in full sentences. She denies any chest pains. - Related Data Allergies Allergy/AdvReac Type Severity Reaction Status Date / Time metolazone Allergy Other Verified 12/13/19 11:21 Home Meds: Home Meds Albuterol [Proventil HFA] 1 puff INH Q4H PRN 12/15/15 [History] Albuterol/Ipratropium [DuoNeb 3.0-0.5 MG/3 ML] 3 ml IH Q4H PRN 12/15/15 [History] Aspirin [Children's Aspirin] 81 mg PO QPM 12/15/15 [History] FLUoxetine [PROzac] 20 mg PO DAILY 12/15/15 [History] Ferrous Sulfate 325 mg PO DAILY 12/15/15 [History] Fluticasone/Salmeterol [Advair Diskus 100-50] 1 puff INH BID 12/15/15 [History] Metoprolol Succinate [Toprol XL] 25 mg PO QPM 12/15/15 [History] Multivitamin with Minerals [Multiple Vitamin] 1 tab PO DAILY 12/15/15 [History] Nitroglycerin [Nitrostat] 0.4 mg SL ASDIRECTED 12/15/15 [History] Potassium Chloride 30 meq PO DAILY 12/15/15 [History] O2 1.5 l INH DAILY 04/08/18 [History] Bumetanide [Bumex] 4 mg PO BID #120 tablet 10/15/18 [Rx] Levothyroxine 175 mcg PO ACBREAKFAST 11/27/18 [History] Simvastatin [Zocor] 40 mg PO ACDINNER 11/27/18 [History] Spironolactone [Aldactone] 12.5 mg PO BID #30 tablet 09/18/19 [Rx] Omeprazole 20 mg PO ACBREAKFAST 02/06/19 [History] Past Medical History HEENT History: Reports: Impaired Vision Cardiovascular History: Reports: Bypass, Heart Failure, High Cholesterol, Hypertension, SOB on Exertion, Other (See Below) Other Cardiovascular History: hx of aortic valve replaced 2012,CHF Respiratory History: Reports: Asthma, COPD, SOB, Other (See Below) Other Respiratory History: home o2 1.5l Gastrointestinal History: Reports: GERD Genitourinary History: Reports: Renal Calculus 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: Musculoskeletal History: Reports: Arthritis Other Musculoskeletal History: arthritis Neurological History: Reports: None Psychiatric History: Reports: Depression Endocrine/Metabolic History: Reports: Hypothyroidism, Obesity/BMI 30+ Hematologic History: Reports: Anemia, Iron Deficiency Immunologic History: Reports: None Oncologic (Cancer) History: Reports: None Dermatologic History: Reports: None - Infectious Disease History Infectious Disease History: Reports: Chicken Pox, Measles, Mumps - Past Surgical History Head Surgeries/Procedures: Reports: None HEENT Surgical History: Reports: None Cardiovascular Surgical History: Reports: Coronary Artery Bypass, Valve Replacement Respiratory Surgical History: Reports: None GI Surgical History: Reports: Appendectomy, Cholecystectomy, Colonoscopy Female Surgical History: Reports: None Endocrine Surgical History: Reports: None Neurological Surgical History: Reports: None Musculoskeletal Surgical History: Reports: Arthroscopic Procedure Dermatological Surgical History: Reports: None Social & Family History - Family History Family Medical History: Noncontributory Cardiac: Reports: CAD Respiratory: Reports: Asthma, COPD OBGYN: Reports: Musculoskeletal: Reports: Arthritis Neurological: Reports: Vertigo Psychiatric: Reports: OCD Oncologic: Reports: Brain, Lung - Tobacco Use Smoking Status *Q: Former Smoker Used Tobacco, but Quit: Yes Month/Year Tobacco Last Used: 2011 Second Hand Smoke Exposure: No - Caffeine Use Caffeine Use: Reports: Coffee Other Caffeine Use: 1 cup per day Caffeine Use Comment: 3 cups per day - Recreational Drug Use Recreational Drug Use: No - Living Situation & Occupation Living situation: Reports: , with Family (lives in [place], with Daughter and raising 2 year old Great Grandson) Occupation: Disabled ED ROS GENERAL - Review of Systems Review Of Systems: Comprehensive ROS is negative, except as noted in HPI. ED EXAM, GENERAL - Physical Exam Exam: See Below Exam Limited By: No Limitations General Appearance: Alert Neck: Normal Inspection Respiratory/Chest: Other (Air movement is slightly diminished but no obvious crackles or wheezes) Cardiovascular: Normal Peripheral Pulses GI/Abdominal: Normal Bowel Sounds Back Exam: Normal Inspection Extremities: Pedal Edema Neurological: Alert, Oriented Course - Vital Signs Text/Narrative:: Patient was given bumex and we consulted our hospitalist and both of us feel at this time that the patient is likely at her baseline and can be discharged and she is to watch her salt intake and return for any new or worsening symptoms. Last Recorded V/S: Last Vital Signs Temp 97.4 F 12/13/19 11:30 Pulse 59 L 12/13/19 11:30 Resp 20 12/13/19 11:30 BP 148/55 H 12/13/19 11:30 Pulse Ox 99 12/13/19 11:30 - Orders/Labs/Meds Orders: Active Orders 24 hr Category Date Time Status EKG Documentation Completion [RC] ASDIRECTED Care 12/13/19 11:46 Active Peripheral IV Care [RC] . DIRECTED Care 12/13/19 11:46 Active CULTURE BLOOD [BC] Urgent Lab 12/13/19 11:55 Received CULTURE BLOOD [BC] Urgent Lab 12/13/19 12:00 Received Sodium Chloride 0.9% [Saline Flush] Med 12/13/19 11:44 Active 10 ml FLUSH ASDIRECTED PRN Blood Culture x2 Reflex Set [OM.PC] Urgent Oth 12/13/19 11:44 Ordered Peripheral IV Insertion Adult [OM.PC] Stat Oth 12/13/19 11:44 Ordered EKG 12 Lead [EK] Urgent Ther 12/13/19 11:44 Ordered Medication Orders Sodium Chloride (Saline Flush) 10 ml FLUSH ASDIRECTED PRN PRN Reason: Keep Vein Open Last Admin: 12/13/19 12:05 Dose: 10 ml Documented by: HORACIO Labs: Laboratory Tests 12/13/19 12/13/19 12/13/19 Range/Units 11:55 11:55 11:55 WBC 7.3 (4.5-11.0) K/uL RBC 3.77 (3.30-5.50) M/uL Hgb 10.9 L (12.0-15.0) g/dL Hct 35.2 L (36.0-48.0) % MCV 93 (80-98) fL MCH 29 (27-31) pg MCHC 31 L (32-36) % Plt Count 248 (150-400) K/uL Neut % (Auto) 73 H (36-66) % Lymph % (Auto) 16 L (24-44) % [place] % (Auto) 8 H (2-6) % Eos % (Auto) 2 (2-4) % Baso % (Auto) 0 (0-1) % PT 11.4 (9.5-12.0) sec INR 1.05 (0.80-1.20) Sodium 140 (140-148) mmol/L Potassium 4.3 (3.6-5.2) mmol/L Chloride 102 (100-108) mmol/L Carbon Dioxide 31 (21-32) mmol/L Anion Gap 6.9 (5.0-14.0) mmol/L BUN 16 (7-18) mg/dL Creatinine 1.3 H (0.6-1.0) mg/dL Est Cr Clr Drug Dosing 35.69 mL/min Estimated GFR (MDRD) 41 L (>60) Glucose 98 (74-106) mg/dL Lactic Acid (0.4-2.0) mmol/L Calcium 9.2 (8.5-10.1) mg/dL Troponin I < 0.017 (0.000-0.056) ng/mL NT-Pro-B Natriuret Pep (5-125) pg/mL 12/13/19 12/13/19 Range/Units 11:55 12:00 WBC (4.5-11.0) K/uL RBC (3.30-5.50) M/uL Hgb (12.0-15.0) g/dL Hct (36.0-48.0) % MCV (80-98) fL MCH (27-31) pg MCHC (32-36) % Plt Count (150-400) K/uL Neut % (Auto) (36-66) % Lymph % (Auto) (24-44) % [place] % (Auto) (2-6) % Eos % (Auto) (2-4) % Baso % (Auto) (0-1) % PT (9.5-12.0) sec INR (0.80-1.20) Sodium (140-148) mmol/L Potassium (3.6-5.2) mmol/L Chloride (100-108) mmol/L Carbon Dioxide (21-32) mmol/L Anion Gap (5.0-14.0) mmol/L BUN (7-18) mg/dL Creatinine (0.6-1.0) mg/dL Est Cr Clr Drug Dosing mL/min Estimated GFR (MDRD) (>60) Glucose (74-106) mg/dL Lactic Acid 0.6 (0.4-2.0) mmol/L Calcium (8.5-10.1) mg/dL Troponin I (0.000-0.056) ng/mL NT-Pro-B Natriuret Pep 1529 H (5-125) pg/mL Meds: Medications Generic Name Dose Route Start Last Admin Trade Name Freq PRN Reason Stop Dose Admin Sodium Chloride 10 ml 12/13/19 11:44 12/13/19 12:05 Saline Flush FLUSH 10 ml ASDIRECTED PRN Administration Keep Vein Open Discontinued Medications Generic Name Dose Route Start Last Admin Trade Name Freq PRN Reason Stop Dose Admin Bumetanide 1 mg 12/13/19 12:30 12/13/19 12:37 Bumex IVPUSH 12/13/19 12:31 1 mg ONETIME ONE Administration Departure - Departure Time of Disposition: 13:53 Disposition: Home, Self-Care 01 Clinical Impression: CHF (congestive heart failure) Qualifiers: Heart failure type: diastolic Heart failure chronicity: chronic Qualified Code(s): I50.32 - Chronic diastolic (congestive) heart failure COPD (chronic obstructive pulmonary disease) Qualifiers: COPD type: emphysema - Discharge Information Instructions: Chronic Obstructive Pulmonary Disease Exacerbation, [id number], Heart Failure Eating Plan Referrals: Martha Tracy CNM [Primary Care Provider] - Sepsis Event Note (ED) - Evaluation Sepsis Screening Result: No Definite Risk - Focused Exam Vital Signs: Vital Signs Temp Pulse Resp BP Pulse Ox 12/13/19 11:30 97.4 F 59 L 20 148/55 H 99 12/13/19 11:29 97.4 F 59 L 20 148/55 H 99 - My Orders Last 24 Hours: My Active Orders 12/13/19 11:44 Sodium Chloride 0.9% [Saline Flush] 10 ml FLUSH ASDIRECTED PRN Blood Culture x2 Reflex Set [OM.PC] Urgent Peripheral IV Insertion Adult [OM.PC] Stat EKG 12 Lead [EK] Urgent 12/13/19 11:46 EKG Documentation Completion [RC] ASDIRECTED Peripheral IV Care [RC] . DIRECTED 12/13/19 11:55 CULTURE BLOOD [BC] Urgent 12/13/19 12:00 CULTURE BLOOD [BC] Urgent - Assessment/Plan Last 24 Hours: My Active Orders 12/13/19 11:44 Sodium Chloride 0.9% [Saline Flush] 10 ml FLUSH ASDIRECTED PRN Blood Culture x2 Reflex Set [OM.PC] Urgent Peripheral IV Insertion Adult [OM.PC] Stat EKG 12 Lead [EK] Urgent 12/13/19 11:46 EKG Documentation Completion [RC] ASDIRECTED Peripheral IV Care [RC] . DIRECTED 12/13/19 11:55 CULTURE BLOOD [BC] Urgent 12/13/19 12:00 CULTURE BLOOD [BC] Urgent
== END 2019-12-13 14:17 | disposition home or self-care (01) ==
LOC: JP.ED 11:03
DX: J43.9 Emphysema, unspecified (principal); I11.0 Hypertensive heart disease with heart failure; I50.32 Chronic diastolic (congestive) heart failure; E78.00 Pure hypercholesterolemia, unspecified; M19.90 Unspecified osteoarthritis, unspecified site; F32.9 Major depressive disorder, single episode, unspecified; E03.9 Hypothyroidism, unspecified; E66.9 Obesity, unspecified; Z68.41 Body mass index [BMI] 40.0-44.9, adult; Z88.8 Allergy status to other drugs, medicaments and biological substances; Z79.82 Long term (current) use of aspirin; Z79.899 Other long term (current) drug therapy; Z99.81 Dependence on supplemental oxygen
CPT/HCPCS: 36415; 71046; 80048; 83605; 83880; 84484; 85025; 85610; 87040; 93005; 96374; 99285; J3490; 93010

== ENCOUNTER 2020-07-09 13:31 | Observation (INO) | payer MEDICARE, OTHER ==
[2020-07-09] MEDS ORDERED: Sodium Chloride 0.9% 10 ML Syringe FLUSH PRN ×3 (15:06→19:26)
[2020-07-09] MEDS ORDERED: Nitroglycerin 0.4 MG Tab.SL SL ONE (15:08)
--- NOTE | 2020-07-09 15:16 | EDM.PDOC ---
ED HPI GENERAL MEDICAL PROBLEM - General Chief Complaint: Respiratory Problem Stated Complaint: CHEST PAIN,SOB Time Seen by Provider: 07/09/20 15:01 Source of Information: Reports: Patient, RN Notes Reviewed History Limitations: Reports: No Limitations - History of Present Illness INITIAL COMMENTS - FREE TEXT/NARRATIVE: 64-year-old female presents emergency department a shortness of breath, she states been short of breath really over the last 3 days she does have a known history of COPD as well as congestive heart failure. She has noticed some edema in her lower extremities she denies any fevers no Covid exposures she states she has been taking her medication. Also states that on her home oxygen sat monitor when she walked from the bedroom to the bathroom she found her O2 saturation to be 86% however she is not hypoxic here in the emergency department - Related Data Allergies Allergy/AdvReac Type Severity Reaction Status Date / Time metolazone Allergy Other Verified 07/09/20 13:52 Home Meds: Home Meds Albuterol [Proventil HFA] 1 puff INH Q4H PRN 12/15/15 [History] Albuterol/Ipratropium [DuoNeb 3.0-0.5 MG/3 ML] 3 ml IH Q4H PRN 12/15/15 [History] Aspirin [Children's Aspirin] 81 mg PO QPM 12/15/15 [History] FLUoxetine [PROzac] 20 mg PO DAILY 12/15/15 [History] Ferrous Sulfate 325 mg PO DAILY 12/15/15 [History] Fluticasone/Salmeterol [Advair Diskus 100-50] 1 puff INH BID 12/15/15 [History] Metoprolol Succinate [Toprol XL] 25 mg PO QPM 12/15/15 [History] Multivitamin with Minerals [Multiple Vitamin] 1 tab PO DAILY 12/15/15 [History] Nitroglycerin [Nitrostat] 0.4 mg SL ASDIRECTED 12/15/15 [History] Potassium Chloride 30 meq PO DAILY 12/15/15 [History] O2 1.5 l INH DAILY 04/08/18 [History] Bumetanide [Bumex] 4 mg PO BID #120 tablet 10/15/18 [Rx] Levothyroxine 175 mcg PO ACBREAKFAST 11/27/18 [History] Simvastatin [Zocor] 40 mg PO ACDINNER 11/27/18 [History] Spironolactone [Aldactone] 12.5 mg PO BID #30 tablet 12/20/18 [Rx] Omeprazole 20 mg PO ACBREAKFAST 02/06/19 [History] Past Medical History HEENT History: Reports: Impaired Vision Cardiovascular History: Reports: Bypass, Heart Failure, High Cholesterol, Hypertension, SOB on Exertion, Other (See Below) Other Cardiovascular History: hx of aortic valve replaced 2012,CHF Respiratory History: Reports: Asthma, COPD, SOB, Other (See Below) Other Respiratory History: home o2 1.5l Gastrointestinal History: Reports: GERD Genitourinary History: Reports: Renal Calculus 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: Musculoskeletal History: Reports: Arthritis Other Musculoskeletal History: arthritis Neurological History: Reports: None Psychiatric History: Reports: Depression Endocrine/Metabolic History: Reports: Hypothyroidism, Obesity/BMI 30+ Hematologic History: Reports: Anemia, Iron Deficiency Immunologic History: Reports: None Oncologic (Cancer) History: Reports: None Dermatologic History: Reports: None - Infectious Disease History Infectious Disease History: Reports: Chicken Pox, Measles, Mumps - Past Surgical History Head Surgeries/Procedures: Reports: None HEENT Surgical History: Reports: None Cardiovascular Surgical History: Reports: Coronary Artery Bypass, Valve Replacement Respiratory Surgical History: Reports: None GI Surgical History: Reports: Appendectomy, Cholecystectomy, Colonoscopy Female Surgical History: Reports: None Endocrine Surgical History: Reports: None Neurological Surgical History: Reports: None Musculoskeletal Surgical History: Reports: Arthroscopic Procedure Dermatological Surgical History: Reports: None Social & Family History - Family History Family Medical History: No Pertinent Family History Cardiac: Reports: CAD Respiratory: Reports: Asthma, COPD OBGYN: Reports: Musculoskeletal: Reports: Arthritis Neurological: Reports: Vertigo Psychiatric: Reports: OCD Oncologic: Reports: Brain, Lung - Tobacco Use Tobacco Use Status *Q: Former Tobacco User Used Tobacco, but Quit: Yes Month/Year Tobacco Last Used: 8 - Caffeine Use Caffeine Use: Reports: Coffee Other Caffeine Use: 1 cup per day Caffeine Use Comment: 3 cups per day - Recreational Drug Use Recreational Drug Use: No - Living Situation & Occupation Living situation: Reports: , with Family (lives in [place], with Daughter and raising 2 year old Great Grandson) Occupation: Disabled ED ROS GENERAL - Review of Systems Review Of Systems: See Below Constitutional: Reports: No Symptoms HEENT: Reports: No Symptoms Respiratory: Reports: Shortness of Breath Cardiovascular: Reports: Edema. Denies: Chest Pain GI/Abdominal: Reports: No Symptoms : Reports: No Symptoms ED EXAM, GENERAL - Physical Exam Exam: See Below Exam Limited By: No Limitations General Appearance: Alert, WD/WN, No Apparent Distress Respiratory/Chest: No Respiratory Distress, No Accessory Muscle Use, Chest Non- Tender, Decreased Breath Sounds Cardiovascular: Regular Rate, Rhythm, No Murmur GI/Abdominal: Soft, Non-Tender #1 Interpretation EKG Date: 07/09/20 Time: 15:17 Rhythm: NSR [place]: Normal P-Wave: Present QRS: Normal ST-T: Normal QT: Normal Comparison: No Change Course - Vital Signs Last Recorded V/S: Last Vital Signs Temp 98.1 F 07/09/20 15:14 Pulse 58 L 07/09/20 17:22 Resp 16 07/09/20 15:39 BP 111/38 L 07/09/20 17:22 Pulse Ox 95 07/09/20 15:39 - Orders/Labs/Meds Orders: Active Orders 24 hr Category Date Time Status EKG Documentation Completion [RC] ASDIRECTED Care 07/09/20 15:08 Active Peripheral IV Care [RC] . DIRECTED Care 07/09/20 15:08 Active Peripheral IV Care [RC] . DIRECTED Care 07/09/20 16:14 Active Chest 2V [CR] Urgent Exams 07/09/20 15:06 Taken Sodium Chloride 0.9% [Saline Flush] Med 07/09/20 15:06 Active 10 ml FLUSH ASDIRECTED PRN Sodium Chloride 0.9% [Saline Flush] Med 07/09/20 16:14 Active 10 ml FLUSH ASDIRECTED PRN Peripheral IV Insertion Adult [OM.PC] Urgent Oth 07/09/20 15:06 Ordered Peripheral IV Insertion Adult [OM.PC] Urgent Oth 07/09/20 16:13 Ordered EKG 12 Lead [EK] Urgent Ther 07/09/20 15:06 Ordered Medication Orders Sodium Chloride (Sodium Chloride 0.9% 10 Ml Syringe) 10 ml FLUSH ASDIRECTED PRN PRN Reason: Keep Vein Open Sodium Chloride (Sodium Chloride 0.9% 10 Ml Syringe) 10 ml FLUSH ASDIRECTED PRN PRN Reason: Keep Vein Open Labs: Laboratory Tests 07/09/20 07/09/20 07/09/20 Range/Units 15:25 15:25 15:25 WBC 9.9 (4.5-11.0) K/uL RBC 3.86 (3.30-5.50) M/uL Hgb 11.1 L (12.0-15.0) g/dL Hct 35.6 L (36.0-48.0) % MCV 92 (80-98) fL MCH 29 (27-31) pg MCHC 31 L (32-36) % Plt Count 273 (150-400) K/uL Neut % (Auto) 76 H (36-66) % Lymph % (Auto) 15 L (24-44) % Hawkins % (Auto) 6 (2-6) % Eos % (Auto) 3 (2-4) % Baso % (Auto) 0 (0-1) % Sodium 145 (140-148) mmol/L Potassium 3.6 (3.6-5.2) mmol/L Chloride 105 (100-108) mmol/L Carbon Dioxide 30 (21-32) mmol/L Anion Gap 9.8 (5.0-14.0) mmol/L BUN 11 (7-18) mg/dL Creatinine 1.2 H (0.6-1.0) mg/dL Est Cr Clr Drug Dosing 38.66 mL/min Estimated GFR (MDRD) 45 L (>60) Glucose 109 H (74-106) mg/dL Calcium 8.5 (8.5-10.1) mg/dL Total Bilirubin 0.9 (0.2-1.0) mg/dL AST 15 (15-37) U/L ALT 21 (12-78) U/L Alkaline Phosphatase 102 (46-116) U/L Troponin I (0.000-0.056) ng/mL NT-Pro-B Natriuret Pep 1879 H (5-125) pg/mL Total Protein 6.6 (6.4-8.2) g/dL Albumin 3.5 (3.4-5.0) g/dL Globulin 3.1 (2.3-3.5) g/dL Albumin/Globulin Ratio 1.1 L (1.2-2.2) 07/09/20 Range/Units 16:20 WBC (4.5-11.0) K/uL RBC (3.30-5.50) M/uL Hgb (12.0-15.0) g/dL Hct (36.0-48.0) % MCV (80-98) fL MCH (27-31) pg MCHC (32-36) % Plt Count (150-400) K/uL Neut % (Auto) (36-66) % Lymph % (Auto) (24-44) % Hawkins % (Auto) (2-6) % Eos % (Auto) (2-4) % Baso % (Auto) (0-1) % Sodium (140-148) mmol/L Potassium (3.6-5.2) mmol/L Chloride (100-108) mmol/L Carbon Dioxide (21-32) mmol/L Anion Gap (5.0-14.0) mmol/L BUN (7-18) mg/dL Creatinine (0.6-1.0) mg/dL Est Cr Clr Drug Dosing mL/min Estimated GFR (MDRD) (>60) Glucose (74-106) mg/dL Calcium (8.5-10.1) mg/dL Total Bilirubin (0.2-1.0) mg/dL AST (15-37) U/L ALT (12-78) U/L Alkaline Phosphatase (46-116) U/L Troponin I < 0.017 (0.000-0.056) ng/mL NT-Pro-B Natriuret Pep (5-125) pg/mL Total Protein (6.4-8.2) g/dL Albumin (3.4-5.0) g/dL Globulin (2.3-3.5) g/dL Albumin/Globulin Ratio (1.2-2.2) Meds: Medications Generic Name Dose Route Start Last Admin Trade Name Freq PRN Reason Stop Dose Admin Sodium Chloride 10 ml 07/09/20 15:06 Sodium Chloride 0.9% 10 Ml Syringe FLUSH ASDIRECTED PRN Keep Vein Open Sodium Chloride 10 ml 07/09/20 16:14 Sodium Chloride 0.9% 10 Ml Syringe FLUSH ASDIRECTED PRN Keep Vein Open Discontinued Medications Generic Name Dose Route Start Last Admin Trade Name Freq PRN Reason Stop Dose Admin Bumetanide 2 mg 07/09/20 16:14 07/09/20 16:24 Bumetanide 1 Mg/4 Ml Mdv IVPUSH 07/09/20 16:15 2 mg ONETIME ONE Administration Nitroglycerin 0.4 mg 07/09/20 15:08 07/09/20 15:24 Nitroglycerin 0.4 Mg Tab.Sl SL 07/09/20 15:09 0.4 mg ONETIME ONE Administration Departure - Departure Time of Disposition: 17:41 Disposition: Admitted As Inpatient 65 Condition: Fair Clinical Impression: CHF (congestive heart failure) Qualifiers: Heart failure type: diastolic Heart failure chronicity: chronic Qualified Code(s): I50.32 - Chronic diastolic (congestive) heart failure - Discharge Information Referrals: Martha Tracy CNM [Primary Care Provider] - Forms: ED Department Discharge Sepsis Event Note (ED) - Focused Exam Vital Signs: Vital Signs Temp Pulse Resp BP BP Pulse Ox 07/09/20 17:22 58 L 111/38 L 07/09/20 15:39 60 16 107/35 L 95 07/09/20 15:25 56 L 125/38 L 07/09/20 15:24 123/46 L 07/09/20 15:14 98.1 F 55 L 24 H 123/46 L 97 07/09/20 14:54 55 L 123/46 L 97 07/09/20 14:03 98.1 F 69 24 H 133/60 93 L - My Orders Last 24 Hours: My Active Orders 07/09/20 15:06 Chest 2V [CR] Urgent Sodium Chloride 0.9% [Saline Flush] 10 ml FLUSH ASDIRECTED PRN Peripheral IV Insertion Adult [OM.PC] Urgent EKG 12 Lead [EK] Urgent 07/09/20 15:08 EKG Documentation Completion [RC] ASDIRECTED Peripheral IV Care [RC] . DIRECTED 07/09/20 16:13 Peripheral IV Insertion Adult [OM.PC] Urgent 07/09/20 16:14 Peripheral IV Care [RC] . DIRECTED Sodium Chloride 0.9% [Saline Flush] 10 ml FLUSH ASDIRECTED PRN - Assessment/Plan Last 24 Hours: My Active Orders 07/09/20 15:06 Chest 2V [CR] Urgent Sodium Chloride 0.9% [Saline Flush] 10 ml FLUSH ASDIRECTED PRN Peripheral IV Insertion Adult [OM.PC] Urgent EKG 12 Lead [EK] Urgent 07/09/20 15:08 EKG Documentation Completion [RC] ASDIRECTED Peripheral IV Care [RC] . DIRECTED 07/09/20 16:13 Peripheral IV Insertion Adult [OM.PC] Urgent 07/09/20 16:14 Peripheral IV Care [RC] . DIRECTED Sodium Chloride 0.9% [Saline Flush] 10 ml FLUSH ASDIRECTED PRN Plan: Assessment Acuity = acute Site and laterality = exacerbation congestive heart failure Etiology = unknown Manifestations = dyspnea Location of injury = Home Lab values = CBC CMP unremarkable BNP elevated 1849, troponins negative chest x- ray shows cardiomegaly with no acute process EKG demonstrates a sinus rhythm no ST elevations or depressions Plan Call discussed case hospitalist on-call at 1540 agreed to come evaluate patient emergency department for admission This note was dictated using [employer] voice recognition software please call with any questions on syntax or grammar.
[2020-07-09] MEDS ORDERED: Bumetanide 1 MG/4 ML MDV IVPUSH ONE (16:14)
--- NOTE | 2020-07-09 19:04 | PCM.HP.2 ---
H&P History of Present Illness - General Date of Service: 07/09/20 Admit Problem/Dx: Admission Diagnosis/Problem Admission Diagnosis/Problem CHF, Congestive heart failure Source of Information: Patient History Limitations: Reports: No Limitations - History of Present Illness Initial Comments - Free Text/Narative: chief complaint: shortness of breath 64-year-old female presents emergency department a shortness of breath, she states been short of breath really over the last 3 days she does have a known history of COPD as well as congestive heart failure. She has noticed some edema in her lower extremities she denies any fevers no Covid exposures she states she has been taking her medication. Also states that on her home oxygen sat monitor when she walked from the bedroom to the bathroom she found her O2 saturation to be 86% however she is not hypoxic here in the emergency department Onset of Symptoms: Reports: Gradual (for the past 3 or 4 days) Symptom Onset Date: 07/06/20 Duration of Symptoms: Reports: Day(s):, Constant, Getting Worse Location: Reports: Chest Quality: Reports: Same as Previous Episode Severity: Mild Improves with: Reports: Medication, Rest Worsens with: Reports: Movement Context: Reports: Other (chronic CHF) Associated Symptoms: Reports: Fever/Chills (no fever, has intermittent chills), Malaise, Shortness of Breath, Weakness - Related Data Allergies/Adverse Reactions: Allergies Allergy/AdvReac Type Severity Reaction Status Date / Time metolazone Allergy Other Verified 07/09/20 13:52 Home Medications: Home Meds Albuterol [Proventil HFA] 1 puff INH Q4H PRN 12/15/15 [History] Albuterol/Ipratropium [DuoNeb 3.0-0.5 MG/3 ML] 3 ml IH Q4H PRN 12/15/15 [History] Aspirin [Children's Aspirin] 81 mg PO QPM 12/15/15 [History] FLUoxetine [PROzac] 20 mg PO DAILY 12/15/15 [History] Ferrous Sulfate 325 mg PO DAILY 12/15/15 [History] Fluticasone/Salmeterol [Advair Diskus 100-50] 1 puff INH BID 12/15/15 [History] Metoprolol Succinate [Toprol XL] 25 mg PO QPM 12/15/15 [History] Multivitamin with Minerals [Multiple Vitamin] 1 tab PO DAILY 12/15/15 [History] Nitroglycerin [Nitrostat] 0.4 mg SL ASDIRECTED 12/15/15 [History] Potassium Chloride 30 meq PO DAILY 12/15/15 [History] O2 1.5 l INH DAILY 04/08/18 [History] Bumetanide [Bumex] 4 mg PO BID #120 tablet 10/15/18 [Rx] Levothyroxine 175 mcg PO ACBREAKFAST 11/27/18 [History] Simvastatin [Zocor] 40 mg PO ACDINNER 11/27/18 [History] Spironolactone [Aldactone] 12.5 mg PO BID #30 tablet 12/20/18 [Rx] Omeprazole 20 mg PO ACBREAKFAST 02/06/19 [History] Past Medical History HEENT History: Reports: Impaired Vision Cardiovascular History: Reports: Bypass, Heart Failure, High Cholesterol, Hypertension, SOB on Exertion, Other (See Below) Other Cardiovascular History: hx of aortic valve replaced 2012,CHF Respiratory History: Reports: Asthma, COPD, SOB, Other (See Below) Other Respiratory History: home o2 1.5l Gastrointestinal History: Reports: GERD Genitourinary History: Reports: Renal Calculus 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: Musculoskeletal History: Reports: Arthritis Other Musculoskeletal History: arthritis Neurological History: Reports: None Psychiatric History: Reports: Depression Endocrine/Metabolic History: Reports: Hypothyroidism, Obesity/BMI 30+ Hematologic History: Reports: Anemia, Iron Deficiency Immunologic History: Reports: None Oncologic (Cancer) History: Reports: None Dermatologic History: Reports: None - Infectious Disease History Infectious Disease History: Reports: Chicken Pox, Measles, Mumps - Past Surgical History Head Surgeries/Procedures: Reports: None HEENT Surgical History: Reports: None Cardiovascular Surgical History: Reports: Coronary Artery Bypass, Valve Replacement Respiratory Surgical History: Reports: None GI Surgical History: Reports: Appendectomy, Cholecystectomy, Colonoscopy Female Surgical History: Reports: None Endocrine Surgical History: Reports: None Neurological Surgical History: Reports: None Musculoskeletal Surgical History: Reports: Arthroscopic Procedure Dermatological Surgical History: Reports: None Social & Family History - Family History Family Medical History: No Pertinent Family History Cardiac: Reports: CAD Respiratory: Reports: Asthma, COPD OBGYN: Reports: Musculoskeletal: Reports: Arthritis Neurological: Reports: Vertigo Psychiatric: Reports: OCD Oncologic: Reports: Brain, Lung - Tobacco Use Tobacco Use Status *Q: Former Tobacco User Used Tobacco, but Quit: Yes Month/Year Tobacco Last Used: 8 - Caffeine Use Caffeine Use: Reports: Coffee Other Caffeine Use: 1 cup per day Caffeine Use Comment: 3 cups per day - Recreational Drug Use Recreational Drug Use: No - Living Situation & Occupation Living situation: Reports: , with Family (lives in [place], with 39 yr old Daughter, 11 year old Grandson and raising 4 year old Great Grandson) Occupation: Disabled H&P Review of Systems - Review of Systems: Review Of Systems: See Below General: Reports: Chills, Fatigue HEENT: Reports: Glasses Pulmonary: Reports: Shortness of Breath, Pleuritic Chest Pain, Cough Cardiovascular: Reports: Edema Genitourinary: Reports: No Symptoms Musculoskeletal: Reports: No Symptoms Skin: Reports: No Symptoms Psychiatric: Reports: No Symptoms Neurological: Reports: No Symptoms Hematologic/Lymphatic: Reports: No Symptoms Immunologic: Reports: No Symptoms Exam - Exam Exam: See Below - Vital Signs Vital Signs: Last Vital Signs Temp 98.1 F 07/09/20 15:14 Pulse 58 L 07/09/20 17:22 Resp 16 07/09/20 15:39 BP 111/38 L 07/09/20 17:22 Pulse Ox 95 07/09/20 15:39 Weight: 241 lb 6.499 oz - Exam General: Alert, Oriented, Cooperative (neat and well groomed, pleasant, talkative.) HEENT: PERRLA, Hearing Intact, Mucosa Moist & [place], Nares Patent, Normal Nasal Septum, Posterior Pharynx Clear, Conjunctiva Clear, EOMI, EACs Clear, TMs Clear Neck: Supple, Trachea Midline, 2 Lungs: Normal Respiratory Effort, Crackles (fine crackles at bases) Cardiovascular: Regular Rate, Regular Rhythm, Normal S1, Normal S2, Other (murmur present ) GI/Abdominal Exam: Normal Bowel Sounds, Soft, Non-Tender, No Organomegaly, No Distention, No Abnormal Bruit, No Mass, Pelvis Stable (Female) Exam: Deferred Rectal (Female) Exam: Deferred Back Exam: Normal Inspection, Full Range of Motion, NT Extremities: Normal Range of Motion, Normal Capillary Refill, Pedal Edema Skin: Warm, Dry, Intact, Other (few healing scratches noted fore arms from cats) Neurological: Cranial Nerves Intact, Reflexes Equal Bilateral Neuro Extensive - Mental Status: Alert, Oriented x3, Normal Mood/Affect, Normal Cognition Neuro Extensive - Motor, Sensory, Reflexes: CN II-XII Intact, Normal Gait, Normal Reflexes Psychiatric: Alert, Normal Affect, Normal Mood - Patient Data Lab Results Last 24 hrs: Laboratory Results - last 24 hr 07/09/20 07/09/20 07/09/20 Range/Units 15:25 15:25 15:25 WBC 9.9 (4.5-11.0) K/uL RBC 3.86 (3.30-5.50) M/uL Hgb 11.1 L (12.0-15.0) g/dL Hct 35.6 L (36.0-48.0) % MCV 92 (80-98) fL MCH 29 (27-31) pg MCHC 31 L (32-36) % Plt Count 273 (150-400) K/uL Neut % (Auto) 76 H (36-66) % Lymph % (Auto) 15 L (24-44) % Crawford % (Auto) 6 (2-6) % Eos % (Auto) 3 (2-4) % Baso % (Auto) 0 (0-1) % Sodium 145 (140-148) mmol/L Potassium 3.6 (3.6-5.2) mmol/L Chloride 105 (100-108) mmol/L Carbon Dioxide 30 (21-32) mmol/L Anion Gap 9.8 (5.0-14.0) mmol/L BUN 11 (7-18) mg/dL Creatinine 1.2 H (0.6-1.0) mg/dL Est Cr Clr Drug Dosing 38.66 mL/min Estimated GFR (MDRD) 45 L (>60) Glucose 109 H (74-106) mg/dL Calcium 8.5 (8.5-10.1) mg/dL Total Bilirubin 0.9 (0.2-1.0) mg/dL AST 15 (15-37) U/L ALT 21 (12-78) U/L Alkaline Phosphatase 102 (46-116) U/L Troponin I (0.000-0.056) ng/mL NT-Pro-B Natriuret Pep 1879 H (5-125) pg/mL Total Protein 6.6 (6.4-8.2) g/dL Albumin 3.5 (3.4-5.0) g/dL Globulin 3.1 (2.3-3.5) g/dL Albumin/Globulin Ratio 1.1 L (1.2-2.2) 07/09/20 Range/Units 16:20 WBC (4.5-11.0) K/uL RBC (3.30-5.50) M/uL Hgb (12.0-15.0) g/dL Hct (36.0-48.0) % MCV (80-98) fL MCH (27-31) pg MCHC (32-36) % Plt Count (150-400) K/uL Neut % (Auto) (36-66) % Lymph % (Auto) (24-44) % Crawford % (Auto) (2-6) % Eos % (Auto) (2-4) % Baso % (Auto) (0-1) % Sodium (140-148) mmol/L Potassium (3.6-5.2) mmol/L Chloride (100-108) mmol/L Carbon Dioxide (21-32) mmol/L Anion Gap (5.0-14.0) mmol/L BUN (7-18) mg/dL Creatinine (0.6-1.0) mg/dL Est Cr Clr Drug Dosing mL/min Estimated GFR (MDRD) (>60) Glucose (74-106) mg/dL Calcium (8.5-10.1) mg/dL Total Bilirubin (0.2-1.0) mg/dL AST (15-37) U/L ALT (12-78) U/L Alkaline Phosphatase (46-116) U/L Troponin I < 0.017 (0.000-0.056) ng/mL NT-Pro-B Natriuret Pep (5-125) pg/mL Total Protein (6.4-8.2) g/dL Albumin (3.4-5.0) g/dL Globulin (2.3-3.5) g/dL Albumin/Globulin Ratio (1.2-2.2) Result Diagrams: 07/09/20 15:25 07/09/20 15:25 Sepsis Event Note - Evaluation Sepsis Screening Result: No Definite Risk - Focused Exam Vital Signs: Vital Signs Temp Pulse Resp BP BP Pulse Ox 07/09/20 17:22 58 L 111/38 L 07/09/20 15:39 60 16 107/35 L 95 07/09/20 15:25 56 L 125/38 L 07/09/20 15:24 123/46 L 07/09/20 15:14 98.1 F 55 L 24 H 123/46 L 97 07/09/20 14:54 55 L 123/46 L 97 07/09/20 14:03 98.1 F 69 24 H 133/60 93 L - Problem List (1) CHF (congestive heart failure) SNOMED Code(s): 52026710 ICD Code: I50.9 - HEART FAILURE, UNSPECIFIED Status: Chronic Priority: High Current Visit: Yes Qualifiers: Heart failure type: diastolic Heart failure chronicity: chronic Qualified Code(s): I50.32 - Chronic diastolic (congestive) heart failure (2) COPD (chronic obstructive pulmonary disease) SNOMED Code(s): 19822626 ICD Code: J44.9 - CHRONIC OBSTRUCTIVE PULMONARY DISEASE, UNSPECIFIED Status: Chronic Priority: Low Current Visit: Yes Qualifiers: COPD type: emphysema (3) Essential hypertension SNOMED Code(s): 35236922 ICD Code: I10 - ESSENTIAL (PRIMARY) HYPERTENSION Status: Chronic Priority: Low Current Visit: Yes Problem List Initiated/Reviewed/Updated: Yes Orders Last 24hrs: Active Orders 24 hr Category Date Time Status Patient Status Manage Transfer [TRANSFER] Routine ADT 07/09/20 18:51 Ordered EKG Documentation Completion [RC] ASDIRECTED Care 07/09/20 15:08 Active Peripheral IV Care [RC] . DIRECTED Care 07/09/20 15:08 Active Peripheral IV Care [RC] . DIRECTED Care 07/09/20 16:14 Active Chest 2V [CR] Urgent Exams 07/09/20 15:06 Taken Sodium Chloride 0.9% [Saline Flush] Med 07/09/20 15:06 Active 10 ml FLUSH ASDIRECTED PRN Sodium Chloride 0.9% [Saline Flush] Med 07/09/20 16:14 Active 10 ml FLUSH ASDIRECTED PRN Peripheral IV Insertion Adult [OM.PC] Urgent Oth 07/09/20 15:06 Ordered Peripheral IV Insertion Adult [OM.PC] Urgent Oth 07/09/20 16:13 Ordered Resuscitation Status Routine Resus Stat 07/09/20 18:52 Ordered EKG 12 Lead [EK] Urgent Ther 07/09/20 15:06 Ordered Medication Orders Sodium Chloride (Sodium Chloride 0.9% 10 Ml Syringe) 10 ml FLUSH ASDIRECTED PRN PRN Reason: Keep Vein Open Sodium Chloride (Sodium Chloride 0.9% 10 Ml Syringe) 10 ml FLUSH ASDIRECTED PRN PRN Reason: Keep Vein Open Assessment/Plan Comment:: ASSESSMENT AND PLAN CONGESTIVE HEART FAILURE DIASTOLIC- ER EVALUATION: 64-year-old female presents emergency department a shortness of breath, she states been short of breath really over the last 3 days she does have a known history of COPD as well as congestive heart failure. She has n oticed some edema in her lower extremities she denies any fevers no Covid exposures she states she has been taking her medication. Also states that on her home oxygen sat monitor when she walked from the bedroom to the bathroom she found her O2 saturation to be 86% however she is not hypoxic here in the emergency department. Intervention- IV Bumex 2mg with urine output greater 1000ml ER Labs CBC and CMP unremarkable, BNP elevated 1849, Troponin negative, Chest X- ray cardiomegaly, EKG no acute process SR rhythm -ST Mrs. Amezcua continue to report shortness of breath with O2 sat in the mid 90's. She reports exhausted from shortness of breath and caring for her 4 year old Great-Grandson. Others family member in the home are not helpful. -monitor over night, reassess in the am -pulse ox continuous -continue outpatient medications -am labs CBC, BNP, BMP COPD-all compensated on current therapy -Continue current outpatient medications HYPERTENSION-currently asymptomatic MAINTENANCE ISSUES -DVT prophylaxis; ASA -GI prophylaxis; Protonix 40 mg daily -Connell catheter; not indicated -Nutrition; 2 g sodium diet -Nicotine dependence; not required CODE STATUS-FULL ADMISSION STATUS-this patient will be admitted to observation status, expect no more than a one night hospital stay for evaluation and management of problems as outlined above. DISPOSITION-anticipate discharge to home after the hospital stay. PRIMARY CARE PROVIDER-Darlene Tracy NP HOSPITALIST- Dr. Stanley No
[2020-07-09] MEDS ORDERED: Melatonin 3 MG Tab PO PRN (19:26)
[2020-07-09] MEDS ORDERED: Morphine 2 MG/ML SYRINGE IVPUSH PRN (19:26)
[2020-07-09] MEDS ORDERED: Albuterol/Ipratropium 3.0-0.5 MG/3 ML Neb Soln NEB PRN (19:26)
[2020-07-09] MEDS ORDERED: Docusate Sodium 100 MG Cap PO PRN (19:26)
[2020-07-09] MEDS ORDERED: Acetaminophen 325 MG Tab PO PRN (19:26)
[2020-07-09] MEDS ORDERED: oxyCODONE 5 MG Tab PO PRN (19:26)
[2020-07-09] MEDS ORDERED: Albuterol 0.083% 2.5 MG/3 ML Neb Soln NEB PRN (19:26)
[2020-07-09] MEDS ORDERED: Bisacodyl 5 MG Tab PO PRN (19:26)
[2020-07-09] MEDS ORDERED: Ondansetron 4 MG Tab.DIS PO PRN (19:26)
[2020-07-09] MEDS ORDERED: diphenhydrAMINE 25 MG Cap PO PRN (19:26)
[2020-07-09] MEDS ORDERED: Nitroglycerin 0.4 MG Tab.SL SL PRN (19:26)
[2020-07-09] MEDS ORDERED: LORazepam 2 MG/ML SDV IV PRN (19:26)
[2020-07-09] MEDS: Formoterol/Mometasone 100-5 MCG 8.8 GM Inhaler IH SCH (20:29)
[2020-07-09] MEDS: Simvastatin 20 MG Tab PO SCH (20:30)
[2020-07-09] MEDS: Metoprolol Succinate 25 MG Tab.ER PO SCH (20:30)
[2020-07-09] MEDS ORDERED: Spironolactone 25 MG Tab PO SCH (21:00)
[2020-07-10] MEDS ORDERED: Non-Formulary Medication 1 Each (Levothyroxine [Levothyroxine] 150 MCG Tablet) PO SCH (07:30)
[2020-07-10] MEDS ORDERED: Levothyroxine 25 MCG Tab PO SCH (07:30)
[2020-07-10] MEDS ORDERED: Levothyroxine 100 MCG Tab PO SCH (07:30)
[2020-07-10] MEDS ORDERED: Bumetanide 1 MG Tab PO SCH (08:00)
[2020-07-10] MEDS: Levothyroxine 100 MCG, Levothyroxine 50 MCG, Levothyroxine 25 MCG PO SCH ×3 (08:54)
[2020-07-10] MEDS: Ferrous Sulfate 325 MG Tab PO SCH (08:56)
[2020-07-10] MEDS: Pantoprazole 40 MG Tab.CR PO SCH (08:56)
[2020-07-10] MEDS ORDERED: Potassium Chloride 10 MEQ Cap.ER PO SCH (09:00)
[2020-07-10] MEDS ORDERED: Pantoprazole 40 MG Vial IV SCH (09:00)
[2020-07-10] MEDS ORDERED: Spironolactone 25 MG Tab PO SCH ×4 (09:00→17:00)
[2020-07-10] MEDS: Formoterol/Mometasone 100-5 MCG 8.8 GM Inhaler IH SCH (09:13)
--- NOTE | 2020-07-10 09:15 | CR ---
CHEST: 2 view CLINICAL HISTORY:SOB COMPARISON:2019 FINDINGS: The heart is enlarged. Pulmonary vascularity is moderate prominent but similar to prior study. There has been previous sternotomy. There are atherosclerotic changes in the aorta. No infiltrates are seen. IMPRESSION: Cardiomegaly Mild vascular cephalization may be chronic Previous sternotomy Lungs are clear
[2020-07-10] MEDS: Multivitamins with Iron/Calcium/Folic Acid/Minerals Tab PO SCH (09:17)
[2020-07-10] MEDS: Potassium Chloride 20 MEQ Tab.ER PO SCH (09:17)
[2020-07-10] MEDS: FLUoxetine 20 MG Cap PO SCH (09:17)
--- NOTE | 2020-07-10 12:26 | PCM.PN ---
- General Info Date of Service: 07/10/20 Subjective Update: There were no acute events overnight. Patient reports mild improvement in her dyspnea from yesterday but still feels short of breath with any activity. She did require oxygen overnight which is her normal but is off oxygen today. Still has mild edema and mild intermittent chest tightness. No fevers. Feeling better but still quite nervous about respiratory status not being back to normal. Functional Status: Reports: Pain Controlled, Tolerating Diet - Review of Systems General: Denies: Fever Pulmonary: Reports: Shortness of Breath - Patient Data Vitals - Most Recent: Last Vital Signs Temp 36.0 C L 07/10/20 10:19 Pulse 58 L 07/10/20 12:09 Resp 16 07/10/20 10:19 BP 138/88 07/10/20 10:19 Pulse Ox 99 07/10/20 12:09 Weight - Most Recent: 109.951 kg I&O - Last 24 Hours: Intake & Output 07/09/20 07/10/20 07/10/20 22:59 06:59 14:59 Intake Total 300 200 Output Total 500 800 Balance -500 300 -600 Lab Results Last 24 Hours: Laboratory Results - last 24 hr 07/09/20 07/09/20 07/09/20 Range/Units 15:25 15:25 15:25 WBC 9.9 (4.5-11.0) K/uL RBC 3.86 (3.30-5.50) M/uL Hgb 11.1 L (12.0-15.0) g/dL Hct 35.6 L (36.0-48.0) % MCV 92 (80-98) fL MCH 29 (27-31) pg MCHC 31 L (32-36) % Plt Count 273 (150-400) K/uL Neut % (Auto) 76 H (36-66) % Lymph % (Auto) 15 L (24-44) % [place] % (Auto) 6 (2-6) % Eos % (Auto) 3 (2-4) % Baso % (Auto) 0 (0-1) % Sodium 145 (140-148) mmol/L Potassium 3.6 (3.6-5.2) mmol/L Chloride 105 (100-108) mmol/L Carbon Dioxide 30 (21-32) mmol/L Anion Gap 9.8 (5.0-14.0) mmol/L BUN 11 (7-18) mg/dL Creatinine 1.2 H (0.6-1.0) mg/dL Est Cr Clr Drug Dosing 38.66 mL/min Estimated GFR (MDRD) 45 L (>60) Glucose 109 H (74-106) mg/dL Calcium 8.5 (8.5-10.1) mg/dL Total Bilirubin 0.9 (0.2-1.0) mg/dL AST 15 (15-37) U/L ALT 21 (12-78) U/L Alkaline Phosphatase 102 (46-116) U/L Troponin I (0.000-0.056) ng/mL NT-Pro-B Natriuret Pep 1879 H (5-125) pg/mL Total Protein 6.6 (6.4-8.2) g/dL Albumin 3.5 (3.4-5.0) g/dL Globulin 3.1 (2.3-3.5) g/dL Albumin/Globulin Ratio 1.1 L (1.2-2.2) Urine Color (YELLOW) Urine Appearance (CLEAR) Urine pH (5.0-8.0) Ur Specific [place] (1.008-1.030) Urine Protein (NEGATIVE) mg/dL Urine Glucose (UA) (NEGATIVE) mg/dL Urine Ketones (NEGATIVE) mg/dL Urine Occult Blood (NEGATIVE) Urine Nitrite (NEGATIVE) Urine Bilirubin (NEGATIVE) Urine Urobilinogen (0.2-1.0) EU/dL Ur Leukocyte Esterase (NEGATIVE) Urine RBC (0-5) Urine WBC (0-5) Ur Epithelial Cells Amorphous Sediment Urine Bacteria Urine Mucus 07/09/20 07/09/20 07/10/20 Range/Units 16:20 20:06 06:35 WBC (4.5-11.0) K/uL RBC (3.30-5.50) M/uL Hgb (12.0-15.0) g/dL Hct (36.0-48.0) % MCV (80-98) fL MCH (27-31) pg MCHC (32-36) % Plt Count (150-400) K/uL Neut % (Auto) (36-66) % Lymph % (Auto) (24-44) % [place] % (Auto) (2-6) % Eos % (Auto) (2-4) % Baso % (Auto) (0-1) % Sodium (140-148) mmol/L Potassium (3.6-5.2) mmol/L Chloride (100-108) mmol/L Carbon Dioxide (21-32) mmol/L Anion Gap (5.0-14.0) mmol/L BUN (7-18) mg/dL Creatinine (0.6-1.0) mg/dL Est Cr Clr Drug Dosing mL/min Estimated GFR (MDRD) (>60) Glucose (74-106) mg/dL Calcium (8.5-10.1) mg/dL Total Bilirubin (0.2-1.0) mg/dL AST (15-37) U/L ALT (12-78) U/L Alkaline Phosphatase (46-116) U/L Troponin I < 0.017 (0.000-0.056) ng/mL NT-Pro-B Natriuret Pep 1352 H (5-125) pg/mL Total Protein (6.4-8.2) g/dL Albumin (3.4-5.0) g/dL Globulin (2.3-3.5) g/dL Albumin/Globulin Ratio (1.2-2.2) Urine Color Yellow (YELLOW) Urine Appearance Clear (CLEAR) Urine pH 6.0 (5.0-8.0) Ur Specific [place] 1.020 (1.008-1.030) Urine Protein Negative (NEGATIVE) mg/dL Urine Glucose (UA) Negative (NEGATIVE) mg/dL Urine Ketones Negative (NEGATIVE) mg/dL Urine Occult Blood Negative (NEGATIVE) Urine Nitrite Negative (NEGATIVE) Urine Bilirubin Negative (NEGATIVE) Urine Urobilinogen 1.0 (0.2-1.0) EU/dL Ur Leukocyte Esterase Negative (NEGATIVE) Urine RBC 0-5 (0-5) Urine WBC 0-5 (0-5) Ur Epithelial Cells Few Amorphous Sediment Occasional Urine Bacteria Occasional Urine Mucus Not seen 07/10/20 07/10/20 Range/Units 06:35 06:35 WBC 8.5 (4.5-11.0) K/uL RBC 3.78 (3.30-5.50) M/uL Hgb 10.6 L (12.0-15.0) g/dL Hct 35.1 L (36.0-48.0) % MCV 93 (80-98) fL MCH 28 (27-31) pg MCHC 30 L (32-36) % Plt Count 264 (150-400) K/uL Neut % (Auto) 73 H (36-66) % Lymph % (Auto) 18 L (24-44) % [place] % (Auto) 7 H (2-6) % Eos % (Auto) 3 (2-4) % Baso % (Auto) 0 (0-1) % Sodium 146 (140-148) mmol/L Potassium 3.6 (3.6-5.2) mmol/L Chloride 106 (100-108) mmol/L Carbon Dioxide 31 (21-32) mmol/L Anion Gap 9.0 (5.0-14.0) mmol/L BUN 11 (7-18) mg/dL Creatinine 1.1 H (0.6-1.0) mg/dL Est Cr Clr Drug Dosing 42.18 mL/min Estimated GFR (MDRD) 50 L (>60) Glucose 100 (74-106) mg/dL Calcium 8.8 (8.5-10.1) mg/dL Total Bilirubin (0.2-1.0) mg/dL AST (15-37) U/L ALT (12-78) U/L Alkaline Phosphatase (46-116) U/L Troponin I (0.000-0.056) ng/mL NT-Pro-B Natriuret Pep (5-125) pg/mL Total Protein (6.4-8.2) g/dL Albumin (3.4-5.0) g/dL Globulin (2.3-3.5) g/dL Albumin/Globulin Ratio (1.2-2.2) Urine Color (YELLOW) Urine Appearance (CLEAR) Urine pH (5.0-8.0) Ur Specific [place] (1.008-1.030) Urine Protein (NEGATIVE) mg/dL Urine Glucose (UA) (NEGATIVE) mg/dL Urine Ketones (NEGATIVE) mg/dL Urine Occult Blood (NEGATIVE) Urine Nitrite (NEGATIVE) Urine Bilirubin (NEGATIVE) Urine Urobilinogen (0.2-1.0) EU/dL Ur Leukocyte Esterase (NEGATIVE) Urine RBC (0-5) Urine WBC (0-5) Ur Epithelial Cells Amorphous Sediment Urine Bacteria Urine Mucus Med Orders - Current: Current Medications Acetaminophen (Acetaminophen 325 Mg Tab) 650 mg PO Q4H PRN PRN Reason: Pain (Mild 1-3)/fever Albuterol (Albuterol 0.083% 2.5 Mg/3 Ml Neb Soln) 2.5 mg NEB Q4H PRN PRN Reason: Shortness Of Breath/wheezing Aspirin (Aspirin 81 Mg Tab.Chew) 81 mg PO QPM [facility] Bisacodyl (Bisacodyl 5 Mg Tab) 5 mg PO DAILY PRN PRN Reason: Constipation Bumetanide (Bumetanide 2.5 Mg/10 Ml Mdv) 4 mg IVPUSH BIDDIURETIC [place] Diphenhydramine HCl (Diphenhydramine 25 Mg Cap) 25 mg PO BEDTIME PRN PRN Reason: Insomnia Docusate Sodium (Docusate Sodium 100 Mg Cap) 100 mg PO BID PRN PRN Reason: Constipation Ferrous Sulfate (Ferrous Sulfate 325 Mg Tab) 325 mg PO DAILY [facility] Last Admin: 07/10/20 08:56 Dose: 325 mg Documented by: Fluoxetine HCl (Fluoxetine 20 Mg Cap) 20 mg PO DAILY [facility] Last Admin: 07/10/20 09:17 Dose: 20 mg Documented by: Levothyroxine Sodium 100 mcg/Levothyroxine Sodium 50 mcg/Levothyroxine Sodium 25 mcg 175 mcg PO ACBREAKFAST [facility] Last Admin: 07/10/20 08:54 Dose: 175 mcg Documented by: Lorazepam (Lorazepam 2 Mg/Ml Sdv) 1 mg IV Q6H PRN PRN Reason: Nausea/Vomiting Melatonin (Melatonin 3 Mg Tab) 6 mg PO BEDTIME PRN PRN Reason: Insomnia Metoprolol Succinate (Metoprolol Succinate 25 Mg Tab.Er) 25 mg PO BEDTIME [facility] Last Admin: 07/09/20 20:30 Dose: 25 mg Documented by: Mometasone Furoate/Formoterol Fumar (Formoterol/Mometasone 100-5 Mcg 8.8 Gm Inhaler) 2 puff IH BID [facility] Last Admin: 07/10/20 09:13 Dose: 2 puff Documented by: Morphine Sulfate (Morphine 2 Mg/Ml Syringe) 2 mg IVPUSH Q2H PRN PRN Reason: Pain (severe 7-10) Multivitamins/Minerals (Multivitamins With Iron/Calcium/Folic Acid/Minerals Tab) 1 tab PO DAILY [facility] Last Admin: 07/10/20 09:17 Dose: 1 tab Documented by: Nitroglycerin (Nitroglycerin 0.4 Mg Tab.Sl) 0.4 mg SL Q5M PRN PRN Reason: ANGINA Ondansetron HCl (Ondansetron 4 Mg Tab.Dis) 4 mg PO Q6H PRN PRN Reason: Nausea able to take PO Oxycodone HCl (Oxycodone 5 Mg Tab) 5 mg PO Q4H PRN PRN Reason: Pain (moderate 4-6) Pantoprazole Sodium (Pantoprazole 40 Mg Tab.Cr) 40 mg PO ACBREAKFAST [facility] Last Admin: 07/10/20 08:56 Dose: 40 mg Documented by: Potassium Chloride (Potassium Chloride 20 Meq Tab.Er) 20 meq PO DAILY [facility] Last Admin: 07/10/20 09:17 Dose: 20 meq Documented by: Potassium Chloride (Potassium Chloride 10 Meq Cap.Er) 10 meq PO DAILY@1700 [facility] Simvastatin (Simvastatin 20 Mg Tab) 40 mg PO BEDTIME [facility] Last Admin: 07/09/20 20:30 Dose: 40 mg Documented by: Sodium Chloride (Sodium Chloride 0.9% 10 Ml Syringe) 10 ml FLUSH ASDIRECTED PRN PRN Reason: Keep Vein Open Spironolactone (Spironolactone 25 Mg Tab) 12.5 mg PO DAILY [facility] Last Admin: 07/10/20 08:59 Dose: 12.5 mg Documented by: Spironolactone (Spironolactone 25 Mg Tab) 12.5 mg PO Q48H [facility] Discontinued Medications Albuterol/Ipratropium (Albuterol/Ipratropium 3.0-0.5 Mg/3 Ml Neb Soln) 3 ml NEB QID PRN PRN Reason: Shortness Of Breath/wheezing Bumetanide (Bumetanide 1 Mg/4 Ml Mdv) 2 mg IVPUSH ONETIME ONE Stop: 07/09/20 16:15 Last Admin: 07/09/20 16:24 Dose: 2 mg Documented by: Bumetanide (Bumetanide 1 Mg Tab) 4 mg PO BIDDIURETIC [facility] Last Admin: 07/10/20 08:55 Dose: 4 mg Documented by: Nitroglycerin (Nitroglycerin 0.4 Mg Tab.Sl) 0.4 mg SL ONETIME ONE Stop: 07/09/20 15:09 Last Admin: 07/09/20 15:24 Dose: 0.4 mg Documented by: Sodium Chloride (Sodium Chloride 0.9% 10 Ml Syringe) 10 ml FLUSH ASDIRECTED PRN PRN Reason: Keep Vein Open Sodium Chloride (Sodium Chloride 0.9% 10 Ml Syringe) 10 ml FLUSH ASDIRECTED PRN PRN Reason: Keep Vein Open - Exam Quality Assessment: No: Supplemental Oxygen General: Alert, Oriented, Cooperative, No Acute Distress Neck: JVD (mild) Lungs: Normal Respiratory Effort, Crackles (rare both bases) Cardiovascular: Regular Rate, Regular Rhythm, Murmurs GI/Abdominal Exam: Soft, No Distention Extremities: Pedal Edema (trace bilateral ankle edema ). No: Increased Warmth Skin: Warm, Dry Psy/Mental Status: Alert, Normal Affect - Patient Data Lab Results Last 24 hrs: Laboratory Results - last 24 hr 07/09/20 07/09/20 07/09/20 Range/Units 15:25 15:25 15:25 WBC 9.9 (4.5-11.0) K/uL RBC 3.86 (3.30-5.50) M/uL Hgb 11.1 L (12.0-15.0) g/dL Hct 35.6 L (36.0-48.0) % MCV 92 (80-98) fL MCH 29 (27-31) pg MCHC 31 L (32-36) % Plt Count 273 (150-400) K/uL Neut % (Auto) 76 H (36-66) % Lymph % (Auto) 15 L (24-44) % [place] % (Auto) 6 (2-6) % Eos % (Auto) 3 (2-4) % Baso % (Auto) 0 (0-1) % Sodium 145 (140-148) mmol/L Potassium 3.6 (3.6-5.2) mmol/L Chloride 105 (100-108) mmol/L Carbon Dioxide 30 (21-32) mmol/L Anion Gap 9.8 (5.0-14.0) mmol/L BUN 11 (7-18) mg/dL Creatinine 1.2 H (0.6-1.0) mg/dL Est Cr Clr Drug Dosing 38.66 mL/min Estimated GFR (MDRD) 45 L (>60) Glucose 109 H (74-106) mg/dL Calcium 8.5 (8.5-10.1) mg/dL Total Bilirubin 0.9 (0.2-1.0) mg/dL AST 15 (15-37) U/L ALT 21 (12-78) U/L Alkaline Phosphatase 102 (46-116) U/L Troponin I (0.000-0.056) ng/mL NT-Pro-B Natriuret Pep 1879 H (5-125) pg/mL Total Protein 6.6 (6.4-8.2) g/dL Albumin 3.5 (3.4-5.0) g/dL Globulin 3.1 (2.3-3.5) g/dL Albumin/Globulin Ratio 1.1 L (1.2-2.2) Urine Color (YELLOW) Urine Appearance (CLEAR) Urine pH (5.0-8.0) Ur Specific [place] (1.008-1.030) Urine Protein (NEGATIVE) mg/dL Urine Glucose (UA) (NEGATIVE) mg/dL Urine Ketones (NEGATIVE) mg/dL Urine Occult Blood (NEGATIVE) Urine Nitrite (NEGATIVE) Urine Bilirubin (NEGATIVE) Urine Urobilinogen (0.2-1.0) EU/dL Ur Leukocyte Esterase (NEGATIVE) Urine RBC (0-5) Urine WBC (0-5) Ur Epithelial Cells Amorphous Sediment Urine Bacteria Urine Mucus 07/09/20 07/09/20 07/10/20 Range/Units 16:20 20:06 06:35 WBC (4.5-11.0) K/uL RBC (3.30-5.50) M/uL Hgb (12.0-15.0) g/dL Hct (36.0-48.0) % MCV (80-98) fL MCH (27-31) pg MCHC (32-36) % Plt Count (150-400) K/uL Neut % (Auto) (36-66) % Lymph % (Auto) (24-44) % [place] % (Auto) (2-6) % Eos % (Auto) (2-4) % Baso % (Auto) (0-1) % Sodium (140-148) mmol/L Potassium (3.6-5.2) mmol/L Chloride (100-108) mmol/L Carbon Dioxide (21-32) mmol/L Anion Gap (5.0-14.0) mmol/L BUN (7-18) mg/dL Creatinine (0.6-1.0) mg/dL Est Cr Clr Drug Dosing mL/min Estimated GFR (MDRD) (>60) Glucose (74-106) mg/dL Calcium (8.5-10.1) mg/dL Total Bilirubin (0.2-1.0) mg/dL AST (15-37) U/L ALT (12-78) U/L Alkaline Phosphatase (46-116) U/L Troponin I < 0.017 (0.000-0.056) ng/mL NT-Pro-B Natriuret Pep 1352 H (5-125) pg/mL Total Protein (6.4-8.2) g/dL Albumin (3.4-5.0) g/dL Globulin (2.3-3.5) g/dL Albumin/Globulin Ratio (1.2-2.2) Urine Color Yellow (YELLOW) Urine Appearance Clear (CLEAR) Urine pH 6.0 (5.0-8.0) Ur Specific [place] 1.020 (1.008-1.030) Urine Protein Negative (NEGATIVE) mg/dL Urine Glucose (UA) Negative (NEGATIVE) mg/dL Urine Ketones Negative (NEGATIVE) mg/dL Urine Occult Blood Negative (NEGATIVE) Urine Nitrite Negative (NEGATIVE) Urine Bilirubin Negative (NEGATIVE) Urine Urobilinogen 1.0 (0.2-1.0) EU/dL Ur Leukocyte Esterase Negative (NEGATIVE) Urine RBC 0-5 (0-5) Urine WBC 0-5 (0-5) Ur Epithelial Cells Few Amorphous Sediment Occasional Urine Bacteria Occasional Urine Mucus Not seen 07/10/20 07/10/20 Range/Units 06:35 06:35 WBC 8.5 (4.5-11.0) K/uL RBC 3.78 (3.30-5.50) M/uL Hgb 10.6 L (12.0-15.0) g/dL Hct 35.1 L (36.0-48.0) % MCV 93 (80-98) fL MCH 28 (27-31) pg MCHC 30 L (32-36) % Plt Count 264 (150-400) K/uL Neut % (Auto) 73 H (36-66) % Lymph % (Auto) 18 L (24-44) % [place] % (Auto) 7 H (2-6) % Eos % (Auto) 3 (2-4) % Baso % (Auto) 0 (0-1) % Sodium 146 (140-148) mmol/L Potassium 3.6 (3.6-5.2) mmol/L Chloride 106 (100-108) mmol/L Carbon Dioxide 31 (21-32) mmol/L Anion Gap 9.0 (5.0-14.0) mmol/L BUN 11 (7-18) mg/dL Creatinine 1.1 H (0.6-1.0) mg/dL Est Cr Clr Drug Dosing 42.18 mL/min Estimated GFR (MDRD) 50 L (>60) Glucose 100 (74-106) mg/dL Calcium 8.8 (8.5-10.1) mg/dL Total Bilirubin (0.2-1.0) mg/dL AST (15-37) U/L ALT (12-78) U/L Alkaline Phosphatase (46-116) U/L Troponin I (0.000-0.056) ng/mL NT-Pro-B Natriuret Pep (5-125) pg/mL Total Protein (6.4-8.2) g/dL Albumin (3.4-5.0) g/dL Globulin (2.3-3.5) g/dL Albumin/Globulin Ratio (1.2-2.2) Urine Color (YELLOW) Urine Appearance (CLEAR) Urine pH (5.0-8.0) Ur Specific [place] (1.008-1.030) Urine Protein (NEGATIVE) mg/dL Urine Glucose (UA) (NEGATIVE) mg/dL Urine Ketones (NEGATIVE) mg/dL Urine Occult Blood (NEGATIVE) Urine Nitrite (NEGATIVE) Urine Bilirubin (NEGATIVE) Urine Urobilinogen (0.2-1.0) EU/dL Ur Leukocyte Esterase (NEGATIVE) Urine RBC (0-5) Urine WBC (0-5) Ur Epithelial Cells Amorphous Sediment Urine Bacteria Urine Mucus Result Diagrams: 07/10/20 06:35 07/10/20 06:35 Sepsis Event Note - Evaluation Sepsis Screening Result: No Definite Risk - Focused Exam Vital Signs: Vital Signs Temp Pulse Resp BP BP Pulse Ox 07/10/20 12:09 58 L 99 07/10/20 10:19 36.0 C L 58 L 16 138/88 93 L 07/10/20 07:32 99 07/10/20 07:27 36.4 C 16 121/67 98 07/10/20 06:49 36.2 C 55 L 18 128/42 L 100 07/10/20 01:55 36.4 C 98 14 117/27 L 121/48 L 98 07/10/20 00:40 92 L - Problem List Review Problem List Initiated/Reviewed/Updated: Yes - My Orders Last 24 Hours: My Active Orders 07/10/20 07:51 Daily Weight [Height and Weight] [RC] DAILY 07/10/20 09:00 Potassium Chloride [Klor-Con M20] 20 meq PO DAILY 07/10/20 12:24 Cardiac Monitoring Discontinue [RC] Click to Edit 07/10/20 14:00 Bumetanide [Bumex] 4 mg IVPUSH BIDDIURETIC 07/10/20 17:00 Potassium Chloride 10 meq PO DAILY@1700 07/11/20 05:00 BASIC METABOLIC PANEL,BMP [CHEM] Timed - Plan Plan:: ASSESSMENT AND PLAN - CONGESTIVE HEART FAILURE, DIASTOLIC-still mild evidence for volume overload. No hypoxia. -Change bumetanide to IV this afternoon and tomorrow morning then reassess -Continue additional medical management -Supplement oxygen at night and if needed COPD-no evidence for decompensation. -Continue current outpatient medications HYPERTENSION-blood pressure well controlled. MAINTENANCE ISSUES -DVT prophylaxis; ASA -GI prophylaxis; Protonix 40 mg daily -Connell catheter; not indicated -Nutrition; 2 g sodium diet ADMISSION STATUS-this patient will be admitted to observation status, expect no more than a one night hospital stay for evaluation and management of problems as outlined above. DISPOSITION-anticipate discharge to home after the hospital stay. Stanley No MD
[2020-07-10] MEDS: Bumetanide 2.5 MG/10 ML MDV IVPUSH SCH (14:12)
[2020-07-10] MEDS: Spironolactone 25 MG Tab PO SCH (15:52)
[2020-07-10] MEDS: Potassium Chloride 10 MEQ Cap.ER PO SCH (17:20)
[2020-07-10] MEDS: Aspirin 81 MG Tab.Chew PO SCH (17:20)
[2020-07-10] MEDS ORDERED: Formoterol/Mometasone 100-5 MCG 8.8 GM Inhaler IH SCH (21:00)
[2020-07-10] MEDS: Metoprolol Succinate 25 MG Tab.ER PO SCH (21:03)
[2020-07-10] MEDS: Simvastatin 20 MG Tab PO SCH (21:07)
[2020-07-10] MEDS: ADVAIR INH SCH (21:08)
[2020-07-11] MEDS: ADVAIR INH SCH ×2 (08:35→20:23)
[2020-07-11] MEDS: Pantoprazole 40 MG Tab.CR PO SCH (09:31)
[2020-07-11] MEDS: Levothyroxine 100 MCG, Levothyroxine 50 MCG, Levothyroxine 25 MCG PO SCH ×3 (09:32)
[2020-07-11] MEDS: FLUoxetine 20 MG Cap PO SCH (09:33)
[2020-07-11] MEDS: Ferrous Sulfate 325 MG Tab PO SCH (09:33)
[2020-07-11] MEDS: Potassium Chloride 20 MEQ Tab.ER PO SCH (09:33)
[2020-07-11] MEDS: Spironolactone 25 MG Tab PO SCH ×2 (09:33→14:32)
[2020-07-11] MEDS: Multivitamins with Iron/Calcium/Folic Acid/Minerals Tab PO SCH (09:34)
[2020-07-11] MEDS: Bumetanide 2.5 MG/10 ML MDV IVPUSH SCH ×2 (09:43→09:54)
--- NOTE | 2020-07-11 14:17 | PCM.PN ---
- General Info Date of Service: 07/11/20 Subjective Update: No acute events overnight. Patient reports less shortness of breath today. Weight is down a couple of pounds. Still short of breath with activity. She did desaturate with activity but responded quickly. Blood pressure was on the lower side of normal and she reports feeling dizzy and having blurry vision. She is not comfortable going home because of the blurry vision which is slowly improving. She is hoping to stay 1 more night to hope that her blood pressure rebounds and vision gets better. Functional Status: Reports: Pain Controlled, Tolerating Diet - Review of Systems General: Reports: Weakness HEENT: Reports: Visual Changes Pulmonary: Reports: Shortness of Breath - Patient Data Vitals - Most Recent: Last Vital Signs Temp 36.4 C 07/11/20 11:18 Pulse 55 L 07/11/20 11:18 Resp 16 07/11/20 11:18 BP 126/56 L 07/11/20 13:30 Pulse Ox 95 07/11/20 11:18 Weight - Most Recent: 108.046 kg I&O - Last 24 Hours: Intake & Output 07/10/20 07/11/20 07/11/20 22:59 06:59 14:59 Intake Total 980 500 Output Total 1500 400 Balance -520 500 -400 Lab Results Last 24 Hours: Laboratory Results - last 24 hr 07/11/20 Range/Units 04:59 Sodium 146 (140-148) mmol/L Potassium 3.6 (3.6-5.2) mmol/L Chloride 103 (100-108) mmol/L Carbon Dioxide 30 (21-32) mmol/L Anion Gap 12.6 (5.0-14.0) mmol/L BUN 13 (7-18) mg/dL Creatinine 1.2 H (0.6-1.0) mg/dL Est Cr Clr Drug Dosing 38.66 mL/min Estimated GFR (MDRD) 45 L (>60) Glucose 106 (74-106) mg/dL Calcium 9.5 (8.5-10.1) mg/dL Med Orders - Current: Current Medications Acetaminophen (Acetaminophen 325 Mg Tab) 650 mg PO Q4H PRN PRN Reason: Pain (Mild 1-3)/fever Albuterol (Albuterol 0.083% 2.5 Mg/3 Ml Neb Soln) 2.5 mg NEB Q4H PRN PRN Reason: Shortness Of Breath/wheezing Aspirin (Aspirin 81 Mg Tab.Chew) 81 mg PO QPM [facility] Last Admin: 07/10/20 17:20 Dose: 81 mg Documented by: Bisacodyl (Bisacodyl 5 Mg Tab) 5 mg PO DAILY PRN PRN Reason: Constipation Diphenhydramine HCl (Diphenhydramine 25 Mg Cap) 25 mg PO BEDTIME PRN PRN Reason: Insomnia Docusate Sodium (Docusate Sodium 100 Mg Cap) 100 mg PO BID PRN PRN Reason: Constipation Ferrous Sulfate (Ferrous Sulfate 325 Mg Tab) 325 mg PO DAILY [facility] Last Admin: 07/11/20 09:33 Dose: 325 mg Documented by: Fluoxetine HCl (Fluoxetine 20 Mg Cap) 20 mg PO DAILY [facility] Last Admin: 07/11/20 09:33 Dose: 20 mg Documented by: Levothyroxine Sodium 100 mcg/Levothyroxine Sodium 50 mcg/Levothyroxine Sodium 25 mcg 175 mcg PO ACBREAKFAST [facility] Last Admin: 07/11/20 09:32 Dose: 175 mcg Documented by: Lorazepam (Lorazepam 2 Mg/Ml Sdv) 1 mg IV Q6H PRN PRN Reason: Nausea/Vomiting Melatonin (Melatonin 3 Mg Tab) 6 mg PO BEDTIME PRN PRN Reason: Insomnia Metoprolol Succinate (Metoprolol Succinate 25 Mg Tab.Er) 25 mg PO BEDTIME [facility] Last Admin: 07/10/20 21:03 Dose: 25 mg Documented by: Morphine Sulfate (Morphine 2 Mg/Ml Syringe) 2 mg IVPUSH Q2H PRN PRN Reason: Pain (severe 7-10) Multivitamins/Minerals (Multivitamins With Iron/Calcium/Folic Acid/Minerals Tab) 1 tab PO DAILY [facility] Last Admin: 07/11/20 09:34 Dose: 1 tab Documented by: Nitroglycerin (Nitroglycerin 0.4 Mg Tab.Sl) 0.4 mg SL Q5M PRN PRN Reason: ANGINA Ondansetron HCl (Ondansetron 4 Mg Tab.Dis) 4 mg PO Q6H PRN PRN Reason: Nausea able to take PO Oxycodone HCl (Oxycodone 5 Mg Tab) 5 mg PO Q4H PRN PRN Reason: Pain (moderate 4-6) Pantoprazole Sodium (Pantoprazole 40 Mg Tab.Cr) 40 mg PO ACBREAKFAST [facility] Last Admin: 07/11/20 09:31 Dose: 40 mg Documented by: Kate 100/50 Pt (Own Med) 0 each INH BIDRT [facility] Last Admin: 07/11/20 08:35 Dose: 1 each Documented by: Potassium Chloride (Potassium Chloride 20 Meq Tab.Er) 20 meq PO DAILY [facility] Last Admin: 07/11/20 09:33 Dose: 20 meq Documented by: Potassium Chloride (Potassium Chloride 10 Meq Cap.Er) 10 meq PO DAILY@1700 [facility] Last Admin: 07/10/20 17:20 Dose: 10 meq Documented by: Simvastatin (Simvastatin 20 Mg Tab) 40 mg PO BEDTIME [facility] Last Admin: 07/10/20 21:07 Dose: 40 mg Documented by: Sodium Chloride (Sodium Chloride 0.9% 10 Ml Syringe) 10 ml FLUSH ASDIRECTED PRN PRN Reason: Keep Vein Open Spironolactone (Spironolactone 25 Mg Tab) 25 mg PO BIDDIURETIC [facility] Last Admin: 07/11/20 09:33 Dose: 25 mg Documented by: Discontinued Medications Albuterol/Ipratropium (Albuterol/Ipratropium 3.0-0.5 Mg/3 Ml Neb Soln) 3 ml NEB QID PRN PRN Reason: Shortness Of Breath/wheezing Bumetanide (Bumetanide 1 Mg/4 Ml Mdv) 2 mg IVPUSH ONETIME ONE Stop: 07/09/20 16:15 Last Admin: 07/09/20 16:24 Dose: 2 mg Documented by: Bumetanide (Bumetanide 1 Mg Tab) 4 mg PO BIDDIURETIC [facility] Last Admin: 07/10/20 08:55 Dose: 4 mg Documented by: Bumetanide (Bumetanide 2.5 Mg/10 Ml Mdv) 4 mg IVPUSH BIDDIURETIC [facility] Last Admin: 07/11/20 09:54 Dose: Not Given Documented by: Mometasone Furoate/Formoterol Fumar (Formoterol/Mometasone 100-5 Mcg 8.8 Gm Inhaler) 2 puff IH BID [facility] Last Admin: 07/10/20 09:13 Dose: 2 puff Documented by: Nitroglycerin (Nitroglycerin 0.4 Mg Tab.Sl) 0.4 mg SL ONETIME ONE Stop: 07/09/20 15:09 Last Admin: 07/09/20 15:24 Dose: 0.4 mg Documented by: Sodium Chloride (Sodium Chloride 0.9% 10 Ml Syringe) 10 ml FLUSH ASDIRECTED PRN PRN Reason: Keep Vein Open Sodium Chloride (Sodium Chloride 0.9% 10 Ml Syringe) 10 ml FLUSH ASDIRECTED PRN PRN Reason: Keep Vein Open Spironolactone (Spironolactone 25 Mg Tab) 12.5 mg PO DAILY [facility] Last Admin: 07/10/20 08:59 Dose: 12.5 mg Documented by: - Exam Quality Assessment: No: Supplemental Oxygen General: Alert, Oriented, Cooperative, No Acute Distress Neck: No JVD Lungs: Clear to Auscultation, Normal Respiratory Effort Cardiovascular: Regular Rate, Regular Rhythm, Murmurs GI/Abdominal Exam: Soft, No Distention Extremities: No Pedal Edema. No: Increased Warmth Skin: Warm, Dry Psy/Mental Status: Alert, Normal Affect - Patient Data Lab Results Last 24 hrs: Laboratory Results - last 24 hr 07/11/20 Range/Units 04:59 Sodium 146 (140-148) mmol/L Potassium 3.6 (3.6-5.2) mmol/L Chloride 103 (100-108) mmol/L Carbon Dioxide 30 (21-32) mmol/L Anion Gap 12.6 (5.0-14.0) mmol/L BUN 13 (7-18) mg/dL Creatinine 1.2 H (0.6-1.0) mg/dL Est Cr Clr Drug Dosing 38.66 mL/min Estimated GFR (MDRD) 45 L (>60) Glucose 106 (74-106) mg/dL Calcium 9.5 (8.5-10.1) mg/dL Result Diagrams: 07/10/20 06:35 07/11/20 04:59 Sepsis Event Note - Evaluation Sepsis Screening Result: No Definite Risk - Focused Exam Vital Signs: Vital Signs Temp Pulse Resp BP BP Pulse Ox 07/11/20 13:30 126/56 L 07/11/20 11:18 36.4 C 55 L 16 113/43 L 95 07/11/20 10:00 119/51 L 07/11/20 08:15 103/47 L 07/11/20 08:00 36.0 C L 57 L 16 131/38 L 97 07/11/20 04:00 35.6 C L 58 L 16 125/30 L 97 - Problem List Review Problem List Initiated/Reviewed/Updated: Yes - My Orders Last 24 Hours: My Active Orders 07/10/20 17:00 Potassium Chloride 10 meq PO DAILY@1700 07/12/20 05:00 BASIC METABOLIC PANEL,BMP [CHEM] Timed - Plan Plan:: ASSESSMENT AND PLAN - CONGESTIVE HEART FAILURE, DIASTOLIC-volume status appropriate today. Patient still reports dyspnea but oxygen saturations have been good other than mild desaturation at the end of a long walk. Borderline hypotensive today with some blurry vision. -Hold diuresis today -Continue additional medical management -Supplement oxygen at night and if needed COPD-no evidence for decompensation. -Continue current outpatient medications HYPERTENSION-blood pressure on the low side of normal but acceptable. MAINTENANCE ISSUES -DVT prophylaxis; ASA -GI prophylaxis; Protonix 40 mg daily -Connell catheter; not indicated -Nutrition; 2 g sodium diet ADMISSION STATUS-this patient will be admitted to observation status, expect no more than a one night hospital stay for evaluation and management of problems as outlined above. DISPOSITION-anticipate discharge to home after the hospital stay, likely tomorrow if stable overnight Stanley No MD
[2020-07-11] MEDS: Potassium Chloride 10 MEQ Cap.ER PO SCH (17:23)
[2020-07-11] MEDS: Aspirin 81 MG Tab.Chew PO SCH (17:23)
[2020-07-11] MEDS: Simvastatin 20 MG Tab PO SCH (20:24)
[2020-07-11] MEDS: Metoprolol Succinate 25 MG Tab.ER PO SCH (20:25)
[2020-07-12] MEDS: ADVAIR INH SCH (06:59)
[2020-07-12] MEDS: Levothyroxine 100 MCG, Levothyroxine 50 MCG, Levothyroxine 25 MCG PO SCH ×3 (07:35)
[2020-07-12] MEDS: Pantoprazole 40 MG Tab.CR PO SCH (09:00)
[2020-07-12] MEDS: Spironolactone 25 MG Tab PO SCH (09:01)
[2020-07-12] MEDS: Ferrous Sulfate 325 MG Tab PO SCH (09:01)
[2020-07-12] MEDS: Potassium Chloride 20 MEQ Tab.ER PO SCH (09:02)
[2020-07-12] MEDS: FLUoxetine 20 MG Cap PO SCH (09:02)
[2020-07-12] MEDS: Multivitamins with Iron/Calcium/Folic Acid/Minerals Tab PO SCH (09:03)
--- NOTE | 2020-07-12 10:17 | PCM.DCSUM1 ---
Discharge Summary - Hospital Course Brief History: 64-year-old female with history of COPD, diastolic congestive heart failure and previous aortic valve replacement who presented with increasing dyspnea and mild lower extremity edema. She was admitted for management of a mild exacerbation of her congestive heart failure. Diagnosis: Stroke: No - Discharge Data Discharge Date: 07/12/20 Discharge Disposition: Home, Self-Care 01 Condition: Good - Referral to Home Health Primary Care Physician: Martha Tracy CNM - Discharge Diagnosis/Problem(s) (1) Diastolic CHF, acute on chronic SNOMED Code(s): 165105825, 169070825 ICD Code: I50.33 - ACUTE ON CHRONIC DIASTOLIC (CONGESTIVE) HEART FAILURE Status: Chronic (2) H/O aortic valve replacement SNOMED Code(s): 0232417779118, 430174068, 1249595056960 ICD Code: Z95.2 - PRESENCE OF PROSTHETIC HEART VALVE Status: Chronic (3) COPD (chronic obstructive pulmonary disease) SNOMED Code(s): 19396036 ICD Code: J44.9 - CHRONIC OBSTRUCTIVE PULMONARY DISEASE, UNSPECIFIED Status: Chronic Priority: Low Qualifiers: COPD type: emphysema (4) Obesity (BMI 30-39.9) SNOMED Code(s): 797780772, 481480509 ICD Code: E66.9 - OBESITY, UNSPECIFIED Status: Chronic - Patient Summary/Data Hospital Course: Payal presented to the emergency room with dyspnea and mild lower extremity edema. Work-up in the emergency room was fairly reassuring but there was some mild evidence for volume overload. She received a dose of IV bumetanide in the emergency room and was admitted for management of a mild exacerbation of her heart failure. There were no acute issues overnight following admission. The next day she reported that her dyspnea was unchanged from the time of admission. She had some chest tightness. Her vital signs were otherwise stable. She received additional IV diuresis. Overnight the second night there were no signi ficant issues. She used her supplemental oxygen at night as usual. By the next morning her blood pressures were on the low side of normal. The patient had some slight dizziness. We did skip diuresis this date. There were no acute issues throughout the day or overnight. On the morning of discharge her blood pressures are back to normal. We did elect to skip her diuretics again this morning. Shortness of breath has improved. Her edema has resolved. There is no ongoing evidence for volume overload. Patient feels well enough to go home. The plan is to restart her usual medications tomorrow morning. She has early follow-up scheduled. No medication changes were made. - Patient Instructions Diet: Heart Healthy Diet Activity: As Tolerated Showering/Bathing: May Shower Other/Special Instructions: You were in the hospital for management of a mild exacerbation of your diastolic congestive heart failure. Your condition has improved with diuretic therapy. I do recommend that you not take your diuretics today but you may resume all of your usual medications as scheduled starting tomorrow morning. Please continue to keep track of your weight and breathing. Please continue to use you supplemental oxygen at night. Follow-up with your primary care provider as scheduled. - Discharge Plan *PRESCRIPTION DRUG MONITORING PROGRAM REVIEWED*: Not Applicable *COPY OF PRESCRIPTION DRUG MONITORING REPORT IN PATIENT SRINI: Not Applicable Home Medications: Home Meds Albuterol [Proventil HFA] 1 puff INH Q4H PRN 12/15/15 [History] Albuterol/Ipratropium [DuoNeb 3.0-0.5 MG/3 ML] 3 ml IH Q4H PRN 12/15/15 [History] Aspirin [Children's Aspirin] 81 mg PO QPM 12/15/15 [History] FLUoxetine [PROzac] 20 mg PO DAILY 12/15/15 [History] Ferrous Sulfate 325 mg PO DAILY 12/15/15 [History] Fluticasone/Salmeterol [Advair Diskus 100-50] 1 puff INH BID 12/15/15 [History] Metoprolol Succinate [Toprol XL] 25 mg PO QPM 12/15/15 [History] Multivitamin with Minerals [Multiple Vitamin] 1 tab PO DAILY 12/15/15 [History] Nitroglycerin [Nitrostat] 0.4 mg SL ASDIRECTED 12/15/15 [History] Potassium Chloride 30 meq PO DAILY 12/15/15 [History] O2 1.5 l INH DAILY 04/08/18 [History] Bumetanide [Bumex] 4 mg PO BID #120 tablet 10/15/18 [Rx] Levothyroxine 175 mcg PO ACBREAKFAST 11/27/18 [History] Simvastatin [Zocor] 40 mg PO ACDINNER 11/27/18 [History] Omeprazole 20 mg PO ACBREAKFAST 02/06/19 [History] Spironolactone [Aldactone] 25 mg PO BID 07/10/20 [History] Oxygen Therapy Mode: Room Air Patient Handouts: Heart Failure, Self Care, [id number], Chronic Obstructive Pulmonary Disease, [id number] Referrals: Martha Tracy CNM [Primary Care Provider] - 07/18/20 1:30 pm (Please arrive 15 minutes early to register for your appointment. You are scheduled for your 2nd Covid injection at time of your appointment.) - Discharge Summary/Plan Comment DC Time >30 min.: No - Patient Data Vitals - Most Recent: Last Vital Signs Temp 36.3 C 07/12/20 07:00 Pulse 53 L 07/12/20 07:00 Resp 16 07/12/20 07:00 BP 105/36 L 07/12/20 07:00 Pulse Ox 100 07/12/20 07:00 Weight - Most Recent: 108.046 kg I&O - Last 24 hours: Intake & Output 07/11/20 07/12/20 07/12/20 22:59 06:59 14:59 Intake Total 600 Output Total 100 100 300 Balance 500 -100 -300 Lab Results - Last 24 hrs: Laboratory Results - last 24 hr 07/12/20 Range/Units 05:47 Sodium 143 (140-148) mmol/L Potassium 4.0 (3.6-5.2) mmol/L Chloride 104 (100-108) mmol/L Carbon Dioxide 28 (21-32) mmol/L Anion Gap 11.2 (5.0-14.0) mmol/L BUN 18 (7-18) mg/dL Creatinine 1.1 H (0.6-1.0) mg/dL Est Cr Clr Drug Dosing 42.18 mL/min Estimated GFR (MDRD) 50 L (>60) Glucose 98 (74-106) mg/dL Calcium 9.3 (8.5-10.1) mg/dL Med Orders - Current: Current Medications Acetaminophen (Acetaminophen 325 Mg Tab) 650 mg PO Q4H PRN PRN Reason: Pain (Mild 1-3)/fever Albuterol (Albuterol 0.083% 2.5 Mg/3 Ml Neb Soln) 2.5 mg NEB Q4H PRN PRN Reason: Shortness Of Breath/wheezing Aspirin (Aspirin 81 Mg Tab.Chew) 81 mg PO QPM [facility] Last Admin: 07/11/20 17:23 Dose: 81 mg Documented by: Bisacodyl (Bisacodyl 5 Mg Tab) 5 mg PO DAILY PRN PRN Reason: Constipation Diphenhydramine HCl (Diphenhydramine 25 Mg Cap) 25 mg PO BEDTIME PRN PRN Reason: Insomnia Docusate Sodium (Docusate Sodium 100 Mg Cap) 100 mg PO BID PRN PRN Reason: Constipation Ferrous Sulfate (Ferrous Sulfate 325 Mg Tab) 325 mg PO DAILY [facility] Last Admin: 07/12/20 09:01 Dose: 325 mg Documented by: Fluoxetine HCl (Fluoxetine 20 Mg Cap) 20 mg PO DAILY [facility] Last Admin: 07/12/20 09:02 Dose: 20 mg Documented by: Levothyroxine Sodium 100 mcg/Levothyroxine Sodium 50 mcg/Levothyroxine Sodium 25 mcg 175 mcg PO ACBREAKFAST [facility] Last Admin: 07/12/20 07:35 Dose: 175 mcg Documented by: Lorazepam (Lorazepam 2 Mg/Ml Sdv) 1 mg IV Q6H PRN PRN Reason: Nausea/Vomiting Melatonin (Melatonin 3 Mg Tab) 6 mg PO BEDTIME PRN PRN Reason: Insomnia Metoprolol Succinate (Metoprolol Succinate 25 Mg Tab.Er) 25 mg PO BEDTIME [facility] Last Admin: 07/11/20 20:25 Dose: 25 mg Documented by: Morphine Sulfate (Morphine 2 Mg/Ml Syringe) 2 mg IVPUSH Q2H PRN PRN Reason: Pain (severe 7-10) Multivitamins/Minerals (Multivitamins With Iron/Calcium/Folic Acid/Minerals Tab) 1 tab PO DAILY [facility] Last Admin: 07/12/20 09:03 Dose: 1 tab Documented by: Nitroglycerin (Nitroglycerin 0.4 Mg Tab.Sl) 0.4 mg SL Q5M PRN PRN Reason: ANGINA Ondansetron HCl (Ondansetron 4 Mg Tab.Dis) 4 mg PO Q6H PRN PRN Reason: Nausea able to take PO Oxycodone HCl (Oxycodone 5 Mg Tab) 5 mg PO Q4H PRN PRN Reason: Pain (moderate 4-6) Pantoprazole Sodium (Pantoprazole 40 Mg Tab.Cr) 40 mg PO ACBREAKFAST [facility] Last Admin: 07/12/20 09:00 Dose: 40 mg Documented by: Advair 100/50 Pt (Own Med) 0 each INH BIDRT [facility] Last Admin: 07/12/20 06:59 Dose: 1 each Documented by: Potassium Chloride (Potassium Chloride 20 Meq Tab.Er) 20 meq PO DAILY [facility] Last Admin: 07/12/20 09:02 Dose: 20 meq Documented by: Potassium Chloride (Potassium Chloride 10 Meq Cap.Er) 10 meq PO DAILY@1700 [facility] Last Admin: 07/11/20 17:23 Dose: 10 meq Documented by: Simvastatin (Simvastatin 20 Mg Tab) 40 mg PO BEDTIME [facility] Last Admin: 07/11/20 20:24 Dose: 40 mg Documented by: Sodium Chloride (Sodium Chloride 0.9% 10 Ml Syringe) 10 ml FLUSH ASDIRECTED PRN PRN Reason: Keep Vein Open Spironolactone (Spironolactone 25 Mg Tab) 25 mg PO BIDDIURETIC [facility] Last Admin: 07/12/20 09:01 Dose: 25 mg Documented by: Discontinued Medications Albuterol/Ipratropium (Albuterol/Ipratropium 3.0-0.5 Mg/3 Ml Neb Soln) 3 ml NEB QID PRN PRN Reason: Shortness Of Breath/wheezing Bumetanide (Bumetanide 1 Mg/4 Ml Mdv) 2 mg IVPUSH ONETIME ONE Stop: 07/09/20 16:15 Last Admin: 07/09/20 16:24 Dose: 2 mg Documented by: Bumetanide (Bumetanide 1 Mg Tab) 4 mg PO BIDDIURETIC [facility] Last Admin: 07/10/20 08:55 Dose: 4 mg Documented by: Bumetanide (Bumetanide 2.5 Mg/10 Ml Mdv) 4 mg IVPUSH BIDDIURETIC [facility] Last Admin: 07/11/20 09:54 Dose: Not Given Documented by: Mometasone Furoate/Formoterol Fumar (Formoterol/Mometasone 100-5 Mcg 8.8 Gm Inhaler) 2 puff IH BID [facility] Last Admin: 07/10/20 09:13 Dose: 2 puff Documented by: Nitroglycerin (Nitroglycerin 0.4 Mg Tab.Sl) 0.4 mg SL ONETIME ONE Stop: 07/09/20 15:09 Last Admin: 07/09/20 15:24 Dose: 0.4 mg Documented by: Sodium Chloride (Sodium Chloride 0.9% 10 Ml Syringe) 10 ml FLUSH ASDIRECTED PRN PRN Reason: Keep Vein Open Sodium Chloride (Sodium Chloride 0.9% 10 Ml Syringe) 10 ml FLUSH ASDIRECTED PRN PRN Reason: Keep Vein Open Spironolactone (Spironolactone 25 Mg Tab) 12.5 mg PO DAILY [facility] Last Admin: 07/10/20 08:59 Dose: 12.5 mg Documented by:
[2020-07-12 11:28] VITALS: BP 122/60; PULSE 56
== END 2020-07-12 11:00 | disposition home or self-care (01) ==
LOC: JP.ED 13:31 → JP.MS 18:51 → INTOOBSV 18:51
PROVIDERS: ADMIT Internal Medicine; ATTEND Internal Medicine
DX: I50.32 Chronic diastolic (congestive) heart failure (principal); Z87.891 Personal history of nicotine dependence; H54.7 Unspecified visual loss; Z95.1 Presence of aortocoronary bypass graft; E78.00 Pure hypercholesterolemia, unspecified; I11.0 Hypertensive heart disease with heart failure; J44.9 Chronic obstructive pulmonary disease, unspecified; Z95.2 Presence of prosthetic heart valve; K21.9 Gastro-esophageal reflux disease without esophagitis; M19.90 Unspecified osteoarthritis, unspecified site; E03.9 Hypothyroidism, unspecified; F32.9 Major depressive disorder, single episode, unspecified; E66.9 Obesity, unspecified; Z88.8 Allergy status to other drugs, medicaments and biological substances; Z79.82 Long term (current) use of aspirin; Z79.890 Hormone replacement therapy; Z99.81 Dependence on supplemental oxygen; Z79.899 Other long term (current) drug therapy
CPT/HCPCS: 36415; 71046; 80048; 80053; 81001; 83880; 84484; 85025; 93005; 94640; 94762; 96374; 99285; A9270; J3490; 99284

== ENCOUNTER 2020-11-18 17:55 | Emergency (ER) | payer MEDICARE, OTHER ==
--- NOTE | 2020-11-18 18:14 | EDM.PDOC ---
ED HPI GENERAL MEDICAL PROBLEM - General Chief Complaint: Respiratory Problem Stated Complaint: TROUBLE BREATHING Time Seen by Provider: 11/18/20 18:14 Source of Information: Reports: Patient History Limitations: Reports: No Limitations - History of Present Illness INITIAL COMMENTS - FREE TEXT/NARRATIVE: pt just had a through workup in [place], She was found to have a aortic stenosis of the prothetic aortic valve. She is on bumex 4 mg in am and 5 mg in the pm. She is out of her advair and her duonebs. She sends for them and they will not be here until next week. Onset: Gradual, Other (pt has been very wheezy. ) Duration: Hour(s): Location: Reports: Chest, Generalized Associated Symptoms: Reports: Cough, Other (pt has been very wheezy. ) - Related Data Allergies Allergy/AdvReac Type Severity Reaction Status Date / Time metolazone Allergy Other Verified 07/09/20 13:52 Home Meds: Home Meds Albuterol [Proventil HFA] 1 puff INH Q4H PRN 12/15/15 [History] Albuterol/Ipratropium [DuoNeb 3.0-0.5 MG/3 ML] 3 ml IH Q4H PRN 12/15/15 [History] Aspirin [Children's Aspirin] 81 mg PO QPM 12/15/15 [History] FLUoxetine [PROzac] 20 mg PO DAILY 12/15/15 [History] Ferrous Sulfate 325 mg PO DAILY 12/15/15 [History] Fluticasone/Salmeterol [Advair Diskus 100-50] 1 puff INH BID 12/15/15 [History] Metoprolol Succinate [Toprol XL] 25 mg PO QPM 12/15/15 [History] Multivitamin with Minerals [Multiple Vitamin] 1 tab PO DAILY 12/15/15 [History] Nitroglycerin [Nitrostat] 0.4 mg SL ASDIRECTED 12/15/15 [History] Potassium Chloride 30 meq PO DAILY 12/15/15 [History] O2 1.5 l INH BEDTIME 04/08/18 [History] Bumetanide [Bumex] 4 mg PO BID #120 tablet 10/15/18 [Rx] Levothyroxine 175 mcg PO ACBREAKFAST 11/27/18 [History] Simvastatin [Zocor] 40 mg PO ACDINNER 11/27/18 [History] Omeprazole 20 mg PO ACBREAKFAST 02/06/19 [History] Spironolactone [Aldactone] 25 mg PO BID 07/10/20 [History] Past Medical History HEENT History: Reports: Impaired Vision Cardiovascular History: Reports: Bypass, Heart Failure, High Cholesterol, Hypertension, SOB on Exertion, Other (See Below) Other Cardiovascular History: hx of aortic valve replaced 2012,CHF Respiratory History: Reports: Asthma, COPD, SOB, Other (See Below) Other Respiratory History: home o2 1.5l Gastrointestinal History: Reports: GERD Genitourinary History: Reports: Renal 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: Musculoskeletal History: Reports: Arthritis Other Musculoskeletal History: arthritis Neurological History: Reports: None Psychiatric History: Reports: Depression Endocrine/Metabolic History: Reports: Hypothyroidism, Obesity/BMI 30+ Hematologic History: Reports: Anemia, Iron Deficiency Immunologic History: Reports: None Oncologic (Cancer) History: Reports: None Dermatologic History: Reports: None - Infectious Disease History Infectious Disease History: Reports: Chicken Pox, Measles, Mumps - Past Surgical History Head Surgeries/Procedures: Reports: None HEENT Surgical History: Reports: None Cardiovascular Surgical History: Reports: Coronary Artery Bypass, Valve Replace ment Respiratory Surgical History: Reports: None GI Surgical History: Reports: Appendectomy, Cholecystectomy, Colonoscopy Female Surgical History: Reports: None Endocrine Surgical History: Reports: None Neurological Surgical History: Reports: None Musculoskeletal Surgical History: Reports: Arthroscopic Procedure Dermatological Surgical History: Reports: None Social & Family History - Family History Family Medical History: No Pertinent Family History Cardiac: Reports: CAD Respiratory: Reports: Asthma, COPD OBGYN: Reports: Musculoskeletal: Reports: Arthritis Neurological: Reports: Vertigo Psychiatric: Reports: OCD Oncologic: Reports: Brain, Lung - Caffeine Use Caffeine Use: Reports: Coffee, Soda Other Caffeine Use: 1 cup per day Caffeine Use Comment: 3 cups per day - Living Situation & Occupation Living situation: Reports: , with Family (lives in [place], with 39 yr old Daughter, 11 year old Grandson and raising 4 year old Great Grandson) Occupation: Disabled ED ROS GENERAL - Review of Systems Review Of Systems: See Below Constitutional: Reports: No Symptoms HEENT: Reports: No Symptoms Respiratory: Reports: Shortness of Breath, Wheezing, Cough Cardiovascular: Reports: No Symptoms Endocrine: Reports: No Symptoms GI/Abdominal: Reports: No Symptoms : Reports: No Symptoms Musculoskeletal: Reports: No Symptoms Skin: Reports: No Symptoms ED EXAM, GENERAL - Physical Exam Exam: See Below Free Text/Narrative:: pt arrived and was wheezy in the lobby. When she got back in the room her sats were good. She is concerned that she might be fluid overloaded. She just had a extensive workup in [place]. Records were obtained. Exam Limited By: No Limitations General Appearance: Alert, Anxious, Mild Distress Ears: Normal TMs Nose: Normal Inspection Throat/Mouth: Normal Inspection Head: Atraumatic Neck: Normal Inspection Respiratory/Chest: Decreased Breath Sounds, Other (no severe wheezing. ) Cardiovascular: Regular Rate, Rhythm GI/Abdominal: Soft, Non-Tender (Female) Exam: Deferred Rectal (Female) Exam: Deferred Back Exam: Normal Inspection Extremities: Other (minimal edema) Neurological: Alert, Oriented, Normal Cognition Course - Vital Signs Last Recorded V/S: Last Vital Signs Temp 35.6 C L 11/18/20 18:23 Pulse 61 11/18/20 18:23 Resp 20 11/18/20 18:23 BP 138/77 11/18/20 18:23 Pulse Ox 97 11/18/20 18:23 - Orders/Labs/Meds Orders: Active Orders 24 hr Category Date Time Status RT Aerosol Therapy [RC] ASDIRECTED Care 11/18/20 18:46 Active Chest 2V [CR] Stat Exams 11/18/20 18:36 Taken Labs: Laboratory Tests 11/18/20 11/18/20 11/18/20 Range/Units 18:49 18:49 18:53 WBC 10.4 (4.5-11.0) K/uL RBC 3.98 (3.30-5.50) M/uL Hgb 11.6 L (12.0-15.0) g/dL Hct 35.8 L (36.0-48.0) % MCV 90 (80-98) fL MCH 29 (27-31) pg MCHC 32 (32-36) % Plt Count 262 (150-400) K/uL Neut % (Auto) 73.5 H (36-66) % Lymph % (Auto) 18.1 L (24-44) % Leslie % (Auto) 6.1 H (2-6) % Eos % (Auto) 2.2 (2-4) % Baso % (Auto) 0.1 (0-1) % Sodium 142 (140-148) mmol/L Potassium 3.8 (3.6-5.2) mmol/L Chloride 100 (100-108) mmol/L Carbon Dioxide 32 (21-32) mmol/L Anion Gap 10.1 (5.0-14.0) mmol/L BUN 13 (7-18) mg/dL Creatinine 1.2 H (0.6-1.0) mg/dL Est Cr Clr Drug Dosing 38.15 mL/min Estimated GFR (MDRD) 45 L (>60) Glucose 96 (74-106) mg/dL Calcium 9.2 (8.5-10.1) mg/dL Total Bilirubin 1.0 (0.2-1.0) mg/dL AST 16 (15-37) U/L ALT 20 (12-78) U/L Alkaline Phosphatase 95 (46-116) U/L NT-Pro-B Natriuret Pep 1824 H (5-125) pg/mL Total Protein 6.9 (6.4-8.2) g/dL Albumin 3.7 (3.4-5.0) g/dL Globulin 3.2 (2.3-3.5) g/dL Albumin/Globulin Ratio 1.2 (1.2-2.2) Urine Color (YELLOW) Urine Appearance (CLEAR) Urine pH (5.0-8.0) Ur Specific [place] (1.008-1.030) Urine Protein (NEGATIVE) mg/dL Urine Glucose (UA) (NEGATIVE) mg/dL Urine Ketones (NEGATIVE) mg/dL Urine Occult Blood (NEGATIVE) Urine Nitrite (NEGATIVE) Urine Bilirubin (NEGATIVE) Urine Urobilinogen (0.2-1.0) EU/dL Ur Leukocyte Esterase (NEGATIVE) Urine RBC (0-5) Urine WBC (0-5) Ur Epithelial Cells Amorphous Sediment Urine Bacteria Urine Mucus 11/18/20 Range/Units 19:05 WBC (4.5-11.0) K/uL RBC (3.30-5.50) M/uL Hgb (12.0-15.0) g/dL Hct (36.0-48.0) % MCV (80-98) fL MCH (27-31) pg MCHC (32-36) % Plt Count (150-400) K/uL Neut % (Auto) (36-66) % Lymph % (Auto) (24-44) % Leslie % (Auto) (2-6) % Eos % (Auto) (2-4) % Baso % (Auto) (0-1) % Sodium (140-148) mmol/L Potassium (3.6-5.2) mmol/L Chloride (100-108) mmol/L Carbon Dioxide (21-32) mmol/L Anion Gap (5.0-14.0) mmol/L BUN (7-18) mg/dL Creatinine (0.6-1.0) mg/dL Est Cr Clr Drug Dosing mL/min Estimated GFR (MDRD) (>60) Glucose (74-106) mg/dL Calcium (8.5-10.1) mg/dL Total Bilirubin (0.2-1.0) mg/dL AST (15-37) U/L ALT (12-78) U/L Alkaline Phosphatase (46-116) U/L NT-Pro-B Natriuret Pep (5-125) pg/mL Total Protein (6.4-8.2) g/dL Albumin (3.4-5.0) g/dL Globulin (2.3-3.5) g/dL Albumin/Globulin Ratio (1.2-2.2) Urine Color Yellow (YELLOW) Urine Appearance Clear (CLEAR) Urine pH 6.5 (5.0-8.0) Ur Specific [place] 1.020 (1.008-1.030) Urine Protein Negative (NEGATIVE) mg/dL Urine Glucose (UA) Negative (NEGATIVE) mg/dL Urine Ketones Negative (NEGATIVE) mg/dL Urine Occult Blood Negative (NEGATIVE) Urine Nitrite Negative (NEGATIVE) Urine Bilirubin Negative (NEGATIVE) Urine Urobilinogen 2.0 H (0.2-1.0) EU/dL Ur Leukocyte Esterase Negative (NEGATIVE) Urine RBC 0-5 (0-5) Urine WBC 0-5 (0-5) Ur Epithelial Cells Many Amorphous Sediment Occasional Urine Bacteria Few Urine Mucus Occasional Meds: Medications Discontinued Medications Generic Name Dose Route Start Last Admin Trade Name Freq PRN Reason Stop Dose Admin Albuterol/Ipratropium 3 ml 11/18/20 18:46 11/18/20 19:09 Albuterol/Ipratropium 3.0-0.5 Mg/3 Ml Neb Soln NEB 11/18/20 18:47 3 ml ONETIME ONE Administration - Re-Assessments/Exams Free Text/Narrative Re-Assessment/Exam: 11/18/20 19:57 pt has stable renal function. She had a chest xray which did not show effusions or marked fluid overload. She had a bnp which [place]oo [place]. I did offer an injection of lasix for a one time unloading of fluid she chose not to do that she will use her bumex at home. She has been out of her duol nebs and her advair for greater than a week. She was given advair here. A perscriptiopn was given to her for 8 advair until hers come in the mail. She will use the duoneb at home qid. I.m sure the weather is not helping the situation Departure - Departure Time of Disposition: 20:03 Disposition: Home, Self-Care 01 Condition: Fair Clinical Impression: Has run out of medications CHF (congestive heart failure) Qualifiers: Heart failure type: diastolic Heart failure chronicity: chronic Qualified Code(s): I50.32 - Chronic diastolic (congestive) heart failure COPD (chronic obstructive pulmonary disease) Qualifiers: COPD type: emphysema - Discharge Information Referrals: Martha Tracy CNM [Primary Care Provider] - Forms: ED Department Discharge Care Plan Goals: fill the advair if piossible, use the duo nebs qid, try to stay where there is air conditioning, continue bumex the same as order. Sepsis Event Note (ED) - Focused Exam Vital Signs: Vital Signs Temp Pulse Resp BP Pulse Ox 11/18/20 18:23 35.6 C L 61 20 138/77 97 11/18/20 18:14 35.6 C L 61 20 138/77 97 - My Orders Last 24 Hours: My Active Orders 11/18/20 18:36 Chest 2V [CR] Stat 11/18/20 18:46 RT Aerosol Therapy [RC] ASDIRECTED - Assessment/Plan Last 24 Hours: My Active Orders 11/18/20 18:36 Chest 2V [CR] Stat 11/18/20 18:46 RT Aerosol Therapy [RC] ASDIRECTED
[2020-11-18 18:15] VITALS: BP 138/77; PULSE 61
[2020-11-18] MEDS ORDERED: Albuterol/Ipratropium 3.0-0.5 MG/3 ML Neb Soln NEB ONE (18:46)
--- NOTE | 2020-11-19 09:40 | CR ---
CHEST: 2 view CLINICAL HISTORY:SOB COMPARISON:July 2020 FINDINGS: Heart size is upper limits of normal. Patient has an aortic valve prosthesis. Pulmonary vascularity is normal. No infiltrates are seen. There are no effusions Impression: No acute cardiopulmonary process
== END 2020-11-18 20:29 | disposition home or self-care (01) ==
LOC: JP.ED 17:55
DX: J43.9 Emphysema, unspecified (principal); I11.0 Hypertensive heart disease with heart failure; I50.32 Chronic diastolic (congestive) heart failure; E78.00 Pure hypercholesterolemia, unspecified; K21.9 Gastro-esophageal reflux disease without esophagitis; M19.90 Unspecified osteoarthritis, unspecified site; D64.9 Anemia, unspecified; E03.9 Hypothyroidism, unspecified; E66.9 Obesity, unspecified; Z68.41 Body mass index [BMI] 40.0-44.9, adult; Z88.8 Allergy status to other drugs, medicaments and biological substances; Z79.82 Long term (current) use of aspirin; Z79.899 Other long term (current) drug therapy
CPT/HCPCS: 36415; 71046; 71046-26; 80053; 81001; 83880; 85025; 94640; 99284-25; J7620-GY

== ENCOUNTER 2021-01-13 14:53 | Emergency (ER) | payer MEDICARE, OTHER ==
[2021-01-13] MEDS ORDERED: Sodium Chloride 0.9% 10 ML Syringe FLUSH PRN (16:41)
--- NOTE | 2021-01-13 16:46 | EDM.PDOC ---
ED HPI GENERAL MEDICAL PROBLEM - General Chief Complaint: Cardiovascular Problem Stated Complaint: SOB Time Seen by Provider: 01/13/21 16:30 Source of Information: Reports: Patient, Old Records History Limitations: Reports: No Limitations - History of Present Illness INITIAL COMMENTS - FREE TEXT/NARRATIVE: 65 yo female with a pHx of anemia, heart valve replacement, CHF, and prior tobacco use presents with worse ZELAYA for the past several days. Texted her provider today who called her and told her just to go to the ER. No fever or cough. No chest pain. Legs less swollen than yesterday. No unilateral calf pain. Onset: Gradual Duration: Day(s):, Getting Worse, Waxing/Waning Location: Reports: Chest Quality: Reports: Other (no pain) Severity: Mild Improves with: Reports: Rest Worsens with: Reports: Movement (exertion) Context: Reports: Other (See HPI) Associated Symptoms: Reports: Shortness of Breath. 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) (none) - Related Data Allergies Allergy/AdvReac Type Severity Reaction Status Date / Time metolazone Allergy Other Verified 07/09/20 13:52 Home Meds: Home Meds Albuterol [Proventil HFA] 1 puff INH Q4H PRN 12/15/15 [History] Albuterol/Ipratropium [DuoNeb 3.0-0.5 MG/3 ML] 3 ml IH Q4H PRN 12/15/15 [History] Aspirin [Children's Aspirin] 81 mg PO QPM 12/15/15 [History] FLUoxetine [PROzac] 20 mg PO DAILY 12/15/15 [History] Ferrous Sulfate 325 mg PO DAILY 12/15/15 [History] Fluticasone/Salmeterol [Advair Diskus 100-50] 1 puff INH BID 12/15/15 [History] Metoprolol Succinate [Toprol XL] 25 mg PO QPM 12/15/15 [History] Multivitamin with Minerals [Multiple Vitamin] 1 tab PO DAILY 12/15/15 [History] Nitroglycerin [Nitrostat] 0.4 mg SL ASDIRECTED 12/15/15 [History] Potassium Chloride 30 meq PO DAILY 12/15/15 [History] O2 1.5 l INH BEDTIME 04/08/18 [History] Bumetanide [Bumex] 4 mg PO BID #120 tablet 10/15/18 [Rx] Levothyroxine 175 mcg PO ACBREAKFAST 11/27/18 [History] Simvastatin [Zocor] 40 mg PO ACDINNER 11/27/18 [History] Omeprazole 20 mg PO ACBREAKFAST 02/06/19 [History] Spironolactone [Aldactone] 25 mg PO BID 07/10/20 [History] Past Medical History HEENT History: Reports: Impaired Vision Cardiovascular History: Reports: Bypass, Heart Failure, High Cholesterol, Hypertension, SOB on Exertion, Other (See Below) Other Cardiovascular History: hx of aortic valve replaced 2012,CHF Respiratory History: Reports: Asthma, COPD, SOB, Other (See Below) Other Respiratory History: home o2 1.5l Gastrointestinal History: Reports: GERD Genitourinary History: Reports: Renal Calculus 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: Musculoskeletal History: Reports: Arthritis Other Musculoskeletal History: arthritis Neurological History: Reports: None Psychiatric History: Reports: Depression Endocrine/Metabolic History: Reports: Hypothyroidism, Obesity/BMI 30+ Hematologic History: Reports: Anemia, Iron Deficiency Immunologic History: Reports: None Oncologic (Cancer) History: Reports: None Dermatologic History: Reports: None - Infectious Disease History Infectious Disease History: Reports: Chicken Pox, Measles, Mumps - Past Surgical History Head Surgeries/Procedures: Reports: None HEENT Surgical History: Reports: None Cardiovascular Surgical History: Reports: Coronary Artery Bypass, Valve Rep lacement Respiratory Surgical History: Reports: None GI Surgical History: Reports: Appendectomy, Cholecystectomy, Colonoscopy Female Surgical History: Reports: None Endocrine Surgical History: Reports: None Neurological Surgical History: Reports: None Musculoskeletal Surgical History: Reports: Arthroscopic Procedure Dermatological Surgical History: Reports: None Social & Family History - Family History Family Medical History: No Pertinent Family History Cardiac: Reports: CAD Respiratory: Reports: Asthma, COPD OBGYN: Reports: Musculoskeletal: Reports: Arthritis Neurological: Reports: Vertigo Psychiatric: Reports: OCD Oncologic: Reports: Brain, Lung - Tobacco Use Tobacco Use Status *Q: Former Tobacco User Used Tobacco, but Quit: Yes Month/Year Tobacco Last Used: 9 years ago - Caffeine Use Caffeine Use: Reports: Coffee, Soda Other Caffeine Use: 1 cup per day Caffeine Use Comment: 3 cups per day - Recreational Drug Use Recreational Drug Use: No - Living Situation & Occupation Living situation: Reports: , with Family (lives in [place], with 39 yr old Daughter, 11 year old Grandson and raising 4 year old Great Grandson) Occupation: Disabled ED ROS GENERAL - Review of Systems Review Of Systems: See Below Constitutional: Reports: No Symptoms HEENT: Reports: No Symptoms Respiratory: Reports: Shortness of Breath Cardiovascular: Reports: Dyspnea on Exertion. Denies: Chest Pain GI/Abdominal: Reports: No Symptoms : Reports: No Symptoms Musculoskeletal: Reports: No Symptoms Skin: Reports: No Symptoms Neurological: Reports: No Symptoms ED EXAM, GENERAL - Physical Exam Exam: See Below Exam Limited By: No Limitations General Appearance: Alert, WD/WN, No Apparent Distress, Obese Eye Exam: Bilateral Eye: Normal Inspection Ears: Normal External Exam, Normal Canal, Hearing Grossly Normal Ear Exam: Bilateral Ear: Auricle Normal, Canal Normal Nose: Normal Inspection, No Blood Throat/Mouth: Normal Inspection, Normal Lips, Normal Oropharynx, Normal Voice, No Airway Compromise Head: Atraumatic, Normocephalic Neck: Normal Inspection Respiratory/Chest: No Respiratory Distress, Lungs Clear, No Accessory Muscle Use, Decreased Breath Sounds. No: Rales, Wheezing Cardiovascular: Regular Rate, Rhythm, No Edema Extremities: Normal Inspection, Normal Range of Motion, Non-Tender, Pedal Edema (trace) Neurological: Alert, Oriented, CN II-XII Intact, Normal Cognition, No Motor/Sensory Deficits Psychiatric: Normal Affect, Normal Mood Skin Exam: Warm, Dry, Intact, Normal Color, No Rash Course - Vital Signs Last Recorded V/S: Last Vital Signs Temp 36.3 C 01/13/21 16:03 Pulse 58 L 01/13/21 17:22 Resp 16 01/13/21 15:28 BP 127/44 L 01/13/21 17:22 Pulse Ox 94 L 01/13/21 17:22 - Orders/Labs/Meds Orders: Active Orders 24 hr Category Date Time Status Cardiac Monitoring [RC] .As Directed Care 01/13/21 16:41 Active RT Aerosol Therapy [RC] ASDIRECTED Care 01/13/21 17:44 Active Chest 2V [CR] Stat Exams 01/13/21 16:45 Taken Sodium Chloride 0.9% [Saline Flush] Med 01/13/21 16:41 Active 10 ml FLUSH ASDIRECTED PRN Saline Lock Insert [OM.PC] Routine Oth 01/13/21 16:41 Ordered Medication Orders Sodium Chloride (Sodium Chloride 0.9% 10 Ml Syringe) 10 ml FLUSH ASDIRECTED PRN PRN Reason: Keep Vein Open Labs: Laboratory Tests 01/13/21 01/13/21 01/13/21 Range/Units 16:47 16:47 16:47 WBC 9.4 (4.5-11.0) K/uL RBC 4.02 (3.30-5.50) M/uL Hgb 11.3 L (12.0-15.0) g/dL Hct 37.0 (36.0-48.0) % MCV 92 (80-98) fL MCH 28 (27-31) pg MCHC 31 L (32-36) % Plt Count 290 (150-400) K/uL D-Dimer, Quantitative 742.24 H (0.0-500.0) ng/mL Sodium 140 (140-148) mmol/L Potassium 3.5 L (3.6-5.2) mmol/L Chloride 100 (100-108) mmol/L Carbon Dioxide 35 H (21-32) mmol/L Anion Gap 8.5 (5.0-14.0) mmol/L BUN 10 (7-18) mg/dL Creatinine 1.2 H (0.6-1.0) mg/dL Est Cr Clr Drug Dosing 38.15 mL/min Estimated GFR (MDRD) 45 L (>60) Glucose 99 (74-106) mg/dL Calcium 8.6 (8.5-10.1) mg/dL Troponin I < 0.017 (0.000-0.056) ng/mL NT-Pro-B Natriuret Pep (5-125) pg/mL 01/13/21 Range/Units 16:47 WBC (4.5-11.0) K/uL RBC (3.30-5.50) M/uL Hgb (12.0-15.0) g/dL Hct (36.0-48.0) % MCV (80-98) fL MCH (27-31) pg MCHC (32-36) % Plt Count (150-400) K/uL D-Dimer, Quantitative (0.0-500.0) ng/mL Sodium (140-148) mmol/L Potassium (3.6-5.2) mmol/L Chloride (100-108) mmol/L Carbon Dioxide (21-32) mmol/L Anion Gap (5.0-14.0) mmol/L BUN (7-18) mg/dL Creatinine (0.6-1.0) mg/dL Est Cr Clr Drug Dosing mL/min Estimated GFR (MDRD) (>60) Glucose (74-106) mg/dL Calcium (8.5-10.1) mg/dL Troponin I (0.000-0.056) ng/mL NT-Pro-B Natriuret Pep 1716 H (5-125) pg/mL Meds: Medications Generic Name Dose Route Start Last Admin Trade Name Freq PRN Reason Stop Dose Admin Sodium Chloride 10 ml 01/13/21 16:41 Sodium Chloride 0.9% 10 Ml Syringe FLUSH ASDIRECTED PRN Keep Vein Open Discontinued Medications Generic Name Dose Route Start Last Admin Trade Name Freq PRN Reason Stop Dose Admin Albuterol/Ipratropium 3 ml 01/13/21 17:43 01/13/21 17:50 Albuterol/Ipratropium 3.0-0.5 Mg/3 Ml Neb Soln NEB 01/13/21 17:44 3 ml ONETIME ONE Administration Potassium Chloride 40 meq 01/13/21 17:58 Potassium Chloride 20 Meq Tab.Er PO 01/13/21 17:59 ONETIME ONE - Radiology Interpretation Free Text/Narrative:: CXR-no interval change since 11/22 - Re-Assessments/Exams Free Text/Narrative Re-Assessment/Exam: 01/13/21 18:18 Some benefit with duone. Does not want furosemide. Departure - Departure Time of Disposition: 18:21 Disposition: Home, Self-Care 01 Condition: Fair Clinical Impression: COPD exacerbation Instructions: Chronic Obstructive Pulmonary Disease, [id number] Referrals: Martha Tracy CNM [Primary Care Provider] - Forms: ED Department Discharge Additional Instructions: Continue your usual medications. F/U with your provider for recheck, call for an appt. Sepsis Event Note (ED) - Evaluation Sepsis Screening Result: No Definite Risk - Focused Exam Vital Signs: Vital Signs Temp Pulse Resp BP Pulse Ox 01/13/21 17:22 58 L 127/44 L 94 L 01/13/21 16:03 36.3 C 67 143/49 H 98 01/13/21 15:28 36.3 C 67 16 143/49 H 98 - My Orders Last 24 Hours: My Active Orders 01/13/21 16:41 Cardiac Monitoring [RC] .As Directed Sodium Chloride 0.9% [Saline Flush] 10 ml FLUSH ASDIRECTED PRN Saline Lock Insert [OM.PC] Routine 01/13/21 16:45 Chest 2V [CR] Stat 01/13/21 17:44 RT Aerosol Therapy [RC] ASDIRECTED - Assessment/Plan Last 24 Hours: My Active Orders 01/13/21 16:41 Cardiac Monitoring [RC] .As Directed Sodium Chloride 0.9% [Saline Flush] 10 ml FLUSH ASDIRECTED PRN Saline Lock Insert [OM.PC] Routine 01/13/21 16:45 Chest 2V [CR] Stat 01/13/21 17:44 RT Aerosol Therapy [RC] ASDIRECTED
[2021-01-13 17:22] VITALS: BP 127/44; PULSE 58
[2021-01-13] MEDS ORDERED: Albuterol/Ipratropium 3.0-0.5 MG/3 ML Neb Soln NEB ONE (17:43)
[2021-01-13] MEDS ORDERED: Potassium Chloride 20 MEQ Tab.ER PO ONE (17:58)
[2021-01-13] MEDS ORDERED: predniSONE 20 MG Tab PO ONE (18:20)
--- NOTE | 2021-01-14 09:04 | CR ---
CHEST: 2 view CLINICAL HISTORY:SOB COMPARISON:11/18/2020 FINDINGS: The heart is borderline enlarged. Patient has had previous aortic valve replacement. Pulmonary vascularity is cephalized. There is some generalized interstitial prominence. There are no effusions. Impression: Vascular cephalization and interstitial infiltrate or edema. This most likely represent some CHF. Diffuse pneumonitis cannot be excluded. Clinical correlation is
== END 2021-01-13 18:32 | disposition home or self-care (01) ==
LOC: JP.ED 14:53
DX: J44.1 Chronic obstructive pulmonary disease with (acute) exacerbation (principal); I11.0 Hypertensive heart disease with heart failure; I50.9 Heart failure, unspecified; E78.00 Pure hypercholesterolemia, unspecified; K21.9 Gastro-esophageal reflux disease without esophagitis; M19.90 Unspecified osteoarthritis, unspecified site; E03.9 Hypothyroidism, unspecified; D64.9 Anemia, unspecified; E66.9 Obesity, unspecified; Z68.41 Body mass index [BMI] 40.0-44.9, adult; Z87.891 Personal history of nicotine dependence; Z95.2 Presence of prosthetic heart valve; Z79.82 Long term (current) use of aspirin; Z79.899 Other long term (current) drug therapy; Z88.8 Allergy status to other drugs, medicaments and biological substances
CPT/HCPCS: 36415; 71046; 80048; 83880; 84484; 85027; 85379; 99285; A9270; J7512; J7620-GY

== ENCOUNTER 2021-04-04 14:12 | Emergency (ER) | payer MEDICARE, OTHER ==
[2021-04-04 14:47] VITALS: BP 137/56; PULSE 68
[2021-04-04 16:02] LABS: CORONAVIRUS COVID-19 NAA NEGATIVE (NEGATIVE)
--- NOTE | 2021-04-04 16:15 | EDM.PDOC ---
ED HPI GENERAL MEDICAL PROBLEM - General Chief Complaint: Respiratory Problem Stated Complaint: SOB Time Seen by Provider: 04/04/21 15:50 Source of Information: Reports: Patient, Old Records, RN History Limitations: Reports: No Limitations - History of Present Illness INITIAL COMMENTS - FREE TEXT/NARRATIVE: 65 yo obese female with a pHx of COPD presents with cough and mild SOB. No fever. Wants a Covid test. Does not smoke any longer. Onset: Gradual Duration: Day(s):, Getting Worse Location: Reports: Chest Quality: Reports: Other (none) Severity: Mild Improves with: Reports: Rest Worsens with: Reports: Movement (exertion causes more SOB) Context: Reports: Other (see HPI) Associated Symptoms: Reports: Cough, Shortness of Breath. 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) (none) - Related Data Allergies Allergy/AdvReac Type Severity Reaction Status Date / Time metolazone Allergy Other Verified 04/04/21 15:04 Home Meds: Home Meds Albuterol [Proventil HFA] 1 puff INH Q4H PRN 12/15/15 [History] Albuterol/Ipratropium [DuoNeb 3.0-0.5 MG/3 ML] 3 ml IH Q4H PRN 12/15/15 [History] Aspirin [Children's Aspirin] 81 mg PO QPM 12/15/15 [History] FLUoxetine [PROzac] 20 mg PO DAILY 12/15/15 [History] Ferrous Sulfate 325 mg PO DAILY 12/15/15 [History] Fluticasone/Salmeterol [Advair Diskus 100-50] 1 puff INH BID 12/15/15 [History] Metoprolol Succinate [Toprol XL] 25 mg PO QPM 12/15/15 [History] Multivitamin with Minerals [Multiple Vitamin] 1 tab PO DAILY 12/15/15 [History] Nitroglycerin [Nitrostat] 0.4 mg SL ASDIRECTED 12/15/15 [History] Potassium Chloride 30 meq PO DAILY 12/15/15 [History] O2 1.5 l INH BEDTIME 04/08/18 [History] Bumetanide [Bumex] 4 mg PO BID #120 tablet 10/15/18 [Rx] Levothyroxine 175 mcg PO ACBREAKFAST 11/27/18 [History] Omeprazole 20 mg PO ACBREAKFAST 02/06/19 [History] Spironolactone [Aldactone] 25 mg PO BID 07/10/20 [History] Past Medical History HEENT History: Reports: Impaired Vision Cardiovascular History: Reports: Bypass, Heart Failure, High Cholesterol, Hypertension, SOB on Exertion, Other (See Below) Other Cardiovascular History: hx of aortic valve replaced 2013,CHF Respiratory History: Reports: Asthma, COPD, SOB, Other (See Below) Other Respiratory History: home o2 1.5l Gastrointestinal History: Reports: GERD Genitourinary History: Reports: Renal Calculus 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: Musculoskeletal History: Reports: Arthritis Other Musculoskeletal History: arthritis Neurological History: Reports: None Psychiatric History: Reports: Depression Endocrine/Metabolic History: Reports: Hypothyroidism, Obesity/BMI 30+ Hematologic History: Reports: Anemia, Iron Deficiency Immunologic History: Reports: None Oncologic (Cancer) History: Reports: None Dermatologic History: Reports: None - Infectious Disease History Infectious Disease History: Reports: Chicken Pox, Measles, Mumps - Past Surgical History Head Surgeries/Procedures: Reports: None HEENT Surgical History: Reports: None Cardiovascular Surgical History: Reports: Coronary Artery Bypass, Valve Replacement Respiratory Surgical History: Reports: None GI Surgical History: Reports: Appendectomy, Cholecystectomy, Colonoscopy Female Surgical History: Reports: None Endocrine Surgical History: Reports: None Neurological Surgical History: Reports: None Musculoskeletal Surgical History: Reports: Arthroscopic Procedure Dermatological Surgical History: Reports: None Social & Family History - Family History Family Medical History: No Pertinent Family History Cardiac: Reports: CAD Respiratory: Reports: Asthma, COPD OBGYN: Reports: Musculoskeletal: Reports: Arthritis Neurological: Reports: Vertigo Psychiatric: Reports: OCD Oncologic: Reports: Brain, Lung - Tobacco Use Tobacco Use Status *Q: Former Tobacco User Used Tobacco, but Quit: Yes Month/Year Tobacco Last Used: 9 years ago - Caffeine Use Caffeine Use: Reports: Coffee, Soda Other Caffeine Use: 1 cup per day Caffeine Use Comment: 3 cups per day - Living Situation & Occupation Living situation: Reports: , with Family (lives in [place], with 39 yr old Daughter, 11 year old Grandson and raising 4 year old Great Grandson) Occupation: Disabled ED ROS GENERAL - Review of Systems Review Of Systems: See Below Constitutional: Reports: No Symptoms. Denies: Fever HEENT: Reports: Other (congestion) Respiratory: Reports: Shortness of Breath, Cough Cardiovascular: Reports: No Symptoms GI/Abdominal: Reports: No Symptoms : Reports: No Symptoms Musculoskeletal: Reports: No Symptoms Skin: Reports: No Symptoms ED EXAM, GENERAL - Physical Exam Exam: See Below Exam Limited By: No Limitations General Appearance: Alert, WD/WN, No Apparent Distress, Obese Eye Exam: Bilateral Eye: Normal Inspection Ears: Normal External Exam, Normal Canal, Hearing Grossly Normal, Normal TMs Ear Exam: Bilateral Ear: Auricle Normal, Canal Normal, TM normal Nose: Normal Inspection, No Blood Throat/Mouth: Normal Inspection, Normal Lips, Normal Oropharynx, Normal Voice, No Airway Compromise Head: Atraumatic, Normocephalic Neck: Normal Inspection Respiratory/Chest: No Respiratory Distress, Decreased Breath Sounds, Rhonchi (rare, scattered) Cardiovascular: Regular Rate, Rhythm, No Edema Back Exam: Normal Inspection Extremities: Normal Inspection Neurological: Alert, Oriented, CN II-XII Intact, Normal Cognition, No Motor/Sensory Deficits Psychiatric: Normal Affect, Normal Mood Skin Exam: Warm, Dry, Intact, Normal Color, No Rash Course - Vital Signs Last Recorded V/S: Last Vital Signs Temp 36.5 C 04/04/21 15:03 Pulse 68 04/04/21 15:03 Resp 18 04/04/21 15:03 BP 137/56 L 04/04/21 15:03 Pulse Ox 97 04/04/21 15:03 - Orders/Labs/Meds Orders: Active Orders 24 hr Category Date Time Status Chest 2V [CR] Stat Exams 04/04/21 16:11 Taken CRP [C-REACTIVE PROTEIN] [CHEM] Stat Lab 04/04/21 16:23 Received Isolation [COMM] Stat Oth 04/04/21 14:56 Ordered Labs: Laboratory Tests 04/04/21 04/04/21 Range/Units 15:18 16:23 WBC 7.3 (4.5-11.0) K/uL RBC 4.34 (3.30-5.50) M/uL Hgb 12.1 (12.0-15.0) g/dL Hct 38.5 (36.0-48.0) % MCV 89 (80-98) fL MCH 28 (27-31) pg MCHC 31 L (32-36) % Plt Count 259 (150-400) K/uL Influenza Type A RNA Negative (NEGATIVE) RSV RNA (INAAT) Negative (NEGATIVE) Influenza Type B RNA Negative (NEGATIVE) SARS-CoV-2 RNA (ROC) Negative (NEGATIVE) - Radiology Interpretation Free Text/Narrative:: CXR-neg Departure - Departure Time of Disposition: 16:50 Disposition: Home, Self-Care 01 Condition: Fair Clinical Impression: Bronchitis - Discharge Information *PRESCRIPTION DRUG MONITORING PROGRAM REVIEWED*: Not Applicable *COPY OF PRESCRIPTION DRUG MONITORING REPORT IN PATIENT SRINI: Not Applicable Instructions: Acute Bronchitis, Adult Referrals: Martha Tracy CNM [Primary Care Provider] - Forms: ED Department Discharge Additional Instructions: Use Prednisone and Robitussin as directed for your breathing. Recheck with your provider next week. Sepsis Event Note (ED) - Evaluation Sepsis Screening Result: No Definite Risk - Focused Exam Vital Signs: Vital Signs Temp Pulse Resp BP Pulse Ox 04/04/21 15:03 36.5 C 68 18 137/56 L 97 04/04/21 14:46 36.5 C 68 18 137/56 L 97 - My Orders Last 24 Hours: My Active Orders 04/04/21 14:56 Isolation [COMM] Stat 04/04/21 16:11 Chest 2V [CR] Stat 04/04/21 16:23 CRP [C-REACTIVE PROTEIN] [CHEM] Stat - Assessment/Plan Last 24 Hours: My Active Orders 04/04/21 14:56 Isolation [COMM] Stat 04/04/21 16:11 Chest 2V [CR] Stat 04/04/21 16:23 CRP [C-REACTIVE PROTEIN] [CHEM] Stat
--- NOTE | 2021-04-06 09:25 | CR ---
CHEST: 2 view CLINICAL HISTORY:SOB, cough, recent pneumonia COMPARISON:01/13/2021 FINDINGS: Heart is enlarged. Patient has an aortic valve prosthesis. Pulmonary vascularity is normal.. No infiltrates are seen. There are no effusions. Impression: No acute cardiopulmonary process Cardiomegaly
== END 2021-04-04 17:26 | disposition home or self-care (01) ==
LOC: JP.ED 14:12
DX: J40 Bronchitis, not specified as acute or chronic (principal); I11.0 Hypertensive heart disease with heart failure; I50.9 Heart failure, unspecified; E78.00 Pure hypercholesterolemia, unspecified; E03.9 Hypothyroidism, unspecified; E66.9 Obesity, unspecified; Z68.44 Body mass index [BMI] 60.0-69.9, adult; Z95.1 Presence of aortocoronary bypass graft; Z88.8 Allergy status to other drugs, medicaments and biological substances; Z79.82 Long term (current) use of aspirin; Z79.899 Other long term (current) drug therapy; Z87.891 Personal history of nicotine dependence; Z20.822 Contact with and (suspected) exposure to COVID-19
CPT/HCPCS: 0241U; 36415; 71046; 85027; 86140; 99283

== ENCOUNTER 2021-08-17 16:53 | Emergency (ER) | payer MEDICARE, OTHER ==
[2021-08-17 18:01] VITALS: BP 138/81; PULSE 65
== END 2021-08-17 19:05 | disposition home or self-care (01) ==
LOC: JP.ED 16:53
DX: J40 Bronchitis, not specified as acute or chronic (principal); I11.0 Hypertensive heart disease with heart failure; I50.9 Heart failure, unspecified; J45.909 Unspecified asthma, uncomplicated; E03.9 Hypothyroidism, unspecified; K21.9 Gastro-esophageal reflux disease without esophagitis; E66.9 Obesity, unspecified; Z68.41 Body mass index [BMI] 40.0-44.9, adult; Z90.49 Acquired absence of other specified parts of digestive tract; Z87.891 Personal history of nicotine dependence; Z79.899 Other long term (current) drug therapy; Z79.82 Long term (current) use of aspirin; Z88.8 Allergy status to other drugs, medicaments and biological substances
CPT/HCPCS: 99282; 99283

== ENCOUNTER 2021-10-30 18:56 | Emergency (ER) | payer MEDICARE, OTHER ==
[2021-10-30] MEDS ORDERED: Sodium Chloride 0.9% 10 ML Syringe FLUSH PRN (18:57)
[2021-10-30 19:45] LABS: ESTIMATED GFR 45 mL/min (>60); TROPONIN I HIGH SENSITIVITY 10.9 pg/mL (<=60.3)
[2021-10-30 20:20] VITALS: BP 102/40; PULSE 62
== END 2021-10-30 20:45 | disposition home or self-care (01) ==
LOC: JP.ED 18:56
DX: R13.19 Other dysphagia (principal); I11.0 Hypertensive heart disease with heart failure; I50.9 Heart failure, unspecified; J44.9 Chronic obstructive pulmonary disease, unspecified; E03.9 Hypothyroidism, unspecified; E66.9 Obesity, unspecified; Z68.41 Body mass index [BMI] 40.0-44.9, adult; Z88.8 Allergy status to other drugs, medicaments and biological substances; Z79.899 Other long term (current) drug therapy; Z20.822 Contact with and (suspected) exposure to COVID-19
CPT/HCPCS: 36415; 80053; 83880; 84484; 85025; 86140; 93005; 99285; J3490; U0002; 93010; 99282

== ENCOUNTER 2021-11-03 07:25 | Day surgery (SDC) | payer MEDICARE, OTHER ==
[2021-11-03] MEDS ORDERED: Lactated Ringers 1,000 ML IV SCH ×2 (08:00→09:00)
[2021-11-03] MEDS ORDERED: Propofol 200 MG/20 ML SDV ONE (09:45)
[2021-11-03] MEDS ORDERED: Ampicillin/Sulbactam Na 1.5 GM in Sodium Chloride 0.9% 50 ML IV ONE (10:30)
[2021-11-03] MEDS ORDERED: fentaNYL 100 MCG/2 ML SDV ONE (10:32)
[2021-11-03] MEDS ORDERED: Pantoprazole 40 MG Vial IVPUSH ONE (11:45)
[2021-11-03 12:32] VITALS: BP 123/56; PULSE 63
== END 2021-11-03 12:48 | disposition home or self-care (01) ==
LOC: JP.SDS 07:25
PROVIDERS: ATTEND Surgery
DX: K22.2 Esophageal obstruction (principal); K29.70 Gastritis, unspecified, without bleeding; K22.10 Ulcer of esophagus without bleeding; T18.128A Food in esophagus causing other injury, initial encounter; I11.0 Hypertensive heart disease with heart failure; I50.30 Unspecified diastolic (congestive) heart failure; J96.90 Respiratory failure, unspecified, unspecified whether with hypoxia or hypercapnia; J44.9 Chronic obstructive pulmonary disease, unspecified; K21.9 Gastro-esophageal reflux disease without esophagitis; I25.10 Atherosclerotic heart disease of native coronary artery without angina pectoris; E66.9 Obesity, unspecified; Z79.810 Long term (current) use of selective estrogen receptor modulators (SERMs); Z79.891 Long term (current) use of opiate analgesic; Z79.899 Other long term (current) drug therapy; Z88.9 Allergy status to unspecified drugs, medicaments and biological substances; Z68.41 Body mass index [BMI] 40.0-44.9, adult
CPT/HCPCS: 36415; 43239; 43247; 43249; 80048; 83735; 83880; 84100; 87081; C9113; J0295; J2704; J3010; J7120

== ENCOUNTER 2021-11-24 06:29 | Day surgery (SDC) | payer MEDICARE, OTHER ==
[2021-11-24] MEDS ORDERED: Propofol 200 MG/20 ML SDV ONE (07:06)
[2021-11-24] MEDS ORDERED: fentaNYL 100 MCG/2 ML SDV ONE (07:06)
[2021-11-24] MEDS ORDERED: Midazolam 1 MG/ML 2 ML SDV ONE (07:06)
[2021-11-24] MEDS ORDERED: Dextrose 5%-Lactated Ringers 1,000 ML IV SCH (07:30)
[2021-11-24] MEDS ORDERED: Albuterol/Ipratropium 3.0-0.5 MG/3 ML Neb Soln NEB ONE (07:45)
[2021-11-24 09:22] VITALS: PULSE 57
[2021-11-24 09:50] VITALS: BP 122/45
== END 2021-11-24 09:53 | disposition home or self-care (01) ==
LOC: JP.SDS 06:29
PROVIDERS: ATTEND Surgery
DX: K22.10 Ulcer of esophagus without bleeding (principal); K21.00 Gastro-esophageal reflux disease with esophagitis, without bleeding; K44.9 Diaphragmatic hernia without obstruction or gangrene; K22.89 Other specified disease of esophagus; I11.0 Hypertensive heart disease with heart failure; I50.9 Heart failure, unspecified; J44.9 Chronic obstructive pulmonary disease, unspecified; E78.00 Pure hypercholesterolemia, unspecified; I25.10 Atherosclerotic heart disease of native coronary artery without angina pectoris; I35.1 Nonrheumatic aortic (valve) insufficiency; Z79.810 Long term (current) use of selective estrogen receptor modulators (SERMs); Z79.899 Other long term (current) drug therapy; Z79.83 Long term (current) use of bisphosphonates; Z88.8 Allergy status to other drugs, medicaments and biological substances
CPT/HCPCS: 43239; 88305; 88312; 94640; J2250; J2704; J3010; J7121; J7620

== ENCOUNTER 2021-11-28 14:53 | Emergency (ER) | payer MEDICARE, OTHER ==
[2021-11-28 15:44] VITALS: BP 137/51; PULSE 67
== END 2021-11-28 17:54 | disposition home or self-care (01) ==
LOC: JP.ED 14:53
DX: S86.911A Strain of unspecified muscle(s) and tendon(s) at lower leg level, right leg, initial encounter (principal); E78.00 Pure hypercholesterolemia, unspecified; I11.0 Hypertensive heart disease with heart failure; I50.9 Heart failure, unspecified; E03.9 Hypothyroidism, unspecified; J44.9 Chronic obstructive pulmonary disease, unspecified; M19.90 Unspecified osteoarthritis, unspecified site; K21.9 Gastro-esophageal reflux disease without esophagitis; E66.9 Obesity, unspecified; Z68.30 Body mass index [BMI] 30.0-30.9, adult; Z88.8 Allergy status to other drugs, medicaments and biological substances; Z79.82 Long term (current) use of aspirin; Z79.899 Other long term (current) drug therapy; Z95.1 Presence of aortocoronary bypass graft; Z87.891 Personal history of nicotine dependence
CPT/HCPCS: 93971-RT; 99283

== ENCOUNTER 2022-05-26 15:07 | Inpatient (IN) | payer MEDICARE, OTHER ==
[2022-05-26 17:08] LABS: ESTIMATED GFR 50 mL/min (>60)
[2022-05-26] MEDS ORDERED: Bumetanide 1 MG/4 ML MDV IVPUSH ONE (17:53)
[2022-05-26 18:14] LABS: CORONAVIRUS COVID-19 NAA NEGATIVE (NEGATIVE)
[2022-05-26 18:17] LABS: TROPONIN I HIGH SENSITIVITY 9.8 pg/mL (<=60.3)
[2022-05-26] MEDS ORDERED: Sodium Chloride 0.9% 10 ML Syringe FLUSH ONE (18:22)
[2022-05-26] MEDS ORDERED: Iopamidol 612 MG/ML 100 ML Bottle IV ONE (18:22)
[2022-05-26] MEDS ORDERED: Sodium Chloride 0.9% 50 ML IV ONE (18:22)
[2022-05-26] MEDS ORDERED: Ondansetron 4 MG/2 ML SDV IV PRN (20:26)
[2022-05-26] MEDS ORDERED: Magnesium Hydroxide 400 MG/5 ML Susp 30 ML Cup PO PRN (20:26)
[2022-05-26] MEDS ORDERED: Ondansetron 4 MG Tab.DIS PO PRN (20:26)
[2022-05-26] MEDS ORDERED: Meropenem 1 GM in Sodium Chloride 0.9% 100 ML IV SCH (20:26)
[2022-05-26] MEDS ORDERED: oxyCODONE 5 MG Tab PO PRN (20:26)
[2022-05-26] MEDS ORDERED: Albuterol 0.083% 2.5 MG/3 ML Neb Soln ONE (20:27)
[2022-05-26] MEDS ORDERED: Nystatin Topical Powder 15 GM Bottle TOP SCH (21:00)
[2022-05-26] MEDS: Albuterol 0.083% 2.5 MG/3 ML Neb Soln NEB PRN (21:47)
[2022-05-26] MEDS: Lactobacillus Rhamnosus GG (Probiotic) Cap PO SCH (21:48)
[2022-05-26] MEDS: Meropenem 500 MG in Sodium Chloride 0.9% 50 ML IV SCH (21:49)
[2022-05-26] MEDS: Rosuvastatin 10 MG Tab PO SCH (21:58)
[2022-05-27] MEDS: Albuterol 0.083% 2.5 MG/3 ML Neb Soln NEB PRN ×2 (01:23→05:59)
[2022-05-27] MEDS: Meropenem 500 MG in Sodium Chloride 0.9% 50 ML IV SCH (04:35)
[2022-05-27] MEDS ORDERED: Bumetanide 2.5 MG/10 ML MDV IVPUSH ONE (09:00)
[2022-05-27] MEDS ORDERED: Tiotropium Bromide 4 GM Inhalation Spray (2.5mcg/1 dose; 10 doses) INH SCH (09:00)
[2022-05-27] MEDS: Tiotropium Bromide 4 GM Inhalation Spray (2.5mcg/1 dose; 10 doses) INH SCH (09:01)
[2022-05-27] MEDS: Formoterol/Mometasone 100-5 MCG 8.8 GM Inhaler IH SCH ×4 (09:01→20:52)
[2022-05-27] MEDS: Albuterol/Ipratropium 3.0-0.5 MG/3 ML Neb Soln NEB SCH ×3 (10:21→20:46)
[2022-05-27] MEDS: Nystatin Topical Powder 15 GM Bottle TOP SCH ×3 (10:25→20:50)
[2022-05-27] MEDS: Levothyroxine 50 MCG Tab PO SCH (12:40)
[2022-05-27] MEDS: FLUoxetine 20 MG Cap PO SCH (12:40)
[2022-05-27] MEDS: Pantoprazole 40 MG Tab.CR PO SCH (12:40)
[2022-05-27] MEDS: Lactobacillus Rhamnosus GG (Probiotic) Cap PO SCH ×2 (12:40→20:51)
[2022-05-27] MEDS: Levothyroxine 25 MCG Tab PO SCH (12:40)
[2022-05-27] MEDS: Levothyroxine 100 MCG Tab PO SCH (12:40)
[2022-05-27] MEDS: Meropenem 1 GM in Sodium Chloride 0.9% 100 ML IV SCH (12:41)
[2022-05-27] MEDS: Acetaminophen 325 MG Tab PO PRN (15:27)
[2022-05-27] MEDS: Aspirin 81 MG Tab.EC PO SCH (17:41)
[2022-05-27] MEDS: Rosuvastatin 10 MG Tab PO SCH (20:51)
[2022-05-27] MEDS: Bumetanide 2.5 MG/10 ML MDV IVPUSH SCH (20:52)
[2022-05-27] MEDS: Melatonin 3 MG Tab PO PRN (21:58)
[2022-05-28] MEDS: Meropenem 1 GM in Sodium Chloride 0.9% 100 ML IV SCH ×2 (01:32→12:23)
[2022-05-28] MEDS: Albuterol 0.083% 2.5 MG/3 ML Neb Soln NEB PRN ×2 (04:52→19:34)
[2022-05-28] MEDS: Formoterol/Mometasone 100-5 MCG 8.8 GM Inhaler IH SCH ×2 (07:05→21:09)
[2022-05-28] MEDS: Tiotropium Bromide 4 GM Inhalation Spray (2.5mcg/1 dose; 10 doses) INH SCH (07:05)
[2022-05-28] MEDS: Albuterol/Ipratropium 3.0-0.5 MG/3 ML Neb Soln NEB SCH ×4 (07:05→21:09)
[2022-05-28] MEDS: Levothyroxine 25 MCG Tab PO SCH (07:21)
[2022-05-28] MEDS: Pantoprazole 40 MG Tab.CR PO SCH (07:21)
[2022-05-28] MEDS: Levothyroxine 50 MCG Tab PO SCH (07:22)
[2022-05-28] MEDS: Levothyroxine 100 MCG Tab PO SCH (07:22)
[2022-05-28] MEDS ORDERED: Potassium Chloride 20 MEQ Tab.ER PO ONE ×2 (08:30→17:00)
[2022-05-28] MEDS: Lactobacillus Rhamnosus GG (Probiotic) Cap PO SCH ×2 (09:12→21:09)
[2022-05-28] MEDS: Nystatin Topical Powder 15 GM Bottle TOP SCH ×3 (09:12→21:10)
[2022-05-28] MEDS: FLUoxetine 20 MG Cap PO SCH (09:13)
[2022-05-28] MEDS: Bumetanide 2.5 MG/10 ML MDV IVPUSH SCH ×2 (09:14→21:08)
[2022-05-28] MEDS: Aspirin 81 MG Tab.EC PO SCH (16:09)
[2022-05-28] MEDS: Rosuvastatin 10 MG Tab PO SCH (21:09)
[2022-05-28] MEDS: Melatonin 3 MG Tab PO PRN (21:31)
[2022-05-29] MEDS: Meropenem 1 GM in Sodium Chloride 0.9% 100 ML IV SCH ×2 (00:57→13:03)
[2022-05-29] MEDS: Albuterol 0.083% 2.5 MG/3 ML Neb Soln NEB PRN ×3 (01:00→09:18)
[2022-05-29] MEDS: Formoterol/Mometasone 100-5 MCG 8.8 GM Inhaler IH SCH ×2 (07:30→21:11)
[2022-05-29] MEDS: Tiotropium Bromide 4 GM Inhalation Spray (2.5mcg/1 dose; 10 doses) INH SCH (07:31)
[2022-05-29] MEDS: Albuterol/Ipratropium 3.0-0.5 MG/3 ML Neb Soln NEB SCH ×5 (07:31→21:11)
[2022-05-29] MEDS: Levothyroxine 100 MCG Tab PO SCH (07:41)
[2022-05-29] MEDS: Levothyroxine 25 MCG Tab PO SCH (07:41)
[2022-05-29] MEDS: Levothyroxine 50 MCG Tab PO SCH (07:42)
[2022-05-29] MEDS: Pantoprazole 40 MG Tab.CR PO SCH (07:42)
[2022-05-29] MEDS: Nystatin Topical Powder 15 GM Bottle TOP SCH ×3 (08:22→21:11)
[2022-05-29] MEDS: Lactobacillus Rhamnosus GG (Probiotic) Cap PO SCH ×2 (08:22→21:11)
[2022-05-29] MEDS: FLUoxetine 20 MG Cap PO SCH (08:22)
[2022-05-29] MEDS: Bumetanide 2.5 MG/10 ML MDV IVPUSH SCH ×2 (08:29→21:10)
[2022-05-29] MEDS: Aspirin 81 MG Tab.EC PO SCH (16:51)
[2022-05-29] MEDS: Doxycycline 100 MG Cap PO SCH (21:11)
[2022-05-29] MEDS: Rosuvastatin 10 MG Tab PO SCH (21:11)
[2022-05-29] MEDS: Melatonin 3 MG Tab PO PRN (21:13)
[2022-05-30] MEDS: Albuterol 0.083% 2.5 MG/3 ML Neb Soln NEB PRN (00:51)
[2022-05-30] MEDS: Albuterol/Ipratropium 3.0-0.5 MG/3 ML Neb Soln NEB SCH ×4 (07:13→21:00)
[2022-05-30] MEDS: Tiotropium Bromide 4 GM Inhalation Spray (2.5mcg/1 dose; 10 doses) INH SCH (07:13)
[2022-05-30] MEDS: Formoterol/Mometasone 100-5 MCG 8.8 GM Inhaler IH SCH ×2 (07:13→21:00)
[2022-05-30] MEDS: Lactobacillus Rhamnosus GG (Probiotic) Cap PO SCH ×2 (08:38→20:58)
[2022-05-30] MEDS: Levothyroxine 100 MCG Tab PO SCH (08:38)
[2022-05-30] MEDS: Levothyroxine 50 MCG Tab PO SCH (08:38)
[2022-05-30] MEDS: Doxycycline 100 MG Cap PO SCH ×2 (08:39→20:58)
[2022-05-30] MEDS: Levothyroxine 25 MCG Tab PO SCH (08:39)
[2022-05-30] MEDS: FLUoxetine 20 MG Cap PO SCH (08:39)
[2022-05-30] MEDS: Bumetanide 2.5 MG/10 ML MDV IVPUSH SCH ×2 (08:40→21:00)
[2022-05-30] MEDS: Pantoprazole 40 MG Tab.CR PO SCH (08:40)
[2022-05-30] MEDS ORDERED: Potassium Chloride 20 MEQ Tab.ER PO ONE (09:00)
[2022-05-30] MEDS: Nystatin Topical Powder 15 GM Bottle TOP SCH ×3 (09:40→20:58)
[2022-05-30] MEDS: Enoxaparin 40 MG/0.4 ML Syringe SUBCUT SCH (15:16)
[2022-05-30] MEDS: Aspirin 81 MG Tab.EC PO SCH (17:28)
[2022-05-30] MEDS: Rosuvastatin 10 MG Tab PO SCH (20:58)
[2022-05-30] MEDS: Melatonin 3 MG Tab PO PRN (20:59)
[2022-05-30] MEDS: Metoprolol Succinate 25 MG Tab.ER PO SCH (21:00)
[2022-05-30] MEDS: Acetaminophen 325 MG Tab PO PRN (21:35)
[2022-05-31] MEDS: Albuterol 0.083% 2.5 MG/3 ML Neb Soln NEB PRN (01:01)
[2022-05-31] MEDS: Albuterol/Ipratropium 3.0-0.5 MG/3 ML Neb Soln NEB SCH ×4 (07:01→21:04)
[2022-05-31] MEDS: Formoterol/Mometasone 100-5 MCG 8.8 GM Inhaler IH SCH ×2 (07:01→20:03)
[2022-05-31] MEDS: Tiotropium Bromide 4 GM Inhalation Spray (2.5mcg/1 dose; 10 doses) INH SCH (07:01)
[2022-05-31] MEDS: Levothyroxine 50 MCG Tab PO SCH (08:10)
[2022-05-31] MEDS: Levothyroxine 25 MCG Tab PO SCH (08:10)
[2022-05-31] MEDS: Nystatin Topical Powder 15 GM Bottle TOP SCH ×3 (08:10→20:04)
[2022-05-31] MEDS: Levothyroxine 100 MCG Tab PO SCH (08:10)
[2022-05-31] MEDS: Pantoprazole 40 MG Tab.CR PO SCH (08:10)
[2022-05-31] MEDS: FLUoxetine 20 MG Cap PO SCH (08:10)
[2022-05-31] MEDS: Lactobacillus Rhamnosus GG (Probiotic) Cap PO SCH ×2 (08:10→20:03)
[2022-05-31] MEDS: Doxycycline 100 MG Cap PO SCH ×2 (08:11→20:11)
[2022-05-31] MEDS: Bumetanide 2.5 MG/10 ML MDV IVPUSH SCH ×2 (08:12→15:28)
[2022-05-31] MEDS: Enoxaparin 40 MG/0.4 ML Syringe SUBCUT SCH (14:43)
[2022-05-31] MEDS: Aspirin 81 MG Tab.EC PO SCH (16:16)
[2022-05-31] MEDS: Rosuvastatin 10 MG Tab PO SCH (20:02)
[2022-05-31] MEDS: Metoprolol Succinate 25 MG Tab.ER PO SCH (20:04)
[2022-05-31] MEDS: Melatonin 3 MG Tab PO PRN (21:07)
[2022-06-01] MEDS: Albuterol 0.083% 2.5 MG/3 ML Neb Soln NEB PRN (02:34)
[2022-06-01] MEDS: Bumetanide 2.5 MG/10 ML MDV IVPUSH SCH (06:39)
[2022-06-01] MEDS: Formoterol/Mometasone 100-5 MCG 8.8 GM Inhaler IH SCH (06:58)
[2022-06-01] MEDS: Albuterol/Ipratropium 3.0-0.5 MG/3 ML Neb Soln NEB SCH ×2 (06:58→11:01)
[2022-06-01] MEDS: Tiotropium Bromide 4 GM Inhalation Spray (2.5mcg/1 dose; 10 doses) INH SCH (06:58)
[2022-06-01] MEDS: Pantoprazole 40 MG Tab.CR PO SCH (07:28)
[2022-06-01] MEDS: Levothyroxine 100 MCG Tab PO SCH (07:28)
[2022-06-01] MEDS: Levothyroxine 25 MCG Tab PO SCH (07:28)
[2022-06-01] MEDS: Levothyroxine 50 MCG Tab PO SCH (07:28)
[2022-06-01 07:30] VITALS: BP 119/68
[2022-06-01] MEDS: Nystatin Topical Powder 15 GM Bottle TOP SCH (09:18)
[2022-06-01] MEDS: FLUoxetine 20 MG Cap PO SCH (09:18)
[2022-06-01] MEDS: Lactobacillus Rhamnosus GG (Probiotic) Cap PO SCH (09:18)
[2022-06-01] MEDS: Doxycycline 100 MG Cap PO SCH (09:22)
[2022-06-01] MEDS ORDERED: Potassium Chloride 20 MEQ Tab.ER PO ONE (10:00)
[2022-06-01 11:02] VITALS: PULSE 72
== END 2022-06-01 14:33 | disposition home or self-care (01) | DRG 862 ==
LOC: JP.ED 15:07 → JP.MS 19:25
PROVIDERS: ADMIT Internal Medicine; ATTEND Hospitalist
DX: I11.0 Hypertensive heart disease with heart failure (principal); T81.49XA Infection following a procedure, other surgical site, initial encounter; I50.33 Acute on chronic diastolic (congestive) heart failure; L03.116 Cellulitis of left lower limb; R21 Rash and other nonspecific skin eruption; I13.0 Hypertensive heart and chronic kidney disease with heart failure and stage 1 through stage 4 chronic kidney disease, or unspecified chronic kidney disease; J44.9 Chronic obstructive pulmonary disease, unspecified; J43.9 Emphysema, unspecified; B37.2 Candidiasis of skin and nail; E66.9 Obesity, unspecified; N18.31 Chronic kidney disease, stage 3a; H54.7 Unspecified visual loss; Z20.822 Contact with and (suspected) exposure to COVID-19; E78.00 Pure hypercholesterolemia, unspecified; Z95.1 Presence of aortocoronary bypass graft; K21.9 Gastro-esophageal reflux disease without esophagitis; Y83.8 Other surgical procedures as the cause of abnormal reaction of the patient, or of later complication, without mention of misadventure at the time of the procedure; M19.90 Unspecified osteoarthritis, unspecified site; F41.0 Panic disorder [episodic paroxysmal anxiety]; F32.A Depression, unspecified; E03.9 Hypothyroidism, unspecified; Z90.49 Acquired absence of other specified parts of digestive tract; D64.9 Anemia, unspecified; Z79.01 Long term (current) use of anticoagulants; Z95.2 Presence of prosthetic heart valve; Z79.82 Long term (current) use of aspirin; Z79.899 Other long term (current) drug therapy; Z88.8 Allergy status to other drugs, medicaments and biological substances; Z87.891 Personal history of nicotine dependence
CPT/HCPCS: 0241U; 36415; 73701; 76881; 80048; 80053; 82728; 83550; 83605; 83735; 84145; 84484; 85018; 85025; 85027; 85610; 86140; 87040; 93926; 94640; 96365; 96375; 97110; 97162; 97530; 99285; 99222; 99232; 99238; A9270-GY; J1650; J2185; J3370; J3490; J7050; J7620; Q9967

== ENCOUNTER 2022-11-16 12:42 | Inpatient (IN) | payer MEDICARE, OTHER ==
[2022-11-16] MEDS ORDERED: Bumetanide 2.5 MG/10 ML MDV IVPUSH ONE (14:12)
[2022-11-16 15:02] LABS: TROPONIN I HIGH SENSITIVITY 9.2 pg/mL (<=60.3)
[2022-11-16] MEDS ORDERED: Sennosides/Docusate Sodium 50-8.6 MG Tab PO PRN (17:45)
[2022-11-16] MEDS ORDERED: Ondansetron 4 MG/2 ML SDV IV PRN (17:45)
[2022-11-16] MEDS ORDERED: Acetaminophen 325 MG Tab PO PRN (17:45)
[2022-11-16] MEDS ORDERED: Sodium Chloride 0.9% 10 ML Syringe FLUSH PRN (17:45)
[2022-11-16] MEDS ORDERED: Albuterol 0.083% 2.5 MG/3 ML Neb Soln NEB PRN (17:45)
[2022-11-16] MEDS ORDERED: Bumetanide 2.5 MG/10 ML MDV IVPUSH SCH (19:00)
[2022-11-16] MEDS: Spironolactone 25 MG Tab PO SCH (20:13)
[2022-11-16] MEDS: Rosuvastatin 10 MG Tab PO SCH (20:14)
[2022-11-16] MEDS: Metoprolol Succinate 25 MG Tab.ER PO SCH (20:14)
[2022-11-16] MEDS ORDERED: Formoterol/Mometasone 100-5 MCG 8.8 GM Inhaler IH SCH (21:00)
[2022-11-16] MEDS ORDERED: Potassium Chloride 10 MEQ Cap.ER PO SCH (21:00)
[2022-11-16] MEDS ORDERED: Potassium Chloride 10% 20 MEQ/15 ML Soln 15 ML UD Cup PO SCH (21:00)
[2022-11-16] MEDS ORDERED: Enoxaparin 40 MG/0.4 ML Syringe SUBCUT SCH (21:00)
[2022-11-16] MEDS: Aspirin 81 MG Tab.Chew PO SCH (21:14)
[2022-11-16] MEDS ORDERED: Nystatin Topical Powder 15 GM Bottle TOP PRN (21:48)
[2022-11-17 04:48] LABS: HEMATOCRIT 30.3 % (34.3-46.0); HEMOGLOBIN 9.5 g/dL (11.2-15.5); MEAN CORPUSCULAR HEMOGLOBIN 27.2 pg (31.6-35.5); MEAN CORPUSCULAR HGB CONC 31.4 g/dL (31.6-35.5); MEAN CORPUSCULAR VOLUME 86.8 fL (81.4-99.0); RED BLOOD CELL COUNT 3.49 M/uL (3.77-5.24); WHITE BLOOD CELL COUNT,WBC 8.3 K/uL (3.2-11.0)
[2022-11-17 05:01] LABS: EST CRCL DRUG DOSING (CG) 44.52 mL/min; MAGNESIUM 2.2 mg/dL (1.8-2.4); POTASSIUM,K 3.5 mmol/L (3.6-5.2)
[2022-11-17 05:16] LABS: ANION GAP 8.5 mmol/L (5.0-14.0)
[2022-11-17] MEDS ORDERED: Tiotropium Bromide 4 GM Inhalation Spray (2.5mcg/1 dose; 10 doses) INH SCH (07:00)
[2022-11-17] MEDS ORDERED: Non-Formulary Medication 1 Each (Levothyroxine [Levothyroxine] 150 MCG Tablet) PO SCH (07:30)
[2022-11-17] MEDS: Albuterol/Ipratropium 3.0-0.5 MG/3 ML Neb Soln NEB SCH (07:30)
[2022-11-17] MEDS: Formoterol/Mometasone 100-5 MCG 8.8 GM Inhaler IH SCH ×3 (07:30→20:31)
[2022-11-17] MEDS ORDERED: Potassium Chloride 20 MEQ Tab.ER PO ONE (08:00)
[2022-11-17] MEDS: FLUoxetine 20 MG Cap PO SCH (08:04)
[2022-11-17] MEDS: Levothyroxine 100 MCG Tab PO SCH (08:04)
[2022-11-17] MEDS: Levothyroxine 25 MCG Tab PO SCH (08:04)
[2022-11-17] MEDS: Multivitamins with Iron/Calcium/Folic Acid/Minerals Tab PO SCH (08:04)
[2022-11-17] MEDS: Ferrous Sulfate 325 MG Tab PO SCH (08:05)
[2022-11-17] MEDS: Pantoprazole 40 MG Tab.CR PO SCH (08:05)
[2022-11-17] MEDS: Spironolactone 25 MG Tab PO SCH ×3 (08:05→20:30)
[2022-11-17] MEDS: Potassium Chloride 20 MEQ Tab.ER PO SCH (08:05)
[2022-11-17] MEDS: Bumetanide 2.5 MG/10 ML MDV IVPUSH SCH ×2 (08:20→19:29)
[2022-11-17] MEDS: Potassium Chloride 10 MEQ Cap.ER PO SCH (16:54)
[2022-11-17] MEDS: Aspirin 81 MG Tab.Chew PO SCH (16:54)
[2022-11-17] MEDS: Rosuvastatin 10 MG Tab PO SCH ×2 (19:29→20:30)
[2022-11-17] MEDS: Enoxaparin 40 MG/0.4 ML Syringe SUBCUT SCH ×2 (19:30→20:31)
[2022-11-17] MEDS: Metoprolol Succinate 25 MG Tab.ER PO SCH (20:32)
[2022-11-18 05:31] LABS: CALCIUM 9.2 mg/dL (8.5-10.1); CREATININE 1.2 mg/dL (0.6-1.0); EST CRCL DRUG DOSING (CG) 37.1 mL/min
[2022-11-18] MEDS: Albuterol/Ipratropium 3.0-0.5 MG/3 ML Neb Soln NEB SCH (07:26)
[2022-11-18] MEDS: Formoterol/Mometasone 100-5 MCG 8.8 GM Inhaler IH SCH ×2 (07:26→20:05)
[2022-11-18] MEDS: Tiotropium Bromide 4 GM Inhalation Spray (2.5mcg/1 dose; 10 doses) INH SCH (07:26)
[2022-11-18] MEDS: Levothyroxine 25 MCG Tab PO SCH (07:42)
[2022-11-18] MEDS: Potassium Chloride 20 MEQ Tab.ER PO SCH (07:42)
[2022-11-18] MEDS: Levothyroxine 100 MCG Tab PO SCH (07:42)
[2022-11-18] MEDS: Bumetanide 2.5 MG/10 ML MDV IVPUSH SCH (07:42)
[2022-11-18] MEDS: Pantoprazole 40 MG Tab.CR PO SCH (07:42)
[2022-11-18] MEDS: FLUoxetine 20 MG Cap PO SCH (08:38)
[2022-11-18] MEDS: Ferrous Sulfate 325 MG Tab PO SCH (08:38)
[2022-11-18] MEDS: Multivitamins with Iron/Calcium/Folic Acid/Minerals Tab PO SCH (08:38)
[2022-11-18] MEDS: Spironolactone 25 MG Tab PO SCH ×2 (08:39→20:04)
[2022-11-18] MEDS: Aspirin 81 MG Tab.Chew PO SCH (17:03)
[2022-11-18] MEDS: Potassium Chloride 10 MEQ Cap.ER PO SCH (17:03)
[2022-11-18] MEDS: Rosuvastatin 10 MG Tab PO SCH (20:03)
[2022-11-18] MEDS: Enoxaparin 40 MG/0.4 ML Syringe SUBCUT SCH (20:04)
[2022-11-18] MEDS: Metoprolol Succinate 25 MG Tab.ER PO SCH (20:04)
[2022-11-19 05:21] VITALS: PULSE 60
[2022-11-19 05:22] VITALS: BP 103/38
[2022-11-19 06:04] LABS: ANION GAP 8.1 mmol/L (5.0-14.0); CALCIUM 9.2 mg/dL (8.5-10.1); CREATININE 1.3 mg/dL (0.6-1.0); EST CRCL DRUG DOSING (CG) 34.25 mL/min; POTASSIUM,K 4.1 mmol/L (3.6-5.2)
[2022-11-19] MEDS: Tiotropium Bromide 4 GM Inhalation Spray (2.5mcg/1 dose; 10 doses) INH SCH (07:19)
[2022-11-19] MEDS: Formoterol/Mometasone 100-5 MCG 8.8 GM Inhaler IH SCH (07:19)
[2022-11-19] MEDS: Albuterol/Ipratropium 3.0-0.5 MG/3 ML Neb Soln NEB SCH (07:19)
[2022-11-19] MEDS: Potassium Chloride 20 MEQ Tab.ER PO SCH (07:35)
[2022-11-19] MEDS: Levothyroxine 100 MCG Tab PO SCH (07:36)
[2022-11-19] MEDS: Levothyroxine 25 MCG Tab PO SCH (07:36)
[2022-11-19] MEDS: Pantoprazole 40 MG Tab.CR PO SCH (07:37)
[2022-11-19] MEDS ORDERED: Bumetanide 2.5 MG/10 ML MDV IVPUSH ONE (08:15)
[2022-11-19] MEDS: Ferrous Sulfate 325 MG Tab PO SCH (09:16)
[2022-11-19] MEDS: Multivitamins with Iron/Calcium/Folic Acid/Minerals Tab PO SCH (09:16)
[2022-11-19] MEDS: FLUoxetine 20 MG Cap PO SCH (09:16)
[2022-11-19] MEDS: Spironolactone 25 MG Tab PO SCH (09:16)
== END 2022-11-19 13:28 | disposition home or self-care (01) | DRG 291 ==
LOC: JP.ED 12:42 → JP.MS 15:53
PROVIDERS: ADMIT Hospitalist; ATTEND Hospitalist
DX: I13.0 Hypertensive heart and chronic kidney disease with heart failure and stage 1 through stage 4 chronic kidney disease, or unspecified chronic kidney disease (principal); I50.33 Acute on chronic diastolic (congestive) heart failure; N18.31 Chronic kidney disease, stage 3a; I11.0 Hypertensive heart disease with heart failure; J44.9 Chronic obstructive pulmonary disease, unspecified; M19.90 Unspecified osteoarthritis, unspecified site; F32.A Depression, unspecified; E03.9 Hypothyroidism, unspecified; E78.00 Pure hypercholesterolemia, unspecified; Z66 Do not resuscitate; Z20.822 Contact with and (suspected) exposure to COVID-19; R09.02 Hypoxemia; J43.9 Emphysema, unspecified; Z68.38 Body mass index [BMI] 38.0-38.9, adult; Z88.8 Allergy status to other drugs, medicaments and biological substances; K21.9 Gastro-esophageal reflux disease without esophagitis; E66.9 Obesity, unspecified; Z79.2 Long term (current) use of antibiotics; Z99.81 Dependence on supplemental oxygen; Z95.2 Presence of prosthetic heart valve; Z87.442 Personal history of urinary calculi; Z98.890 Other specified postprocedural states; Z90.49 Acquired absence of other specified parts of digestive tract; Z79.82 Long term (current) use of aspirin; Z79.899 Other long term (current) drug therapy; Z95.1 Presence of aortocoronary bypass graft; Z87.891 Personal history of nicotine dependence
CPT/HCPCS: 36415; 83880; 84484; 96374; 99284; 99285; J3490; 80048; 83735; 85027; 94640; 97116-GP; 97162-GP; 97530-GP; 99222; 99232; 99238; A9270-GY; J1650; J7620; U0002

== ENCOUNTER 2022-12-23 11:56 | Emergency (ER) | payer MEDICARE, OTHER ==
[2022-12-23 12:22] VITALS: BP 112/56; PULSE 65
== END 2022-12-23 13:44 | disposition home or self-care (01) ==
LOC: JP.ED 11:56
DX: I13.0 Hypertensive heart and chronic kidney disease with heart failure and stage 1 through stage 4 chronic kidney disease, or unspecified chronic kidney disease (principal); N18.30 Chronic kidney disease, stage 3 unspecified; I50.9 Heart failure, unspecified; K21.9 Gastro-esophageal reflux disease without esophagitis; E66.9 Obesity, unspecified; J45.909 Unspecified asthma, uncomplicated; I25.10 Atherosclerotic heart disease of native coronary artery without angina pectoris; I35.0 Nonrheumatic aortic (valve) stenosis; J44.9 Chronic obstructive pulmonary disease, unspecified; Z88.8 Allergy status to other drugs, medicaments and biological substances; Z79.82 Long term (current) use of aspirin
CPT/HCPCS: 93005; 93010; 99284

== ENCOUNTER 2023-06-18 12:41 | Inpatient (IN) | payer MEDICARE, OTHER ==
[2023-06-18 13:40] LABS: BASOPHILS ABSOLUTE AUTO 0.03 K/uL (0.00-0.10); BASOPHILS PERCENT AUTO 0.3 % (0.1-1.3); EOSINOPHILS ABSOLUTE AUTO 0.18 K/uL (0.00-0.40); EOSINOPHILS PERCENT AUTO 1.5 % (0.0-5.4); HEMATOCRIT 33.5 % (34.3-46.0); HEMOGLOBIN 10.7 g/dL (11.2-15.5); IMMATURE GRAN ABSOLUTE AUTO 0.07 K/uL (0.00-0.23); IMMATURE GRAN PERCENT AUTO 0.6 % (0.0-0.7); LYMPHOCYTES ABSOLUTE AUTO 1.19 K/uL (0.8-3.3); LYMPHOCYTES PERCENT AUTO 10.1 % (11.4-47.7); MEAN CORPUSCULAR HEMOGLOBIN 27.5 pg (31.6-35.5); MEAN CORPUSCULAR HGB CONC 31.9 g/dL (31.6-35.5); MEAN CORPUSCULAR VOLUME 86.1 fL (81.4-99.0); MONOCYTES ABSOLUTE AUTO 0.76 K/uL (0.20-0.90); MONOCYTES PERCENT AUTO 6.5 % (3.3-12.6); NEUTROPHILS ABSOLUTE AUTO 9.53 K/uL (1.0-7.6); PLATELET COUNT,PLT 320 K/uL (130-375); RED BLOOD CELL COUNT 3.89 M/uL (3.77-5.24); WHITE BLOOD CELL COUNT,WBC 11.8 K/uL (3.2-11.0)
[2023-06-18 13:41] LABS: BASE EXCESS VENOUS 5.9 mm/L; METHEMOGLOBIN 0.8 %; O2 SATURATION VENOUS 33.2; OXYHEMOGLOBIN 32.3 %; PCO2 VENOUS 49.3 mm/Hg; PH,VENOUS 7.414 (7.350-7.450); TOTAL HEMOGLOBIN 11.2 g/dL (12.0-16.0)
[2023-06-18 13:43] LABS: PO2 VENOUS 21.8 mm/Hg
[2023-06-18 13:58] LABS: INR 1.1; PROTHROMBIN TIME 11.3 sec (9.2-10.6)
[2023-06-18 14:11] LABS: A/G RATIO 0.7 (1.2-2.2); ALANINE AMINOTRANSFERASE,ALT 47 U/L (12-78); ALBUMIN 3.3 g/dL (3.4-5.0); ALKALINE PHOSPHATASE 109 U/L (46-116); ASPARTATE AMNIOTRANSFERASE,AST 33 U/L (15-37); BILIRUBIN TOTAL 0.9 mg/dL (0.2-1.0); BLOOD UREA NITROGEN,BUN 13 mg/dL (7-18); CALCIUM 9.5 mg/dL (8.5-10.1); CARBON DIOXIDE,CO2 31 mmol/L (21-32); CHLORIDE,CL 98 mmol/L (100-108); CREATININE 1.3 mg/dL (0.6-1.0); EST CRCL DRUG DOSING (CG) 32.76 mL/min; ESTIMATED GFR 45 mL/min (>60); GLUCOSE RANDOM 106 mg/dL (74-106); POTASSIUM,K 3.6 mmol/L (3.6-5.2); PRO B-TYPE NATRIUR PEPT,BNPPRO 1519 pg/mL (5-125); PROTEIN TOTAL,TP 7.9 g/dL (6.4-8.2); SODIUM,NA 136 mmol/L (140-148); TROPONIN I HIGH SENSITIVITY 7.1 pg/mL (<=60.3)
[2023-06-18 14:12] LABS: ANION GAP 10.6 mmol/L (5.0-14.0)
[2023-06-18] MEDS: Sodium Chloride 0.9% 1,000 ML IV ONE (14:54)
[2023-06-18 16:19] LABS: APPEARANCE,URINE CLOUDY (CLEAR); BILIRUBIN,URINE NEGATIVE (NEGATIVE); COLOR,URINE YELLOW (YELLOW); GLUCOSE,URINE 500 mg/dL (NEGATIVE); KETONES,URINE NEGATIVE (NEGATIVE); LEUKOCYTE ESTERASE,URINE SMALL (NEGATIVE); NITRITE,URINE NEGATIVE (NEGATIVE); OCCULT BLOOD,URINE TRACE-INTACT (NEGATIVE); PH,URINE 5.5 (5.0-8.0); PROTEIN,URINE TRACE mg/dL (NEGATIVE)
[2023-06-18 16:27] LABS: WBC,URINE 30-40 (0-5)
[2023-06-18 16:28] LABS: AMORPHOUS SEDIMENT,URINE FEW; BACTERIA,URINE MODERATE; EPITHELIAL CELLS,URINE MANY; MUCUS,URINE FEW
[2023-06-18] MEDS: Sodium Chloride 0.9% 10 ML Syringe FLUSH PRN (16:34)
[2023-06-18] MEDS: Sodium Chloride 0.9% 100 ML IV SCH (16:34)
[2023-06-18] MEDS: Iopamidol 755 Mg/ML 100 ML Bottle IV SCH (16:34)
[2023-06-18] MEDS: cefTRIAXone 1 GM in Sodium Chloride 0.9% 50 ML IV ONE (19:26)
[2023-06-18] MEDS ORDERED: oxyCODONE 5 MG Tab PO PRN (19:51)
[2023-06-18] MEDS ORDERED: Morphine 2 MG/ML SYRINGE IVPUSH PRN (19:51)
[2023-06-18] MEDS ORDERED: Naloxone 0.4 MG/ML SDV IVPUSH PRN (19:51)
[2023-06-18] MEDS ORDERED: Ondansetron 4 MG Tab.DIS PO PRN (19:51)
[2023-06-18] MEDS ORDERED: Albuterol/Ipratropium 3.0-0.5 MG/3 ML Neb Soln NEB PRN (19:51)
[2023-06-18] MEDS ORDERED: Albuterol 0.083% 2.5 MG/3 ML Neb Soln NEB PRN (19:51)
[2023-06-18] MEDS ORDERED: Sodium Chloride 0.9% 10 ML Syringe FLUSH PRN (19:51)
[2023-06-18] MEDS ORDERED: guaiFENesin/Dextromethorphan 100-10 MG/5 ML Soln 10 ML Cup PO PRN (19:57)
[2023-06-18] MEDS ORDERED: Codeine/guaiFENesin 10-100 MG/5 ML Syrup 5 ML Cup PO PRN (19:57)
[2023-06-18] MEDS ORDERED: Melatonin 3 MG Tab PO PRN (19:59)
[2023-06-18] MEDS ORDERED: Nitroglycerin 0.4 MG Tab.SL SL PRN (20:00)
[2023-06-18] MEDS ORDERED: Enoxaparin 30 MG/0.3 ML Syringe SUBCUT SCH (20:00)
[2023-06-18] MEDS: methylPREDNISolone Sodium Succinate 40 MG/1 ML SDV IVPUSH SCH (20:34)
[2023-06-18] MEDS: Azithromycin 500 MG in Sodium Chloride 0.9% 250 ML IV SCH (20:40)
[2023-06-18] MEDS: Enoxaparin 40 MG/0.4 ML Syringe SUBCUT SCH (20:47)
[2023-06-18] MEDS ORDERED: OXYGEN INH SCH (21:00)
[2023-06-18] MEDS: Rosuvastatin 10 MG Tab PO SCH (21:57)
[2023-06-18] MEDS: Metoprolol Succinate 25 MG Tab.ER PO SCH (22:04)
[2023-06-18] MEDS: Bumetanide 1 MG Tab PO SCH (22:07)
[2023-06-18] MEDS: Spironolactone 25 MG Tab PO SCH (22:07)
[2023-06-19 05:14] LABS: BASOPHILS PERCENT AUTO 0.2 % (0.1-1.3); EOSINOPHILS PERCENT AUTO 0.1 % (0.0-5.4); IMMATURE GRAN ABSOLUTE AUTO 0.09 K/uL (0.00-0.23); IMMATURE GRAN PERCENT AUTO 0.7 % (0.0-0.7); LYMPHOCYTES ABSOLUTE AUTO 0.74 K/uL (0.8-3.3); MEAN CORPUSCULAR HEMOGLOBIN 27.6 pg (31.6-35.5); MEAN CORPUSCULAR HGB CONC 33.3 g/dL (31.6-35.5); MEAN CORPUSCULAR VOLUME 82.9 fL (81.4-99.0); MONOCYTES ABSOLUTE AUTO 0.07 K/uL (0.20-0.90); MONOCYTES PERCENT AUTO 0.6 % (3.3-12.6); NEUTROPHILS ABSOLUTE AUTO 11.31 K/uL (1.0-7.6); NEUTROPHILS PERCENT AUTO 92.4 % (40.0-78.1); PLATELET COUNT,PLT 235 K/uL (130-375); RED BLOOD CELL COUNT 3.98 M/uL (3.77-5.24); WHITE BLOOD CELL COUNT,WBC 12.2 K/uL (3.2-11.0)
[2023-06-19 05:32] LABS: BASOPHILS ABSOLUTE AUTO 0.02 K/uL (0.00-0.10); EOSINOPHILS ABSOLUTE AUTO 0.01 K/uL (0.00-0.40)
[2023-06-19 05:44] LABS: CALCIUM 9.3 mg/dL (8.5-10.1); CREATININE 1.1 mg/dL (0.6-1.0); EST CRCL DRUG DOSING (CG) 38.71 mL/min; POTASSIUM,K 4.3 mmol/L (3.6-5.2)
[2023-06-19 05:45] LABS: ANION GAP 17.3 mmol/L (5.0-14.0)
[2023-06-19] MEDS ORDERED: Non-Formulary Medication 1 Each (Levothyroxine [Levothyroxine] 150 MCG Tablet) PO SCH (07:30)
[2023-06-19] MEDS: Levothyroxine 100 MCG Tab PO SCH (07:33)
[2023-06-19] MEDS: Pantoprazole 40 MG Delayed-Release Granules 1 Packet PO SCH (07:33)
[2023-06-19] MEDS: Levothyroxine 25 MCG Tab PO SCH (08:21)
[2023-06-19] MEDS: Multivitamins with Iron/Calcium/Folic Acid/Minerals Tab PO SCH (09:39)
[2023-06-19] MEDS: Ferrous Sulfate 325 MG Tab PO SCH (09:39)
[2023-06-19] MEDS: FLUoxetine 20 MG Cap PO SCH (09:40)
[2023-06-19] MEDS: Potassium Chloride 10 MEQ Cap.ER PO SCH ×2 (09:40→16:39)
[2023-06-19] MEDS: Aspirin 81 MG Tab.EC PO SCH (16:38)
[2023-06-19] MEDS: DAPAGLIFLOZIN 10 MG PO SCH (16:39)
[2023-06-19] MEDS: cefTRIAXone 1 GM in Sodium Chloride 0.9% 50 ML IV SCH (20:29)
[2023-06-20 05:43] LABS: HEMATOCRIT 31.7 % (34.3-46.0); HEMOGLOBIN 10.3 g/dL (11.2-15.5); MEAN CORPUSCULAR HEMOGLOBIN 27.8 pg (31.6-35.5); MEAN CORPUSCULAR HGB CONC 32.5 g/dL (31.6-35.5); MEAN CORPUSCULAR VOLUME 85.4 fL (81.4-99.0); RED BLOOD CELL COUNT 3.71 M/uL (3.77-5.24); WHITE BLOOD CELL COUNT,WBC 19.6 K/uL (3.2-11.0)
[2023-06-20 06:00] LABS: CALCIUM 9.3 mg/dL (8.5-10.1); CREATININE 1.2 mg/dL (0.6-1.0); EST CRCL DRUG DOSING (CG) 35.49 mL/min; MAGNESIUM 2.2 mg/dL (1.8-2.4); POTASSIUM,K 3.4 mmol/L (3.6-5.2)
[2023-06-20 06:04] LABS: ANION GAP 12.4 mmol/L (5.0-14.0)
[2023-06-20] MEDS: predniSONE 20 MG Tab PO SCH (09:02)
[2023-06-20] MEDS: Potassium Chloride 20 MEQ Tab.ER PO ONE (09:07)
[2023-06-20] MEDS: Albuterol/Ipratropium 3.0-0.5 MG/3 ML Neb Soln NEB SCH (14:40)
[2023-06-20] MEDS: Azithromycin 250 MG Tab PO SCH (20:48)
[2023-06-21 04:45] LABS: BASOPHILS ABSOLUTE AUTO 0.06 K/uL (0.00-0.10); BASOPHILS PERCENT AUTO 0.3 % (0.1-1.3); EOSINOPHILS ABSOLUTE AUTO 0.06 K/uL (0.00-0.40); EOSINOPHILS PERCENT AUTO 0.3 % (0.0-5.4); HEMATOCRIT 33.7 % (34.3-46.0); HEMOGLOBIN 10.7 g/dL (11.2-15.5); IMMATURE GRAN ABSOLUTE AUTO 0.38 K/uL (0.00-0.23); IMMATURE GRAN PERCENT AUTO 2.1 % (0.0-0.7); LYMPHOCYTES ABSOLUTE AUTO 1.85 K/uL (0.8-3.3); LYMPHOCYTES PERCENT AUTO 10.5 % (11.4-47.7); MEAN CORPUSCULAR HEMOGLOBIN 27.4 pg (31.6-35.5); MEAN CORPUSCULAR HGB CONC 31.8 g/dL (31.6-35.5); MEAN CORPUSCULAR VOLUME 86.4 fL (81.4-99.0); MONOCYTES ABSOLUTE AUTO 1.04 K/uL (0.20-0.90); MONOCYTES PERCENT AUTO 5.9 % (3.3-12.6); NEUTROPHILS ABSOLUTE AUTO 14.29 K/uL (1.0-7.6); NEUTROPHILS PERCENT AUTO 80.9 % (40.0-78.1); PLATELET COUNT,PLT 324 K/uL (130-375); WHITE BLOOD CELL COUNT,WBC 17.7 K/uL (3.2-11.0)
[2023-06-21 04:57] LABS: CALCIUM 9.7 mg/dL (8.5-10.1); CREATININE 1.4 mg/dL (0.6-1.0); EST CRCL DRUG DOSING (CG) 30.15 mL/min; POTASSIUM,K 4.2 mmol/L (3.6-5.2)
[2023-06-21 05:16] LABS: ANION GAP 11.2 mmol/L (5.0-14.0)
[2023-06-21] MEDS: Pantoprazole 40 MG Tab.CR PO SCH (08:06)
[2023-06-21] MEDS: Acetaminophen 325 MG Tab PO PRN (18:45)
[2023-06-21] MEDS: Cefdinir 300 MG Cap PO SCH (20:00)
[2023-06-22 05:45] LABS: HEMATOCRIT 36.6 % (34.3-46.0); HEMOGLOBIN 11.6 g/dL (11.2-15.5); MEAN CORPUSCULAR HEMOGLOBIN 27.6 pg (31.6-35.5); MEAN CORPUSCULAR HGB CONC 31.7 g/dL (31.6-35.5); MEAN CORPUSCULAR VOLUME 86.9 fL (81.4-99.0); RED BLOOD CELL COUNT 4.21 M/uL (3.77-5.24); WHITE BLOOD CELL COUNT,WBC 12.4 K/uL (3.2-11.0)
[2023-06-22 05:50] VITALS: BP 127/43; PULSE 55
[2023-06-22 06:00] LABS: CALCIUM 9.7 mg/dL (8.5-10.1); CREATININE 1.5 mg/dL (0.6-1.0); EST CRCL DRUG DOSING (CG) 28.39 mL/min; POTASSIUM,K 3.8 mmol/L (3.6-5.2)
[2023-06-22 06:24] LABS: ANION GAP 10.8 mmol/L (5.0-14.0)
== END 2023-06-22 11:17 | disposition home or self-care (01) | DRG 193 ==
LOC: JP.ED 12:41 → JP.MS 19:49
PROVIDERS: ADMIT Hospitalist; ATTEND Internal Medicine
DX: J18.9 Pneumonia, unspecified organism (principal); J96.21 Acute and chronic respiratory failure with hypoxia; I11.0 Hypertensive heart disease with heart failure; I50.9 Heart failure, unspecified; E78.00 Pure hypercholesterolemia, unspecified; J44.9 Chronic obstructive pulmonary disease, unspecified; I50.32 Chronic diastolic (congestive) heart failure; J44.0 Chronic obstructive pulmonary disease with (acute) lower respiratory infection; I13.0 Hypertensive heart and chronic kidney disease with heart failure and stage 1 through stage 4 chronic kidney disease, or unspecified chronic kidney disease; Z95.1 Presence of aortocoronary bypass graft; N18.30 Chronic kidney disease, stage 3 unspecified; E03.9 Hypothyroidism, unspecified; Z88.1 Allergy status to other antibiotic agents; K21.9 Gastro-esophageal reflux disease without esophagitis; M19.90 Unspecified osteoarthritis, unspecified site; E66.9 Obesity, unspecified; D50.9 Iron deficiency anemia, unspecified; I25.10 Atherosclerotic heart disease of native coronary artery without angina pectoris; I27.81 Cor pulmonale (chronic); E05.90 Thyrotoxicosis, unspecified without thyrotoxic crisis or storm; F32.9 Major depressive disorder, single episode, unspecified; Z95.2 Presence of prosthetic heart valve; Z88.8 Allergy status to other drugs, medicaments and biological substances; Z90.89 Acquired absence of other organs; Z95.5 Presence of coronary angioplasty implant and graft; Z79.82 Long term (current) use of aspirin; Z87.891 Personal history of nicotine dependence; Z79.890 Hormone replacement therapy; Z79.899 Other long term (current) drug therapy; Z68.39 Body mass index [BMI] 39.0-39.9, adult; Z90.49 Acquired absence of other specified parts of digestive tract
CPT/HCPCS: 36415; 71275; 80048; 80053; 81001; 82803; 83605; 83735; 83880; 84145; 84484; 85025; 85027; 85379; 85610; 87040; 87086; 93005; 93010; 94640; 94667; 94668; 96361; 96365; 97110-GP; 97161-GP; 97530-GP; 99222; 99232; 99238; 99285; 99285-25; A9270-GY; J0456; J0696; J1650; J2920; J3490; J7030; J7050; J7512; J7620; Q9967

== ENCOUNTER 2023-07-04 10:27 | Emergency (ER) | payer MEDICARE, OTHER ==
[2023-07-04 10:31] VITALS: BP 125/45; PULSE 79
== END 2023-07-04 12:47 | disposition home or self-care (01) ==
LOC: JP.ED 10:27
DX: S01.81XA Laceration without foreign body of other part of head, initial encounter (principal); S80.02XA Contusion of left knee, initial encounter; S01.412A Laceration without foreign body of left cheek and temporomandibular area, initial encounter; I25.10 Atherosclerotic heart disease of native coronary artery without angina pectoris; J44.9 Chronic obstructive pulmonary disease, unspecified; I11.0 Hypertensive heart disease with heart failure; I50.9 Heart failure, unspecified; K21.9 Gastro-esophageal reflux disease without esophagitis; E03.9 Hypothyroidism, unspecified; Z79.51 Long term (current) use of inhaled steroids; Z79.899 Other long term (current) drug therapy; Z95.1 Presence of aortocoronary bypass graft; Z79.82 Long term (current) use of aspirin; Z90.49 Acquired absence of other specified parts of digestive tract; W01.198A Fall on same level from slipping, tripping and stumbling with subsequent striking against other object, initial encounter; Y92.511 Restaurant or cafe as the place of occurrence of the external cause
CPT/HCPCS: 73560-26-LT; 73560-LT; 99282; 99284

== ENCOUNTER 2023-07-05 10:11 | Emergency (ER) | payer MEDICARE, OTHER ==
[2023-07-05 10:28] VITALS: BP 138/63; PULSE 69
== END 2023-07-05 13:55 | disposition home or self-care (01) ==
LOC: JP.ED 10:11
DX: S82.002A Unspecified fracture of left patella, initial encounter for closed fracture (principal); S92.901A Unspecified fracture of right foot, initial encounter for closed fracture; I11.0 Hypertensive heart disease with heart failure; I50.9 Heart failure, unspecified; J44.89 Other specified chronic obstructive pulmonary disease; E78.00 Pure hypercholesterolemia, unspecified; K21.9 Gastro-esophageal reflux disease without esophagitis; E03.9 Hypothyroidism, unspecified; E66.9 Obesity, unspecified; Z68.38 Body mass index [BMI] 38.0-38.9, adult; Z90.49 Acquired absence of other specified parts of digestive tract; Z88.8 Allergy status to other drugs, medicaments and biological substances; Z79.82 Long term (current) use of aspirin; Z79.51 Long term (current) use of inhaled steroids; Z79.899 Other long term (current) drug therapy; Z95.1 Presence of aortocoronary bypass graft; W01.198A Fall on same level from slipping, tripping and stumbling with subsequent striking against other object, initial encounter; Y92.511 Restaurant or cafe as the place of occurrence of the external cause
CPT/HCPCS: 73620-26-RT; 73620-RT; 99284

== ENCOUNTER 2024-08-10 13:51 | Emergency (ER) | payer MEDICARE, OTHER ==
[2024-08-10] MEDS: Diphtheria,Pertussis(Acell),Tetanus Vaccine 0.5 ML Syringe IM ONE (14:39)
[2024-08-10 16:05] VITALS: BP 125/48; PULSE 62
== END 2024-08-10 16:34 | disposition home or self-care (01) ==
LOC: JP.ED 13:51
DX: S51.011A Laceration without foreign body of right elbow, initial encounter (principal); I10 Essential (primary) hypertension; E03.9 Hypothyroidism, unspecified; E66.9 Obesity, unspecified; Z79.82 Long term (current) use of aspirin; J45.909 Unspecified asthma, uncomplicated; M19.90 Unspecified osteoarthritis, unspecified site; Z88.8 Allergy status to other drugs, medicaments and biological substances; Z79.899 Other long term (current) drug therapy; Z79.890 Hormone replacement therapy; Z68.34 Body mass index [BMI] 34.0-34.9, adult; Z90.49 Acquired absence of other specified parts of digestive tract; W19.XXXA Unspecified fall, initial encounter
CPT/HCPCS: 72100; 72100-26; 73030-26-RT; 73030-RT; 73080-26-RT; 73080-RT; 73562-26-RT; 73562-RT; 90471; 90715; 99283-25

== ENCOUNTER 2024-09-29 11:36 | Emergency (ER) | payer MEDICARE, OTHER ==
[2024-09-29 13:40] LABS: BASOPHILS ABSOLUTE AUTO 0.03 K/uL (0.00-0.10); BASOPHILS PERCENT AUTO 0.3 % (0.1-1.3); EOSINOPHILS ABSOLUTE AUTO 0.25 K/uL (0.00-0.40); EOSINOPHILS PERCENT AUTO 2.2 % (0.0-5.4); HEMATOCRIT 34.7 % (34.3-46.0); HEMOGLOBIN 11.3 g/dL (11.2-15.5); IMMATURE GRAN ABSOLUTE AUTO 0.05 K/uL (0.00-0.23); IMMATURE GRAN PERCENT AUTO 0.4 % (0.0-0.7); LYMPHOCYTES ABSOLUTE AUTO 1.61 K/uL (0.8-3.3); LYMPHOCYTES PERCENT AUTO 14.4 % (11.4-47.7); MEAN CORPUSCULAR HGB CONC 32.6 g/dL (31.6-35.5); MEAN CORPUSCULAR VOLUME 89.2 fL (81.4-99.0); MONOCYTES ABSOLUTE AUTO 0.74 K/uL (0.20-0.90); MONOCYTES PERCENT AUTO 6.6 % (3.3-12.6); NEUTROPHILS ABSOLUTE AUTO 8.53 K/uL (1.0-7.6); NEUTROPHILS PERCENT AUTO 76.1 % (40.0-78.1); PLATELET COUNT,PLT 244 K/uL (130-375); RED BLOOD CELL COUNT 3.89 M/uL (3.77-5.24); WHITE BLOOD CELL COUNT,WBC 11.2 K/uL (3.2-11.0)
[2024-09-29 14:12] LABS: A/G RATIO 0.9 (1.2-2.2); ALANINE AMINOTRANSFERASE,ALT 25 U/L (12-78); ALBUMIN 3.3 g/dL (3.4-5.0); ALKALINE PHOSPHATASE 76 U/L (46-116); ANION GAP 8.8 mmol/L (5.0-14.0); ASPARTATE AMNIOTRANSFERASE,AST 20 U/L (15-37); BILIRUBIN TOTAL 1.2 mg/dL (0.2-1.0); BLOOD UREA NITROGEN,BUN 16 mg/dL (7-18); CALCIUM 9.2 mg/dL (8.5-10.1); CARBON DIOXIDE,CO2 31 mmol/L (21-32); CHLORIDE,CL 100 mmol/L (100-108); CREATININE 1.4 mg/dL (0.6-1.0); EST CRCL DRUG DOSING (CG) 31.37 mL/min; ESTIMATED GFR 41 mL/min (>60); GLUCOSE RANDOM 103 mg/dL (74-106); POTASSIUM,K 3.8 mmol/L (3.6-5.2); PROTEIN TOTAL,TP 6.8 g/dL (6.4-8.2); SODIUM,NA 140 mmol/L (140-148); TROPONIN I HIGH SENSITIVITY 10.1 pg/mL (<=60.3)
[2024-09-29 14:13] LABS: APPEARANCE,URINE TURBID (CLEAR); BILIRUBIN,URINE SMALL (NEGATIVE); COLOR,URINE RED (YELLOW); GLUCOSE,URINE 500 mg/dL (NEGATIVE); KETONES,URINE NEGATIVE (NEGATIVE); LEUKOCYTE ESTERASE,URINE TRACE (NEGATIVE); NITRITE,URINE NEGATIVE (NEGATIVE); OCCULT BLOOD,URINE LARGE (NEGATIVE); PH,URINE 5.5 (5.0-8.0); PROTEIN,URINE >=300 mg/dL (NEGATIVE); UROBILINOGEN,URINE 0.2 EU/dL (0.2-1.0)
[2024-09-29 14:15] LABS: AMORPHOUS SEDIMENT,URINE NOT SEEN; BACTERIA,URINE FEW; MUCUS,URINE NOT SEEN; RBC,URINE >100 (0-5); WBC,URINE 20-30 (0-5)
[2024-09-29 14:17] LABS: EPITHELIAL CELLS,URINE FEW
[2024-09-29] MEDS: Iopamidol 612 MG/ML 100 ML Bottle IV SCH (15:39)
[2024-09-29] MEDS: Sodium Chloride 0.9% 80 ML IV SCH (15:39)
[2024-09-29 17:27] VITALS: BP 142/53; PULSE 67
== END 2024-09-29 17:35 | disposition home or self-care (01) ==
LOC: JP.ED 11:36
DX: N39.0 Urinary tract infection, site not specified (principal); I11.0 Hypertensive heart disease with heart failure; I50.9 Heart failure, unspecified; E78.00 Pure hypercholesterolemia, unspecified; E66.9 Obesity, unspecified; E03.9 Hypothyroidism, unspecified; M19.90 Unspecified osteoarthritis, unspecified site; J44.89 Other specified chronic obstructive pulmonary disease; Z88.8 Allergy status to other drugs, medicaments and biological substances; Z79.51 Long term (current) use of inhaled steroids; Z79.899 Other long term (current) drug therapy; Z79.02 Long term (current) use of antithrombotics/antiplatelets; Z79.890 Hormone replacement therapy; Z90.49 Acquired absence of other specified parts of digestive tract; Z87.891 Personal history of nicotine dependence; Z68.38 Body mass index [BMI] 38.0-38.9, adult
CPT/HCPCS: 36415; 71045; 74177; 80053; 81001; 83605; 84484; 85025; 93005; 93010; 99284; 99285; Q9967